=== PATIENT | male | born 1940 | race Two or more races ===

== ENCOUNTER 2025-01-03 02:33 | Inpatient (IN) | payer OTHER, MEDICAID ==
[~2025-01-03] VITALS: Ht 152.4 cm; Wt 59.0 kg
--- NOTE | 2025-01-03 03:20 | ED.PDOC ---
History of Present Illness HPI Comments 84-year-old male who came to ER via EMS due to generalized weakness. Patient is bed-bound and has history of hypertension and diabetes, was noted by family members earlier today that patient appears to be more weak and fatigued than usual. Unable to move around even at bed. 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 Allergies: Coded Allergies: NO KNOWN ALLERGIES (Unverified , 01/03/25) Information Source: Patient, Emergency Med Personnel Mode of Arrival: Ambulatory Severity: Moderate Timing: Hours Duration: Since onset Prehospital treatment: Accucheck Past Medical History PAST MEDICAL HISTORY: DM, HTN Surgical History: BKA (Right) Family History Family History: Reviewed,noncontributory to illness Social History Smoker: Non-Smoker Alcohol: Denies ETOH Use Drugs: Denies Drug Use Lives In: Home Constitutional: reports: fatigue, weakness; denies: chills, diaphoresis, fever, malaise, sweats, others EENTM: denies: blurred vision, double vision, ear bleeding, ear discharge, ear drainage, ear pain, ear ringing, eye pain, eye redness, hearing loss, mouth pain, mouth swelling, nasal discharge, nose bleeding, nose congestion, nose pain, photophobia, tearing, throat pain, throat swelling, voice changes, others Respiratory: denies: cough, hemoptysis, orthopnea, SOB at rest, shortness of breath, SOB with excertion, stridor, wheezing, others Cardiovascular: denies: chest pain, dizzy spells, diaphoresis, Dyspnea on e xertion, edema, irregular heart beat, left arm pain, lightheadedness, palpitations, PND, syncope, others Gastrointestinal: denies: abdomen distended, abdominal pain, blood streaked bowels, constipated, diarrhea, dysphagia, difficulty swallowing, hematemesis, melena, nausea, poor appetite, poor fluid intake, rectal bleeding, rectal pain, vomiting, others Genitourinary: denies: burning, dysuria, flank pain, frequency, hematuria, incontinence, penile discharge, penile sore, pain, testicle pain, testicle swelling, urgency, others Neurological: denies: dizziness, fainting, headache, left sided numbness, left sided weakness, numbness, paresthesia, pre-existing deficit, right sided numbness, right sided weakness, seizure, speech problems, tingling, tremors, weakness, others Musculoskeletal: denies: back pain, gout, joint pain, joint swelling, muscle pain, muscle stiffness, neck pain, others Integumetry: denies: bruises, change in color, change in hair/nails, dryness, laceration, lesions, lumps, rash, wounds, others Allergic/Immunocompromised: denies: Difficulty Healing, Frequent Infections, Hives, Itching, others Hematologic/Lymphatic: denies: anemia, blood clots, easy bleeding, easy bruising, swollen glands, others Endocrine: denies: excessive hunger, excessive sweating, excessive thirst, excessive urination, flushing, intolerance to cold, intolerance to heat, unexplained weight gain, unexplained weight loss, others Psychiatric: denies: anxiety, bipolar disorder, depression, hopeless, panic disorder, schizophrenia, sleepless, suicidal, others Physical Exam General Appearance: No Apparent Distress, Normal HEENT: Normal ENT Inspection, Pharynx Normal, TMs Normal Neck: Full Range of Motion, Non-Tender, Normal, Normal Inspection Respiratory: Chest Non-Tender, Lungs Clear, No Accessory Muscle Use, No Respiratory Distress, Normal Breath Sounds Cardiovascular: No Edema, No JVD, No Murmur, No Gallop, Normal Peripheral Pulses, Regular Rate/Rhythm Breast Exam: Deferred Gastrointestinal: No Organomegaly, Non Tender, No Pulsatile Mass, Normal Bowel Sounds, Soft Genitalia: Deferred Pelvic: Deferred Rectal: Deferred Extremities: No calf tenderness, Normal capillary refill, Normal inspection, Normal range of motion, Non-tender, No pedal edema Musculoskeletal : Apperance: Normal Neurologic: Alert, parole board 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 Was a procedure done?: No EKG EKG : Pulse Rate (adult): 84 Cardiac Rhythm: NSR Comments Multiple ventricular premature complex, left anterior fascicular block Differential Dx Considerations may include: Anemia, electrolyte imbalance, weakness, dehydration X-Ray, Labs, Meds, VS Vital Signs Date Time Temp Pulse Resp B/P (MAP) Pulse Ox O2 Delivery O2 Flow Rate FiO2 5/4/25 03:21 79 15 99 Room Air* 0 21 01/03/25 03:21 97.7 79 15 127/60 (82) 99 97.7 01/03/25 03:19 84 01/03/25 02:42 84 01/03/25 02:33 97.6 82 16 130/57 (81) 96 97.6 Lab Test 01/03/25 04:01 01/03/25 03:43 01/03/25 03:10 Range/Units Troponin I High Sensitivity 5 5 </=54 ng/L Urine Color Light-yellow Yellow Urine Clarity Clear Clear Urine pH 6.0 5.0-9.0 Urine Specific [place] 1.012 1.001-1.035 Urine Protein 2+ H Negative Urine Ketones Negative Negative Urine Blood 1+ H Negative /uL Urine Nitrite Negative Negative Urine Bilirubin Negative Negative Urine Urobilinogen Normal Negative mg/dL Urine Leukocyte Esterase Negative Negative /uL Urine RBC 1 0 - 3 /hpf Urine Microscopic WBC 1 0-3 /HPF Urine Squamous Epithelial Cells Few <5 /hpf Urine Bacteria Few H None Seen /hpf Urine Glucose Trace Normal mg/dL White Blood Count 7.2 4.4-10.8 10^3/uL Red Blood Count 3.30 L 4.5-5.90 10^6/uL Hemoglobin 9.5 L 13.5-17.5 g/dL Hematocrit 29.3 L 41.0-53.0 % Mean Corpuscular Volume 88.6 80.0-100.0 fL Mean Corpuscular Hemoglobin 28.7 28.0-32.0 pg Mean Corpuscular Hemoglobin Concent 32.4 32.0-36.0 g/dL Red Cell Distribution Width 16.6 H 11.8-14.3 % Platelet Count 182 140-450 10^3/uL Mean Platelet Volume 10.5 6.9-10.8 fL Neutrophils (%) (Auto) 52.4 37.0-80.0 % Lymphocytes (%) (Auto) 30.0 10.0-50.0 % Monocytes (%) (Auto) 11.3 0.0-12.0 % Eosinophils (%) (Auto) 5.3 0.0-7.0 % Basophils (%) (Auto) 1.0 0.0-2.0 % Neutrophils # (Auto) 3.8 1.6-8.6 10 ^3/uL Lymphocytes # (Auto) 2.2 0.4-5.4 10 ^3/uL Monocytes # (Auto) 0.8 0-1.3 10 ^3/uL Eosinophils # (Auto) 0.4 0-0.8 10 ^3/uL Basophils # (Auto) 0.1 0-0.2 10 ^3/uL Nucleated Red Blood Cells 0.0 % Sodium Level 142 136-145 mmol/L Potassium Level 4.1 3.5-5.1 mmol/L Chloride Level 114 H 98-107 mmol/L Carbon Dioxide Level 16 L 20-31 mmol/L Anion Gap 12 5-15 Blood Urea Nitrogen 48 H 9-23 mg/dL Creatinine 3.38 H 0.700-1.30 mg/dL Glomerular Filtration Rate Calc 17 >90 mL/min BUN/Creatinine Ratio 14.2 10.0-20.0 Serum Glucose 158 H 74-106 mg/dL Lactic Acid Level 0.8 0.4-2.0 mmol/L Calcium Level 9.7 8.7-10.4 mg/dL Total Bilirubin 0.3 0.2-1.0 mg/dL Aspartate Amino Transferase (AST) 37 13-40 U/L Alanine Aminotransferase (ALT) 46 H 7-40 U/L Alkaline Phosphatase 264 H 46-116 U/L B-Type Natriuretic Peptide 61.59 0-100 pg/mL Total Protein 7.6 5.7-8.2 g/dL Albumin 4.4 3.2-4.8 g/dL Current Medications Medications (Trade) Dose Ordered Sig/Valeriy Route Start Time Stop Time Status Last Admin Sodium Chloride 1,000 ml @ 1,000 mls/hr Q1H ONCE IV 01/03/25 04:00 01/03/25 04:59 DC 01/03/25 04:30 Time of 1ST Reevaluation: 03:15 Reevaluation 1ST: Unchanged Patient Education/Counseling: Diagnosis, Treatment Family Education/Counseling: No Family Present Departure 1 Departure Time of Disposition: 05:33 (Patient with generalized weakness and worsening mental status. We will admit patient for further and expert consultation) Impression: Primary Impression: Metabolic encephalopathy Additional Impression: Generalized weakness Disposition: 09 ADMITTED INPATIENT Admit to: Tele Condition: Serious Critical Care Note Critical Care Time?: Yes Critical care comment: Altered mental status Authorized and Performed by: Xenia Lux MD Total critical care time: Approximately 38 minutes Due to a high probability of clinically significant, life threatening deteri oration, the patient required my highest level of preparedness to intervene emergently and I personally spent this critical care time directly and personally managing the patient. This critical care time included obtaining a history; examining the patient; pulse oximetry; ordering and review of studies; arranging urgent treatment with development of a management plan; evaluation of patient's response to treatment; frequent reassessment; and, discussions with other providers. This critical care time was performed to assess and manage the high probability of imminent, life-threatening deterioration that could result in multi-organ ashley lure. It was exclusive of separately billable procedures and treating other patients and teaching time. Please see my other sections and the rest of the note for further information on patient assessment and treatment. Stability Stability form required: No Heart Score Heart Score: Heart Score Response (Comments) Value History Slightly Suspicious 0 EKG Repolarization Disturb 1 Age >65 2 Risk Factors >3 or Hx ASHD 2 Troponin Normal limit 0 Total 5 I personally scribed for XENIA LUX MD ([email or web address]) on 01/03/25 at 03:19. Electro nically submitted by Juan Trujillo ([facility]). XENIA LUX MD January 03, 2025 03:19
[2025-01-03 03:21] VITALS: PULSE 79; RESP 15; O2SAT 99
[2025-01-03 03:44] LABS: Basophils # (auto) 0.1 10 ^3/uL (0-0.2); Eosinophils # (auto) 0.4 10 ^3/uL (0-0.8); Eosinophils % (auto) 5.3 % (0.0-7.0); Hematocrit 29.3 % (41.0-53.0); Hemoglobin 9.5 g/dL (13.5-17.5); Lymphocytes # (auto) 2.2 10 ^3/uL (0.4-5.4); Mean Corpuscular Hemoglobin 28.7 pg (28.0-32.0); Mean Corpuscular Hgb Conc. 32.4 g/dL (32.0-36.0); Mean Corpuscular Volume 88.6 fL (80.0-100.0); Monocytes # (auto) 0.8 10 ^3/uL (0-1.3); Monocytes % (auto) 11.3 % (0.0-12.0); Neutrophils # (auto) 3.8 10 ^3/uL (1.6-8.6); Neutrophils % (auto) 52.4 % (37.0-80.0); Platelet Count (auto) 182 10^3/uL (140-450); Red Cell Distribution Width 16.6 % (11.8-14.3); White Blood Cell 7.2 10^3/uL (4.4-10.8)
[2025-01-03 03:49] LABS: Anion Gap 12 (5-15); Aspartate Aminotransferase 37 U/L (13-40); BUN/Creatinine Ratio 14.2 (10.0-20.0); Calcium 9.7 mg/dL (8.7-10.4); Potassium 4.1 mmol/L (3.5-5.1); Sodium 142 mmol/L (136-145); Total Protein 7.6 g/dL (5.7-8.2)
[2025-01-03 03:50] LABS: Albumin 4.4 g/dL (3.2-4.8)
[2025-01-03 03:51] LABS: Alanine Aminotransferase 46 U/L (7-40); Alkaline Phosphatase 264 U/L (46-116); Bilirubin, Total 0.3 mg/dL (0.2-1.0); Blood Urea Nitrogen 48 mg/dL (9-23); Carbon Dioxide 16 mmol/L (20-31); Chloride 114 mmol/L (98-107); Glucose 158 mg/dL (74-106)
[2025-01-03 03:53] LABS: Urine Bacteria FEW /hpf (None Seen); Urine Blood 1+ /uL (Negative); Urine Clarity Clear (Clear); Urine Color Light-Yellow (Yellow); Urine Protein, UAD 2+ (Negative); Urine Specific Gravity 1.012 (1.001-1.035); Urine Squamous Epithelial Cell FEW /hpf (<5); Urine Urobilinogen Normal (Negative); Urine WBC 1 /HPF (0-3)
--- NOTE | 2025-01-03 04:18 | DVH ---
CHEST RADIOGRAPH Indication: ams Technique: Single frontal view of the chest was obtained COMPARISON: None FINDINGS: Lines and Tubes: Right peripherally inserted central catheter terminates at the expected location of the cavoatrial junction. Lungs: Clear Pleura: No effusion. No pneumothorax. Cardiomediastinal contours: Unremarkable. Atherosclerotic vascular calcifications. Bones: Unremarkable IMPRESSION: 1. No acute disease. Right PICC noted.
--- NOTE | 2025-01-03 04:25 | DVH ---
EXAM: CT HEAD WITHOUT CONTRAST INDICATION: ams TECHNIQUE: CT of the head without intravenous contrast. Radiation Dose : 1. Head: CT Dose: CTDI volume is 58.57 mGy. Dose-length product is 1035.78 mGy*cm The dose indicators for CT are the volume Computed Tomography (CT) Dose Index (CTDIvol) and the Dose Length Product (DLP), and are measured in units of mGy and mGy-cm, respectively. These indicators are not patient dose, but values generated from the CT scanner acquisition factors. The report includes radiation exposure data for exposures received during this examination. COMPARISON: None FINDINGS: There is no evidence of acute intracranial hemorrhage, extra-axial collection, mass effect, midline s hift, herniation or hydrocephalus. Increased prominence of the ventricles, sulci and cisterns is consistent with the sequelae of atrophi c cortical volume loss. The quiles-white differentiation is intact. Moderate diffuse confluent periventricular and subcortical white matter hypoattenuation is nonspecifi c but may be related to small vessel ischemic disease. Chronic appearing bilateral basal ganglia and thalamic lacunar infarcts. The visualized paranasal sinuses and mastoid air cells are clear. The surrounding soft tissues and osseous structures are unremarkable. IMPRESSION: 1. No acute intracranial abnormality. 2. 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 3. Chronic appearing bilateral basal ganglia and thalamic lacunar infarcts. Radiation optimization: All CT scans at this facility use at least one of these dose optimization james hniques: automated exposure control mA and/or kV adjustment per patient size (includes targeted exam s where dose is matched to clinical indication) or iterative reconstruction.
[2025-01-03] MEDS: SODIUM CHLORIDE 0.9% 1,000 ML IV ONE (04:30)
[2025-01-03] MEDS: ONDANSETRON HCL 4 MG/2 ML VIAL IV ONE (04:35)
[2025-01-03] MEDS ORDERED: DOCUSATE SOD 100 MG CAP PO PRN (08:15)
[2025-01-03] MEDS ORDERED: HYDROcodone-ACET 5/325MG TAB PO PRN (08:15)
[2025-01-03] MEDS ORDERED: ACETAMINOPHEN 325 MG TAB PO PRN (08:15)
[2025-01-03] MEDS ORDERED: ONDANSETRON HCL 4 MG/2 ML VIAL IV PRN (08:15)
--- NOTE | 2025-01-03 08:23 | DVHHP2 ---
History of Present Illness History of Present Illness 84-year-old male past medical history of right AKA, left 2nd toe amputation October 2024 on IV antibiotics, diabetes, hypertension, dementia likely, CKD? who came to ER via EMS due to generalized weakness. Patient is bed-bound and has history of hypertension and diabetes, was noted by family members earlier today that patient appears to be more weak and fatigued than usual. Unable to move around even at bed. Blood sugar on scene was 145, blood pressure of 130/57 mm Hg. Difficult to interview, patient dementia, bedside family unaware of history, history with sister on phone [place] speaking only, for availability of home meds. Patient denies any symptoms or any concerns, unreliable historian. Permanently brought in by family concern that patient was more weak in bed. Review of Systems Review of Systems As HPI Allergies: Coded Allergies: NO KNOWN ALLERGIES (Unverified , 01/03/25) Exam Vital Signs Vital Signs Date Time Temp Pulse Resp B/P (MAP) Pulse Ox O2 Delivery O2 Flow Rate FiO2 01/03/25 07:00 78 14 134/62 (86) 99 01/03/25 03:21 Room Air* 0 21 01/03/25 03:21 97.7 97.7 Exam GEN: Healthy appearing, well-developed, NAD. HEENT: NC/AT; MMM. CV: RRR, no m/r/g. LUNGS: CTAB, no w/r/c. ABD: Soft, NT/ND, NBS, no masses or organomegaly. EXT: Right AKA, left with 2nd toe amputation with a wound VAC on, CDI. NEURO: Ambulating with no limitations. No focal deficits. Labs/Xrays Labs Test 01/03/25 06:15 01/03/25 03:43 01/03/25 03:10 Range/Units Troponin I High Sensitivity 4 </=54 ng/L Urine Color Light-yellow Yellow Urine Clarity Clear Clear Urine pH 6.0 5.0-9.0 Urine Specific [place] 1.012 1.001-1.035 Urine Protein 2+ H Negative Urine Ketones Negative Negative Urine Blood 1+ H Negative /uL Urine Nitrite Negative Negative Urine Bilirubin Negative Negative Urine Urobilinogen Normal Negative mg/dL Urine Leukocyte Esterase Negative Negative /uL Urine RBC 1 0 - 3 /hpf Urine Microscopic WBC 1 0-3 /HPF Urine Squamous Epithelial Cells Few <5 /hpf Urine Bacteria Few H None Seen /hpf Urine Glucose Trace Normal mg/dL White Blood Count 7.2 4.4-10.8 10^3/uL Red Blood Count 3.30 L 4.5-5.90 10^6/uL Hemoglobin 9.5 L 13.5-17.5 g/dL Hematocrit 29.3 L 41.0-53.0 % Mean Corpuscular Volume 88.6 80.0-100.0 fL Mean Corpuscular Hemoglobin 28.7 28.0-32.0 pg Mean Corpuscular Hemoglobin Concent 32.4 32.0-36.0 g/dL Red Cell Distribution Width 16.6 H 11.8-14.3 % Platelet Count 182 140-450 10^3/uL Mean Platelet Volume 10.5 6.9-10.8 fL Neutrophils (%) (Auto) 52.4 37.0-80.0 % Lymphocytes (%) (Auto) 30.0 10.0-50.0 % Monocytes (%) (Auto) 11.3 0.0-12.0 % Eosinophils (%) (Auto) 5.3 0.0-7.0 % Basophils (%) (Auto) 1.0 0.0-2.0 % Neutrophils # (Auto) 3.8 1.6-8.6 10 ^3/uL Lymphocytes # (Auto) 2.2 0.4-5.4 10 ^3/uL Monocytes # (Auto) 0.8 0-1.3 10 ^3/uL Eosinophils # (Auto) 0.4 0-0.8 10 ^3/uL Basophils # (Auto) 0.1 0-0.2 10 ^3/uL Nucleated Red Blood Cells 0.0 % Sodium Level 142 136-145 mmol/L Potassium Level 4.1 3.5-5.1 mmol/L Chloride Level 114 H 98-107 mmol/L Carbon Dioxide Level 16 L 20-31 mmol/L Anion Gap 12 5-15 Blood Urea Nitrogen 48 H 9-23 mg/dL Creatinine 3.38 H 0.700-1.30 mg/dL Glomerular Filtration Rate Calc 17 >90 mL/min BUN/Creatinine Ratio 14.2 10.0-20.0 Serum Glucose 158 H 74-106 mg/dL Lactic Acid Level 0.8 0.4-2.0 mmol/L Calcium Level 9.7 8.7-10.4 mg/dL Total Bilirubin 0.3 0.2-1.0 mg/dL Aspartate Amino Transferase (AST) 37 13-40 U/L Alanine Aminotransferase (ALT) 46 H 7-40 U/L Alkaline Phosphatase 264 H 46-116 U/L B-Type Natriuretic Peptide 61.59 0-100 pg/mL Total Protein 7.6 5.7-8.2 g/dL Albumin 4.4 3.2-4.8 g/dL Assessment/Plan Assessment/Plan ALOC Weakness , likely renal failure related Right AKA history Recent left foot amputation to, on the leg, on IV antibiotics PICC line LORI, likely VMn, possibly on CKD Unknown antibiotic PICC line, possible vancomycin related renal failure, we will rule out On insulin, monitor hyperglycemia Constipation, possible Statin myopathy, rule out Dementia, 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 Difficult to interview, patient dementia, bedside family unaware of history, history with sister on phone [place] speaking only, for availability of home meds Need records from [place], unknown PICC line antibiotic Continue home meds Constipation possible, hold iron Continue antidepressant dose of home Basaglar 12 units hence we will use 8 units likely We will use sliding scale for meals, at home uses 4 units with meals Continue home nifedipine Hold home statin ruled out statin myopathy Continue ticagrelor equivalent Bedside swallow test by nursing Left foot CT Ceftriaxone, doxycycline, IV Flagyl p.o. Blood cultures, ammonia, TSH, CK, Check FENA labs Diet puree after swallow bedside test DVT prophylaxis-Lovenox GI prophylaxis Protonix IV daily Med tele Full code Plan discussed with: Patient Date of Service: January 03, 2025 Billing Provider: ESTHELA JAMES MD Common Visit Codes: 38532-EJLODCF INP/OBS CARE (HIGH) Secondary Visit Codes: 43572-[id number] CARE PLAN 30 MINUTES ESTHELA JAMES MD January 03, 2025 08:23
[2025-01-03] MEDS: cefTRIAXone 1GM/50ML D5W 50 ML IV ONE (08:46)
[2025-01-03] MEDS: DOXYCYCLINE 100MG/100ML 100 ML IV ONE (09:29)
--- NOTE | 2025-01-03 09:35 | DVH ---
CLINICAL INFORMATION: Status post surgery. eval for infection signs. TECHNIQUE: Axial CT images of the left foot were obtained without IV contrast. Coronal and sagittal r eformatted images were obtained, reviewed, and stored. All CT scans at this medical facility are per formed using dose modulation techniques as appropriate to a performed exam including the following: A utomated exposure control was utilized; adjustment of the MA and/or KV according to patient size; and use of iterative reconstruction technique. CTDIvol = 13.85 mGy DLP = 347.32 mGy-cm COMPARISON: None provided at the time of dictation. FINDINGS: Postsurgical changes from amputation of the distal aspects of the 2nd and 3rd metatarsals. There is adjacent tissue swelling, which may residual sequela of postsurgical changes. Superimposed infection not excluded in the appropriate clinical setting. Wound VAC overlying the amputation site. No definite erosive changes are seen in the 2nd and 3rd metatarsal amputation stumps. There is cortic al deformity of the 3rd metatarsal head adjacent portions of the of the proximal phalanx of the 4th d igit, of uncertain chronicity, may be sequela prior trauma or infection/ osteomyelitis. Moderate join t space narrowing of the 5th MTP joint no evidence of acute osseous abnormality. Moderate joint space narrowing of the 1st MTP joint with associated subchondral sclerosis moderate arthritic changes at t he interphalangeal joint of the 1st digit. Arterial calcification. Moderate subcutaneous edema throug hout the foot. IMPRESSION: 1. Postsurgical changes of amputation of the 2nd and 3rd metatarsals. 2. Soft tissue swelling adjacent to the amputation site, likely due to recent postsurgical changes. S uperimposed infection not excluded in the appropriate clinical setting. 3. Cortical deformity of the 3rd metatarsal head and adjacent portions of the base of the proximal ph alanx of uncertain chronicity. Infection/ osteomyelitis not excluded. Correlate with the findings. If clinically indicated, MRI could be obtained to further evaluate. 4. Additional findings as detailed above.
[2025-01-03 10:04] LABS: Creatinine, Urine 47.17 mg/dL (30.0-125.0)
[2025-01-03] MEDS: ENOXAPARIN SOD 30 MG/0.3 ML SYRINGE SC SCH (10:13)
[2025-01-03] MEDS: metroNIDAZOLE 500 MG TAB PO SCH (14:12)
--- NOTE | 2025-01-03 15:30 | DVH ---
RENAL ULTRASOUND CLINICAL HISTORY: mei TECHNIQUE: Multiple grayscale ultrasound images were obtained through the kidneys and urinary bladder . COMPARISON: None FINDINGS: Right kidney: Measures 10.7 cm. No hydronephrosis. Left kidney: Measures 10.6 cm. No hydronephrosis. Urinary bladder: Unremarkable. Prevoid volume 594 mL IMPRESSION: Normal size kidneys without evidence of hydronephrosis.
[2025-01-03 15:35] VITALS: PULSE 79; RESP 14; O2SAT 99
--- NOTE | 2025-01-03 15:38 | DVHINCON2 ---
Date of service: January 03, 2025 Reason for Consultation mei History of Present Illness 84 years old [place]i-speaking male with past medical history of right AKA, left amputation, diabetes, hypertension, dementia, Chronic kidney disease, presented with chief complaints of generalized weakness worsening patient's family is bedside, no baseline renal function available Patient is bed-bound Past Medical History As per HPI Allergies: Coded Allergies: NO KNOWN ALLERGIES (Unverified , 01/03/25) Current Medications Current Medications Medications (Trade) Dose Ordered Sig/Valeriy Route PRN Reason Start Time Stop Time Status Last Admin Metronidazole (Flagyl Tablet) 250 mg Q8HR PO 01/03/25 14:00 01/03/25 14:12 Acetaminophen/ Hydrocodone Bitart ([place] 5/325MG Tab) 1 tab Q4HP PRN PO MODERATE PAIN (4-6 PAIN SCALE) 01/03/25 08:15 Ondansetron HCl (Zofran) 4 mg Q4HP PRN IV NAUSEA / VOMITING 01/03/25 08:15 Docusate Sodium (Colace Capsule) 100 mg BIDPRN PRN PO FOR CONSTIPATION 01/03/25 08:15 Enoxaparin Sodium (Lovenox) 30 mg DAILY SC 01/03/25 10:00 01/03/25 10:13 Acetaminophen (Tylenol Tablet) 650 mg Q6HP PRN PO PAIN SCALE 1-3 OR TEMP>100.4 01/03/25 08:15 Morphine Sulfate 2 mg Q4HPRN PRN IV SEVERE PAIN (7-10 PAIN SCALE) 01/03/25 08:15 Review of Systems Unknown exactly patient poor historian H&P Exam Vital Signs/I&O Vital Sign Date Time Temp Pulse Resp B/P (MAP) Pulse Ox O2 Delivery O2 Flow Rate FiO2 01/03/25 15:28 79 14 148/46 (80) 99 01/03/25 03:21 Room Air* 0 21 01/03/25 03:21 97.7 97.7 Physical Exam Elderly male Fair bilateral entry Amputation Labs/Diagnostic Data Labs/Diagnostic Data Laboratory Tests Test 01/03/25 08:50 01/03/25 06:15 01/03/25 04:01 01/03/25 03:43 Range/Units Ammonia 30 11-32 umol/L Creatine Kinase 28 L 46-171 U/L Troponin I High Sensitivity 4 5 </=54 ng/L Thyroid Stimulating Hormone (TSH) 6.07 H 0.55-4.78 uIU/mL Urine Color Light-yellow Yellow Urine Clarity Clear Clear Urine pH 6.0 5.0-9.0 Urine Specific [place] 1.012 1.001-1.035 Urine Protein 2+ H Negative Urine Ketones Negative Negative Urine Blood 1+ H Negative /uL Urine Nitrite Negative Negative Urine Bilirubin Negative Negative Urine Urobilinogen Normal Negative mg/dL Urine Leukocyte Esterase Negative Negative /uL Urine RBC 1 0 - 3 /hpf Urine Microscopic WBC 1 0-3 /HPF Urine Squamous Epithelial Cells Few <5 /hpf Urine Bacteria Few H None Seen /hpf Urine Creatinine 47.17 30.0-125.0 mg/dL Urine Sodium 71 40-220 mmol/L Urine Glucose Trace Normal mg/dL Test 01/03/25 03:10 Range/Units White Blood Count 7.2 4.4-10.8 10^3/uL Red Blood Count 3.30 L 4.5-5.90 10^6/uL Hemoglobin 9.5 L 13.5-17.5 g/dL Hematocrit 29.3 L 41.0-53.0 % Mean Corpuscular Volume 88.6 80.0-100.0 fL Mean Corpuscular Hemoglobin 28.7 28.0-32.0 pg Mean Corpuscular Hemoglobin Concent 32.4 32.0-36.0 g/dL Red Cell Distribution Width 16.6 H 11.8-14.3 % Platelet Count 182 140-450 10^3/uL Mean Platelet Volume 10.5 6.9-10.8 fL Neutrophils (%) (Auto) 52.4 37.0-80.0 % Lymphocytes (%) (Auto) 30.0 10.0-50.0 % Monocytes (%) (Auto) 11.3 0.0-12.0 % Eosinophils (%) (Auto) 5.3 0.0-7.0 % Basophils (%) (Auto) 1.0 0.0-2.0 % Neutrophils # (Auto) 3.8 1.6-8.6 10 ^3/uL Lymphocytes # (Auto) 2.2 0.4-5.4 10 ^3/uL Monocytes # (Auto) 0.8 0-1.3 10 ^3/uL Eosinophils # (Auto) 0.4 0-0.8 10 ^3/uL Basophils # (Auto) 0.1 0-0.2 10 ^3/uL Nucleated Red Blood Cells 0.0 % Sodium Level 142 136-145 mmol/L Potassium Level 4.1 3.5-5.1 mmol/L Chloride Level 114 H 98-107 mmol/L Carbon Dioxide Level 16 L 20-31 mmol/L Anion Gap 12 5-15 Blood Urea Nitrogen 48 H 9-23 mg/dL Creatinine 3.38 H 0.700-1.30 mg/dL Glomerular Filtration Rate Calc 17 >90 mL/min BUN/Creatinine Ratio 14.2 10.0-20.0 Serum Glucose 158 H 74-106 mg/dL Lactic Acid Level 0.8 0.4-2.0 mmol/L Calcium Level 9.7 8.7-10.4 mg/dL Total Bilirubin 0.3 0.2-1.0 mg/dL Aspartate Amino Transferase (AST) 37 13-40 U/L Alanine Aminotransferase (ALT) 46 H 7-40 U/L Alkaline Phosphatase 264 H 46-116 U/L Troponin I High Sensitivity 5 </=54 ng/L B-Type Natriuretic Peptide 61.59 0-100 pg/mL Total Protein 7.6 5.7-8.2 g/dL Albumin 4.4 3.2-4.8 g/dL Assessment Acute kidney injury rule out obstruction Unknown baseline renal function Diabetes Hypertension Recommendations Check bladder scan if residual greater than 300 insert Demarco catheter Gentle IV fluids Urine workup as ordered Strict Is&Os We will follow closely Patient is mostly bed-bound status Plan discussed with: Patient, Other GABRIELLA LARA MD January 03, 2025 15:38
[2025-01-03 17:07] VITALS: RESP 18
[2025-01-03 20:00] VITALS: PULSE 89; PULSE 90; RESP 16; O2SAT 99
[2025-01-03 21:00] VITALS: BP 150/74; PULSE 90; RESP 16; TEMP 98.2; O2SAT 99
[2025-01-03] MEDS ORDERED: TICA90TA PO (23:34)
[2025-01-03] MEDS ORDERED: NIFE90TA75 PO (23:34)
[2025-01-03] MEDS ORDERED: GLIP10TA9 PO (23:34)
[2025-01-03] MEDS ORDERED: CHOL20007 OR (23:34)
[2025-01-03] MEDS ORDERED: ASPI-543 PO (23:34)
[2025-01-03] MEDS ORDERED: FERR325T24 PO (23:46)
[2025-01-03] MEDS ORDERED: INSU1INJ19 SC (23:46)
[2025-01-03] MEDS ORDERED: ATOR40TA52 PO (23:46)
[2025-01-03] MEDS ORDERED: [UNRECOGNIZED DRUG - CODE] IV (23:46)
[2025-01-03] MEDS ORDERED: CEFE2INJ2 IJ (23:46)
[2025-01-03] MEDS ORDERED: GABA-1308 PO (23:46)
[2025-01-03] MEDS ORDERED: ALEN70TA74 PO (23:46)
[2025-01-03] MEDS ORDERED: INSU100I54 SC (23:46)
[2025-01-04 01:00] VITALS: BP 147/70; PULSE 82; RESP 16; TEMP 98; O2SAT 96
[2025-01-04 05:00] VITALS: BP 144/70; PULSE 86; RESP 17; TEMP 99.1; O2SAT 95
[2025-01-04 07:02] LABS: Basophils # (auto) 0.1 10 ^3/uL (0-0.2); Basophils % (auto) 0.9 % (0.0-2.0); Eosinophils # (auto) 0.3 10 ^3/uL (0-0.8); Eosinophils % (auto) 4.5 % (0.0-7.0); Hemoglobin 9.1 g/dL (13.5-17.5); Lymphocytes # (auto) 1.3 10 ^3/uL (0.4-5.4); Lymphocytes % (auto) 20.9 % (10.0-50.0); Mean Corpuscular Hemoglobin 29.2 pg (28.0-32.0); Mean Corpuscular Hgb Conc. 32.5 g/dL (32.0-36.0); Mean Corpuscular Volume 89.8 fL (80.0-100.0); Monocytes # (auto) 0.6 10 ^3/uL (0-1.3); Neutrophils % (auto) 63.7 % (37.0-80.0); Nucleated Red Blood Cells % 0.1 %; Platelet Count (auto) 163 10^3/uL (140-450); Red Blood Cells 3.12 10^6/uL (4.5-5.90); Red Cell Distribution Width 16.5 % (11.8-14.3); White Blood Cell 6.2 10^3/uL (4.4-10.8)
[2025-01-04 07:16] LABS: Anion Gap 13 (5-15); BUN/Creatinine Ratio 14.1 (10.0-20.0); Calcium 9.7 mg/dL (8.7-10.4); Potassium 3.9 mmol/L (3.5-5.1); Sodium 144 mmol/L (136-145); Total Protein 7.4 g/dL (5.7-8.2)
[2025-01-04 07:18] LABS: Albumin 4.3 g/dL (3.2-4.8)
[2025-01-04 07:26] LABS: Alanine Aminotransferase 48 U/L (7-40); Alkaline Phosphatase 275 U/L (46-116); Aspartate Aminotransferase 42 U/L (13-40); Bilirubin, Total 0.3 mg/dL (0.2-1.0); Blood Urea Nitrogen 48 mg/dL (9-23); Carbon Dioxide 15 mmol/L (20-31); Chloride 116 mmol/L (98-107); Glucose 128 mg/dL (74-106)
[2025-01-04 08:00] VITALS: PULSE 79; RESP 16
[2025-01-04 09:30] VITALS: BP 148/73; PULSE 86; RESP 16; TEMP 98.2; O2SAT 98
[2025-01-04] MEDS: cefTRIAXone 1GM/50ML D5W 50 ML IV SCH (10:49)
[2025-01-04] MEDS: MORPHINE SULFATE INJ 2 MG/ml SYRG IV PRN (11:46)
--- NOTE | 2025-01-04 12:50 | ECG ---
[facility] Test Date: 2025-01-03 Test Time: 02:42:49 Pat Name: NATALIO MKCEON Department: ED Room: 0250 Gender: M Housing Management Representative: JULIA : 1940 Requested By: XENIA LEMUS Order Number: [id number] Reading MD: Thad Perez Measurements Intervals [place] Rate: 84 P: 31 [place]: 160 QRS: -58 QRSD: 93 T: 47 QT: 398 QTc: 471 Interpretive Statements Sinus rhythm Multiple ventricular premature complexes Left anterior fascicular block Anterior infarct, age indeterminate Electronically Signed On 01-07-2025 20:33:10 PDT by Thad Perez Please click the below link to view image of tracing.
[2025-01-04] MEDS ORDERED: TICAGRELOR 60 MG TAB PO ONE (13:15)
[2025-01-04] MEDS ORDERED: DEXTROSE (50%) 50ML SYRG IV PRN (13:15)
[2025-01-04] MEDS: SODIUM CHLORIDE 0.9% 1,000 ML IV SCH (13:30)
[2025-01-04] MEDS: TAMSULOSIN HYDROCHLORIDE 0.4 MG CAP PO ONE (14:30)
[2025-01-04] MEDS: FINASTERIDE 5 MG TAB PO ONE (14:30)
[2025-01-04] MEDS: TICAGRELOR 90 MG TAB PO ONE (14:31)
--- NOTE | 2025-01-04 15:52 | DVHPN2 ---
Progress Note Date Seen: January 04, 2025 Resident Creating Document: KEITH MEHTA RESIDENT Has the PT tested + for MRSA If YES, has PT been informed?: No Medical Necessity Reason Pt with a Central, PICC or Fol: No Subjective Review of Systems Patient seen and examined at bedside. Patient is alert but disoriented and slightly aggressive. Patient seemed to be having slightly episode of delirium according to the family, he was aggressive with medical staff. Upon my examination, there was no peripheral edema at this point, bilateral lung sounds grossly clear. We will start fluids NS 0.9% at 70 cc/hour. Creatinine was 3.45 and BUN 48, we will monitor kidney function closely and continue IV antibiotics per hospitalist team. ROS unable to obtain since patient is non cooperative and slightly aggressive with medical staff. Objective vital signs Vital Sign Date Time Temp Pulse Resp B/P (MAP) Pulse Ox O2 Delivery O2 Flow Rate FiO2 01/04/25 09:30 98.2 86 16 148/73 (98) 98 98.2 01/04/25 08:00 Room Air* 0 21 Total Intake and Output 01/03/25 01/03/25 01/04/25 15:00 23:00 07:00 Intake Total 200 ml 120 ml 150 ml Output Total 900 ml 1250 ml Balance 200 ml -780 ml -1100 ml medications Current Medications Medications Dose Ordered Sig/Valeriy Route Start Time Stop Time Status Last Admin Dose Admin Metronidazole 250 mg Q8HR PO 01/03/25 14:00 01/04/25 14:30 250 MG Acetaminophen/ Hydrocodone Bitart 1 tab Q4HP PRN PO 01/03/25 08:15 Ondansetron HCl 4 mg Q4HP PRN IV 01/03/25 08:15 Docusate Sodium 100 mg BIDPRN PRN PO 01/03/25 08:15 Enoxaparin Sodium 30 mg DAILY SC 01/03/25 10:00 01/04/25 08:47 30 MG Acetaminophen 650 mg Q6HP PRN PO 01/03/25 08:15 Morphine Sulfate 2 mg Q4HPRN PRN IV 01/03/25 08:15 Ceftriaxone Sodium 50 ml @ 100 mls/hr DAILY@09 IV 01/04/25 11:00 01/04/25 10:49 100 MLS/HR Sodium Chloride 1,000 ml @ 75 mls/hr [id number] IV 01/04/25 13:30 01/04/25 13:30 75 MLS/HR Tamsulosin HCl 0.4 mg QPM PO 01/04/25 18:00 Finasteride 5 mg DAILY PO 01/05/25 10:00 Ticagrelor 60 mg BID PO 01/04/25 22:00 UNV Ticagrelor 90 mg BID PO 01/04/25 22:00 Diagnostic Test (Pha) 1 strip ACHS 01/04/25 17:00 Insulin Human Regular ACHS SC 01/04/25 17:00 Dextrose 50 ml UD PRN IV 01/04/25 13:15 Examination Physical Examination General: Patient alert but slightly confuse and aggresive with medical staff. might be coursing with episode of delirium. HEENT: Normocephalic, atraumatic, moist mucous membranes Respiratory/pulmonary: Clear lungs bilaterally, no associated crackles or wheezes. Cardiovascular: Normal heart sounds S1 and S2 with no associated murmurs Abdomen: Abdomen nondistended, there is no pain to palpation in any of the abdominal quadrants, no palpable masses. Extremities: There is no peripheral edema present at the lower extremities. Peripheral Pulses: 3+ Radial (R). 3+ Radial (L). 3+ Dorsalis pedis (R). 3+ Dorsalis pedis(L) Skin: No rashes or pruritus, there is no sacral edema present at this time. Neurological: patient alert but confused and aggresive unable to eval cranial nerves. laboratory and microbiology Laboratory Tests 01/04/25 06:23 Test 01/04/25 06:23 Range/Units Serum Glucose 128 H 74-106 mg/dL Microbiology Date/Time Source Procedure Growth Status 01/03/25 03:10 Blood Blood Culture - Preliminary NO GROWTH AFTER 24 HOURS OF INCUBATION. 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 -strict in's and out -Demarco catheter in place -continue IV antibiotics per hospitalist team -continue mild sliding scale insulin -we will monitor creatinine and BUN, today 3.45 and 48 respectively. -Avoid nephrotoxic drugs -Monitor kidney function daily Goals of care discussed with the daughters at bedside for >20min, FULL CODE Plan discussed with Dr. Adkins Addendum Patient seen and examined, plan discussed with resident. Agree with above, we will follow closely Plan discussed with: Daughter My Orders My Orders Orders - KEITH MEHTA Procedure Category Date Status Time Ceftriaxone 1gm/50ml PHA 01/04/25 In Process D5w (Rocephin) 11:00 Sodium Chloride 0.9% PHA 01/04/25 In Process 13:30 KEITH MEHTA January 04, 2025 15:52 GABRIELLA ADKINS MD January 04, 2025 18:24
--- NOTE | 2025-01-04 16:20 | DVHINCON2 ---
Date of service: January 04, 2025 Referring Physician Hospitalist Reason for Consultation Urinary retention History of Present Illness 84-year-old male who came to ER via EMS due to generalized weakness. Patient is bed-bound and has history of hypertension and diabetes, was noted by family members earlier today that patient appears to be more weak and fatigued than usual. Unable to move around even at bed. Blood sugar on scene was 145, blood pressure of 130/57 mm Hg Chief Complaint: General Weakness Reviewed Notes: Kiln Pusher Notes Allergies: Coded Allergies: NO KNOWN ALLERGIES (Unverified , 01/03/25) Information Source: Patient, Emergency Med Personnel Mode of Arrival: Ambulatory Severity: Moderate Timing: Hours Duration: Since onset Prehospital treatment: Accucheck Past Medical History DM, HTN Past Surgical History BKA (Right) Toe amputation Family History: Patient reports no known family medical history. Allergies: Coded Allergies: NO KNOWN ALLERGIES (Unverified , 01/03/25) Home Meds Reported Medications Cefepime Hydrochloride (Cefepime) 2 Gm Inj, 2 GM IJ, INJ 01/03/25 Insulin Glargine (Basaglar Kwikpen) 100 Unit/Ml Inj, 100 UNIT SC, INJ 01/03/25 Insulin Lispro (Insulin Lispro Kwikpen) 100 Unit/Ml Inj, 100 UNIT SC, INJ 01/03/25 Heparin Sodium (Porcine) (Heparin Sodium Lock Flush) 10 Unt/Ml Ij, 10 UNT IV, INJ 01/03/25 Alendronate Sodium (Alendronate Sodium) 70 Mg Tab, 1 TAB PO QWEEKLY, #4 TAB 3 Refills 01/03/25 Ferrous Sulfate (Ferrous Sulfate) 325 Mg Tab, 325 MG PO DAILY for 30 Days, MG 01/03/25 Atorvastatin Calcium (ATORVASTATIN CALCIUM) 40 Mg Tab, 1 TAB PO DAILY, #30 TAB 5 Refills 01/03/25 Gabapentin (Gabapentin) 100 Mg Cap, 100 MG PO TID 01/03/25 Aspirin (Aspir-Low) 81 Mg Tab, 81 MG PO DAILY for 30 Days, MG 01/03/25 Cholecalciferol (VITAMIN D3) 2,000 Unit Tab, 2000 UNIT OR DAILY, TAB 01/03/25 Nifedipine (Nifedipine Er) 90 Mg Tab, 1 TAB PO DAILY, #30 TAB 5 Refills 01/03/25 Glipizide (Glipizide) 10 Mg Tab, 10 MG PO BID for 30 Days, MG 01/03/25 Ticagrelor Base (BRILINTA) 90 Mg Tab, 90 MG PO BID, TAB 01/03/25 Current Medications Current Medications Medications (Trade) Dose Ordered Sig/Valeriy Route PRN Reason Start Time Stop Time Status Last Admin Ceftriaxone Sodium 50 ml @ 100 mls/hr DAILY@09 IV 01/04/25 11:00 01/04/25 10:49 Sodium Chloride 1,000 ml @ 75 mls/hr [id number] IV 01/04/25 13:30 01/04/25 13:30 Tamsulosin HCl (Flomax) 0.4 mg QPM PO 01/04/25 18:00 Finasteride (Proscar Tablet) 5 mg DAILY PO 01/05/25 10:00 Ticagrelor (Brilinta) 60 mg BID PO 01/04/25 22:00 UNV Ticagrelor (Brilinta) 90 mg BID PO 01/04/25 22:00 Diagnostic Test (Pha) (Accu-Chek Comfort Curve T) 1 strip ACHS 01/04/25 17:00 Insulin Human Regular (InsuLIN R) ACHS SC 01/04/25 17:00 Dextrose 50 ml UD PRN IV Blood Sugar LESS THAN 60 01/04/25 13:15 Review of Systems Constitutional: reports: fatigue, weakness; denies: chills, diaphoresis, fever, malaise, sweats, others EENTM: denies: blurred vision, double vision, ear bleeding, ear discharge, ear drainage, ear pain, ear ringing, eye pain, eye redness, hearing loss, mouth pain, mouth swelling, nasal discharge, nose bleeding, nose congestion, nose pain, photophobia, tearing, throat pain, throat swelling, voice changes, others Respiratory: denies: cough, hemoptysis, orthopnea, SOB at rest, shortness of breath, SOB with excertion, stridor, wheezing, others Cardiovascular: denies: chest pain, dizzy spells, diaphoresis, Dyspnea on exertion, edema, irregular heart beat, left arm pain, lightheadedness, palpitations, PND, syncope, others Gastrointestinal: denies: abdomen distended, abdominal pain, blood streaked bowels, constipated, diarrhea, dysphagia, difficulty swallowing, hematemesis, melena, nausea, poor appetite, poor fluid intake, rectal bleeding, rectal pain, vomiting, others Genitourinary: denies: burning, dysuria, flank pain, frequency, hematuria, incontinence, penile discharge, penile sore, pain, testicle pain, testicle swelling, urgency, others Neurological: denies: dizziness, fainting, headache, left sided numbness, left sided weakness, numbness, paresthesia, pre-existing deficit, right sided numbness, right sided weakness, seizure, speech problems, tingling, tremors, w eakness, others Musculoskeletal: denies: back pain, gout, joint pain, joint swelling, muscle pain, muscle stiffness, neck pain, others Integumetry: denies: bruises, change in color, change in hair/nails, dryness, laceration, lesions, lumps, rash, wounds, others Allergic/Immunocompromised: denies: Difficulty Healing, Frequent Infections, Hives, Itching, others Hematologic/Lymphatic: denies: anemia, blood clots, easy bleeding, easy bruising, swollen glands, others Endocrine: denies: excessive hunger, excessive sweating, excessive thirst, excessive urination, flushing, intolerance to cold, intolerance to heat, unexplained weight gain, unexplained weight loss, others Psychiatric: denies: anxiety, bipolar disorder, depression, hopeless, panic disorder, schizophrenia, sleepless, suicidal, others Vital Signs Vital Signs Date Time Temp Pulse Resp B/P (MAP) Pulse Ox O2 Delivery O2 Flow Rate FiO2 01/04/25 09:30 98.2 86 16 148/73 (98) 98 98.2 01/04/25 08:00 Room Air* 0 21 Physical Exam General Appearance: No Apparent Distress, Normal HEENT: Normal ENT Inspection, Pharynx Normal, TMs Normal Neck: Full Range of Motion, Non-Tender, Normal, Normal Inspection Respiratory: Chest Non-Tender, Lungs Clear, No Accessory Muscle Use, No Respiratory Distress, Normal Breath Sounds Cardiovascular: No Edema, No JVD, No Murmur, No Gallop, Normal Peripheral Pulses, Regular Rate/Rhythm Breast Exam: Deferred Gastrointestinal: No Organomegaly, Non Tender, No Pulsatile Mass, Normal Bowel Sounds, Soft Genitalia: Demarco catheter in place Extremities: No calf tenderness, Normal capillary refill, Normal inspection, Normal range of motion, Non-tender, No pedal edema Musculoskeletal : Apperance: Normal Neurologic: Alert, digital asset specialist II-XII nml as Tested, No Motor Deficits, Normal Affect, Normal Mood, No Sensory Deficits Cerebellar Function: Normal Reflexes: Normal Skin: Dry, Normal Color, Warm Lymphatic: No Adenopathy Labs/Diagnostic Data Labs Test 01/04/25 06:23 01/03/25 08:50 01/03/25 06:15 01/03/25 03:43 Range/Units White Blood Count 6.2 4.4-10.8 10^3/uL Red Blood Count 3.12 L 4.5-5.90 10^6/uL Hemoglobin 9.1 L 13.5-17.5 g/dL Hematocrit 28.0 L 41.0-53.0 % Mean Corpuscular Volume 89.8 80.0-100.0 fL Mean Corpuscular Hemoglobin 29.2 28.0-32.0 pg Mean Corpuscular Hemoglobin Concent 32.5 32.0-36.0 g/dL Red Cell Distribution Width 16.5 H 11.8-14.3 % Platelet Count 163 140-450 10^3/uL Mean Platelet Volume 10.2 6.9-10.8 fL Neutrophils (%) (Auto) 63.7 37.0-80.0 % Lymphocytes (%) (Auto) 20.9 10.0-50.0 % Monocytes (%) (Auto) 10.0 0.0-12.0 % Eosinophils (%) (Auto) 4.5 0.0-7.0 % Basophils (%) (Auto) 0.9 0.0-2.0 % Neutrophils # (Auto) 4.0 1.6-8.6 10 ^3/uL Lymphocytes # (Auto) 1.3 0.4-5.4 10 ^3/uL Monocytes # (Auto) 0.6 0-1.3 10 ^3/uL Eosinophils # (Auto) 0.3 0-0.8 10 ^3/uL Basophils # (Auto) 0.1 0-0.2 10 ^3/uL Nucleated Red Blood Cells 0.1 % Sodium Level 144 136-145 mmol/L Potassium Level 3.9 3.5-5.1 mmol/L Chloride Level 116 H 98-107 mmol/L Carbon Dioxide Level 15 L 20-31 mmol/L Anion Gap 13 5-15 Blood Urea Nitrogen 48 H 9-23 mg/dL Creatinine 3.41 H 0.700-1.30 mg/dL Glomerular Filtration Rate Calc 17 >90 mL/min BUN/Creatinine Ratio 14.1 10.0-20.0 Serum Glucose 128 H 74-106 mg/dL Calcium Level 9.7 8.7-10.4 mg/dL Total Bilirubin 0.3 0.2-1.0 mg/dL Aspartate Amino Transferase (AST) 42 H 13-40 U/L Alanine Aminotransferase (ALT) 48 H 7-40 U/L Alkaline Phosphatase 275 H 46-116 U/L Total Protein 7.4 5.7-8.2 g/dL Albumin 4.3 3.2-4.8 g/dL Free Thyroxine (T4) Calculated 0.93 0.89-1.76 ng/dL Ammonia 30 11-32 umol/L Creatine Kinase 28 L 46-171 U/L Troponin I High Sensitivity 4 </=54 ng/L Thyroid Stimulating Hormone (TSH) 6.07 H 0.55-4.78 uIU/mL Urine Color Light-yellow Yellow Urine Clarity Clear Clear Urine pH 6.0 5.0-9.0 Urine Specific [place] 1.012 1.001-1.035 Urine Protein 2+ H Negative Urine Ketones Negative Negative Urine Blood 1+ H Negative /uL Urine Nitrite Negative Negative Urine Bilirubin Negative Negative Urine Urobilinogen Normal Negative mg/dL Urine Leukocyte Esterase Negative Negative /uL Urine RBC 1 0 - 3 /hpf Urine Microscopic WBC 1 0-3 /HPF Urine Squamous Epithelial Cells Few <5 /hpf Urine Bacteria Few H None Seen /hpf Urine Creatinine 47.17 30.0-125.0 mg/dL Urine Sodium 71 40-220 mmol/L Urine Glucose Trace Normal mg/dL Urine Total Protein 169.6 H 1-14 mg/dL Test 01/03/25 03:10 Range/Units Lactic Acid Level 0.8 0.4-2.0 mmol/L B-Type Natriuretic Peptide 61.59 0-100 pg/mL Microbiology Date/Time Source Procedure Growth Status 01/03/25 03:10 Blood Blood Culture - Preliminary NO GROWTH AFTER 24 HOURS OF INCUBATION. Resulted Assessment Urinary retention BPH Generalizad weakness Plan/Recommendation Demarco to gravity until patient recovers from current ailment. PSA Plan discussed with: EVELYNE Porter MD January 04, 2025 16:20
[2025-01-04] MEDS: InsuLIN REG 1unit/0.01ml Soln (100units/ml) SC SCH (17:00)
[2025-01-04] MEDS: TAMSULOSIN HYDROCHLORIDE 0.4 MG CAP PO SCH (17:23)
[2025-01-04] MEDS: SODIUM BICARBONATE 650 MG TAB PO ONE (17:23)
[2025-01-04] MEDS: ACCU-CHEK COMFORT CURVE STRIP VI SCH (17:23)
--- NOTE | 2025-01-04 17:44 | DVHPN2 ---
Subjective Update 01/04 today there is 2 daughters at bedside and the? . None of whom speaks Vietnamese. There particular concern is of why the patient was more confused and unstable walking.. Differential for this condition and the encephalopathy is possible uremic encephalopathy versus acute urinary retention versus hospital delirium. Apparently per family the patient is able to transfer himself and have attached his own prosthetic leg and is usually A&O times 3-4. CT left foot has postsurgical changes NV still do not know which IV antibiotic is going through PICC line. PICC line is not functioning and we will need change. We will continue IV antibiotics, Demarco, urology consult, Flomax finasteride, nephrology following appreciate recs. Reviewed: H&P Changes from previous H/P or p: No Changes General: Per HPI Objective Vitals Vital Signs Date Time Temp Pulse Resp B/P (MAP) Pulse Ox O2 Delivery O2 Flow Rate FiO2 01/04/25 09:30 98.2 86 16 148/73 (98) 98 98.2 01/04/25 08:00 Room Air* 0 21 Intake/Output Intake and Output 01/04/25 07:00 Intake Total 470 ml Output Total 2150 ml Balance -1680 ml Intake Oral 270 ml IV Total 200 ml Output Urine Total 2150 ml Exam GEN: Healthy appearing, well-developed, NAD. HEENT: NC/AT; MMM. CV: RRR, no m/r/g. LUNGS: CTAB, no w/r/c. ABD: Soft, NT/ND, NBS, no masses or organomegaly. EXT: Right AKA, left with 2nd toe amputation with a wound VAC on, CDI. NEURO: Ambulating with no limitations. No focal deficits. Medications Current Medications Medications Dose Ordered Sig/Valeriy Route Start Time Stop Time Status Last Admin Dose Admin Metronidazole 250 mg Q8HR PO 01/03/25 14:00 01/04/25 14:30 250 MG Acetaminophen/ Hydrocodone Bitart 1 tab Q4HP PRN PO 01/03/25 08:15 Ondansetron HCl 4 mg Q4HP PRN IV 01/03/25 08:15 Docusate Sodium 100 mg BIDPRN PRN PO 01/03/25 08:15 Enoxaparin Sodium 30 mg DAILY SC 01/03/25 10:00 01/04/25 08:47 30 MG Acetaminophen 650 mg Q6HP PRN PO 01/03/25 08:15 Morphine Sulfate 2 mg Q4HPRN PRN IV 01/03/25 08:15 Ceftriaxone Sodium 50 ml @ 100 mls/hr DAILY@09 IV 01/04/25 11:00 01/04/25 10:49 100 MLS/HR Sodium Chloride 1,000 ml @ 75 mls/hr [id number] IV 01/04/25 13:30 01/04/25 13:30 75 MLS/HR Tamsulosin HCl 0.4 mg QPM PO 01/04/25 18:00 01/04/25 17:23 0.4 MG Finasteride 5 mg DAILY PO 01/05/25 10:00 Ticagrelor 60 mg BID PO 01/04/25 22:00 UNV Ticagrelor 90 mg BID PO 01/04/25 22:00 Diagnostic Test (Pha) 1 strip ACHS 01/04/25 17:00 01/04/25 17:23 1 STRIP Insulin Human Regular ACHS SC 01/04/25 17:00 Dextrose 50 ml UD PRN IV 01/04/25 13:15 Laboratory Results Laboratory Tests 01/04/25 06:23 Chemistry Test 01/04/25 06:23 Albumin 4.3 g/dL (3.2-4.8) Calcium Level 9.7 mg/dL (8.7-10.4) Total Protein 7.4 g/dL (5.7-8.2) LFT Test 01/04/25 06:23 Alanine Aminotransferase (ALT) 48 U/L (7-40) H Alkaline Phosphatase 275 U/L (46-116) H Aspartate Amino Transferase (AST) 42 U/L (13-40) H Total Bilirubin 0.3 mg/dL (0.2-1.0) Urinalysis Test 01/03/25 03:43 Urine Color Light-yellow (Yellow) Urine Clarity Clear (Clear) Urine pH 6.0 (5.0-9.0) Urine Specific [place] 1.012 (1.001-1.035) Urine Protein 2+ (Negative) H Urine Ketones Negative (Negative) Urine Blood 1+ /uL (Negative) H Urine Nitrite Negative (Negative) Urine Bilirubin Negative (Negative) Urine Urobilinogen Normal mg/dL (Negative) Urine Leukocyte Esterase Negative /uL (Negative) Urine RBC 1 /hpf (0 - 3) Urine Microscopic WBC 1 /HPF (0-3) Urine Squamous Epithelial Cells Few /hpf (<5) Urine Bacteria Few /hpf (None Seen) H Urine Creatinine 47.17 mg/dL (30.0-125.0) Urine Sodium 71 mmol/L (40-220) Urine Glucose Trace mg/dL (Normal) Urine Total Protein 169.6 mg/dL (1-14) H Microbiology Microbiology Date/Time Source Procedure Growth Status 01/03/25 03:10 Blood Blood Culture - Preliminary NO GROWTH AFTER 24 HOURS OF INCUBATION. Resulted Labs and/or images reviewed: Labs reviewed by me, Image(s) reviewed by me Assessment/Plan Assessment/Plan Update 01/04 today there is 2 daughters at bedside and the? . None of whom speaks Vietnamese. There particular concern is of why the patient was more confused and unstable walking.. Differential for this condition and the encephalopathy is possible uremic encephalopathy versus acute urinary retention versus hospital delirium. Apparently per family the patient is able to transfer himself and have attached his own prosthetic leg and is usually A&O times 3-4. CT left foot has postsurgical changes NV still do not know which IV antibiotic is going through PICC line. PICC line is not functioning and we will need change. We will continue IV antibiotics, Demarco, urology consult, Flomax finasteride, nephrology following appreciate recs. ALOC Weakness , likely renal failure related Right AKA history Recent left foot amputation to, on the leg, on IV antibiotics PICC line LORI, likely VMn, possibly on CKD Unknown antibiotic PICC line, possible vancomycin related renal failure, we will rule out On insulin, monitor hyperglycemia Constipation, possible Statin myopathy, rule out Dementia, 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 Difficult to interview, patient dementia, bedside family unaware of history, history with sister on phone Citizen Of [place] speaking only, for availability of home meds Need records from [place], unknown PICC line antibiotic Continue home meds Constipation possible, hold iron Continue antidepressant dose of home Basaglar 12 units hence we will use 8 units likely We will use sliding scale for meals, at home uses 4 units with meals Continue home nifedipine Hold home statin ruled out statin myopathy Continue ticagrelor equivalent Bedside swallow test by nursing Left foot CT Ceftriaxone, doxycycline, IV Flagyl p.o. Blood cultures, ammonia, TSH, CK, VDRL Check FENA labs Diet puree DVT prophylaxis-Lovenox GI prophylaxis Protonix IV daily Med tele Full code Plan discussed with: Daughter My Orders Orders - ESTHELA JAMES MD Procedure Category Date Status Time * Wound Consult CONS 01/03/25 Transmitted * Etiquette Coach CONS 01/03/25 Transmitted Consult * Dietary Consult CONS 01/04/25 Transmitted 02:45 Full Liq Diet DIET 01/04/25 Transmitted Lunch Tamsulosin PHA 01/04/25 In Process Hydrochloride (Flomax) 18:00 Finasteride Tablet PHA 01/05/25 In Process (Proscar Tablet) 10:00 * Urology Consult CONS 01/04/25 Transmitted 12:53 Ticagrelor (Brilinta) PHA 01/04/25 In Process 22:00 Glucose Blood PHA 01/04/25 In Process (Accu-Chek Comfort 17:00 Insulin R (Human) PHA 01/04/25 In Process (Insulin R) 17:00 Dextrose 50% Syringe PHA 01/04/25 In Process 13:15 Cleanse Wound With ALEXI 01/04/25 In Process Wound Clean 10:58 Date of Service: January 04, 2025 Billing Provider: ESTHELA JAMES MD Common Visit Codes: [id number] INP/OBS CARE(HIGH) ESTHELA JAMES MD January 04, 2025 17:44
[2025-01-04 20:00] VITALS: PULSE 85; PULSE 87; RESP 17; O2SAT 97
[2025-01-04 21:00] VITALS: BP 149/83; PULSE 87; RESP 17; TEMP 98.7; O2SAT 97
[2025-01-04] MEDS: TICAGRELOR 90 MG TAB PO SCH (21:14)
[2025-01-04] MEDS ORDERED: TICAGRELOR 60 MG TAB PO SCH (22:00)
[2025-01-05] VITALS (7 sets, daily range): BP systolic 151–172; BP diastolic 70–89; PULSE 77–95; RESP 16–18; TEMP 97.8–98.5; O2SAT 98–99
[2025-01-05 07:05] LABS: Basophils # (auto) 0.1 10 ^3/uL (0-0.2); Eosinophils # (auto) 0.1 10 ^3/uL (0-0.8); Eosinophils % (auto) 1.5 % (0.0-7.0); Hematocrit 28.9 % (41.0-53.0); Hemoglobin 9.6 g/dL (13.5-17.5); Lymphocytes # (auto) 1.3 10 ^3/uL (0.4-5.4); Lymphocytes % (auto) 21.1 % (10.0-50.0); Mean Corpuscular Hemoglobin 28.8 pg (28.0-32.0); Mean Corpuscular Hgb Conc. 33.1 g/dL (32.0-36.0); Monocytes # (auto) 0.7 10 ^3/uL (0-1.3); Monocytes % (auto) 10.9 % (0.0-12.0); Neutrophils % (auto) 65.5 % (37.0-80.0); Platelet Count (auto) 161 10^3/uL (140-450); Red Blood Cells 3.32 10^6/uL (4.5-5.90); Red Cell Distribution Width 16.1 % (11.8-14.3); White Blood Cell 6.2 10^3/uL (4.4-10.8)
[2025-01-05 07:07] LABS: PSA Free 1.61 ng/mL; Prostate Specific Antigen 3.8 ng/mL (0.0-4.0)
[2025-01-05 07:08] LABS: Albumin 4.3 g/dL (3.2-4.8); Anion Gap 15 (5-15); Aspartate Aminotransferase 34 U/L (13-40); BUN/Creatinine Ratio 14.2 (10.0-20.0); Calcium 9.6 mg/dL (8.7-10.4); Potassium 3.6 mmol/L (3.5-5.1); Total Protein 7.6 g/dL (5.7-8.2)
[2025-01-05 07:09] LABS: Alanine Aminotransferase 44 U/L (7-40); Alkaline Phosphatase 286 U/L (46-116); Bilirubin, Total 0.3 mg/dL (0.2-1.0); Blood Urea Nitrogen 48 mg/dL (9-23); Carbon Dioxide 16 mmol/L (20-31); Chloride 115 mmol/L (98-107); Glucose 122 mg/dL (74-106); Sodium 146 mmol/L (136-145)
[2025-01-05] MEDS: LACTATED RINGER'S 1,000 ML IV SCH (09:00)
[2025-01-05] MEDS: FINASTERIDE 5 MG TAB PO SCH (09:45)
--- NOTE | 2025-01-05 10:12 | DVHPN2 ---
Progress Note Date Seen: January 05, 2025 Resident Creating Document: KEITH MEHTA RESIDENT Has the PT tested + for MRSA If YES, has PT been informed?: No Medical Necessity Reason Pt with a Central, PICC or Fol: No Subjective Review of Systems Patient seen and examined at bedside. Patient is non cooperative, having odd thinking, per family, the patient is not like that at home but every time she comes to the hospital have these episodes of delirium. On my examination, bilateral lung sounds grossly clear, there is no peripheral edema and patient denies any abdominal tenderness, chest pain, shortness of breath, fever/chills or any other symptoms. Patient needs to continue physical therapy and try to walk as tolerated despite his amputations. We will switch NS fluids to lactated ringer at 75 cc/hour as maintenance dose. Creatinine is slightly improving compared to previous day, today is 3.38 and BUN 48. We will continue monitoring closely. Urology is on board and also thinks that urinary retention may be due to BPH, recommended to keep Demarco on position. ROS unable to obtain due to patient's current status of delirium. Objective vital signs Vital Sign Date Time Temp Pulse Resp B/P (MAP) Pulse Ox O2 Delivery O2 Flow Rate FiO2 01/05/25 07:54 16 Room Air* 0 21 01/05/25 05:00 98.5 84 172/89 (116) 98 98.5 Total Intake and Output 01/04/25 01/04/25 01/05/25 15:00 23:00 07:00 Intake Total 50 ml 100 ml 650 ml Output Total 850 ml 1000 ml Balance 50 ml -750 ml -350 ml medications Current Medications Medications Dose Ordered Sig/Valeriy Route Start Time Stop Time Status Last Admin Dose Admin Metronidazole 250 mg Q8HR PO 01/03/25 14:00 01/05/25 05:58 250 MG Acetaminophen/ Hydrocodone Bitart 1 tab Q4HP PRN PO 01/03/25 08:15 Ondansetron HCl 4 mg Q4HP PRN IV 01/03/25 08:15 Docusate Sodium 100 mg BIDPRN PRN PO 01/03/25 08:15 Enoxaparin Sodium 30 mg DAILY SC 01/03/25 10:00 01/05/25 09:45 30 MG Acetaminophen 650 mg Q6HP PRN PO 01/03/25 08:15 Morphine Sulfate 2 mg Q4HPRN PRN IV 01/03/25 08:15 Ceftriaxone Sodium 50 ml @ 100 mls/hr DAILY@09 IV 01/04/25 11:00 01/05/25 08:03 100 MLS/HR Tamsulosin HCl 0.4 mg QPM PO 01/04/25 18:00 01/04/25 17:23 0.4 MG Finasteride 5 mg DAILY PO 01/05/25 10:00 01/05/25 09:45 5 MG Ticagrelor 60 mg BID PO 01/04/25 22:00 UNV Ticagrelor 90 mg BID PO 01/04/25 22:00 01/05/25 09:45 90 MG Diagnostic Test (Pha) 1 strip ACHS 01/04/25 17:00 01/05/25 06:59 1 STRIP Insulin Human Regular ACHS SC 01/04/25 17:00 01/04/25 21:32 3 UNITS Dextrose 50 ml UD PRN IV 01/04/25 13:15 Lactated Ringer's 1,000 ml @ 75 mls/hr [id number] IV 01/05/25 09:00 Examination Physical Examination General: Patient alert but slightly confuse and aggresive with medical staff. might be coursing with episode of delirium. HEENT: Normocephalic, atraumatic, moist mucous membranes Respiratory/pulmonary: Clear lungs bilaterally, no associated crackles or wheezes. Cardiovascular: Normal heart sounds S1 and S2 with no associated murmurs Abdomen: Abdomen nondistended, there is no pain to palpation in any of the abdominal quadrants, no palpable masses. Extremities: There is no peripheral edema present at the lower extremities. b/l bka laboratory and microbiology Laboratory Tests 01/05/25 06:18 Test 01/05/25 06:18 Range/Units Serum Glucose 122 H 74-106 mg/dL Microbiology Date/Time Source Procedure Growth Status 01/03/25 03:10 Blood Blood Culture - Preliminary NO GROWTH AFTER 48 HOURS OF INCUBATION. 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 -strict in's and out -Demarco catheter in place -continue IV antibiotics per hospitalist team -continue mild sliding scale insulin -creatinine is slightly improving came down to 3.38 and BUN is 48. -Avoid nephrotoxic drugs -Monitor kidney function daily Goals of care discussed with the daughters at bedside for >20min, FULL CODE Plan discussed with Dr. Adkins Addendum Patient seen and examined, plan discussed with resident. Agree with above, we will follow closely pt altered,poor historian Plan discussed with: Patient, Daughter My Orders My Orders Orders - KEITH MEHTA Procedure Category Date Status Time Ceftriaxone 1gm/50ml PHA 01/04/25 In Process D5w (Rocephin) 11:00 Lactated Ringer's PHA 01/05/25 In Process 09:00 KEITH MEHTA January 05, 2025 10:12 GABRIELLA ADKINS MD January 05, 2025 17:06
[2025-01-05] MEDS ORDERED: HALOPERIDOL LACTATE 5 MG/ML INJ VIAL IV PRN (10:45)
[2025-01-05] MEDS: SODIUM BICARBONATE 650 MG TAB PO ONE (12:13)
[2025-01-05] MEDS ORDERED: ACYCLOVIR 5MG/KG Q8HR PER RX 0 ML IV SCH (13:15)
[2025-01-05] MEDS: OLANZapine 5 MG TAB PO ONE (14:30)
[2025-01-05] MEDS: SODIUM BICARB 50mEq/50ml SYR 75 ML in SOD CHL 0.45% 1,000 ML IV SCH (16:00)
--- NOTE | 2025-01-05 17:05 | DVHPN2 ---
Subjective Update 01/05 01/04 today there is 2 daughters at bedside and the? . None of whom speaks Italian. There particular concern is of why the patient was more confused and unstable walking.. Differential for this condition and the encephalopathy is possible uremic encephalopathy versus acute urinary retention versus hospital delirium. Apparently per family the patient is able to transfer himself and have attached his own prosthetic leg and is usually A&O times 3-4. CT left foot has postsurgical changes NV still do not know which IV antibiotic is going through PICC line. PICC line is not functioning and we will need change. We will continue IV antibiotics, Demarco, urology consult, Flomax finasteride, nephrology following appreciate recs. 01/05 - continues to be delirious and/or confused. Altered mental status. Patient is able to calm down with family members. This morning he is not taking a.m. meds but with family he is able to. We will start antipsychotic and get telepsych eval. There is a question and concern of possible meningitis encephalitis and we will start ceftriaxone and acyclovir with Neurology eval as well. Continue antipsychotics, IV antibiotics, nephrology following with no worsening of BUN. Reviewed: H&P Changes from previous H/P or p: No Changes General: Per HPI Objective Vitals Vital Signs Date Time Temp Pulse Resp B/P (MAP) Pulse Ox O2 Delivery O2 Flow Rate FiO2 01/05/25 08:00 77 01/05/25 07:54 16 Room Air* 0 21 01/05/25 05:00 98.5 172/89 (116) 98 98.5 Intake/Output Intake and Output 01/05/25 07:00 Intake Total 800 ml Output Total 1850 ml Balance -1050 ml Intake Oral 150 ml IV Total 650 ml Output Urine Total 1850 ml Exam GEN: Healthy appearing, well-developed, NAD. AOx1 HEENT: NC/AT; MMM. CV: RRR, no m/r/g. LUNGS: CTAB, no w/r/c. ABD: Soft, NT/ND, NBS, no masses or organomegaly. EXT: Right AKA, left with 2nd toe amputation with a wound VAC on, CDI. NEURO: Ambulating with no limitations. No focal deficits. Medications Current Medications Medications Dose Ordered Sig/Valeriy Route Start Time Stop Time Status Last Admin Dose Admin Metronidazole 250 mg Q8HR PO 01/03/25 14:00 01/05/25 12:24 250 MG Acetaminophen/ Hydrocodone Bitart 1 tab Q4HP PRN PO 01/03/25 08:15 Ondansetron HCl 4 mg Q4HP PRN IV 01/03/25 08:15 Docusate Sodium 100 mg BIDPRN PRN PO 01/03/25 08:15 Enoxaparin Sodium 30 mg DAILY SC 01/03/25 10:00 01/05/25 09:45 30 MG Acetaminophen 650 mg Q6HP PRN PO 01/03/25 08:15 Morphine Sulfate 2 mg Q4HPRN PRN IV 01/03/25 08:15 Tamsulosin HCl 0.4 mg QPM PO 01/04/25 18:00 01/04/25 17:23 0.4 MG Finasteride 5 mg DAILY PO 01/05/25 10:00 01/05/25 09:45 5 MG Ticagrelor 60 mg BID PO 01/04/25 22:00 UNV Ticagrelor 90 mg BID PO 01/04/25 22:00 01/05/25 09:45 90 MG Diagnostic Test (Pha) 1 strip ACHS 01/04/25 17:00 01/05/25 11:30 1 STRIP Insulin Human Regular ACHS SC 01/04/25 17:00 01/05/25 12:25 2 UNITS Dextrose 50 ml UD PRN IV 01/04/25 13:15 Haloperidol Lactate 2.5 mg Q8HP PRN IV 01/05/25 10:45 Ceftriaxone Sodium/Dextrose 50 ml @ 50 mls/hr Q12HR@0921 IV 01/05/25 21:00 Acyclovir Sodium 0 ml @ 0 mls/hr PER PHARMACY IV 01/05/25 13:15 Sodium Bicarbonate 75 ml/ Sodium Chloride 1,075 ml @ 75 mls/hr [id number] IV 01/05/25 13:30 01/05/25 16:00 75 MLS/HR Acyclovir Sodium 300 mg/Dextrose 256 ml @ 128 mls/hr DAILY@1800 IV 01/05/25 18:00 Olanzapine 10 mg DAILY PO 01/06/25 10:00 Laboratory Results Laboratory Tests 01/05/25 06:18 Chemistry Test 01/05/25 06:18 Albumin 4.3 g/dL (3.2-4.8) Calcium Level 9.6 mg/dL (8.7-10.4) Total Protein 7.6 g/dL (5.7-8.2) LFT Test 01/05/25 06:18 Alanine Aminotransferase (ALT) 44 U/L (7-40) H Alkaline Phosphatase 286 U/L (46-116) H Aspartate Amino Transferase (AST) 34 U/L (13-40) Total Bilirubin 0.3 mg/dL (0.2-1.0) Urinalysis Test 01/03/25 03:43 Urine Color Light-yellow (Yellow) Urine Clarity Clear (Clear) Urine pH 6.0 (5.0-9.0) Urine Specific [place] 1.012 (1.001-1.035) Urine Protein 2+ (Negative) H Urine Ketones Negative (Negative) Urine Blood 1+ /uL (Negative) H Urine Nitrite Negative (Negative) Urine Bilirubin Negative (Negative) Urine Urobilinogen Normal mg/dL (Negative) Urine Leukocyte Esterase Negative /uL (Negative) Urine RBC 1 /hpf (0 - 3) Urine Microscopic WBC 1 /HPF (0-3) Urine Squamous Epithelial Cells Few /hpf (<5) Urine Bacteria Few /hpf (None Seen) H Urine Creatinine 47.17 mg/dL (30.0-125.0) Urine Sodium 71 mmol/L (40-220) Urine Glucose Trace mg/dL (Normal) Urine Total Protein 169.6 mg/dL (1-14) H Microbiology Microbiology Date/Time Source Procedure Growth Status 01/03/25 03:10 Blood Blood Culture - Preliminary NO GROWTH AFTER 48 HOURS OF INCUBATION. Resulted Labs and/or images reviewed: Labs reviewed by me, Image(s) reviewed by me Assessment/Plan Assessment/Plan 01/05 - continues to be delirious and/or confused. Altered mental status. Patient is able to calm down with family members. This morning he is not taking a.m. meds but with family he is able to. We will start antipsychotic and get telepsych eval. There is a question and concern of possible meningitis encephalitis and we will start ceftriaxone and acyclovir with Neurology eval as well. Continue antipsychotics, IV antibiotics, nephrology following with no worsening of BUN. ALOC Weakness , likely renal failure related Right AKA history Recent left foot amputation to, on the leg, on IV antibiotics PICC line ? 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 Difficult to interview, patient dementia, bedside family unaware of history, history with sister on phone Uzbek speaking only, for availability of home meds Need records from [facility], unknown PICC line antibiotic Continue home meds Constipation possible, hold iron Continue antidepressant dose of home Basaglar 12 units hence we will use 8 units likely We will use sliding scale for meals, at home uses 4 units with meals Continue home nifedipine Hold home statin ruled out statin myopathy Continue ticagrelor equivalent Bedside swallow test by nursing Left foot CT - with old changes of surgical intervention Ceftriaxone/acyclovir, ( prior Ceftriaxone, doxycycline, IV ) Flagyl p.o. Blood cultures, ammonia, TSH, CK, VDRL Check FENA labs Reorder VD RLS RPR treponemal antibody test. Ammonia normal Psych eval Neuro eval Diet puree DVT prophylaxis-Lovenox GI prophylaxis Protonix IV daily Med tele Full code Plan discussed with: Daughter My Orders Orders - ESTHELA JAMES MD Procedure Category Date Status Time Cleanse Wound With ALEXI 01/04/25 In Process Wound Clean 10:58 Soc Telemed Psych CONS 01/05/25 Transmitted Consult 10:32 Haloperidol Lactate PHA 01/05/25 In Process Injection (Haldol) 10:45 Ceftriaxone 2gm/50ml PHA 01/05/25 In Process D5w (Rocephin 2gm/5 21:00 Acyclovir 5mg/Kg Q8hr PHA 01/05/25 In Process Per Rx (Zovirax) 13:15 * Neurology Consult CONS 01/05/25 Transmitted 13:14 Acyclovir Sod 50mg/Ml PHA 01/05/25 In Process (Zovirax) 18:00 Olanzapine Tablet PHA 01/06/25 In Process (Zyprexa Tablet) 10:00 * Picc Line Consult CONS 01/05/25 Transmitted 14:30 Date of Service: January 05, 2025 Billing Provider: ESTHELA JAMES MD Common Visit Codes: [id number] INP/OBS CARE(HIGH) ESTHELA JAMES MD January 05, 2025 17:05
[2025-01-05] MEDS: ACYCLOVIR SOD IV SCH (17:45)
[2025-01-05] MEDS: D5W 5% IV SCH (17:45)
[2025-01-05] MEDS: CATHFLO ACTIVASE (ALTEPLASE) 2 MG VIAL IV ONE (19:13)
--- NOTE | 2025-01-05 20:21 | DVHINCON2 ---
Date of service: January 05, [address] Kristie Mckeon Reason for Consultation Altered mental status, likely demand did. Evaluate for rule out questionable herpes simplex virus meningitis History of Present Illness Mr. Vasquez in the 84 years old right-handed gentleman with a history of hypertension, diabetes, peripheral arterial disease, chronic kidney failure, osteomyelitis, he came to the [facility] on 01[facility]03[facility]25 with a chief complaint of general weakness. At that time, he is alert, oriented to person, place, he was socially appropriate, he was able to maintain good conversation. The history is obtained from his nurse, chart review. The patient is able to provide some information He came to the hospital for general weakness, and his nurse who had him the 1st day noticed the patient was very confused, and he did not know where he was. Early on 01/05/2025, the patient was mildly agitated. In the hospital, the patient does not have headache except for last night He reports before he came to the hospital, he was remembers having jerking in the arms as if he was were scared, there was no associated altered mental status/confusion He denies chills, fever, contact acutely sick person. He denies chills, fever, skin rashes, but he did have itch in the nose and bilateral face He is status post left toe amputation in 10/2024, and he was on IV antibiotics at home, but the nurse noticed malfunction of his PICC line after he arrived to the hospital Urinalysis, 01/03/2025: WBC: 1, urine leukocyte esterase: Negative WBC/HB/PLT/MCV, 01/05/2025: 6.1/9.6/161/87 BUN/CR, 01/05/2025: 48/3.38 GFR, 01/04/2025: 17 Sodium, 01/03/2025: 142, 01/04/2025: 144, 01/05/2025: 146 HCO3, 01/03/2025: 16, 01/04/2025: 15, 01/05/2025: 16 Lactic acid, 01/03/2025: 0 108 TBI/AST/ALT/AP, 01/05/2025: 0.3/34/44/286 TSH, :6.07 FT for, 01/04/2025: 0.93 Chest x-ray, 01/03/2025: No acute disease. Right PICC noted CT head, 01/03/2025: 1. No acute intracranial abnormality. 2. 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 3. Chronic appearing bilateral basal ganglia and thalamic lacunar infarcts CT, left foot, 01/03/2025: 1. Postsurgical changes of amputation of the 2nd and 3rd metatarsals. 2. Soft tissue swelling adjacent to the amputation site, likely due to recent postsurgical changes. Superimposed infection not excluded in the appropriate clinical setting. 3. Cortical deformity of the 3rd metatarsal head and adjacent portions of the base of the proximal phalanx of uncertain chronicity. Infection/ osteomyelitis not excluded. Correlate with the findings. If clinically indicated, MRI could be obtained to further evaluate. 4. Additional findings as detailed above. Past Medical History Hypertension, diabetes, Past Surgical History Right BKA, left toe amputation Family History: Patient reports no known family medical history. Family History Reviewed,noncontributory to illness Social History He smokes tobacco, he was a heavy alcohol drinker, he was no history of drug abuse Allergies: Coded Allergies: NO KNOWN ALLERGIES (Unverified , 01/03/25) Home Meds Reported Medications Cefepime Hydrochloride (Cefepime) 2 Gm Inj, 2 GM IJ, INJ 01/03/25 Insulin Glargine (Basaglar Kwikpen) 100 Unit/Ml Inj, 100 UNIT SC, INJ 01/03/25 Insulin Lispro (Insulin Lispro Kwikpen) 100 Unit/Ml Inj, 100 UNIT SC, INJ 01/03/25 Heparin Sodium (Porcine) (Heparin Sodium Lock Flush) 10 Unt/Ml Ij, 10 UNT IV, INJ 01/03/25 Alendronate Sodium (Alendronate Sodium) 70 Mg Tab, 1 TAB PO QWEEKLY, #4 TAB 3 Refills 01/03/25 Ferrous Sulfate (Ferrous Sulfate) 325 Mg Tab, 325 MG PO DAILY for 30 Days, MG 01/03/25 Atorvastatin Calcium (ATORVASTATIN CALCIUM) 40 Mg Tab, 1 TAB PO DAILY, #30 TAB 5 Refills 01/03/25 Gabapentin (Gabapentin) 100 Mg Cap, 100 MG PO TID 01/03/25 Aspirin (Aspir-Low) 81 Mg Tab, 81 MG PO DAILY for 30 Days, MG 01/03/25 Cholecalciferol (VITAMIN D3) 2,000 Unit Tab, 2000 UNIT OR DAILY, TAB 01/03/25 Nifedipine (Nifedipine Er) 90 Mg Tab, 1 TAB PO DAILY, #30 TAB 5 Refills 01/03/25 Glipizide (Glipizide) 10 Mg Tab, 10 MG PO BID for 30 Days, MG 01/03/25 Ticagrelor Base (BRILINTA) 90 Mg Tab, 90 MG PO BID, TAB 01/03/25 Current Medications Current Medications Medications (Trade) Dose Ordered Sig/Valeriy Route PRN Reason Start Time Stop Time Status Last Admin Finasteride (Proscar Tablet) 5 mg DAILY PO 01/05/25 10:00 01/05/25 09:45 Ticagrelor (Brilinta) 60 mg BID PO 01/04/25 22:00 UNV Ticagrelor (Brilinta) 90 mg BID PO 01/04/25 22:00 01/05/25 09:45 Lactated Ringer's 1,000 ml @ 75 mls/hr [id number] IV 01/05/25 09:00 01/05/25 13:25 DC Haloperidol Lactate (Haldol) 2.5 mg Q8HP PRN IV AGITATION 01/05/25 10:45 Ceftriaxone Sodium/Dextrose 50 ml @ 50 mls/hr Q12HR@09,21 IV 01/05/25 21:00 Acyclovir Sodium 0 ml @ 0 mls/hr PER PHARMACY IV 01/05/25 13:15 Sodium Bicarbonate 75 ml/ Sodium Chloride 1,075 ml @ 75 mls/hr [id number] IV 01/05/25 13:30 01/05/25 16:00 Acyclovir Sodium 300 mg/Dextrose 256 ml @ 128 mls/hr DAILY@1800 IV 01/05/25 18:00 01/05/25 17:45 Olanzapine (ZyPREXA Tablet) 10 mg DAILY PO 01/06/25 10:00 Review of Systems As above, the other systems are negative Vital Signs Vital Signs Date Time Temp Pulse Resp B/P (MAP) Pulse Ox O2 Delivery O2 Flow Rate FiO2 01/05/25 17:00 97.9 88 18 168/88 (114) 97.9 01/05/25 07:54 Room Air* 0 21 01/05/25 05:00 98 Physical Exam GENERAL EXAM: General: the patient is well developed and nourished. No acute distress. HEENT: Normocephalic, neck is supple, no carotid bruits. No mass. RESPIRATORY: Normal respiratory effort with symmetrical lung expansion. Lungs clear to auscultation. CARDIOVASCULAR: Regular rate and rhythm with no murmurs. S1, S2. ABDOMEN: Soft, nontender, normal bowel sound MUSCULOSKELETAL EXAM: Status post right BKA, status post left toe amputation The left foot is warm, but without tenderness to palpation NEUROLOGICAL: MENTAL STATUS: Awake and alert. Oriented to person, place, he can maintain good conversation, and he is conversation is appropriate to my questions. He was reports he can not read and right, he does not know the year and the month SPEECH, LANGUAGE, HIGHER CORTICAL FUNCTION: no aphasia or dysathria. CRANIAL NERVES: #2: Intact visual perez to confrontation. The optic discs were sharp. #3,4,6: Pupils are equal, round and reactive. EOMs full and conjugate. No nystagmus. #5: Facial sensation intact in all three divisions bilaterally. Mandibular strength intact. #7: Facial muscles symmetrical and strength intact. #8: Hearing grossly normal to voice. #9,10: Uvula and soft palate rise in the midline. Swallow and voice are normal. #11: Trapezius and sternomastoid strength intact bilaterally. #12: Tongue midline. No fasciculations or atrophy. SENSATION: Sensation to touch and pinprick is diminished distally in the left lower extremity MOTOR: Normal tone in the upper and lower extremity. Normal muscle bulk. No fasciculations. This is a bilateral asterixis. Muscle strength of the major groups in the upper extremities is 5/5. Muscle strength of the major groups in the lower extremities is 5/5. REFLEXES: Deep tendon reflexes are symmetrical. No pathological reflexes. CEREBELLAR/COORDINATION: Finger to nose is normal bilaterally. GAIT/STATION: deferred. Labs/Diagnostic Data Labs Test 01/05/25 12:05 01/05/25 06:18 01/04/25 16:30 01/04/25 06:23 Range/Units POC Glucose 153 H 70-106 mg/dl White Blood Count 6.2 4.4-10.8 10^3/uL Red Blood Count 3.32 L 4.5-5.90 10^6/uL Hemoglobin 9.6 L 13.5-17.5 g/dL Hematocrit 28.9 L 41.0-53.0 % Mean Corpuscular Volume 87.0 80.0-100.0 fL Mean Corpuscular Hemoglobin 28.8 28.0-32.0 pg Mean Corpuscular Hemoglobin Concent 33.1 32.0-36.0 g/dL Red Cell Distribution Width 16.1 H 11.8-14.3 % Platelet Count 161 140-450 10^3/uL Mean Platelet Volume 10.4 6.9-10.8 fL Neutrophils (%) (Auto) 65.5 37.0-80.0 % Lymphocytes (%) (Auto) 21.1 10.0-50.0 % Monocytes (%) (Auto) 10.9 0.0-12.0 % Eosinophils (%) (Auto) 1.5 0.0-7.0 % Basophils (%) (Auto) 1.0 0.0-2.0 % Neutrophils # (Auto) 4.0 1.6-8.6 10 ^3/uL Lymphocytes # (Auto) 1.3 0.4-5.4 10 ^3/uL Monocytes # (Auto) 0.7 0-1.3 10 ^3/uL Eosinophils # (Auto) 0.1 0-0.8 10 ^3/uL Basophils # (Auto) 0.1 0-0.2 10 ^3/uL Nucleated Red Blood Cells 0.0 % Sodium Level 146 H 136-145 mmol/L Potassium Level 3.6 3.5-5.1 mmol/L Chloride Level 115 H 98-107 mmol/L Carbon Dioxide Level 16 L 20-31 mmol/L Anion Gap 15 5-15 Blood Urea Nitrogen 48 H 9-23 mg/dL Creatinine 3.38 H 0.700-1.30 mg/dL Glomerular Filtration Rate Calc 17 >90 mL/min BUN/Creatinine Ratio 14.2 10.0-20.0 Serum Glucose 122 H 74-106 mg/dL Calcium Level 9.6 8.7-10.4 mg/dL Total Bilirubin 0.3 0.2-1.0 mg/dL Aspartate Amino Transferase (AST) 34 13-40 U/L Alanine Aminotransferase (ALT) 44 H 7-40 U/L Alkaline Phosphatase 286 H 46-116 U/L Total Protein 7.6 5.7-8.2 g/dL Albumin 4.3 3.2-4.8 g/dL Treponema pallidum Antibody Non-reactive Negative Free Prostate Specific Antigen 1.61 N/A ng/mL Percent Free Prostate Specific Ag 42.4 . % Prostate Specific Antigen Total 3.8 0.0-4.0 ng/mL Free Thyroxine (T4) Calculated 0.93 0.89-1.76 ng/dL Test 01/03/25 08:50 01/03/25 06:15 01/03/25 03:43 01/03/25 03:10 Range/Units Ammonia 30 11-32 umol/L Creatine Kinase 28 L 46-171 U/L Troponin I High Sensitivity 4 </=54 ng/L Thyroid Stimulating Hormone (TSH) 6.07 H 0.55-4.78 uIU/mL Urine Color Light-yellow Yellow Urine Clarity Clear Clear Urine pH 6.0 5.0-9.0 Urine Specific [place] 1.012 1.001-1.035 Urine Protein 2+ H Negative Urine Ketones Negative Negative Urine Blood 1+ H Negative /uL Urine Nitrite Negative Negative Urine Bilirubin Negative Negative Urine Urobilinogen Normal Negative mg/dL Urine Leukocyte Esterase Negative Negative /uL Urine RBC 1 0 - 3 /hpf Urine Microscopic WBC 1 0-3 /HPF Urine Squamous Epithelial Cells Few <5 /hpf Urine Bacteria Few H None Seen /hpf Urine Creatinine 47.17 30.0-125.0 mg/dL Urine Sodium 71 40-220 mmol/L Urine Glucose Trace Normal mg/dL Urine Total Protein 169.6 H 1-14 mg/dL Lactic Acid Level 0.8 0.4-2.0 mmol/L B-Type Natriuretic Peptide 61.59 0-100 pg/mL Microbiology Date/Time Source Procedure Growth Status 01/03/25 03:10 Blood Blood Culture - Preliminary NO GROWTH AFTER 48 HOURS OF INCUBATION. Resulted Assessment Altered status in the hospital Likely metabolic encephalopathy secondary to osteomyelitis in the left foot Intracranial infection, less likely Partial complex seizure, less likely Rule out acute intracranial pathology Diabetic polyneuropathy Rule out intracranial infection, less likely Diabetic polyneuropathy Plan/Recommendation Monitoring Supportive treatment Telemetry Vitamin B12, folic acid, TSH Haldol 2.5 mg intramuscular Q 8 hours p.r.n. for agitation EEG IV antibiotics Address his polyneuropathy as outpatient More recommendation per clinical course Prognosis poor This medical document was created using an electronic medical record system with Dragon computerized dictation system. Although this document has been carefully reviewed, there may still be some phonetic and typographical errors. These areas are purely typographical due to imperfections of the software programs, and do not reflect any compromise in the patient's medical care. Plan discussed with: CONI Domingo MD January 05, 2025 20:21
[2025-01-05] MEDS ORDERED: LORazepam 2MG/ML-1ML VIAL IV PRN (21:00)
[2025-01-05 21:46] LABS: Folate (Folic Acid) 5.25 ng/mL (>5.38); Free T4 (Free Thyroxine) 0.99 ng/dL (0.89-1.76)
[2025-01-05] MEDS: hydrALAZINE HCL 20 MG/ML VL IV ONE (22:41)
[2025-01-05] MEDS: cefTRIAXone 2GM/50ML D5W 50 ML IV SCH (22:44)
[2025-01-06 05:00] VITALS: BP 154/73; PULSE 88; RESP 16; TEMP 98.2; O2SAT 98
[2025-01-06 06:17] LABS: Basophils # (auto) 0.1 10 ^3/uL (0-0.2); Basophils % (auto) 1.1 % (0.0-2.0); Eosinophils # (auto) 0.2 10 ^3/uL (0-0.8); Hematocrit 29.7 % (41.0-53.0); Hemoglobin 9.9 g/dL (13.5-17.5); Lymphocytes # (auto) 1.4 10 ^3/uL (0.4-5.4); Lymphocytes % (auto) 19.4 % (10.0-50.0); Mean Corpuscular Hemoglobin 28.9 pg (28.0-32.0); Mean Corpuscular Hgb Conc. 33.3 g/dL (32.0-36.0); Mean Corpuscular Volume 86.7 fL (80.0-100.0); Monocytes # (auto) 0.9 10 ^3/uL (0-1.3); Monocytes % (auto) 11.6 % (0.0-12.0); Neutrophils # (auto) 4.8 10 ^3/uL (1.6-8.6); Neutrophils % (auto) 64.9 % (37.0-80.0); Platelet Count (auto) 200 10^3/uL (140-450); Red Blood Cells 3.42 10^6/uL (4.5-5.90); White Blood Cell 7.4 10^3/uL (4.4-10.8)
[2025-01-06 06:26] LABS: Alanine Aminotransferase 38 U/L (7-40); Anion Gap 12 (5-15); BUN/Creatinine Ratio 14.1 (10.0-20.0); Calcium 9.3 mg/dL (8.7-10.4); Potassium 3.7 mmol/L (3.5-5.1); Sodium 145 mmol/L (136-145); Total Protein 7.7 g/dL (5.7-8.2)
[2025-01-06 06:27] LABS: Albumin 4.5 g/dL (3.2-4.8); Aspartate Aminotransferase 30 U/L (13-40)
[2025-01-06 06:28] LABS: Alkaline Phosphatase 277 U/L (46-116); Bilirubin, Total 0.2 mg/dL (0.2-1.0); Blood Urea Nitrogen 48 mg/dL (9-23); Carbon Dioxide 18 mmol/L (20-31); Chloride 115 mmol/L (98-107); Glucose 122 mg/dL (74-106)
[2025-01-06 08:05] VITALS: PULSE 86
[2025-01-06 08:50] VITALS: BP 146/72; PULSE 92; RESP 16; TEMP 97.4; O2SAT 98
[2025-01-06] MEDS: LACTATED RINGER'S 500 ML IV SCH (10:58)
[2025-01-06] MEDS: OLANZapine 5 MG TAB PO SCH (11:00)
[2025-01-06 13:00] VITALS: BP 158/81; PULSE 101; RESP 16; TEMP 97.8; O2SAT 98
--- NOTE | 2025-01-06 16:40 | DVHPN2 ---
Progress Note Date Seen: January 06, 2025 Resident Creating Document: KEITH MEHTA RESIDENT Has the PT tested + for MRSA If YES, has PT been informed?: No Medical Necessity Reason Pt with a Central, PICC or Fol: No Subjective Review of Systems Patient seen and examined at bedside. Today, the patient is more alert and oriented, following commands much more coherent compared to previous days. In the last 24 hours in's were 1150 and out's 1445 with a negative balance of 305. We will discontinue lactated ringer and we will continue sodium bicarbonate with 0.45% at 75cc/hr. Today, creatinine is 3.41 and BUN 48. Patient seems to be responding to olanzapine 10 mg daily. ROS Constitutional: Denies weight loss, fever and chills. HEENT: Denies changes in vision and hearing. Respiratory: Denies shortness of breath and cough Cardiovascular: Denies chest discomfort or palpitations GI: Denies abdominal pain, nausea, vomiting and diarrhea. : Denies dysuria and urinary frequency. Musculoskeletal: Denies myalgias and joint pain Skin: Denies rash and pruritus. Neurological: Denies dizziness, headache, vision or hearing problems Objective vital signs Vital Sign Date Time Temp Pulse Resp B/P (MAP) Pulse Ox O2 Delivery O2 Flow Rate FiO2 01/06/25 13:00 97.8 101 16 158/81 (106) 98 97.8 01/06/25 08:15 Room Air* 0 21 Total Intake and Output 01/05/25 01/05/25 01/06/25 15:00 23:00 07:00 Intake Total 50 ml 250 ml 850 ml Output Total 700 ml 755 ml Balance 50 ml -450 ml 95 ml medications Current Medications Medications Dose Ordered Sig/Valeriy Route Start Time Stop Time Status Last Admin Dose Admin Metronidazole 250 mg Q8HR PO 01/03/25 14:00 01/06/25 06:42 250 MG Acetaminophen/ Hydrocodone Bitart 1 tab Q4HP PRN PO 01/03/25 08:15 Ondansetron HCl 4 mg Q4HP PRN IV 01/03/25 08:15 Docusate Sodium 100 mg BIDPRN PRN PO 01/03/25 08:15 Enoxaparin Sodium 30 mg DAILY SC 01/03/25 10:00 01/05/25 09:45 30 MG Acetaminophen 650 mg Q6HP PRN PO 01/03/25 08:15 Morphine Sulfate 2 mg Q4HPRN PRN IV 01/03/25 08:15 Tamsulosin HCl 0.4 mg QPM PO 01/04/25 18:00 01/05/25 17:45 0.4 MG Finasteride 5 mg DAILY PO 01/05/25 10:00 01/06/25 11:01 5 MG Ticagrelor 60 mg BID PO 01/04/25 22:00 UNV Ticagrelor 90 mg BID PO 01/04/25 22:00 01/06/25 11:01 90 MG Diagnostic Test (Pha) 1 strip ACHS 01/04/25 17:00 01/06/25 06:45 1 STRIP Insulin Human Regular ACHS SC 01/04/25 17:00 01/05/25 23:02 3 UNITS Dextrose 50 ml UD PRN IV 01/04/25 13:15 Haloperidol Lactate 2.5 mg Q8HP PRN IV 01/05/25 10:45 Ceftriaxone Sodium/Dextrose 50 ml @ 50 mls/hr Q12HR@09,21 IV 01/05/25 21:00 01/06/25 08:21 50 MLS/HR Acyclovir Sodium 0 ml @ 0 mls/hr PER PHARMACY IV 01/05/25 13:15 Sodium Bicarbonate 75 ml/ Sodium Chloride 1,075 ml @ 75 mls/hr [id number] IV 01/05/25 13:30 01/05/25 16:00 75 MLS/HR Acyclovir Sodium 300 mg/Dextrose 256 ml @ 128 mls/hr DAILY@1800 IV 01/05/25 18:00 01/05/25 17:45 128 MLS/HR Olanzapine 10 mg DAILY PO 01/06/25 10:00 01/06/25 11:00 10 MG Lorazepam 1 mg ONCE PRN IV 01/05/25 21:00 Haloperidol Lactate 2.5 mg Q8HP PRN IM 01/05/25 21:00 Examination Physical Examination General: Patient alert but slightly confuse and aggresive with medical staff. might be coursing with episode of delirium. HEENT: Normocephalic, atraumatic, moist mucous membranes Respiratory/pulmonary: Clear lungs bilaterally, no associated crackles or wheezes. Cardiovascular: Normal heart sounds S1 and S2 with no associated murmurs Abdomen: Abdomen nondistended, there is no pain to palpation in any of the abdominal quadrants, no palpable masses. Extremities: There is right above-knee amputation and left 2nd toe amputation in the left foot. Neurological: Patient is more alert and oriented at this point. laboratory and microbiology Laboratory Tests 01/06/25 05:47 Test 01/06/25 05:47 Range/Units Serum Glucose 122 H 74-106 mg/dL Microbiology Date/Time Source Procedure Growth Status 01/03/25 03:10 Blood Blood Culture - Preliminary NO GROWTH AFTER 72 HOURS OF INCUBATION. 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 -strict in's and out -Demarco catheter in place -continue IV antibiotics per hospitalist team -continue mild sliding scale insulin -creatinine is slightly improving came down to 3.38 and BUN is 48. -Avoid nephrotoxic drugs -Monitor kidney function daily Goals of care discussed with the daughters at bedside for >20min, FULL CODE Plan discussed with Dr. Adkins Addendum Patient seen and examined, plan discussed with resident. Agree with above, we will follow closely Plan discussed with: Patient, Other Dietary Evaluation Review Comments: 1. Currently on Full Liquid diet only; consider CELL ATTENDANT consult given texture modififed diet and prioritize further diet progression 2. Will add Ensure Enlive TID in the interim given negligible PO intakes (provides 350 kcal, 20 gm pro per carton) 3. Monitor wt trends closely, daily wt's to trend 4. Assist w/ tray set-up, 1:1 feeding as able pending pt mentation/behavior Expected Outcomes/Goals: Improved nutritional intake. KEITH MEHTA RESIDENT January 06, 2025 16:40 GABRIELLA ADKINS MD January 06, 2025 16:43
[2025-01-06 17:00] VITALS: BP 131/53; PULSE 93; RESP 18; TEMP 97.7; O2SAT 100
--- NOTE | 2025-01-06 18:35 | DVHINCON2 ---
Date of Service if different f: January 06, 2025 Consultation ([facility]) Consulting Physician: CONI REEDER MD Labs Laboratory Tests Test 01/03/25 03:10 01/03/25 03:43 01/03/25 06:15 01/03/25 08:50 Lactic Acid Level 0.8 mmol/L (0.4-2.0) B-Type Natriuretic Peptide 61.59 pg/mL (0-100) Urine Color Light-yellow (Yellow) Urine Clarity Clear (Clear) Urine pH 6.0 (5.0-9.0) Urine Specific [place] 1.012 (1.001-1.035) Urine Protein 2+ (Negative) Urine Ketones Negative (Negative) Urine Blood 1+ /uL (Negative) Urine Nitrite Negative (Negative) Urine Bilirubin Negative (Negative) Urine Urobilinogen Normal mg/dL (Negative) Urine Leukocyte Esterase Negative /uL (Negative) Urine RBC 1 /hpf (0 - 3) Urine Microscopic WBC 1 /HPF (0-3) Urine Squamous Epithelial Cells Few /hpf (<5) Urine Bacteria Few /hpf (None Seen) Urine Creatinine 47.17 mg/dL (30.0-125.0) Urine Sodium 71 mmol/L (40-220) Urine Glucose Trace mg/dL (Normal) Urine Total Protein 169.6 mg/dL (1-14) Creatine Kinase 28 U/L (46-171) Troponin I High Sensitivity 4 ng/L (</=54) Ammonia 30 umol/L (11-32) Test 01/04/25 16:30 01/05/25 06:18 01/06/25 05:47 01/06/25 05:49 Free Prostate Specific Antigen 1.61 ng/mL (N/A) Percent Free Prostate Specific Ag 42.4 % (.) Prostate Specific Antigen Total 3.8 ng/mL (0.0-4.0) Vitamin B12 Level 2174 pg/mL (211-911) Folic Acid (LAB) 5.25 ng/mL (>5.38) Thyroid Stimulating Hormone (TSH) 3.74 uIU/mL (0.55-4.78) Free Thyroxine (T4) Calculated 0.99 ng/dL (0.89-1.76) Treponema pallidum Antibody Non-reactive (Negative) White Blood Count 7.4 10^3/uL (4.4-10.8) Red Blood Count 3.42 10^6/uL (4.5-5.90) Hemoglobin 9.9 g/dL (13.5-17.5) Hematocrit 29.7 % (41.0-53.0) Mean Corpuscular Volume 86.7 fL (80.0-100.0) Mean Corpuscular Hemoglobin 28.9 pg (28.0-32.0) Mean Corpuscular Hemoglobin Concent 33.3 g/dL (32.0-36.0) Red Cell Distribution Width 16.0 % (11.8-14.3) Platelet Count 200 10^3/uL (140-450) Mean Platelet Volume 10.3 fL (6.9-10.8) Neutrophils (%) (Auto) 64.9 % (37.0-80.0) Lymphocytes (%) (Auto) 19.4 % (10.0-50.0) Monocytes (%) (Auto) 11.6 % (0.0-12.0) Eosinophils (%) (Auto) 3.0 % (0.0-7.0) Basophils (%) (Auto) 1.1 % (0.0-2.0) Neutrophils # (Auto) 4.8 10 ^3/uL (1.6-8.6) Lymphocytes # (Auto) 1.4 10 ^3/uL (0.4-5.4) Monocytes # (Auto) 0.9 10 ^3/uL (0-1.3) Eosinophils # (Auto) 0.2 10 ^3/uL (0-0.8) Basophils # (Auto) 0.1 10 ^3/uL (0-0.2) Nucleated Red Blood Cells 0.0 % Sodium Level 145 mmol/L (136-145) Potassium Level 3.7 mmol/L (3.5-5.1) Chloride Level 115 mmol/L (98-107) Carbon Dioxide Level 18 mmol/L (20-31) Anion Gap 12 (5-15) Blood Urea Nitrogen 48 mg/dL (9-23) Creatinine 3.41 mg/dL (0.700-1.30) Glomerular Filtration Rate Calc 17 mL/min (>90) BUN/Creatinine Ratio 14.1 (10.0-20.0) Serum Glucose 122 mg/dL (74-106) Calcium Level 9.3 mg/dL (8.7-10.4) Total Bilirubin 0.2 mg/dL (0.2-1.0) Aspartate Amino Transf (AST/SGOT) 30 U/L (13-40) Alanine Aminotransferase (ALT/SGPT) 38 U/L (7-40) Alkaline Phosphatase 277 U/L (46-116) Total Protein 7.7 g/dL (5.7-8.2) Albumin 4.5 g/dL (3.2-4.8) Bedside Glucose 125 mg/dl (70-106) Microbiology Date/Time Source Procedure Growth Status 01/03/25 03:10 Blood Blood Culture - Preliminary NO GROWTH AFTER 72 HOURS OF INCUBATION. Resulted Appetite: Limited Appearance: Disheveled Psychomotor activity: Lethargic Behavioral: Withdrawn Eye contact: Avoids Speech: Soft, Confused, Mumbled Affect: Blunted Thought processes: [place], Disorganized Thought content: Paucity of thoughts Suicidal ideations: Absent Homicidal ideations: Absent Orientation: Person, Confused Memory intact: Poor Intellect: Average Abstractability: Marginal Concentration: Limited Attention: Limited Judgement: Poor Vitals Vital Signs Date Time Temp Pulse Resp B/P (MAP) Pulse Ox O2 Delivery O2 Flow Rate FiO2 01/06/25 17:00 97.7 93 18 131/53 (79) 100 97.7 01/06/25 08:15 Room Air* 0 21 Current medications Current Medications Medications Dose Ordered Sig/Valeriy Route Start Time Stop Time Status Last Admin Dose Admin Metronidazole 250 mg Q8HR PO 01/03/25 14:00 01/06/25 06:42 250 MG Acetaminophen/ Hydrocodone Bitart 1 tab Q4HP PRN PO 01/03/25 08:15 Ondansetron HCl 4 mg Q4HP PRN IV 01/03/25 08:15 Docusate Sodium 100 mg BIDPRN PRN PO 01/03/25 08:15 Enoxaparin Sodium 30 mg DAILY SC 01/03/25 10:00 01/05/25 09:45 30 MG Acetaminophen 650 mg Q6HP PRN PO 01/03/25 08:15 Morphine Sulfate 2 mg Q4HPRN PRN IV 01/03/25 08:15 Tamsulosin HCl 0.4 mg QPM PO 01/04/25 18:00 01/05/25 17:45 0.4 MG Finasteride 5 mg DAILY PO 01/05/25 10:00 01/06/25 11:01 5 MG Ticagrelor 60 mg BID PO 01/04/25 22:00 UNV Ticagrelor 90 mg BID PO 01/04/25 22:00 01/06/25 11:01 90 MG Diagnostic Test (Pha) 1 strip ACHS 01/04/25 17:00 01/06/25 06:45 1 STRIP Insulin Human Regular ACHS SC 01/04/25 17:00 01/05/25 23:02 3 UNITS Dextrose 50 ml UD PRN IV 01/04/25 13:15 Haloperidol Lactate 2.5 mg Q8HP PRN IV 01/05/25 10:45 Ceftriaxone Sodium/Dextrose 50 ml @ 50 mls/hr Q12HR@09,21 IV 01/05/25 21:00 01/06/25 08:21 50 MLS/HR Acyclovir Sodium 0 ml @ 0 mls/hr PER PHARMACY IV 01/05/25 13:15 Sodium Bicarbonate 75 ml/ Sodium Chloride 1,075 ml @ 75 mls/hr [id number] IV 01/05/25 13:30 01/05/25 16:00 75 MLS/HR Acyclovir Sodium 300 mg/Dextrose 256 ml @ 128 mls/hr DAILY@1800 IV 01/05/25 18:00 01/05/25 17:45 128 MLS/HR Olanzapine 10 mg DAILY PO 01/06/25 10:00 01/06/25 11:00 10 MG Lorazepam 1 mg ONCE PRN IV 01/05/25 21:00 Haloperidol Lactate 2.5 mg Q8HP PRN IM 01/05/25 21:00 Treatment plan discussed: With staff Medication adjusted: No Diagnosis: delirium , unspecified psychosis Plan : This is a 84-year-old male with no known prior psychiatric history, noticeably more altered here. Patient remains a poor historian. 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 Patient is evaluated via telepsychiatry with at bedside. Patient is a poor historian. He does report being here because he is sick but unable to say what is wrong. He later reports because he is going to eat breakfast now. He talks about "they are going to take me" "they are praying for me" and unable to elaborate. When asked if he has auditory hallucinations, replies, yes, "feels dizzy" He does not respond if having visual hallucinations. He does deny suicidal/homicidal ideation. is a bedside, she denies dementia diagnosis. She reports he was a baseline and became weak on Saturday. She reports changes in behavior occurred after admission here. Per chart review, pt was receiving antibiotic at home, and on admission here, Picc line was noted to be malfunctioned. 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 Here, pt is receiving Olanzapine 10mg daily. haldol 2.5mg prn agitation Past Medical History : Hx of diabetes and hypertension Social History : He lives with at home, bed-bound. denies any known family mental health history. No known history of substance use. BERNARDA LOO DNP January 06, 2025 18:35
--- NOTE | 2025-01-06 18:40 | DVHPN2 ---
Subjective Update 01/06 01/04 today there is 2 daughters at bedside and the? . None of whom speaks Chinese. There particular concern is of why the patient was more confused and unstable walking.. Differential for this condition and the encephalopathy is possible uremic encephalopathy versus acute urinary retention versus hospital delirium. Apparently per family the patient is able to transfer himself and have attached his own prosthetic leg and is usually A&O times 3-4. CT left foot has postsurgical changes NV still do not know which IV antibiotic is going through PICC line. PICC line is not functioning and we will need change. We will continue IV antibiotics, Demarco, urology consult, Flomax finasteride, nephrology following appreciate recs. 01/05 - continues to be delirious and/or confused. Altered mental status. Patient is able to calm down with family members. This morning he is not taking a.m. meds but with family he is able to. We will start antipsychotic and get telepsych eval. There is a question and concern of possible meningitis encephalitis and we will start ceftriaxone and acyclovir with Neurology eval as well. Continue antipsychotics, IV antibiotics, nephrology following with no worsening of BUN. 01/06-patient appearing to be improving today. Today we find patient was getting cefepime at home for his left foot osteomyelitis which can easily cause altered mentation, especially in elderly. Unclear what speciation and sensitivities are from prior hospitalization, we will try to get records.. For now we will continue broad-spectrum that does not cause worsening of mentation. Telepsych eval today. Olanzapine now appears to be helping with hospital delirium. Neurology is not concern of this being a meningeal encephalitis condition. Although LORI as possible, CKD is also very likely. There was no nephrotoxic antibiotic which makes acute renal failure for less likely, but dehydration causing LORI due to VMN still possible. PICC line nurse appears to have fixed PICC line which is now functioning. We will get PT today and telepsych and plan for possible DC tomorrow Reviewed: H&P Changes from previous H/P or p: No Changes General: Per HPI Objective Vitals Vital Signs Date Time Temp Pulse Resp B/P (MAP) Pulse Ox O2 Delivery O2 Flow Rate FiO2 01/06/25 17:00 97.7 93 18 131/53 (79) 100 97.7 01/06/25 08:15 Room Air* 0 21 Intake/Output Intake and Output 01/06/25 07:00 Intake Total 1150 ml Output Total 1455 ml Balance -305 ml Intake Oral 1100 ml IV Total 50 ml Output Urine Total 1455 ml # Bowel Movements 6 Exam GEN: Healthy appearing, well-developed, NAD. AOx1 HEENT: NC/AT; MMM. CV: RRR, no m/r/g. LUNGS: CTAB, no w/r/c. ABD: Soft, NT/ND, NBS, no masses or organomegaly. EXT: Right AKA, left with 2nd toe amputation with a wound VAC on, CDI. NEURO: Ambulating with no limitations. No focal deficits. Medications Current Medications Medications Dose Ordered Sig/Valeriy Route Start Time Stop Time Status Last Admin Dose Admin Metronidazole 250 mg Q8HR PO 01/03/25 14:00 01/06/25 06:42 250 MG Acetaminophen/ Hydrocodone Bitart 1 tab Q4HP PRN PO 01/03/25 08:15 Ondansetron HCl 4 mg Q4HP PRN IV 01/03/25 08:15 Docusate Sodium 100 mg BIDPRN PRN PO 01/03/25 08:15 Enoxaparin Sodium 30 mg DAILY SC 01/03/25 10:00 01/05/25 09:45 30 MG Acetaminophen 650 mg Q6HP PRN PO 01/03/25 08:15 Morphine Sulfate 2 mg Q4HPRN PRN IV 01/03/25 08:15 Tamsulosin HCl 0.4 mg QPM PO 01/04/25 18:00 01/06/25 17:49 0.4 MG Finasteride 5 mg DAILY PO 01/05/25 10:00 01/06/25 11:01 5 MG Ticagrelor 60 mg BID PO 01/04/25 22:00 UNV Ticagrelor 90 mg BID PO 01/04/25 22:00 01/06/25 11:01 90 MG Diagnostic Test (Pha) 1 strip ACHS 01/04/25 17:00 01/06/25 06:45 1 STRIP Insulin Human Regular ACHS SC 01/04/25 17:00 01/05/25 23:02 3 UNITS Dextrose 50 ml UD PRN IV 01/04/25 13:15 Haloperidol Lactate 2.5 mg Q8HP PRN IV 01/05/25 10:45 Ceftriaxone Sodium/Dextrose 50 ml @ 50 mls/hr Q12HR@09,21 IV 01/05/25 21:00 01/06/25 08:21 50 MLS/HR Acyclovir Sodium 0 ml @ 0 mls/hr PER PHARMACY IV 01/05/25 13:15 Sodium Bicarbonate 75 ml/ Sodium Chloride 1,075 ml @ 75 mls/hr [id number] IV 01/05/25 13:30 01/05/25 16:00 75 MLS/HR Acyclovir Sodium 300 mg/Dextrose 256 ml @ 128 mls/hr DAILY@1800 IV 01/05/25 18:00 01/06/25 17:49 128 MLS/HR Olanzapine 10 mg DAILY PO 01/06/25 10:00 01/06/25 11:00 10 MG Lorazepam 1 mg ONCE PRN IV 01/05/25 21:00 Haloperidol Lactate 2.5 mg Q8HP PRN IM 01/05/25 21:00 Laboratory Results Laboratory Tests 01/06/25 05:47 Chemistry Test 01/06/25 05:47 Albumin 4.5 g/dL (3.2-4.8) Calcium Level 9.3 mg/dL (8.7-10.4) Total Protein 7.7 g/dL (5.7-8.2) LFT Test 01/06/25 05:47 Alanine Aminotransferase (ALT) 38 U/L (7-40) Alkaline Phosphatase 277 U/L (46-116) H Aspartate Amino Transferase (AST) 30 U/L (13-40) Total Bilirubin 0.2 mg/dL (0.2-1.0) Urinalysis Test 01/03/25 03:43 Urine Color Light-yellow (Yellow) Urine Clarity Clear (Clear) Urine pH 6.0 (5.0-9.0) Urine Specific [place] 1.012 (1.001-1.035) Urine Protein 2+ (Negative) H Urine Ketones Negative (Negative) Urine Blood 1+ /uL (Negative) H Urine Nitrite Negative (Negative) Urine Bilirubin Negative (Negative) Urine Urobilinogen Normal mg/dL (Negative) Urine Leukocyte Esterase Negative /uL (Negative) Urine RBC 1 /hpf (0 - 3) Urine Microscopic WBC 1 /HPF (0-3) Urine Squamous Epithelial Cells Few /hpf (<5) Urine Bacteria Few /hpf (None Seen) H Urine Creatinine 47.17 mg/dL (30.0-125.0) Urine Sodium 71 mmol/L (40-220) Urine Glucose Trace mg/dL (Normal) Urine Total Protein 169.6 mg/dL (1-14) H Microbiology Microbiology Date/Time Source Procedure Growth Status 01/03/25 03:10 Blood Blood Culture - Preliminary NO GROWTH AFTER 72 HOURS OF INCUBATION. Resulted Labs and/or images reviewed: Labs reviewed by me, Image(s) reviewed by me Assessment/Plan Assessment/Plan 01/06-patient appearing to be improving today. Today we find patient was getting cefepime at home for his left foot osteomyelitis which can easily cause altered mentation, especially in elderly. Unclear what speciation and sensitivities are from prior hospitalization, we will try to get records.. For now we will continue broad-spectrum that does not cause worsening of mentation. Telepsych eval today. Olanzapine now appears to be helping with hospital delirium. Neurology is not concern of this being a meningeal encephalitis condition. Although LORI as possible, CKD is also very likely. There was no nephrotoxic antibiotic which makes acute renal failure for less likely, but dehydration causing LORI due to VMN still possible. PICC line nurse appears to have fixed PICC line which is now functioning. We will get PT today and telepsych and plan for possible DC tomorrow ALOC Weakness , likely renal failure related Right AKA history Recent left foot amputation to, on the leg, on IV antibiotics PICC line ? 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 Difficult to interview, patient dementia, bedside family unaware of history, history with sister on phone Latvian speaking only, for availability of home meds Need records from [facility], unknown PICC line antibiotic Continue home meds Constipation possible, hold iron Continue antidepressant dose of home Basaglar 12 units hence we will use 8 units likely We will use sliding scale for meals, at home uses 4 units with meals Continue home nifedipine Hold home statin ruled out statin myopathy Continue ticagrelor equivalent Bedside swallow test by nursing Left foot CT - with old changes of surgical intervention Ceftriaxone/acyclovir, ( prior Ceftriaxone, doxycycline, IV ) Flagyl p.o. Blood cultures, ammonia, TSH, CK, VDRL Check FENA labs Reorder VD RLS RPR treponemal antibody test. Ammonia normal Psych eval Neuro eval Diet puree DVT prophylaxis-Lovenox GI prophylaxis Protonix IV daily Med tele Full code Plan discussed with: Patient My Orders Orders - ESTHELA JAMES MD Procedure Category Date Status Time Discontinue Tele ALEXI 01/06/25 In Process 11:59 Transfer Orders XFER 01/06/25 Transmitted 11:59 Date of Service: January 06, 2025 Billing Provider: ESTHELA JAMES MD Common Visit Codes: [id number] INP/OBS CARE(HIGH) ESTHELA JAMES MD January 06, 2025 18:39
[2025-01-06 20:00] VITALS: PULSE 62; PULSE 95; RESP 17; O2SAT 99
--- NOTE | 2025-01-06 21:32 | DVHPN2 ---
Progress Note - Dictate Date Seen: January 06, 2025 Has the PT tested + for MRSA If YES, has PT been informed?: No Medical Necessity Reason Pt with a Central, PICC or Fol: No Subjective Mr. Vasquez in the 84 years old right-handed gentleman with a history of hypertension, diabetes, peripheral arterial disease, chronic kidney failure, osteomyelitis, he came to the [facility] on 01/03/2025 with a chief complaint of general weakness. I have seen and examined the patient, I have discussed with his nurse and the medical staff, he is awake, oriented to person, place, but he was tired, and confused, he was trying to get off the bed I have I have suggested Dr. Kristie Mckeon's input Urinalysis, 01/03/2025: WBC: 1, urine leukocyte esterase: Negative WBC/HB/PLT/MCV, 01/05/2025: 6.1/9.6/161/87 BUN/CR, 01/05/2025: 48/3.38 GFR, 01/04/2025: 17 Sodium, 01/03/2025: 142, 01/04/2025: 144, 01/05/2025: 146 HCO3, 01/03/2025: 16, 01/04/2025: 15, 01/05/2025: 16 Lactic acid, 01/03/2025: 0 108 TBI/AST/ALT/AP, 01/05/2025: 0.3/34/44/286 Vitamin B12, 01/05/2025: 2174 Folic acid, 01/05/2025: 5.25 TSH 01/03/2025: 6.07, 01/05/2025: 3.74 FT4, 01/04/2025: 0.93 Chest x-ray, 01/03/2025: No acute disease. Right PICC noted CT head, 01/03/2025: 1. No acute intracranial abnormality. 2. 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 3. Chronic appearing bilateral basal ganglia and thalamic lacunar infarcts CT, left foot, 01/03/2025: 1. Postsurgical changes of amputation of the 2nd and 3rd metatarsals. 2. Soft tissue swelling adjacent to the amputation site, likely due to recent postsurgical changes. Superimposed infection not excluded in the appropriate clinical setting. 3. Cortical deformity of the 3rd metatarsal head and adjacent portions of the base of the proximal phalanx of uncertain chronicity. Infection/ osteomyelitis not excluded. Correlate with the findings. If clinically indicated, MRI could be obtained to further evaluate. 4. Additional findings as detailed above vital signs Vital Sign Date Time Temp Pulse Resp B/P (MAP) Pulse Ox O2 Delivery O2 Flow Rate FiO2 01/06/25 17:00 97.7 93 18 131/53 (79) 100 97.7 01/06/25 08:15 Room Air* 0 21 Total Intake and Output 01/05/25 01/05/25 01/06/25 15:00 23:00 07:00 Intake Total 50 ml 250 ml 850 ml Output Total 700 ml 755 ml Balance 50 ml -450 ml 95 ml medications Current Medications Medications Dose Ordered Sig/Valeriy Route Start Time Stop Time Status Last Admin Dose Admin Metronidazole 250 mg Q8HR PO 01/03/25 14:00 01/06/25 06:42 250 MG Acetaminophen/ Hydrocodone Bitart 1 tab Q4HP PRN PO 01/03/25 08:15 Ondansetron HCl 4 mg Q4HP PRN IV 01/03/25 08:15 Docusate Sodium 100 mg BIDPRN PRN PO 01/03/25 08:15 Enoxaparin Sodium 30 mg DAILY SC 01/03/25 10:00 01/05/25 09:45 30 MG Acetaminophen 650 mg Q6HP PRN PO 01/03/25 08:15 Morphine Sulfate 2 mg Q4HPRN PRN IV 01/03/25 08:15 Tamsulosin HCl 0.4 mg QPM PO 01/04/25 18:00 01/06/25 17:49 0.4 MG Finasteride 5 mg DAILY PO 01/05/25 10:00 01/06/25 11:01 5 MG Ticagrelor 60 mg BID PO 01/04/25 22:00 UNV Ticagrelor 90 mg BID PO 01/04/25 22:00 01/06/25 11:01 90 MG Diagnostic Test (Pha) 1 strip ACHS 01/04/25 17:00 01/06/25 06:45 1 STRIP Insulin Human Regular ACHS SC 01/04/25 17:00 01/05/25 23:02 3 UNITS Dextrose 50 ml UD PRN IV 01/04/25 13:15 Haloperidol Lactate 2.5 mg Q8HP PRN IV 01/05/25 10:45 Ceftriaxone Sodium/Dextrose 50 ml @ 50 mls/hr Q12HR@09,21 IV 01/05/25 21:00 01/06/25 08:21 50 MLS/HR Acyclovir Sodium 0 ml @ 0 mls/hr PER PHARMACY IV 01/05/25 13:15 Sodium Bicarbonate 75 ml/ Sodium Chloride 1,075 ml @ 75 mls/hr [id number] IV 01/05/25 13:30 01/05/25 16:00 75 MLS/HR Acyclovir Sodium 300 mg/Dextrose 256 ml @ 128 mls/hr DAILY@1800 IV 01/05/25 18:00 01/06/25 17:49 128 MLS/HR Olanzapine 10 mg DAILY PO 01/06/25 10:00 01/06/25 11:00 10 MG Lorazepam 1 mg ONCE PRN IV 01/05/25 21:00 Haloperidol Lactate 2.5 mg Q8HP PRN IM 01/05/25 21:00 objective General: the patient is well developed and nourished. No acute distress. MUSCULOSKELETAL EXAM: Status post right BKA, status post left toe amputation The left foot is warm, but without tenderness to palpation MENTAL STATUS: Subjective SPEECH, LANGUAGE, HIGHER CORTICAL FUNCTION: no aphasia or dysathria. CRANIAL NERVES: Pupils are equal, round and reactive. EOMs full and conjugate. No nystagmus. Facial sensation intact in all three divisions bilaterally. Mandibular strength intact. Facial muscles symmetrical and strength intact. SENSATION: Sensation to touch and pinprick is diminished distally in the left lower extremity MOTOR: Normal tone in the upper and lower extremity. Normal muscle bulk. No fasciculations. This is a bilateral asterixis. Muscle strength of the major groups in the extremities is 5/5. REFLEXES: Deep tendon reflexes are symmetrical. No pathological reflexes. CEREBELLAR/COORDINATION: Finger to nose is normal bilaterally laboratory and microbiology Laboratory Tests 01/06/25 05:47 Test 01/06/25 05:47 Range/Units Serum Glucose 122 H 74-106 mg/dL Problem List Altered status in the hospital Likely metabolic encephalopathy secondary to osteomyelitis in the left foot Intracranial infection, less likely Partial complex seizure, less likely Rule out acute intracranial structural pathology, less likely Diabetic polyneuropathy Rule out intracranial infection, less likely Diabetic polyneuropathy Assessment/Plan Monitoring Supportive treatment Telemetry Haldol 2.5 mg intramuscular Q 8 hours p.r.n. for agitation EEG IV antibiotics Address his polyneuropathy as outpatient More recommendation per clinical course This medical document was created using an electronic medical record system with [employer] dictation system. Although this document has been carefully reviewed, there may still be some phonetic and typographical errors. These areas are purely typographical due to imperfections of the software programs, and do not reflect any compromise in the patient's medical care Prognosis poor Dietary Evaluation Review Comments: 1. Currently on Full Liquid diet only; consider INSURANCE CLAIMS SUPERVISOR consult given texture modififed diet and prioritize further diet progression 2. Will add Ensure Enlive TID in the interim given negligible PO intakes (provides 350 kcal, 20 gm pro per carton) 3. Monitor wt trends closely, daily wt's to trend 4. Assist w/ tray set-up, 1:1 feeding as able pending pt mentation/behavior Expected Outcomes/Goals: Improved nutritional intake. Plan discussed with: Other Total Time (mins): 35 CONI REEDER MD January 06, 2025 21:32
[2025-01-07] MEDS: HALOPERIDOL LACTATE 5 MG/ML INJ VIAL IM PRN (04:10)
[2025-01-07 05:00] VITALS: BP 154/75; PULSE 64; RESP 18; TEMP 98; O2SAT 100
[2025-01-07 06:36] LABS: Alanine Aminotransferase 34 U/L (7-40); Albumin 4.3 g/dL (3.2-4.8); Anion Gap 14 (5-15); Aspartate Aminotransferase 28 U/L (13-40); BUN/Creatinine Ratio 14.4 (10.0-20.0); Calcium 9.9 mg/dL (8.7-10.4); Total Protein 7.5 g/dL (5.7-8.2)
[2025-01-07 06:39] LABS: Alkaline Phosphatase 277 U/L (46-116); Bilirubin, Total 0.2 mg/dL (0.2-1.0); Blood Urea Nitrogen 45 mg/dL (9-23); Carbon Dioxide 19 mmol/L (20-31); Chloride 113 mmol/L (98-107); Glucose 120 mg/dL (74-106); Potassium 3.4 mmol/L (3.5-5.1); Sodium 146 mmol/L (136-145)
[2025-01-07 09:00] VITALS: BP 146/60; PULSE 76; RESP 18; TEMP 98.4; O2SAT 97
[2025-01-07] MEDS: POTASSIUM EFFERVESENT TAB 25 MEQ PO ONE (11:37)
[2025-01-07] MEDS: D5W 5% 1,000 ML IV SCH (12:06)
[2025-01-07 13:00] VITALS: BP 152/70; PULSE 74; RESP 18; TEMP 98.1; O2SAT 98
[2025-01-07 13:46] LABS: Base Excess -2.9 mmol/L (-2.0-3.0)
--- NOTE | 2025-01-07 13:57 | DVHPN2 ---
Progress Note Date Seen: January 07, 2025 Resident Creating Document: KEITH MEHTA RESIDENT Has the PT tested + for MRSA If YES, has PT been informed?: No Medical Necessity Reason Pt with a Central, PICC or Fol: No Subjective Review of Systems Patient seen and examined at bedside. Today, patient was sleepy in the morning and was not cooperating at all, per nurse patient did not sleep in the night. Patient seems to be near his baseline, creatinine improved from 3.41-3.13 and BUN is 45. Potassium was slightly low this morning at 3.4 which was replaced with 20 mEq of IV potassium. We switched the fluids of the patient, we stopped sodium bicarbonate and started the patient on D5W at 75 cc/hour. We will continue monitoring kidney function while patient is in the hospital. Upon questioning to the patient, patient was not having any complaints at this time. ROS Constitutional: Denies weight loss, fever and chills. HEENT: Denies changes in vision and hearing. Respiratory: Denies shortness of breath and cough Cardiovascular: Denies chest discomfort or palpitations GI: Denies abdominal pain, nausea, vomiting and diarrhea. : Denies dysuria and urinary frequency. Musculoskeletal: Denies myalgias and joint pain Skin: Denies rash and pruritus. Neurological: Denies dizziness, headache, vision or hearing problems Objective vital signs Vital Sign Date Time Temp Pulse Resp B/P (MAP) Pulse Ox O2 Delivery O2 Flow Rate FiO2 01/07/25 13:00 98.1 74 18 152/70 (97) 98 98.1 01/07/25 08:05 Room Air* 0 21 Total Intake and Output 01/06/25 01/06/25 01/07/25 15:00 23:00 07:00 Intake Total 250 ml 928 ml 0 ml Output Total 650 ml 700 ml Balance 250 ml 278 ml -700 ml medications Current Medications Medications Dose Ordered Sig/Valeriy Route Start Time Stop Time Status Last Admin Dose Admin Metronidazole 250 mg Q8HR PO 01/03/25 14:00 01/07/25 05:15 250 MG Acetaminophen/ Hydrocodone Bitart 1 tab Q4HP PRN PO 01/03/25 08:15 Ondansetron HCl 4 mg Q4HP PRN IV 01/03/25 08:15 Docusate Sodium 100 mg BIDPRN PRN PO 01/03/25 08:15 Enoxaparin Sodium 30 mg DAILY SC 01/03/25 10:00 01/05/25 09:45 30 MG Acetaminophen 650 mg Q6HP PRN PO 01/03/25 08:15 Morphine Sulfate 2 mg Q4HPRN PRN IV 01/03/25 08:15 Tamsulosin HCl 0.4 mg QPM PO 01/04/25 18:00 01/06/25 17:49 0.4 MG Finasteride 5 mg DAILY PO 01/05/25 10:00 01/06/25 11:01 5 MG Ticagrelor 60 mg BID PO 01/04/25 22:00 UNV Ticagrelor 90 mg BID PO 01/04/25 22:00 01/06/25 21:53 90 MG Diagnostic Test (Pha) 1 strip ACHS 01/04/25 17:00 01/07/25 11:45 1 STRIP Insulin Human Regular ACHS SC 01/04/25 17:00 01/07/25 12:05 4 UNITS Dextrose 50 ml UD PRN IV 01/04/25 13:15 Ceftriaxone Sodium/Dextrose 50 ml @ 50 mls/hr Q12HR@09,21 IV 01/05/25 21:00 01/07/25 08:05 50 MLS/HR Olanzapine 10 mg DAILY PO 01/06/25 10:00 01/06/25 11:00 10 MG Lorazepam 1 mg ONCE PRN IV 01/05/25 21:00 Haloperidol Lactate 2.5 mg Q8HP PRN IM 01/05/25 21:00 01/07/25 04:10 2.5 MG Dextrose 1,000 ml @ 75 mls/hr [id number] IV 01/07/25 11:15 01/07/25 12:06 75 MLS/HR Examination Physical Examination General: Patient more alert and oriented compared to previous days. Patient was sleepy this morning HEENT: Normocephalic, atraumatic, moist mucous membranes Respiratory/pulmonary: Clear lungs bilaterally, no associated crackles or wheezes. Cardiovascular: Normal heart sounds S1 and S2 with no associated murmurs Abdomen: Abdomen nondistended, there is no pain to palpation in any of the abdominal quadrants, no palpable masses. Extremities: There is right above-knee amputation and left 2nd toe amputation in the left foot. Neurological: Patient is more alert and oriented at this point. laboratory and microbiology Laboratory Tests 01/07/25 05:47 01/06/25 05:47 Test 01/07/25 05:47 Range/Units Serum Glucose 120 H 74-106 mg/dL Microbiology Date/Time Source Procedure Growth Status 01/03/25 03:10 Blood Blood Culture - Preliminary NO GROWTH AFTER 72 HOURS OF INCUBATION. 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 -Start D5w at 75cc/hr -strict in's and out -Demarco catheter in place -continue IV antibiotics per hospitalist team -continue mild sliding scale insulin -creatinine is slightly improving came down to 3.13 and BUN is 45. -Avoid nephrotoxic drugs -Monitor kidney function daily Goals of care discussed with the daughters at bedside for >20min, FULL CODE Plan discussed with Dr. Adkins Addendum Patient seen and examined, plan discussed with resident. Agree with above, we will follow closely Plan discussed with: Patient, Daughter Dietary Evaluation Review Comments: 1. Currently on Full Liquid diet only; consider TOLL TICKET CLERK consult given texture modififed diet and prioritize further diet progression 2. Will add Ensure Enlive TID in the interim given negligible PO intakes (provides 350 kcal, 20 gm pro per carton) 3. Monitor wt trends closely, daily wt's to trend 4. Assist w/ tray set-up, 1:1 feeding as able pending pt mentation/behavior Expected Outcomes/Goals: Improved nutritional intake. KEITH MEHTA RESIDENT January 07, 2025 13:57 GABRIELLA ADKINS MD January 07, 2025 19:51
[2025-01-07 16:46] VITALS: BP 148/77; PULSE 79; RESP 18; TEMP 98.6; O2SAT 98
--- NOTE | 2025-01-07 16:53 | DVHPN2 ---
Subjective Update 01/07 01/04 today there is 2 daughters at bedside and the? . None of whom speaks [place]. There particular concern is of why the patient was more confused and unstable walking.. Differential for this condition and the encephalopathy is possible uremic encephalopathy versus acute urinary retention versus hospital delirium. Apparently per family the patient is able to transfer himself and have attached his own prosthetic leg and is usually A&O times 3-4. CT left foot has postsurgical changes NV still do not know which IV antibiotic is going through PICC line. PICC line is not functioning and we will need change. We will continue IV antibiotics, Demarco, urology consult, Flomax finasteride, nephrology following appreciate recs. 01/05 - continues to be delirious and/or confused. Altered mental status. Patient is able to calm down with family members. This morning he is not taking a.m. meds but with family he is able to. We will start antipsychotic and get telepsych eval. There is a question and concern of possible meningitis encephalitis and we will start ceftriaxone and acyclovir with Neurology eval as well. Continue antipsychotics, IV antibiotics, nephrology following with no worsening of BUN. 01/06-patient appearing to be improving today. Today we find patient was getting cefepime at home for his left foot osteomyelitis which can easily cause altered mentation, especially in elderly. Unclear what speciation and sensitivities are from prior hospitalization, we will try to get records.. For now we will continue broad-spectrum that does not cause worsening of mentation. Telepsych eval today. Olanzapine now appears to be helping with hospital delirium. Neurology is not concern of this being a meningeal encephalitis condition. Although LORI as possible, CKD is also very likely. There was no nephrotoxic antibiotic which makes acute renal failure for less likely, but dehydration causing LORI due to VMN still possible. PICC line nurse appears to have fixed PICC line which is now functioning. We will get PT today and telepsych and plan for possible DC tomorrow 01/07 worsen today. PT try working with him, requiring full assist. high risk patient. neuro not concern for infection, stopped acyclovir to conserve continue prevent any further damage. Kidney mild improvement with numbers. Patient excessive somnolence and altered mental status, check ABG, no CO2 narcosis. Trep antibody negative. Patient remains confused agitated we will not be good candidate for PT acute rehab SNF. antibiotic from [facility], patient was on cefepime which can cause confusion we will be stopped. . Telepsych does not want to increase any further antipsychotics given age and size. We will try giving thiamine and multivitamins and continue antipsychotics in hope for improvement. Patient will likely need home environment to improve back to baseline and home PT. Likely DC tomorrow Reviewed: H&P Changes from previous H/P or p: No Changes General: Per HPI Objective Vitals Vital Signs Date Time Temp Pulse Resp B/P (MAP) Pulse Ox O2 Delivery O2 Flow Rate FiO2 01/07/25 16:46 98.6 79 18 148/77 (100) 98 98.6 01/07/25 08:05 Room Air* 0 21 Intake/Output Intake and Output 01/07/25 07:00 Intake Total 1178 ml Output Total 1350 ml Balance -172 ml Intake Oral 800 ml IV Total 378 ml Output Urine Total 1350 ml # Bowel Movements 3 Exam GEN: Healthy appearing, well-developed, NAD. AOx1 HEENT: NC/AT; MMM. CV: RRR, no m/r/g. LUNGS: CTAB, no w/r/c. ABD: Soft, NT/ND, NBS, no masses or organomegaly. EXT: Right AKA, left with 2nd toe amputation with a wound VAC on, CDI. NEURO: Ambulating with no limitations. No focal deficits. Medications Current Medications Medications Dose Ordered Sig/Valeriy Route Start Time Stop Time Status Last Admin Dose Admin Metronidazole 250 mg Q8HR PO 01/03/25 14:00 01/07/25 14:02 250 MG Acetaminophen/ Hydrocodone Bitart 1 tab Q4HP PRN PO 01/03/25 08:15 Ondansetron HCl 4 mg Q4HP PRN IV 01/03/25 08:15 Docusate Sodium 100 mg BIDPRN PRN PO 01/03/25 08:15 Enoxaparin Sodium 30 mg DAILY SC 01/03/25 10:00 01/05/25 09:45 30 MG Acetaminophen 650 mg Q6HP PRN PO 01/03/25 08:15 Morphine Sulfate 2 mg Q4HPRN PRN IV 01/03/25 08:15 Tamsulosin HCl 0.4 mg QPM PO 01/04/25 18:00 01/06/25 17:49 0.4 MG Finasteride 5 mg DAILY PO 01/05/25 10:00 01/06/25 11:01 5 MG Ticagrelor 60 mg BID PO 01/04/25 22:00 UNV Ticagrelor 90 mg BID PO 01/04/25 22:00 01/06/25 21:53 90 MG Diagnostic Test (Pha) 1 strip ACHS 01/04/25 17:00 01/07/25 16:05 1 STRIP Insulin Human Regular ACHS SC 01/04/25 17:00 01/07/25 16:15 3 UNITS Dextrose 50 ml UD PRN IV 01/04/25 13:15 Ceftriaxone Sodium/Dextrose 50 ml @ 50 mls/hr Q12HR@,21 IV 01/05/25 21:00 01/07/25 08:05 50 MLS/HR Olanzapine 10 mg DAILY PO 01/06/25 10:00 01/06/25 11:00 10 MG Lorazepam 1 mg ONCE PRN IV 01/05/25 21:00 Haloperidol Lactate 2.5 mg Q8HP PRN IM 01/05/25 21:00 01/07/25 04:10 2.5 MG Dextrose 1,000 ml @ 75 mls/hr [id number] IV 01/07/25 11:15 01/07/25 12:06 75 MLS/HR Thiamine HCl 100 mg DAILY PO 01/08/25 10:00 Multivitamins 1 tab DAILY PO 01/08/25 10:00 Laboratory Results Laboratory Tests 01/06/25 05:47 01/07/25 05:47 Chemistry Test 01/07/25 05:47 Albumin 4.3 g/dL (3.2-4.8) Calcium Level 9.9 mg/dL (8.7-10.4) Magnesium Level 2.0 mg/dL (1.6-2.6) Total Protein 7.5 g/dL (5.7-8.2) LFT Test 01/07/25 05:47 Alanine Aminotransferase (ALT) 34 U/L (7-40) Alkaline Phosphatase 277 U/L (46-116) H Aspartate Amino Transferase (AST) 28 U/L (13-40) Total Bilirubin 0.2 mg/dL (0.2-1.0) Urinalysis Test 01/03/25 03:43 Urine Color Light-yellow (Yellow) Urine Clarity Clear (Clear) Urine pH 6.0 (5.0-9.0) Urine Specific [place] 1.012 (1.001-1.035) Urine Protein 2+ (Negative) H Urine Ketones Negative (Negative) Urine Blood 1+ /uL (Negative) H Urine Nitrite Negative (Negative) Urine Bilirubin Negative (Negative) Urine Urobilinogen Normal mg/dL (Negative) Urine Leukocyte Esterase Negative /uL (Negative) Urine RBC 1 /hpf (0 - 3) Urine Microscopic WBC 1 /HPF (0-3) Urine Squamous Epithelial Cells Few /hpf (<5) Urine Bacteria Few /hpf (None Seen) H Urine Creatinine 47.17 mg/dL (30.0-125.0) Urine Sodium 71 mmol/L (40-220) Urine Glucose Trace mg/dL (Normal) Urine Total Protein 169.6 mg/dL (1-14) H Blood Gas Results Test 01/07/25 13:41 Arterial Blood pH 7.422 (7.350-7.450) FiO2 % 21.0 Microbiology Microbiology Date/Time Source Procedure Growth Status 01/03/25 03:10 Blood Blood Culture - Preliminary NO GROWTH AFTER 72 HOURS OF INCUBATION. Resulted Labs and/or images reviewed: Labs reviewed by me, Image(s) reviewed by me Assessment/Plan Assessment/Plan 01/07 worsen today. PT try working with him, requiring full assist. high risk patient. neuro not concern for infection, stopped acyclovir to conserve continue prevent any further damage. Kidney mild improvement with numbers. Patient excessive somnolence and altered mental status, check ABG, no CO2 narcosis. Trep antibody negative. Patient remains confused agitated we will not be good candidate for PT acute rehab SNF. antibiotic from [facility], patient was on cefepime which can cause confusion we will be stopped. . Telepsych does not want to increase any further antipsychotics given age and size. We will try giving thiamine and multivitamins and continue antipsychotics in hope for improvement. Patient will likely need home environment to improve back to baseline and home PT. Likely DC tomorrow ALOC Weakness , likely renal failure related Right AKA history Recent left foot amputation to, on the leg, on IV antibiotics PICC line ? 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 -Difficult to interview, patient dementia, bedside family unaware of history, history with sister on phone [place] speaking only, for availability of home meds -Need records from [place], unknown PICC line antibiotic- antibiotic from [facility], patient was on cefepime which can cause confusion we will be stopped. -Continue home meds -Constipation possible, hold iron -Continue antidepressant dose of home Basaglar 12 units hence we will use 8 units likely -We will use sliding scale for meals, at home uses 4 units with meals -Continue home nifedipine -Hold home statin ruled out statin myopathy -Continue ticagrelor equivalent -Bedside swallow test by nursing -Left foot CT - with old changes of surgical intervention -Ceftriaxone/acyclovir, ( prior Ceftriaxone, doxycycline, IV ) -Flagyl p.o. -Blood cultures, ammonia, TSH, CK, VDRL -Check FENA labs -Reorder VD RLS RPR treponemal antibody test. -Ammonia normal - pCO2 normal -Trip antibody negative -Psych eval --do not want to increase further D psychotic or any further recommendation -Neuro eval - infection concern low Diet puree DVT prophylaxis-Lovenox GI prophylaxis Protonix IV daily Med tele Full code Plan discussed with: Patient My Orders Orders - ESTHELA JAMES MD Procedure Category Date Status Time Abg W/ Co-Ox RT 01/07/25 Logged 13:26 Thiamine Tab PHA 01/08/25 In Process 10:00 Vitamin B12 LAB 01/08/25 Verified 04:00 Multiple Vitamin PHA 01/08/25 In Process Tablet (Mvi Tab) 10:00 Date of Service: January 07, 2025 Billing Provider: ESTHELA JAMES MD Common Visit Codes: [id number] INP/OBS CARE(HIGH) ESTHELA JAMES MD January 07, 2025 16:53
[2025-01-07] MEDS: THIAMINE 100mg/ml INJ (200mg/2ml VIAL) IV ONE (17:32)
[2025-01-07] MEDS: MULTIPLE VITAMIN TAB PO ONE (17:34)
--- NOTE | 2025-01-07 18:10 | DVH ---
PROCEDURE: MRI BRAIN HEAD WO CONTRAST Indication: ALOC, CVA COMPARISON: CT head from 01/03/2025 TECHNIQUE: Multiplanar multisequence images of the brain are obtained. FINDINGS: There is no abnormal diffusion restriction. Moderate periventricular and subcortical white matter T2 and FLAIR hyperintense changes. Right occipital encephalomalacia. Mild global cerebral volume loss. T here is no intracranial hemorrhage. No extra-axial fluid collection, mass effect or midline shift. Th e ventricles are midline and normal in size. The cisterns are patent. Normal intracranial flow voids are preserved. No abnormal susceptibility signal. Right mastoid effusion. Mucosal thickening of the ethmoids. The visualized orbits are unremarkable. IMPRESSION: 1. No acute cerebrovascular ischemia. 2. Moderate chronic microvascular ischemic changes. Right occipital encephalomalacia. 3. Mild global cerebral volume loss.
[2025-01-07 21:00] VITALS: BP 146/76; PULSE 86; RESP 17; TEMP 97.8; O2SAT 96
[2025-01-07] MEDS: MEROPENEM 500MG IVPB 50 ML IV SCH (21:36)
--- NOTE | 2025-01-07 23:38 | DVHPN2 ---
Progress Note - Dictate Date Seen: January 07, 2025 Has the PT tested + for MRSA If YES, has PT been informed?: No Medical Necessity Reason Pt with a Central, PICC or Fol: No Subjective Mr. Vasquez in the 84 years old right-handed gentleman with a history of hypertension, diabetes, peripheral arterial disease, chronic kidney failure, osteomyelitis, he came to the [facility] on 01/03/2025 with a chief complaint of general weakness. I have seen and examined the patient, I have discussed with his nurse and sitter, overall he is doing better today, more cooperative, oriented to person, place He enjoys and spent time with his family in the hospital Urinalysis, 01/03/2025: WBC: 1, urine leukocyte esterase: Negative WBC/HB/PLT/MCV, 01/05/2025: 6.1/9.6/161/87 BUN/CR, 01/05/2025: 48/3.38 GFR, 01/04/2025: 17 Sodium, 01/03/2025: 142, 01/04/2025: 144, 01/05/2025: 146 HCO3, 01/03/2025: 16, 01/04/2025: 15, 01/05/2025: 16 Lactic acid, 01/03/2025: 0 108 TBI/AST/ALT/AP, 01/05/2025: 0.3/34/44/286 Vitamin B12, 01/05/2025: 2174 Folic acid, 01/05/2025: 5.25 TSH 01/03/2025: 6.07, 01/05/2025: 3.74 FT4, 01/04/2025: 0.93 Chest x-ray, 01/03/2025: No acute disease. Right PICC noted CT head, 01/03/2025: 1. No acute intracranial abnormality. 2. 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 3. Chronic appearing bilateral basal ganglia and thalamic lacunar infarcts CT, left foot, 01/03/2025: 1. Postsurgical changes of amputation of the 2nd and 3rd metatarsals. 2. Soft tissue swelling adjacent to the amputation site, likely due to recent postsurgical changes. Superimposed infection not excluded in the appropriate clinical setting. 3. Cortical deformity of the 3rd metatarsal head and adjacent portions of the base of the proximal phalanx of uncertain chronicity. Infection/ osteomyelitis not excluded. Correlate with the findings. If clinically indicated, MRI could be obtained to further evaluate. 4. Additional findings as detailed above MRI head, 01/07/2025: 1. No acute cerebrovascular ischemia. 2. Moderate chronic microvascular ischemic changes. Right occipital encephalomalacia. 3. Mild global cerebral volume loss. vital signs Vital Sign Date Time Temp Pulse Resp B/P (MAP) Pulse Ox O2 Delivery O2 Flow Rate FiO2 01/07/25 21:00 97.8 86 17 146/76 (99) 96 97.8 01/07/25 20:00 Room Air* 0 21 Total Intake and Output 01/06/25 01/06/25 01/07/25 15:00 23:00 07:00 Intake Total 250 ml 928 ml 0 ml Output Total 650 ml 700 ml Balance 250 ml 278 ml -700 ml medications Current Medications Medications Dose Ordered Sig/Valeriy Route Start Time Stop Time Status Last Admin Dose Admin Acetaminophen/ Hydrocodone Bitart 1 tab Q4HP PRN PO 01/03/25 08:15 Ondansetron HCl 4 mg Q4HP PRN IV 01/03/25 08:15 Docusate Sodium 100 mg BIDPRN PRN PO 01/03/25 08:15 Enoxaparin Sodium 30 mg DAILY SC 01/03/25 10:00 01/05/25 09:45 30 MG Acetaminophen 650 mg Q6HP PRN PO 01/03/25 08:15 Morphine Sulfate 2 mg Q4HPRN PRN IV 01/03/25 08:15 Tamsulosin HCl 0.4 mg QPM PO 01/04/25 18:00 01/07/25 17:34 0.4 MG Finasteride 5 mg DAILY PO 01/05/25 10:00 01/06/25 11:01 5 MG Ticagrelor 60 mg BID PO 01/04/25 22:00 UNV Ticagrelor 90 mg BID PO 01/04/25 22:00 01/07/25 21:34 90 MG Diagnostic Test (Pha) 1 strip ACHS 01/04/25 17:00 01/07/25 21:36 1 STRIP Insulin Human Regular ACHS SC 01/04/25 17:00 01/07/25 22:00 2 UNITS Dextrose 50 ml UD PRN IV 01/04/25 13:15 Olanzapine 10 mg DAILY PO 01/06/25 10:00 01/06/25 11:00 10 MG Lorazepam 1 mg ONCE PRN IV 01/05/25 21:00 Haloperidol Lactate 2.5 mg Q8HP PRN IM 01/05/25 21:00 01/07/25 04:10 2.5 MG Dextrose 1,000 ml @ 75 mls/hr [id number] IV 01/07/25 11:15 01/07/25 12:06 75 MLS/HR Thiamine HCl 100 mg DAILY PO 01/08/25 10:00 Multivitamins 1 tab DAILY PO 01/08/25 10:00 Meropenem 50 ml @ 17 mls/hr Q12HR IV 01/07/25 22:00 01/07/25 21:36 17 MLS/HR objective General: the patient is well developed and nourished. No acute distress. MUSCULOSKELETAL EXAM: Status post right BKA, status post left toe amputation The left foot is warm, but without tenderness to palpation MENTAL STATUS: Subjective SPEECH, LANGUAGE, HIGHER CORTICAL FUNCTION: no aphasia or dysathria. CRANIAL NERVES: Pupils are equal, round and reactive. EOMs full and conjugate. No nystagmus. Facial sensation intact in all three divisions bilaterally. Mandibular strength intact. Facial muscles symmetrical and strength intact. SENSATION: Sensation to touch and pinprick is diminished distally in the left lower extremity MOTOR: Normal tone in the upper and lower extremity. Normal muscle bulk. No fasciculations. This is a bilateral asterixis. Muscle strength of the major groups in the extremities is 5/5. REFLEXES: Deep tendon reflexes are symmetrical. No pathological reflexes. CEREBELLAR/COORDINATION: Finger to nose is normal bilaterally laboratory and microbiology Laboratory Tests 01/07/25 05:47 01/06/25 05:47 Test 01/07/25 05:47 Range/Units Serum Glucose 120 H 74-106 mg/dL Problem List Altered status in the hospital Likely metabolic encephalopathy secondary to osteomyelitis in the left foot Intracranial infection, less likely Partial complex seizure, less likely Rule out acute intracranial structural pathology, less likely Diabetic polyneuropathy Rule out intracranial infection, less likely Diabetic polyneuropathy Assessment/Plan Monitoring Supportive treatment Telemetry Haldol 2.5 mg intramuscular Q 8 hours p.r.n. for agitation EEG IV antibiotics Address his polyneuropathy as outpatient More recommendation per clinical course This medical document was created using an electronic medical record system with [employer] dictation system. Although this document has been carefully reviewed, there may still be some phonetic and typographical errors. These areas are purely typographical due to imperfections of the software programs, and do not reflect any compromise in the patient's medical care Prognosis poor Dietary Evaluation Review Comments: 1. Currently on Full Liquid diet only; consider [employer] consult given texture modififed diet and prioritize further diet progression 2. Will add Ensure Enlive TID in the interim given negligible PO intakes (provides 350 kcal, 20 gm pro per carton) 3. Monitor wt trends closely, daily wt's to trend 4. Assist w/ tray set-up, 1:1 feeding as able pending pt mentation/behavior Expected Outcomes/Goals: Improved nutritional intake. Plan discussed with: Other CONI REEDER MD January 07, 2025 23:38
--- NOTE | 2025-01-08 00:35 | DVHEEG2 ---
Neurology EEG Procedural Note Procedural Note EXAM DATE: 01/06/2025 REFERRING DOCTOR: Dr. Reeder TECHNIQUE: Eighteen channels of EEG, 2 channels of EOG, and 1 channel of EKG were recorded using the International 10/20 system. CLINICAL DATA: The patient was referred for an EEG evaluation for the evidence of seizure disorder. MEDICATIONS: See the chart BACKGROUND ACTIVITY: The background activity appeared to be fairly regulated 6- 7 hertz waveform over both posterior quadrants and was reactive to external stimuli, intermixed with this was diffuse low amplitude theta activity over both hemispheres. ACTIVATION: Hyperventilation: Not done Photic Stimulation: Not done Sleep: Not seen IMPRESSION: This is mildly abnormal EEG, this EEG is seen in mild cerebral dysfunction due to metabolic/hypoxic encephalopathy or medication effects, please correlate clinically The EKG channel showed a regular heart rate of 90/min. [place] [address] CONI REEDER MD January 08, 2025 00:35
[2025-01-08] MEDS ORDERED: D5W/SOD CHL 0.45% 1,000 ML IV ONE (02:45)
[2025-01-08 05:00] VITALS: BP 156/68; PULSE 84; RESP 18; TEMP 98.1; O2SAT 96
[2025-01-08 06:13] LABS: Basophils # (auto) 0.1 10 ^3/uL (0-0.2); Basophils % (auto) 0.8 % (0.0-2.0); Eosinophils # (auto) 0.4 10 ^3/uL (0-0.8); Eosinophils % (auto) 5.4 % (0.0-7.0); Hematocrit 28.4 % (41.0-53.0); Hemoglobin 9.4 g/dL (13.5-17.5); Lymphocytes # (auto) 1.5 10 ^3/uL (0.4-5.4); Lymphocytes % (auto) 21.6 % (10.0-50.0); Mean Corpuscular Hemoglobin 28.7 pg (28.0-32.0); Mean Corpuscular Hgb Conc. 32.9 g/dL (32.0-36.0); Mean Corpuscular Volume 87.2 fL (80.0-100.0); Monocytes # (auto) 0.8 10 ^3/uL (0-1.3); Monocytes % (auto) 11.9 % (0.0-12.0); Neutrophils # (auto) 4.3 10 ^3/uL (1.6-8.6); Neutrophils % (auto) 60.3 % (37.0-80.0); Nucleated Red Blood Cells % 0.1 %; Platelet Count (auto) 179 10^3/uL (140-450); Red Blood Cells 3.26 10^6/uL (4.5-5.90); Red Cell Distribution Width 16.2 % (11.8-14.3); White Blood Cell 7.1 10^3/uL (4.4-10.8)
[2025-01-08 06:19] LABS: Alanine Aminotransferase 30 U/L (7-40); Albumin 4.1 g/dL (3.2-4.8); Anion Gap 14 (5-15); Aspartate Aminotransferase 32 U/L (13-40); BUN/Creatinine Ratio 14.3 (10.0-20.0); Calcium 9.1 mg/dL (8.7-10.4); Carbon Dioxide 20 mmol/L (20-31); Potassium 3.7 mmol/L (3.5-5.1); Sodium 144 mmol/L (136-145); Total Protein 7.1 g/dL (5.7-8.2)
[2025-01-08 06:34] LABS: Alkaline Phosphatase 263 U/L (46-116); Bilirubin, Total 0.2 mg/dL (0.2-1.0); Blood Urea Nitrogen 43 mg/dL (9-23); Chloride 110 mmol/L (98-107); Glucose 136 mg/dL (74-106)
[2025-01-08 08:00] VITALS: PULSE 85; RESP 18; O2SAT 95
[2025-01-08 09:00] VITALS: BP 150/70; PULSE 85; RESP 18; TEMP 98.2; O2SAT 95
[2025-01-08] MEDS: THIAMINE HCL 100 MG TAB PO SCH (11:44)
[2025-01-08] MEDS: MULTIPLE VITAMIN TAB PO SCH (11:47)
--- NOTE | 2025-01-08 12:47 | DVHPN2 ---
Progress Note Date Seen: January 08, 2025 Resident Creating Document: KEITH MEHTA RESIDENT Has the PT tested + for MRSA If YES, has PT been informed?: No Medical Necessity Reason Pt with a Central, PICC or Fol: No Subjective Review of Systems Patient seen and examined at bedside. Patient is alert and answering questions, per family patient is currently at his baseline. Patient denies fever/chills, chest pain, shortness of breath, abdominal pain or any symptoms at this time. Police in place, total in's were 1427 cc, out of 2375 cc for a total of negative balance of 948 cc in the last 24 hours. Patient is currently on dextrose 75 cc/hour. Creatinine keeps improving and BUN is 43. Patient might be very near his baseline. Continue antibiotic therapy and medical plan per primary team. ROS Constitutional: Denies weight loss, fever and chills. HEENT: Denies changes in vision and hearing. Respiratory: Denies shortness of breath and cough Cardiovascular: Denies chest discomfort or palpitations GI: Denies abdominal pain, nausea, vomiting and diarrhea. : Denies dysuria and urinary frequency. Musculoskeletal: Denies myalgias and joint pain Skin: Denies rash and pruritus. Neurological: Denies dizziness, headache, vision or hearing problems Objective vital signs Vital Sign Date Time Temp Pulse Resp B/P (MAP) Pulse Ox O2 Delivery O2 Flow Rate FiO2 01/08/25 09:00 98.2 85 18 150/70 (96) 95 98.2 01/07/25 20:00 Room Air* 0 21 Total Intake and Output 01/07/25 01/07/25 01/08/25 15:00 23:00 07:00 Intake Total 250 ml 927 ml 250 ml Output Total 1700 ml 675 ml Balance 250 ml -773 ml -425 ml medications Current Medications Medications Dose Ordered Sig/Valeriy Route Start Time Stop Time Status Last Admin Dose Admin Acetaminophen/ Hydrocodone Bitart 1 tab Q4HP PRN PO 01/03/25 08:15 Ondansetron HCl 4 mg Q4HP PRN IV 01/03/25 08:15 Docusate Sodium 100 mg BIDPRN PRN PO 01/03/25 08:15 Enoxaparin Sodium 30 mg DAILY SC 01/03/25 10:00 01/08/25 11:44 30 MG Acetaminophen 650 mg Q6HP PRN PO 01/03/25 08:15 Morphine Sulfate 2 mg Q4HPRN PRN IV 01/03/25 08:15 Tamsulosin HCl 0.4 mg QPM PO 01/04/25 18:00 01/07/25 17:34 0.4 MG Finasteride 5 mg DAILY PO 01/05/25 10:00 01/08/25 11:45 5 MG Ticagrelor 60 mg BID PO 01/04/25 22:00 UNV Ticagrelor 90 mg BID PO 01/04/25 22:00 01/08/25 11:45 90 MG Diagnostic Test (Pha) 1 strip ACHS 01/04/25 17:00 01/08/25 06:45 1 STRIP Insulin Human Regular ACHS SC 01/04/25 17:00 01/08/25 06:45 2 UNITS Dextrose 50 ml UD PRN IV 01/04/25 13:15 Olanzapine 10 mg DAILY PO 01/06/25 10:00 01/08/25 11:45 10 MG Lorazepam 1 mg ONCE PRN IV 01/05/25 21:00 Haloperidol Lactate 2.5 mg Q8HP PRN IM 01/05/25 21:00 01/07/25 04:10 2.5 MG Dextrose 1,000 ml @ 75 mls/hr [id number] IV 01/07/25 11:15 01/07/25 12:06 75 MLS/HR Thiamine HCl 100 mg DAILY PO 01/08/25 10:00 01/08/25 11:44 100 MG Multivitamins 1 tab DAILY PO 01/08/25 10:00 01/08/25 11:47 1 TAB Meropenem 50 ml @ 17 mls/hr Q12HR IV 01/07/25 22:00 01/08/25 11:43 17 MLS/HR Examination Physical Examination General: Patient more alert and oriented compared to previous days. Patient was sleepy this morning HEENT: Normocephalic, atraumatic, moist mucous membranes Respiratory/pulmonary: Clear lungs bilaterally, no associated crackles or wheezes. Cardiovascular: Normal heart sounds S1 and S2 with no associated murmurs Abdomen: Abdomen nondistended, there is no pain to palpation in any of the abdominal quadrants, no palpable masses. Extremities: There is right above-knee amputation and left 2nd toe amputation in the left foot. Neurological: Patient is more alert and oriented at this point. laboratory and microbiology Laboratory Tests 01/08/25 05:30 Test 01/08/25 05:30 Range/Units Serum Glucose 136 H 74-106 mg/dL Microbiology Date/Time Source Procedure Growth Status 01/03/25 03:10 Blood Blood Culture - Final NO GROWTH AFTER 5 DAYS OF INCUBATION. Complete Problem List/Assessment/Plan Problem List/Assessment/Plan Assessment/Plan Acute kidney injury, unknown baseline (rule out obstruction) LORI possible (intrinsic) FENa 3.6% Possible diabetic nephropathy Acute metabolic/toxic encephalopathy, possible episode of delirium History of right above-knee amputation Recent left 2nd toe and 5th metatarsal amputation due to osteomyelitis (on IV antibiotics through PICC line) Type 2 diabetes mellitus Primary hypertension Possible underlying dementia Plan -continue D5w at 75cc/hr -strict in's and out -Demarco catheter in place -continue IV antibiotics per hospitalist team -continue mild sliding scale insulin -creatinine today, keeps improving -Avoid nephrotoxic drugs -Monitor kidney function daily Patient might be discharged today Goals of care discussed with the daughters at bedside for >20min, FULL CODE Plan discussed with Dr. Ba Plan discussed with: Patient, Daughter Dietary Evaluation Review Comments: 1. Currently on Full Liquid diet only; consider [employer] consult given texture modififed diet and prioritize further diet progression 2. Will add Ensure Enlive TID in the interim given negligible PO intakes (provides 350 kcal, 20 gm pro per carton) 3. Monitor wt trends closely, daily wt's to trend 4. Assist w/ tray set-up, 1:1 feeding as able pending pt mentation/behavior Expected Outcomes/Goals: Improved nutritional intake. KEITH MEHTA RESIDENT January 08, 2025 12:47
[2025-01-08 13:00] VITALS: BP 145/72; PULSE 86; RESP 18; TEMP 98.2; O2SAT 94
[2025-01-08] MEDS ORDERED: FERR325T24 PO (16:12)
[2025-01-08] MEDS ORDERED: TAMS-35 PO (16:12)
[2025-01-08] MEDS ORDERED: FINA5TAB4 PO (16:12)
[2025-01-08] MEDS ORDERED: THIA100T10 PO (16:12)
[2025-01-08] MEDS ORDERED: OLAN1TAB19 PO (16:12)
--- NOTE | 2025-01-08 16:19 | DVHDS2 ---
Discharge Summary Date of Admission January 03, 2025 at 08:02 Date of Discharge: January 08, 2025 Labs/Diagnostic Data: Laboratory Results Test 01/08/25 05:30 01/07/25 21:43 01/07/25 13:41 01/07/25 05:47 White Blood Count 7.1 10^3/uL (4.4-10.8) Red Blood Count 3.26 10^6/uL (4.5-5.90) Hemoglobin 9.4 g/dL (13.5-17.5) Hematocrit 28.4 % (41.0-53.0) Mean Corpuscular Volume 87.2 fL (80.0-100.0) Mean Corpuscular Hemoglobin 28.7 pg (28.0-32.0) Mean Corpuscular Hemoglobin Concent 32.9 g/dL (32.0-36.0) Red Cell Distribution Width 16.2 % (11.8-14.3) Platelet Count 179 10^3/uL (140-450) Mean Platelet Volume 10.3 fL (6.9-10.8) Neutrophils (%) (Auto) 60.3 % (37.0-80.0) Lymphocytes (%) (Auto) 21.6 % (10.0-50.0) Monocytes (%) (Auto) 11.9 % (0.0-12.0) Eosinophils (%) (Auto) 5.4 % (0.0-7.0) Basophils (%) (Auto) 0.8 % (0.0-2.0) Neutrophils # (Auto) 4.3 10 ^3/uL (1.6-8.6) Lymphocytes # (Auto) 1.5 10 ^3/uL (0.4-5.4) Monocytes # (Auto) 0.8 10 ^3/uL (0-1.3) Eosinophils # (Auto) 0.4 10 ^3/uL (0-0.8) Basophils # (Auto) 0.1 10 ^3/uL (0-0.2) Nucleated Red Blood Cells 0.1 % Sodium Level 144 mmol/L (136-145) Potassium Level 3.7 mmol/L (3.5-5.1) Chloride Level 110 mmol/L (98-107) Carbon Dioxide Level 20 mmol/L (20-31) Anion Gap 14 (5-15) Blood Urea Nitrogen 43 mg/dL (9-23) Creatinine 3.01 mg/dL (0.700-1.30) Glomerular Filtration Rate Calc 20 mL/min (>90) BUN/Creatinine Ratio 14.3 (10.0-20.0) Serum Glucose 136 mg/dL (74-106) Calcium Level 9.1 mg/dL (8.7-10.4) Total Bilirubin 0.2 mg/dL (0.2-1.0) Aspartate Amino Transferase (AST) 32 U/L (13-40) Alanine Aminotransferase (ALT) 30 U/L (7-40) Alkaline Phosphatase 263 U/L (46-116) Total Protein 7.1 g/dL (5.7-8.2) Albumin 4.1 g/dL (3.2-4.8) Vitamin B12 Level 3351 pg/mL (211-911) POC Glucose 134 mg/dl (70-106) Blood Gas Specimen Type Arterial Blood Gas Sample Site Right radial Blood Gas Patient Temperature 37.0 Arterial Blood Date Drawn [id number] Arterial Blood pH 7.422 (7.350-7.450) Arterial Blood Partial Pressure CO2 32.9 mmHg (35.0-48.0) Arterial Blood Partial Pressure O2 70.2 mmHg (83.0-108.0) Arterial Blood HCO3 21.0 mmol/L (21.0-28.0) Arterial Blood Oxygen Saturation 93.7 % (94.0-98.0) Arterial Blood Base Excess -2.9 mmol/L (-2.0-3.0) Arterial Blood Oxyhemoglobin 92.9 % (94.0-98.0) Arterial Blood Carboxyhemoglobin 0.4 % (0.5-1.5) Arterial Blood Methemoglobin 0.5 % (0.0-1.5) Ward Test Yes Blood Gas Total Hemoglobin 9.70 g/dL (13.5-17.5) Blood Gas Modality Room air FiO2 % 21.0 Magnesium Level 2.0 mg/dL (1.6-2.6) Test 01/05/25 06:18 01/04/25 16:30 01/03/25 08:50 01/03/25 06:15 Folic Acid 5.25 ng/mL (>5.38) Thyroid Stimulating Hormone (TSH) 3.74 uIU/mL (0.55-4.78) Free Thyroxine (T4) Calculated 0.99 ng/dL (0.89-1.76) Treponema pallidum Antibody Non-reactive (Negative) Free Prostate Specific Antigen 1.61 ng/mL (N/A) Percent Free Prostate Specific Ag 42.4 % (.) Prostate Specific Antigen Total 3.8 ng/mL (0.0-4.0) Ammonia 30 umol/L (11-32) Creatine Kinase 28 U/L (46-171) Troponin I High Sensitivity 4 ng/L (</=54) Test 01/03/25 03:43 01/03/25 03:10 Urine Color Light-yellow (Yellow) Urine Clarity Clear (Clear) Urine pH 6.0 (5.0-9.0) Urine Specific [place] 1.012 (1.001-1.035) Urine Protein 2+ (Negative) Urine Ketones Negative (Negative) Urine Blood 1+ /uL (Negative) Urine Nitrite Negative (Negative) Urine Bilirubin Negative (Negative) Urine Urobilinogen Normal mg/dL (Negative) Urine Leukocyte Esterase Negative /uL (Negative) Urine RBC 1 /hpf (0 - 3) Urine Microscopic WBC 1 /HPF (0-3) Urine Squamous Epithelial Cells Few /hpf (<5) Urine Bacteria Few /hpf (None Seen) Urine Creatinine 47.17 mg/dL (30.0-125.0) Urine Sodium 71 mmol/L (40-220) Urine Glucose Trace mg/dL (Normal) Urine Total Protein 169.6 mg/dL (1-14) Lactic Acid Level 0.8 mmol/L (0.4-2.0) B-Type Natriuretic Peptide 61.59 pg/mL (0-100) Other Laboratory Tests 01/08/25 05:30 Brief Hx & Hospital Course: HPI:84-year-old male past medical history of right AKA, left 2nd toe amputation October 2024 on IV antibiotics, diabetes, hypertension, dementia likely, CKD? who came to ER via EMS due to generalized weakness. Patient is bed-bound and has history of hypertension and diabetes, was noted by family members earlier today that patient appears to be more weak and fatigued than usual. Unable to move around even at bed. Blood sugar on scene was 145, blood pressure of 130/57 mm Hg. Difficult to interview, patient dementia, bedside family unaware of history, history with sister on phone Japanese speaking only, for availability of home meds. Patient denies any symptoms or any concerns, unreliable historian. Permanently brought in by family concern that patient was more weak in bed. Summary: Patient presented with altered mental status encephalopathy in generalized weakness/more bed bound. On admit patient is alert but oriented only to person. He has recent left lower extremity amputation for osteomyelitis and is on wound VAC on home IV antibiotics via PICC line cefepime and Flagyl. CBC hemoglobin stable 9.5. CMP showing LORI with possible CKD creatinine 3.38 and BUN 48 unknown baseline. BNP WNL, troponin normal x2, CK mild elevated at 28, ammonia normal limits, PSA normal limits, bedside ultrasound with 600 cc, Demarco inserted causing release of 2 L. TSH mildly elevated 6.07, free T4 is normal limit. Patient was admitted for toxic encephalopathy, uremia, LORI, CKD, acute urinary retention, and other diagnosis as below. Cefepime is held as that can cause worsening encephalopathy, antibiotics upgraded to meropenem, Demarco inserted with good urinary output, olanzapine needed for agitation control, day night cycle enforced for delirium,. Nephrology and Neurology consulted to help with LORI and altered mental status respectively,. Urology consulted to set up close follow up outpatient for aUR. Psych consulted for Demarco delirium and they agree with olanzapine. Patient was starts to improve on 01/08. Patient appears to be bed-bound with no significant improvement with PT requiring max assist. Patient likely to improve at home environment especially with delirium plan made for discharge to home as he would not improvement acute PT rehab facility SNF. Patient vital signs stable, afebrile, improving mentation, great support at home. Stable to discharge home as per plan below. 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 Blood pressure controlled without nifedipine during hospital stay - maintain day and night schedule (as strictly as possible). Maintain stimulating environment during daytime and out of bed. When in bed tried turning to lateral positions every 4-6 hours to avoid bed sores. - high-protein supplement and drink twice daily with meals -Puree diet, diabetic/ low carb - continue to work with home PT - iron changed to every other day, - follow-up with PCP for discharge review. 1-2 weeks. - Continue regular follow up with PCP, primary director business development, primary surgeon For foot infection Condition at Discharge: Guarded Final Diagnosis/Problems List Acute toxic metabolic encephalopathy likely due to below Uremic encephalopathy, possible Hospital delirium likely Acute urinary retention, status post urinary Demarco catheter, resolved LORI due to obstructive uropathy and/or intrinsic renal disease, with possible baseline CKD Possible diabetic nephropathy encephalopathy iatrogenic due to cefepime, possible Meningeal encephalitis, ruled out history Right AKA Recent left foot amputation to, on the leg, on IV antibiotics PICC line On insulin, hypoglycemia ruled out Constipation, possible Statin myopathy, ruled out Dementia, 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 Patient was counseled about treatment plan, medications, possible side effects, patient�verbalized understanding. All questions were answered to the best of my ability. This discharge took greater then 30 minutes in planning, reviewing documentation, counseling the patient, and discussing with other team members." Date of Service: January 08, 2025 Billing Provider: ESTHELA JAMES MD Common Visit Codes: 13080-DGK/OBS DISCH DAY >30min ESTHELA JAMES MD January 08, 2025 16:19
[2025-01-08 17:00] VITALS: BP 150/65; PULSE 85; RESP 18; TEMP 98.3; O2SAT 95
[2025-01-08 18:42] VITALS: BP 150/65; PULSE 85; RESP 18; TEMP 98.3; O2SAT 95
== END 2025-01-08 19:36 | disposition home health service (06) | DRG 92 ==
LOC: EDBD 02:33 → ER 02:33 → OVERFLOW 08:02 → TELE-EAST 17:03 → EAST 01-06 13:18
PROVIDERS: ADMIT Student in an Organized Health Care Education/Training Program; ATTEND Student in an Organized Health Care Education/Training Program
DX: G92.8 Other toxic encephalopathy (principal); F05 Delirium due to known physiological condition; N17.9 Acute kidney failure, unspecified; G30.9 Alzheimer's disease, unspecified; F02.80 Dementia in other diseases classified elsewhere, unspecified severity, without behavioral disturbance, psychotic disturbance, mood disturbance, and anxiety; K59.00 Constipation, unspecified; E11.42 Type 2 diabetes mellitus with diabetic polyneuropathy; E11.22 Type 2 diabetes mellitus with diabetic chronic kidney disease; N40.1 Benign prostatic hyperplasia with lower urinary tract symptoms; R33.8 Other retention of urine; I12.9 Hypertensive chronic kidney disease with stage 1 through stage 4 chronic kidney disease, or unspecified chronic kidney disease; N18.9 Chronic kidney disease, unspecified; F17.200 Nicotine dependence, unspecified, uncomplicated; T36.1X5A Adverse effect of cephalosporins and other beta-lactam antibiotics, initial encounter; Z74.01 Bed confinement status; Z89.611 Acquired absence of right leg above knee; Z89.511 Acquired absence of right leg below knee; Y92.89 Other specified places as the place of occurrence of the external cause
CPT/HCPCS: 36415; 36600; 70450; 70551; 71045; 73700; 76775; 80053; 81001; 82140; 82550; 82570; 82607; 82746; 82805; 82962; 83605; 83735; 83880; 84154; 84156; 84300; 84439; 84443; 84484; 85025; 86780; 87040; 93005; 95819; 96361; 96365; 97110; 97163; 97530; 99291; G0378; J1815; J2185; J7042; J7060

== ENCOUNTER 2025-02-03 17:17 | Inpatient (IN) | payer OTHER, MEDICAID ==
[~2025-02-03] VITALS: Ht 162.6 cm; Wt 98.9 kg
[~2025-02-03 17:17] MED LIST: ALEN70TA74 PO; ASPI-543 PO; ATOR40TA52 PO; CHOL20007 OR; FERR325T24 PO; FINA5TAB4 PO; GABA-1308 PO; INSU100I54 SC; INSU1INJ19 SC; OLAN1TAB19 PO; TAMS-35 PO; THIA100T10 PO; TICA90TA PO; [UNRECOGNIZED DRUG - CODE] IV
--- NOTE | 2025-02-03 17:59 | ED.PDOC ---
History of Present Illness HPI Comments 85 y.o male presents to the ED for an evaluation of generalized weakness for one month. Patient was referred by his PCP Dr. Nova today to the ED with form stating " complicated UTI with Demarco catheter in place. New onset of CKF and acute kidney injury. and Symptomatic anemia" Patient has no other symptoms other than weakness, denies pain that includes chest pain, SOB, fever, chills, abdominal pain. Patient presents with a Demarco Catheter in place. Chief Complaint: General Weakness Time Seen by MD: 17:43 Reviewed Notes: Nurses Notes, Medications, Allergies Allergies: Coded Allergies: NO KNOWN ALLERGIES (Unverified , 01/03/25) Home Meds Active Scripts Thiamine Hcl (VITAMIN B-1) 100 Mg Tb, 100 MG PO DAILY for 30 Days, #30 TAB 1 Refill Prov:ESTHELA JAMES MD 01/08/25 Finasteride (Finasteride) 5 Mg Tab, 1 TAB PO DAILY, #30 TAB 1 Refill Prov:ESTHELA JAMES MD 01/08/25 Tamsulosin Hcl (Flomax) 0.4 Mg Cap, 1 CAP PO DAILY, #30 CAP 1 Refill Prov:ESTHELA JAMES MD 01/08/25 Olanzapine (OLANZAPINE) 10 Mg Tab, 1 TAB PO HS, #30 TAB 1 Refill Prov:ESTHELA JAMES MD 01/08/25 Ferrous Sulfate (Ferrous Sulfate) 325 Mg Tab, 325 MG PO EOD for 30 Days, MG Prov:ESTHELA JAMES MD 01/08/25 Reported Medications Insulin Glargine (Basaglar Kwikpen) 100 Unit/Ml Inj, 100 UNIT SC, INJ 01/03/25 Insulin Lispro (Insulin Lispro Kwikpen) 100 Unit/Ml Inj, 100 UNIT SC, INJ 01/03/25 Heparin Sodium (Porcine) (Heparin Sodium Lock Flush) 10 Unt/Ml Ij, 10 UNT IV, INJ 01/03/25 Alendronate Sodium (Alendronate Sodium) 70 Mg Tab, 1 TAB PO QWEEKLY, #4 TAB 3 Refills 01/03/25 Atorvastatin Calcium (ATORVASTATIN CALCIUM) 40 Mg Tab, 1 TAB PO DAILY, #30 TAB 5 Refills 01/03/25 Gabapentin (Gabapentin) 100 Mg Cap, 100 MG PO TID 01/03/25 Aspirin (Aspir-Low) 81 Mg Tab, 81 MG PO DAILY for 30 Days, MG 01/03/25 Cholecalciferol (VITAMIN D3) 2,000 Unit Tab, 2000 UNIT OR DAILY, TAB 01/03/25 Ticagrelor Base (BRILINTA) 90 Mg Tab, 90 MG PO BID, TAB 01/03/25 Information Source: Patient Severity: Moderate Timing: Months (1) Duration: Since onset Past Medical History PAST MEDICAL HISTORY: DM, HTN Surgical History: BKA Family History Family History: Reviewed,noncontributory to illness Social History Smoker: Non-Smoker Alcohol: Denies ETOH Use Drugs: Denies Drug Use Lives In: Home Constitutional: reports: weakness; denies: chills, diaphoresis, fatigue, fever, malaise, sweats, others EENTM: denies: blurred vision, double vision, ear bleeding, ear discharge, ear drainage, ear pain, ear ringing, eye pain, eye redness, hearing loss, mouth pain, mouth swelling, nasal discharge, nose bleeding, nose congestion, nose pain, photophobia, tearing, throat pain, throat swelling, voice changes, others Respiratory: denies: cough, hemoptysis, orthopnea, SOB at rest, shortness of breath, SOB with excertion, stridor, wheezing, others Cardiovascular: denies: chest pain, dizzy spells, diaphoresis, Dyspnea on exertion, edema, irregular heart beat, left arm pain, lightheadedness, palpitations, PND, syncope, others Gastrointestinal: denies: abdomen distended, abdominal pain, blood streaked bowels, constipated, diarrhea, dysphagia, difficulty swallowing, hematemesis, melena, nausea, poor appetite, poor fluid intake, rectal bleeding, rectal pain, vomiting, others Genitourinary: denies: burning, dysuria, flank pain, frequency, hematuria, incontinence, penile discharge, penile sore, pain, testicle pain, testicle swelling, urgency, others Neurological: denies: dizziness, fainting, headache, left sided numbness, left sided weakness, numbness, paresthesia, pre-existing deficit, right sided numb ness, right sided weakness, seizure, speech problems, tingling, tremors, weakness, others Musculoskeletal: denies: back pain, gout, joint pain, joint swelling, muscle pain, muscle stiffness, neck pain, others Integumetry: denies: bruises, change in color, change in hair/nails, dryness, laceration, lesions, lumps, rash, wounds, others Allergic/Immunocompromised: denies: Difficulty Healing, Frequent Infections, Hives, Itching, others Hematologic/Lymphatic: denies: anemia, blood clots, easy bleeding, easy bruising, swollen glands, others Endocrine: denies: excessive hunger, excessive sweating, excessive thirst, excessive urination, flushing, intolerance to cold, intolerance to heat, unexplained weight gain, unexplained weight loss, others Psychiatric: denies: anxiety, bipolar disorder, depression, hopeless, panic disorder, schizophrenia, sleepless, suicidal, others All Other Systems: Reviewed and Negative Physical Exam General Appearance: Other (pale appearing ) HEENT: Normal ENT Inspection, Pharynx Normal, TMs Normal Neck: Full Range of Motion, Non-Tender, Normal, Normal Inspection Respiratory: Chest Non-Tender, Lungs Clear, No Accessory Muscle Use, No Respiratory Distress, Normal Breath Sounds Cardiovascular: No Edema, No JVD, No Murmur, No Gallop, Normal Peripheral Pulses, Regular Rate/Rhythm Breast Exam: Deferred Gastrointestinal: No Organomegaly, Non Tender, No Pulsatile Mass, Normal Bowel Sounds, Soft Genitalia: Other (Patient presents with a Demarco Catheter in place. 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 Was a procedure done?: No Differential Dx Considerations may include: Anemia, UTI, Sepsis, infection, CKF, renal failure, dehydration, electrolyte imbalance X-Ray, Labs, Meds, VS Vital Signs Date Time Temp Pulse Resp B/P (MAP) Pulse Ox O2 Delivery O2 Flow Rate FiO2 02/03/25 19:39 97.7 80 12 157/70 (99) 97 97.7 02/03/25 17:51 84 02/03/25 17:45 99.0 85 16 137/61 (86) 95 99.0 Lab Test 02/03/25 18:55 02/03/25 17:57 Range/Units Troponin I High Sensitivity Pending 5 </=54 ng/L White Blood Count 5.3 4.4-10.8 10^3/uL Red Blood Count 3.14 L 4.5-5.90 10^6/uL Hemoglobin 8.6 L 13.5-17.5 g/dL Hematocrit 26.2 L 41.0-53.0 % Mean Corpuscular Volume 83.5 80.0-100.0 fL Mean Corpuscular Hemoglobin 27.6 L 28.0-32.0 pg Mean Corpuscular Hemoglobin Concent 33.0 32.0-36.0 g/dL Red Cell Distribution Width 15.0 H 11.8-14.3 % Platelet Count 295 140-450 10^3/uL Mean Platelet Volume 9.9 6.9-10.8 fL Neutrophils (%) (Auto) 60.4 37.0-80.0 % Lymphocytes (%) (Auto) 18.2 10.0-50.0 % Monocytes (%) (Auto) 10.4 0.0-12.0 % Eosinophils (%) (Auto) 9.7 H 0.0-7.0 % Basophils (%) (Auto) 1.3 0.0-2.0 % Neutrophils # (Auto) 3.2 1.6-8.6 10 ^3/uL Lymphocytes # (Auto) 1.0 0.4-5.4 10 ^3/uL Monocytes # (Auto) 0.5 0-1.3 10 ^3/uL Eosinophils # (Auto) 0.5 0-0.8 10 ^3/uL Basophils # (Auto) 0.1 0-0.2 10 ^3/uL Nucleated Red Blood Cells 0.0 % Sodium Level 143 136-145 mmol/L Potassium Level 4.4 3.5-5.1 mmol/L Chloride Level 110 H 98-107 mmol/L Carbon Dioxide Level 25 20-31 mmol/L Anion Gap 8 5-15 Blood Urea Nitrogen 30 H 9-23 mg/dL Creatinine 1.63 H 0.700-1.30 mg/dL Glomerular Filtration Rate Calc 41 >90 mL/min BUN/Creatinine Ratio 18.4 10.0-20.0 Serum Glucose 272 H 74-106 mg/dL Calcium Level 9.2 8.7-10.4 mg/dL Time of 1ST Reevaluation: 17:58 Reevaluation 1ST: Unchanged Patient Education/Counseling: Diagnosis, Treatment, Prognosis Family Education/Counseling: Diagnosis, Treatment, Prognosis Departure 1 Departure Time of Disposition: 19:55 (Patient with some symptomatic anemia. Patient feeling very weak. We will admit patient for further workup and expert consultation) Impression: Primary Impression: Symptomatic anemia Additional Impressions: Generalized weakness Shortness of breath Disposition: ADMITTED INPATIENT Admit to: Med Surg Condition: Serious Critical Care Note Critical Care Time?: No Stability Stability form required: No Heart Score Heart Score: Heart Score Response (Comments) Value History N/A 0 EKG N/A 0 Age N/A 0 Risk Factors N/A 0 Troponin N/A 0 Total 0 I personally scribed for XENIA LEMUS MD ([email or web address]) on 02/03/25 at 17:59. Electronically submitted by Julianne Chavis ([facility]INT). XENIA LEMUS MD Feb 03, 2025 17:59
[2025-02-03 18:31] LABS: Basophils # (auto) 0.1 10 ^3/uL (0-0.2); Basophils % (auto) 1.3 % (0.0-2.0); Eosinophils # (auto) 0.5 10 ^3/uL (0-0.8); Eosinophils % (auto) 9.7 % (0.0-7.0); Hematocrit 26.2 % (41.0-53.0); Hemoglobin 8.6 g/dL (13.5-17.5); Lymphocytes % (auto) 18.2 % (10.0-50.0); Mean Corpuscular Hemoglobin 27.6 pg (28.0-32.0); Mean Corpuscular Volume 83.5 fL (80.0-100.0); Monocytes # (auto) 0.5 10 ^3/uL (0-1.3); Monocytes % (auto) 10.4 % (0.0-12.0); Neutrophils # (auto) 3.2 10 ^3/uL (1.6-8.6); Neutrophils % (auto) 60.4 % (37.0-80.0); Platelet Count (auto) 295 10^3/uL (140-450); Red Blood Cells 3.14 10^6/uL (4.5-5.90); White Blood Cell 5.3 10^3/uL (4.4-10.8)
[2025-02-03 18:42] LABS: Anion Gap 8 (5-15); Carbon Dioxide 25 mmol/L (20-31); Potassium 4.4 mmol/L (3.5-5.1); Sodium 143 mmol/L (136-145)
[2025-02-03 18:43] LABS: Calcium 9.2 mg/dL (8.7-10.4); Chloride 110 mmol/L (98-107)
[2025-02-03 18:48] LABS: BUN/Creatinine Ratio 18.4 (10.0-20.0); Blood Urea Nitrogen 30 mg/dL (9-23); Glucose 272 mg/dL (74-106)
--- NOTE | 2025-02-03 18:52 | DVH ---
CHEST RADIOGRAPH Indication: weakness Technique: Single frontal view of the chest was obtained COMPARISON: None FINDINGS: Right PICC line tip projects over the SVC. The cardiac silhouette is enlarged. The lungs demonstrate bilateral patchy airspace opacities. The pu lmonary vasculature is prominent. There is no pleural effusion.. There is no pneumothorax. There are old left rib fractures. IMPRESSION: 1. Cardiomegaly with pulmonary vascular congestion and bilateral patchy airspace opacities.
[2025-02-03 23:00] VITALS: PULSE 82; RESP 16; O2SAT 98
[2025-02-03 23:15] LABS: Urine Bacteria None Seen /hpf (None Seen)
[2025-02-03] MEDS: TAMSULOSIN HYDROCHLORIDE 0.4 MG CAP PO ONE (23:20)
[2025-02-03] MEDS: OLANZapine 5 MG TAB PO SCH (23:20)
[2025-02-03] MEDS: INSULIN LANTUS (GLARGINE) 1 /0.01ml (100units/ml) SC SCH (23:21)
[2025-02-03 23:40] VITALS: BP 131/71; PULSE 100; RESP 18; TEMP 97.8; O2SAT 97
[2025-02-03 23:42] LABS: Urine Blood 2+ /uL (Negative); Urine Budding Yeast MODERATE /hpf (None Seen); Urine Clarity Ex.Turbid (Clear); Urine Color Colorless (Yellow); Urine Protein, UAD 1+ (Negative); Urine Squamous Epithelial Cell None Seen /hpf (<5); Urine Urobilinogen Normal (Negative); Urine WBC 818 /HPF (0-3); Urine WBC Clumps PRESENT /hpf (None Seen)
--- NOTE | 2025-02-04 00:14 | DVH ---
BILATERAL LOWER EXTREMITY ARTERIAL DUPLEX ULTRASOUND STUDY: REASON FOR EXAM: left lower PAD TECHNIQUE: The full lengths of the arterial segments were evaluated with color-flow Doppler ultrasoun d. Suspected abnormalities were evaluated with quiles scale ultrasound. Sql Tech spectral Doppler waveforms, with velocity measurements were obtained. Spectral waveforms with velocity measurements w ere obtained 2 to 4 cm central to any areas of significant stenosis. Common femoral, superficial femo ral, popliteal, posterior tibial, anterior tibial, and dorsal pedal arteries were evaluated. FINDINGS: Right: There is mild atherosclerotic plaque throughout the right lower extremity. The common femoral artery waveform is multiphasic with a brisk upstroke. The superficial femoral artery is patent with m ultiphasic waveforms. There is partial right lower extremity amputation. Left: There is mild atherosclerotic plaque throughout the left lower extremity. The common femoral a rtery waveform is multiphasic with a brisk upstroke. The superficial femoral and popliteal arteries a re patent with multiphasic waveforms. The posterior tibial artery is patent with multiphasic waveform s. The dorsal pedal artery is patent with high velocity monophasic waveforms. IMPRESSION: Right: Partial amputation of the right lower extremity. Patent arteries with multiphasic waveforms ab ove the amputation. Left: Patent arteries through the foot with mostly multiphasic waveforms. High velocity monophasicflo w only noted in the left dorsal pedal artery.
[2025-02-04 00:33] VITALS: BP 101/65; PULSE 115; RESP 18; TEMP 97.6; O2SAT 96
--- NOTE | 2025-02-04 02:59 | DVH ---
Exam: CT CT L FOOT WO CONTRAST History: R/o 1st toe osteomyelitis, s/p 2nd toe ampt Comparison Study: CT CT L FOOT WO CONTRAST on DOS: 01/03/25 TECHNIQUE: Multidetector CT of the left foot was performed without IV contrast. Axial, coronal and s agittal multiplanar reformats were obtained from the axial data set by the technologist. Radiation optimization: All CT scans at this facility use at least one of these dose optimization james hniques: automated exposure control mA and/or kV adjustment per patient size (includes targeted exam s where dose is matched to clinical indication) or iterative reconstruction. Radiation Dose Information: CT Dose: CTDI volume is 7.8 mGy. Dose-length product is 228.4 mGy*cm FINDINGS: There is diffuse osseous demineralization. There has been interval amputation of the 2nd digit. There is osseous erosion at the 2nd metatarsal head with adjacent soft tissue density and possible fluid c ollection. No areas of osseous erosion or periosteal reaction involving the 1st digit. There is possi ble cortical erosion involving the 3rd and 4th metatarsal head with adjacent soft tissue thickening. The phalanges appear unremarkable. No evidence of soft tissue gas. Diffuse arterial calcifications. Plantar calcaneal enthesophyte. IMPRESSION: 1. Findings suggest osteomyelitis of the 2nd metatarsal head and likely the 3rd and 4th metatarsal he ad with associated soft tissue infiltration, thickening and possible abscess, limited in assessment d ue to lack of intravenous contrast. MRI would be of benefit. 2. Diffuse osseous demineralization.
[2025-02-04] MEDS: MEROPENEM 1GM IVPB 50 ML IV ONE (03:06)
[2025-02-04] MEDS ORDERED: VANCOMYCIN PER PHARMACY 0 MG IV SCH (03:30)
--- NOTE | 2025-02-04 03:46 | DVHHPRES ---
History of Present Illness Resident Creating Document: JHAJSLAVA CubaSEEMA RESIDENT History of Present Illness Patient is an 85-year-old male with a past medical history of insulin-dependent type 2 diabetes mellitus, hypertension, chronic kidney disease, peripheral artery disease, right above-knee amputation, recently treated for left 2nd toe osteomyelitis s/p amputation presented to the ER after visit with the PCP where he was told he had anemia and patient had weakness and fatigue for the last 1 week. Patient was seen in the hospital in the 1st week of December 2024 for altered level of consciousness during which time psych evaluation was done and the patient was started on olanzapine, sent home on IV antibiotics meropenem via PICC line for osteomyelitis of the left foot which he completed 2 days ago, and was sent with a Demarco's catheter due to urinary retention likely due to BPH but the patient did not follow up with the urologist in the outpatient clinic. Attila billings is a Persian speaker and history was obtained from daughter who reported that patient has been weak for the last 1 week but denied any shortness of breath, chest pain, headache. She reports patient is usually alert and oriented but has a episodes where he has in and out of consciousness and has tactile hallucinations on and off( feeling insects crawling in his hair). Daughter reports patient is on iron tablets, denies blood in stool or urinary catheter, denies dark-colored stools. On admission patient's hemoglobin was 8.6. During previous hospitalization in December 2024 patient's hemoglobin was around 9-9.5. Past medical history: insulin-dependent type 2 diabetes mellitus, hypertension, chronic kidney disease, peripheral artery disease, recently treated for left 2nd toe osteomyelitis s/p amputation Surgical history: Above knee amputation, left 2nd toe amputation Social history: Patient lives with daughter and denies smoking, alcohol, drug use Home medications: Aspirin 81 mg, Brilinta 90 b.i.d., tamsulosin and finasteride, olanzapine 10 mg, nifedipine 90 mg, atorvastatin 40 mg, alendronate Review of Systems Review of Systems Patient seen and examined at the bedside Denies any acute complaints and is hard of hearing Patient has a indwelling Demarco's catheter since 08 of January when he was discharged from the hospital, they did not follow up with the urologist in the outpatient clinic Demarco's catheter draining turbid urine Denies fever, chills, nausea or vomiting, chest pain, palpitations, shortness of breath Allergies: Coded Allergies: NO KNOWN ALLERGIES (Unverified , 01/03/25) Medications Current Medications Medications Dose Ordered Sig/Valeriy Route Start Time Stop Time Status Last Admin Dose Admin Insulin Glargine 12 units HS SC 02/03/25 22:00 02/03/25 23:21 12 UNITS Aspirin 81 mg DAILY PO 02/04/25 10:00 Clopidogrel Bisulfate 75 mg DAILY PO 02/04/25 10:00 Tamsulosin HCl 0.4 mg QPM PO 02/04/25 18:00 Finasteride 5 mg DAILY PO 02/04/25 10:00 Insulin Human Lispro 4 units AC SC 02/04/25 07:00 Olanzapine 10 mg DAILY PO 02/03/25 22:00 02/03/25 23:20 10 MG Nifedipine 60 mg DAILY PO 02/04/25 10:00 Future Hold Meropenem 50 ml @ 17 mls/hr Q12HR@0200,1400 IV 02/04/25 14:00 Exam Vital Signs Vital Signs Date Time Temp Pulse Resp B/P (MAP) Pulse Ox O2 Delivery O2 Flow Rate FiO2 02/04/25 00:40 Room Air* 0 21 02/04/25 00:33 97.6 115 18 101/65 (77) 96 97.6 Exam Gen - mild conjunctival pallor, no icterus, no cyanosis, no clubbing, no LAD, no edema . Skin - Patients skin is warm and dry. HEENT - normocephalic, atraumatic, moist mucous membranes. Neck - full ROM, no LAD, no JVD Pulmonary - B/L equal breath sounds, no crackles, no wheezing, no stridor. cardiovascular - regular S1,S2 heard, no added sounds, no murmurs heard. GI - soft, nontender abdomen. no hepatospleenomegaly. Bowel sounds normoactive Neurological - Patient is A/O X 3 . Bilateral upper extremity strength 5/5, right lower extremity below-knee amputated, left lower extremity strength 4/5, no facial droop, normal speech, no tremor, no sensory deficiets. Labs/Xrays Labs Test 02/03/25 23:16 02/03/25 23:00 02/03/25 18:55 02/03/25 17:57 Range/Units POC Glucose 270 H 70-106 mg/dl Urine Color Colorless Yellow Urine Clarity Ex.turbid Clear Urine pH 6.0 5.0-9.0 Urine Specific [place] 1.010 1.001-1.035 Urine Protein 1+ H Negative Urine Ketones Negative Negative Urine Blood 2+ H Negative /uL Urine Nitrite Negative Negative Urine Bilirubin Negative Negative Urine Urobilinogen Normal Negative mg/dL Urine Leukocyte Esterase 3+ Negative /uL Urine RBC 40 0 - 3 /hpf Urine WBC Clumps Present None Seen /hpf Urine Microscopic WBC 818 H 0-3 /HPF Urine Squamous Epithelial Cells None seen <5 /hpf Urine Bacteria None seen None Seen /hpf Urine Yeast (Budding) Moderate None Seen /hpf Urine Glucose 4+ H Normal mg/dL Troponin I High Sensitivity 4 </=54 ng/L White Blood Count 5.3 4.4-10.8 10^3/uL Red Blood Count 3.14 L 4.5-5.90 10^6/uL Hemoglobin 8.6 L 13.5-17.5 g/dL Hematocrit 26.2 L 41.0-53.0 % Mean Corpuscular Volume 83.5 80.0-100.0 fL Mean Corpuscular Hemoglobin 27.6 L 28.0-32.0 pg Mean Corpuscular Hemoglobin Concent 33.0 32.0-36.0 g/dL Red Cell Distribution Width 15.0 H 11.8-14.3 % Platelet Count 295 140-450 10^3/uL Mean Platelet Volume 9.9 6.9-10.8 fL Neutrophils (%) (Auto) 60.4 37.0-80.0 % Lymphocytes (%) (Auto) 18.2 10.0-50.0 % Monocytes (%) (Auto) 10.4 0.0-12.0 % Eosinophils (%) (Auto) 9.7 H 0.0-7.0 % Basophils (%) (Auto) 1.3 0.0-2.0 % Neutrophils # (Auto) 3.2 1.6-8.6 10 ^3/uL Lymphocytes # (Auto) 1.0 0.4-5.4 10 ^3/uL Monocytes # (Auto) 0.5 0-1.3 10 ^3/uL Eosinophils # (Auto) 0.5 0-0.8 10 ^3/uL Basophils # (Auto) 0.1 0-0.2 10 ^3/uL Nucleated Red Blood Cells 0.0 % Sodium Level 143 136-145 mmol/L Potassium Level 4.4 3.5-5.1 mmol/L Chloride Level 110 H 98-107 mmol/L Carbon Dioxide Level 25 20-31 mmol/L Anion Gap 8 5-15 Blood Urea Nitrogen 30 H 9-23 mg/dL Creatinine 1.63 H 0.700-1.30 mg/dL Glomerular Filtration Rate Calc 41 >90 mL/min BUN/Creatinine Ratio 18.4 10.0-20.0 Serum Glucose 272 H 74-106 mg/dL Calcium Level 9.2 8.7-10.4 mg/dL Assessment/Plan Assessment/Plan Normocytic hypochromic anemia LORI on CKD likely stage IIIB due to be VMN Chronic kidney disease likely due to uncontrolled diabetes ? Anemia of chronic kidney disease Generalized weakness - ferritin and iron panel pending - stool occult blood pending - reticulocyte count pending - kidney ultrasound from December 2024 shows normal-size kidneys without evidence of hydronephrosis Urinary tract infection with indwelling Demarco's catheter ? BPH - patient recently completed a course of IV antibiotics with meropenem for osteomyelitis - bacteria culture pending - CT abdomen pelvis with contrast can be done to rule out pyelonephritis and check for prostatomegaly - IV meropenem - tamsulosin and finasteride Possible osteomyelitis of the left foot S/p amputation of left 2nd toe due to osteomyelitis h/o right above knee amputation Peripheral artery disease - left foot CT shows osteomyelitis of the 2nd metatarsal head and likely the 3rd and 4th metatarsal head with associated soft tissue infiltration, thickening and possible abscess - high velocities noted in left dorsalis pedis - podiatry consulted - started on vancomycin and meropenem - aspirin and Plavix type 2 diabetes mellitus with hyperglycemia -basal bolus insulin Hypertensive heart disease with unknown heart failure - chest x-ray shows mild pulmonary vascular congestion - echo pending - at home patient is on nifedipine 90 mg daily, held PUD prophylaxis: Protonix Goals of care discussed with the patient and his daughter for over 29 minutes. Full code Time spent: 43 minutes Plan discussed with Dr. Stephens Plan discussed with: Patient, Daughter My Orders Orders - HECTOR FERNANDEZ RESIDENT Procedure Category Date Status Time Admit ADMIT 02/03/25 Transmitted 21:26 Stat Ekg For Chest ALEXI 02/03/25 In Process Pain 21:26 Complete Blood Count LAB 02/04/25 Logged 04:00 Comprehensive LAB 02/04/25 Logged Metabolic Panel 04:00 Ferritin LAB 02/04/25 Logged 04:00 Lipid Panel LAB 02/04/25 Logged 04:00 Thyroid Stimulating LAB 02/04/25 Logged Hormone 04:00 Hemoglobin A1c LAB 02/04/25 Logged 04:00 Reticulocyte Count LAB 02/04/25 Logged 04:00 Ok To Change Demarco ORDERS 02/03/25 Transmitted 21:26 D/C Picc Line ORDERS 02/03/25 Transmitted 21:26 Insulin Lantus PHA 02/03/25 In Process (Glargine) (Lantus) 22:00 Aspirin Tablet PHA 02/04/25 In Process 10:00 Clopidogrel Bisulfate PHA 02/04/25 In Process (Plavix) 10:00 Echo 2d Mode Cardiac US 02/03/25 Logged DOP 21:26 Tamsulosin PHA 02/04/25 In Process Hydrochloride (Flomax) 18:00 Finasteride Tablet PHA 02/04/25 In Process (Proscar Tablet) 10:00 Insulin Lispro PHA 02/04/25 In Process (Human) (Humalog) 07:00 Consistent DIET 02/04/25 Transmitted Carb(Ccho)Diabetes Breakfast Bilat Low Ext Art US 02/03/25 Resulted Duplex 21:26 * Wound Consult CONS 02/03/[address] L Foot Wo Contrast CT 02/03/25 Resulted 21:26 Olanzapine Tablet PHA 02/03/25 In Process (Zyprexa Tablet) 22:00 Urine Bacterial MARCY 02/03/25 In Process Culture 21:47 Electrocardigram EKG 02/03/25 Logged 22:59 Nifedipine Er PHA 02/04/25 In Process (Procardia Xl 10:00 Stool Occult Blood LAB 02/03/25 Logged 23:08 PTPTT LAB 02/04/25 Logged 04:00 *Podiatry Consult CONS 02/03/25 Transmitted Musson(Dvmg) 23:08 Parathyroid Hormone LAB 02/04/25 Logged Intact 04:00 Mrsa Screen MARCY 02/04/25 In Process 00:29 Meropenem 1gm Ivpb PHA 02/04/25 In Process (Merrem 1gm/ Ns) 02:45 Meropenem 1gm Ivpb PHA 02/04/25 In Process (Merrem 1gm/ Ns) 14:00 Rapid Influenza A&B LAB 02/04/25 Logged 02:32 Covid19 Antigen Loren LAB 02/04/25 Logged Sodium Chloride 0.9% PHA 02/04/25 In Process 02:45 Date of Service: Feb 03, 2025 Billing Provider: ABILIO STEPHENS MD Common Visit Codes: 22811-[id number] INP/OBS CARE (HIGH) Secondary Visit Codes: 91484-[id number] CARE PLAN 30 MINUTES HECTOR FERNANDEZ RESIDENT Feb 04, 2025 03:46
[2025-02-04] MEDS: SODIUM CHLORIDE 0.9% 500 ML IV ONE ×2 (03:56→13:49)
[2025-02-04] MEDS ORDERED: VANCOMYCIN 1.5GM/300ML 300 ML IV ONE (04:00)
[2025-02-04 05:00] VITALS: BP_SYST 143; BP_SYST 96; BP_DIAS 54; BP_DIAS 93; PULSE 88; PULSE 89; RESP 16; RESP 18; TEMP 98; TEMP 98.2; O2SAT 100; O2SAT 95
[2025-02-04] MEDS: INSULIN LISPRO (HUMAN) 100 UNITS/ML ML SC SCH (06:12)
[2025-02-04 06:34] LABS: Basophils # (auto) 0.1 10 ^3/uL (0-0.2); Basophils % (auto) 1.2 % (0.0-2.0); Eosinophils # (auto) 0.6 10 ^3/uL (0-0.8); Eosinophils % (auto) 8.4 % (0.0-7.0); Hematocrit 27.9 % (41.0-53.0); Hemoglobin 9.2 g/dL (13.5-17.5); Lymphocytes # (auto) 1.5 10 ^3/uL (0.4-5.4); Lymphocytes % (auto) 20.9 % (10.0-50.0); Mean Corpuscular Hemoglobin 27.2 pg (28.0-32.0); Mean Corpuscular Hgb Conc. 32.8 g/dL (32.0-36.0); Mean Corpuscular Volume 82.9 fL (80.0-100.0); Monocytes # (auto) 0.7 10 ^3/uL (0-1.3); Monocytes % (auto) 9.9 % (0.0-12.0); Neutrophils # (auto) 4.2 10 ^3/uL (1.6-8.6); Neutrophils % (auto) 59.6 % (37.0-80.0); Platelet Count (auto) 297 10^3/uL (140-450); Red Blood Cells 3.37 10^6/uL (4.5-5.90); Red Cell Distribution Width 14.9 % (11.8-14.3); White Blood Cell 7.1 10^3/uL (4.4-10.8)
[2025-02-04 06:35] LABS: Albumin 4.1 g/dL (3.2-4.8); Anion Gap 9 (5-15); BUN/Creatinine Ratio 20.1 (10.0-20.0); Calcium 9.4 mg/dL (8.7-10.4); Carbon Dioxide 24 mmol/L (20-31); LDL Cholesterol 51 mg/dL (< 100); Sodium 145 mmol/L (136-145); Total Protein 7.3 g/dL (5.7-8.2); Triglycerides 148 mg/dL (< 150)
[2025-02-04 06:36] LABS: Bilirubin, Total 0.4 mg/dL (0.2-1.0); Cholesterol 104 mg/dL (< 200)
[2025-02-04 06:42] LABS: Alanine Aminotransferase 72 U/L (7-40); Alkaline Phosphatase 339 U/L (46-116); Aspartate Aminotransferase 62 U/L (13-40); Blood Urea Nitrogen 32 mg/dL (9-23); Chloride 112 mmol/L (98-107); Glucose 190 mg/dL (74-106); HDL Cholesterol 27 mg/dL (40-59); INR 1.07 (0.9-1.15); Partial Thromboplastin Time 37.1 SEC (24.5-34.5); Prothrombin Time 11.3 sec (9.3-11.8)
--- NOTE | 2025-02-04 07:08 | ECG ---
[facility] Test Date: 2025-02-03 Test Time: 17:51:33 Pat Name: NATALIO MCKEON Department: ER Room: 0212 A Gender: M Able Seaman: ASHOK : 1940 Requested By: XENIA LEMUS Order Number: [id number] Reading MD: Thad Perez Measurements Intervals [place] Rate: 84 P: 26 DC: 158 QRS: -57 QRSD: 95 T: 69 QT: 395 QTc: 467 Interpretive Statements Sinus rhythm Left anterior fascicular block RSR' in V1 or V2, right VCD or RVH ST elevation, consider inferior injury Baseline wander in lead(s) I,V6 Electronically Signed On 02-04-2025 9:35:16 PDT by Thad Perez Please click the below link to view image of tracing.
[2025-02-04] MEDS: VANCOMYCIN 1GM/200ML PM 200 ML IV ONE (07:50)
[2025-02-04 09:00] VITALS: BP 117/57; PULSE 87; RESP 18; TEMP 97; O2SAT 98
[2025-02-04] MEDS: ASPirin 81 mg TAB PO SCH (09:20)
[2025-02-04] MEDS: FINASTERIDE 5 MG TAB PO SCH (09:21)
[2025-02-04] MEDS: CLOPIDOGREL BISULFATE 75 MG TAB PO SCH (09:22)
[2025-02-04] MEDS ORDERED: NIFEdipine ER 30 MG TAB PO SCH (10:00)
[2025-02-04] MEDS ORDERED: DEXTROSE (50%) 50ML SYRG IV PRN (11:30)
[2025-02-04] MEDS: InsuLIN REG 1unit/0.01ml Soln (100units/ml) SC SCH (12:00)
[2025-02-04] MEDS: ACCU-CHEK COMFORT CURVE STRIP VI SCH (12:06)
[2025-02-04 13:00] VITALS: BP 113/66; PULSE 77; RESP 18; TEMP 97.3; O2SAT 95
[2025-02-04] MEDS: MEROPENEM 1GM IVPB 50 ML IV SCH (13:49)
--- NOTE | 2025-02-04 14:59 | DVH ---
EXAMINATION: MRI MRI L FOOT WO CONTRAST TECHNIQUE: MRI of the left foot was performed. Multisequence multiplanar MRI images were obtained w ithout intravenous contrast. HISTORY: Osteomyelitis COMPARISON: CT CT L FOOT WO CONTRAST on DOS: 02/03/25, CT CT L FOOT WO CONTRAST on DOS: 01/03/25 FINDINGS/IMPRESSION: Diffuse subcutaneous soft-tissue edema and swelling consistent with cellulitis. Post resection of the distal 2nd and 3rd digits from the level of the distal metatarsal head. Patchy bone marrow edema is present in the distal 4th metatarsal suspicious for osteomyelitis. No fluid collection or abscess.
--- NOTE | 2025-02-04 15:52 | DVHSR ---
APPROVED REPORT EXAM: Two-dimensional and M-mode echocardiogram with Doppler and color Doppler. Blood Pressure: 96/54 mmHg INDICATION CKD RISK FACTORS Height: 5'4", Weight: 132 DIMENSIONS LVDd3.6 (3.8-5.7cm)LA (2D)3.4 (1.9-4.0cm)Aortic Root (2.0-3.7cm) LVDs2.4 (2.5-4.0cm)LA (MM) (1.9-4.0cm)Aortic Cusp Exc (1.5-2.0cm) EF (%) 65 (55-70%)Rt. Atrium (1.9-4.0cm)Asc. Aorta3.1 cm IVSd1.6 (0.7-1.1cm)RV (D) (1.8-2.4cm) PWd1.4 (0.7-1.1cm) Mitral Valve MitralMitral Stenosis E wave0.59m/sMV Mean GR.mmHg A wave1.20m/sMV Peak GR.60mmHg E/A ratio0.52D MVAcm2 DECEL [id number] 1/2 [id number] IVRTmsDop MVA2.24cm2 Aortic Valve Aortic ValveAortic Stenosis V11.06m/Paulette Mean GR.4mmHg V21.23m/Paulette Peak GR.6mmHg LVOT Diameter2.3 (1.8-2.4cm)Doppler AVA3.58cm2 Pulmonic Valve V20.83m/s Conclusion lvef 60% by visual estimate Severe LVH normal rv function left atrium enlarged no severe valve abnormaliteis noted moderate MAC noted
[2025-02-04 17:00] VITALS: BP 109/60; PULSE 74; RESP 14; TEMP 97.7; O2SAT 98
--- NOTE | 2025-02-04 17:08 | DVHINCON2 ---
Date Seen: Feb 04, 2025 Reason for Consultation Left foot wound History of Present Illness Patient is an 85-year-old male with a past medical history of insulin-dependent type 2 diabetes mellitus, hypertension, chronic kidney disease, peripheral artery disease, right above-knee amputation, recently treated for left 2nd toe osteomyelitis s/p amputation presented to the ER after visit with the PCP where he was told he had anemia and patient had weakness and fatigue for the last 1 week. Patient was seen in the hospital in the 1st week of December 2024 for altered level of consciousness during which time psych evaluation was done and the patient was started on olanzapine, sent home on IV antibiotics meropenem via PICC line for osteomyelitis of the left foot which he completed 2 days ago, and was sent with a Demarco's catheter due to urinary retention likely due to BPH but the patient did not follow up with the urologist in the outpatient clinic. Patient is a Portuguese speaker and history was obtained from daughter who reported that patient has been weak for the last 1 week but denied any shortness of breath, chest pain, headache. She reports patient is usually alert and oriented but has a episodes where he has in and out of consciousness and has tactile hallucinations on and off( feeling insects crawling in his hair). Daughter rep salmeron patient is on iron tablets, denies blood in stool or urinary catheter, denies dark-colored stools. On admission patient's hemoglobin was 8.6. During previous hospitalization in December 2024 patient's hemoglobin was around 9-9.5. Past Medical History See H&P Past Surgical History See H&P Family History: Patient reports no known family medical history. Allergies: Coded Allergies: NO KNOWN ALLERGIES (Unverified , 01/03/25) Home Meds Active Scripts Thiamine Hcl (VITAMIN B-1) 100 Mg Tb, 100 MG PO DAILY for 30 Days, #30 TAB 1 Refill Prov:ESTHELA JAMES MD 01/08/25 Finasteride (Finasteride) 5 Mg Tab, 1 TAB PO DAILY, #30 TAB 1 Refill Prov:ESTHELA JAMES MD 01/08/25 Tamsulosin Hcl (Flomax) 0.4 Mg Cap, 1 CAP PO DAILY, #30 CAP 1 Refill Prov:ESTHELA JAMES MD 01/08/25 Olanzapine (OLANZAPINE) 10 Mg Tab, 1 TAB PO HS, #30 TAB 1 Refill Prov:ESTHELA JAMES MD 01/08/25 Ferrous Sulfate (Ferrous Sulfate) 325 Mg Tab, 325 MG PO EOD for 30 Days, MG Prov:ESTHELA JAMES MD 01/08/25 Reported Medications Insulin Glargine (Basaglar Kwikpen) 100 Unit/Ml Inj, 100 UNIT SC, INJ 01/03/25 Insulin Lispro (Insulin Lispro Kwikpen) 100 Unit/Ml Inj, 100 UNIT SC, INJ 01/03/25 Heparin Sodium (Porcine) (Heparin Sodium Lock Flush) 10 Unt/Ml Ij, 10 UNT IV, INJ 01/03/25 Alendronate Sodium (Alendronate Sodium) 70 Mg Tab, 1 TAB PO QWEEKLY, #4 TAB 3 Refills 01/03/25 Atorvastatin Calcium (ATORVASTATIN CALCIUM) 40 Mg Tab, 1 TAB PO DAILY, #30 TAB 5 Refills 01/03/25 Gabapentin (Gabapentin) 100 Mg Cap, 100 MG PO TID 01/03/25 Aspirin (Aspir-Low) 81 Mg Tab, 81 MG PO DAILY for 30 Days, MG 01/03/25 Cholecalciferol (VITAMIN D3) 2,000 Unit Tab, 2000 UNIT OR DAILY, TAB 01/03/25 Ticagrelor Base (BRILINTA) 90 Mg Tab, 90 MG PO BID, TAB 01/03/25 Current Medications Current Medications Medications (Trade) Dose Ordered Sig/Valeriy Route PRN Reason Start Time Stop Time Status Last Admin Insulin Glargine (Lantus) 12 units HS SC 02/03/25 22:00 02/03/25 23:21 Aspirin 81 mg DAILY PO 02/04/25 10:00 02/04/25 09:20 Clopidogrel Bisulfate (Plavix) 75 mg DAILY PO 02/04/25 10:00 02/04/25 11:30 DC 02/04/25 09:22 Tamsulosin HCl (Flomax) 0.4 mg QPM PO 02/04/25 18:00 Finasteride (Proscar Tablet) 5 mg DAILY PO 02/04/25 10:00 02/04/25 09:21 Insulin Human Lispro (HumaLOG) 4 units AC SC 02/04/25 07:00 02/04/25 12:07 Olanzapine (ZyPREXA Tablet) 10 mg DAILY PO 02/03/25 22:00 02/04/25 09:21 Nifedipine (Procardia Xl (Time-Release)) 60 mg DAILY PO 02/04/25 10:00 Hold Meropenem 50 ml @ 17 mls/hr Q12HR@0200,1400 IV 02/04/25 14:00 02/04/25 13:49 Vancomycin HCl 0 ml @ 0 mls/hr UD IV 02/04/25 03:30 Diagnostic Test (Pha) (Accu-Chek Comfort Curve T) 1 strip Q6HR 02/04/25 12:00 02/04/25 12:06 Insulin Human Regular (InsuLIN R) Q6HR SC 02/04/25 12:00 Dextrose 50 ml UD PRN IV Blood Sugar LESS THAN 60 02/04/25 11:30 Vital Signs Vital Signs Date Time Temp Pulse Resp B/P (MAP) Pulse Ox O2 Delivery O2 Flow Rate FiO2 02/04/25 13:00 97.3 77 18 113/66 (82) 95 97.3 02/04/25 08:02 Room Air* 0 21 Physical Exam Dermatological: Skin is dry with mild erythema and some maceration around the wound site BKA right Mild non-pitting edema present Multiple dry eschars to the left lower extremity Vascular: Dorsalis pedis and posterior tibial pulses are 1+ Capillary refill is under 2 seconds Skin temperature is warm Neurologic: Protective sensation is absent on the plantar forefoot Monofilament testing reveals decreased sensation in multiple plantar sites Musculoskeletal: Range of motion at the ankle and MTP joints is within normal limits. Strength is 5/5 in all tested muscle groups. Gait is antalgic due to offloading of the affected limb. Labs/Diagnostic Data Labs Test 02/04/25 11:54 02/04/25 04:48 02/03/25 23:00 02/03/25 18:55 Range/Units POC Glucose 100 70-106 mg/dl White Blood Count 7.1 # 4.4-10.8 10^3/uL Red Blood Count 3.37 L 4.5-5.90 10^6/uL Hemoglobin 9.2 L 13.5-17.5 g/dL Hematocrit 27.9 L 41.0-53.0 % Mean Corpuscular Volume 82.9 80.0-100.0 fL Mean Corpuscular Hemoglobin 27.2 L 28.0-32.0 pg Mean Corpuscular Hemoglobin Concent 32.8 32.0-36.0 g/dL Red Cell Distribution Width 14.9 H 11.8-14.3 % Platelet Count 297 140-450 10^3/uL Mean Platelet Volume 10.1 6.9-10.8 fL Neutrophils (%) (Auto) 59.6 37.0-80.0 % Lymphocytes (%) (Auto) 20.9 10.0-50.0 % Monocytes (%) (Auto) 9.9 0.0-12.0 % Eosinophils (%) (Auto) 8.4 H 0.0-7.0 % Basophils (%) (Auto) 1.2 0.0-2.0 % Neutrophils # (Auto) 4.2 1.6-8.6 10 ^3/uL Lymphocytes # (Auto) 1.5 0.4-5.4 10 ^3/uL Monocytes # (Auto) 0.7 0-1.3 10 ^3/uL Eosinophils # (Auto) 0.6 0-0.8 10 ^3/uL Basophils # (Auto) 0.1 0-0.2 10 ^3/uL Nucleated Red Blood Cells 0.0 % Reticulocyte Count (auto) 1.17 0.5-1.5 % Prothrombin Time 11.3 9.3-11.8 sec Prothrombin Time INR 1.07 0.9-1.15 Activated Partial Thromboplast Time 37.1 H 24.5-34.5 SEC Sodium Level 145 136-145 mmol/L Potassium Level 4.0 3.5-5.1 mmol/L Chloride Level 112 H 98-107 mmol/L Carbon Dioxide Level 24 20-31 mmol/L Anion Gap 9 5-15 Blood Urea Nitrogen 32 H 9-23 mg/dL Creatinine 1.59 H 0.700-1.30 mg/dL Glomerular Filtration Rate Calc 43 >90 mL/min BUN/Creatinine Ratio 20.1 H 10.0-20.0 Serum Glucose 190 H 74-106 mg/dL Hemoglobin A1c 6.2 H <5.7 % A1C Calcium Level 9.4 8.7-10.4 mg/dL Magnesium Level 1.8 1.6-2.6 mg/dL Ferritin 73.5 22-322 ng/mL Total Bilirubin 0.4 0.2-1.0 mg/dL Aspartate Amino Transferase (AST) 62 H 13-40 U/L Alanine Aminotransferase (ALT) 72 H 7-40 U/L Alkaline Phosphatase 339 H 46-116 U/L Total Protein 7.3 5.7-8.2 g/dL Albumin 4.1 3.2-4.8 g/dL Triglycerides Level 148 < 150 mg/dL Cholesterol Level 104 < 200 mg/dL LDL Cholesterol 51 < 100 mg/dL HDL Cholesterol 27 L 40-59 mg/dL Thyroid Stimulating Hormone (TSH) 6.30 H 0.55-4.78 uIU/mL Parathyroid Hormone (Intact) 92.4 H 18.4-80.1 pg/mL Urine Color Colorless Yellow Urine Clarity Ex.turbid Clear Urine pH 6.0 5.0-9.0 Urine Specific [place] 1.010 1.001-1.035 Urine Protein 1+ H Negative Urine Ketones Negative Negative Urine Blood 2+ H Negative /uL Urine Nitrite Negative Negative Urine Bilirubin Negative Negative Urine Urobilinogen Normal Negative mg/dL Urine Leukocyte Esterase 3+ Negative /uL Urine RBC 40 0 - 3 /hpf Urine WBC Clumps Present None Seen /hpf Urine Microscopic WBC 818 H 0-3 /HPF Urine Squamous Epithelial Cells None seen <5 /hpf Urine Bacteria None seen None Seen /hpf Urine Yeast (Budding) Moderate None Seen /hpf Urine Glucose 4+ H Normal mg/dL Troponin I High Sensitivity 4 </=54 ng/L Microbiology Date/Time Source Procedure Growth Status 02/04/25 00:15 Nose MRSA Screen - Final Complete 02/03/25 23:00 Urine - [place] Urine Culture - Preliminary Resulted Problems(with codes): (1) Metabolic encephalopathy (2) Shortness of breath (3) Symptomatic anemia (4) Generalized weakness Plan/Recommendation ASSESSMENT: Patient is a 85-year-old seen for left foot wounds PLAN: - The patients chart was reviewed, clinical findings were discussed with the patient, the etiologies of the conditions were discussed in detail, and a treatment plan was agreed to at this time, with both oral and written instructions provided. - reviewed advanced imaging - likely this is an over-read at this point due to the patient just finishing IV antibiotics - it is not recommended that we get repeat MRIs until at least 6 months to a year after IV antibiotics unless worsening infection - no leukocytosis at this point - would recommend outpatient wound care All questions were answered and concerns addressed to the patient's satisfaction. The patient was given the phone number to the clinic and was told how to make contact with the clinic should any concerns or questions arise. Patient understands that if any questions or concerns arise prior to the next appointment, we should be contacted immediately. FOLLOW-UP: Continue to follow while inpatient Plan discussed with: Patient Date of Service: Feb 04, 2025 Billing Provider: LAISHA WINSTON DPM Common Visit Codes: CONSULT ONLY Consultation Codes: [id number] CONSULT <80MIN LAISHA WINSTON DPM Feb 04, 2025 17:08
[2025-02-04] MEDS: TAMSULOSIN HYDROCHLORIDE 0.4 MG CAP PO SCH (18:11)
--- NOTE | 2025-02-04 18:38 | DVHPNRES ---
Progress Note Date Seen: Feb 04, 2025 Resident Creating Document: AMERICA ZELAYA ARSH Has the PT tested + for MRSA If YES, has PT been informed?: No Medical Necessity Reason Pt with a Central, PICC or Fol: No Subjective Review of Systems Patient is seen and examined at the bedside. Patient is complaining of generalized weakness. Patient reports: No new complaints, Feels better Objective vital signs Vital Sign Date Time Temp Pulse Resp B/P (MAP) Pulse Ox O2 Delivery O2 Flow Rate FiO2 02/04/25 17:00 97.7 74 14 109/60 (76) 98 97.7 02/04/25 08:02 Room Air* 0 21 Total Intake and Output 02/03/25 02/03/25 02/04/25 15:00 23:00 07:00 Intake Total 500 ml Balance 500 ml medications Current Medications Medications Dose Ordered Sig/Valeriy Route Start Time Stop Time Status Last Admin Dose Admin Insulin Glargine 12 units HS SC 02/03/25 22:00 02/03/25 23:21 12 UNITS Aspirin 81 mg DAILY PO 02/04/25 10:00 02/04/25 09:20 81 MG Tamsulosin HCl 0.4 mg QPM PO 02/04/25 18:00 02/04/25 18:11 0.4 MG Finasteride 5 mg DAILY PO 02/04/25 10:00 02/04/25 09:21 5 MG Insulin Human Lispro 4 units AC SC 02/04/25 07:00 02/04/25 12:07 4 UNITS Olanzapine 10 mg DAILY PO 02/03/25 22:00 02/04/25 09:21 10 MG Nifedipine 60 mg DAILY PO 02/04/25 10:00 Hold Meropenem 50 ml @ 17 mls/hr Q12HR@0200,1400 IV 02/04/25 14:00 02/04/25 13:49 17 MLS/HR Vancomycin HCl 0 ml @ 0 mls/hr UD IV 02/04/25 03:30 Diagnostic Test (Pha) 1 strip Q6HR 02/04/25 12:00 02/04/25 18:12 1 STRIP Insulin Human Regular Q6HR SC 02/04/25 12:00 Dextrose 50 ml UD PRN IV 02/04/25 11:30 Examination General Appearance: Alert, Oriented X3, Cooperative, No acute distress HEENT: Atraumatic, PERRLA, EOMI, Mucous membrane moist/pink Respiratory: Clear to auscultation, Normal air movement Cardiovascular: Regular rate, Normal S1, Normal S2, No murmurs, no chest wall tenderness Abdominal: Normal bowel sounds, Soft, No tenderness, No hepatospenomegaly, No masses Extremities: Right BKA, left lower limb 2nd and 3rd 3 amputated, with a scab on the tip of big toe and at the stamp of amputated fingers. Skin: No rashes, No breakdown, No significant lesion Neuro: Normal gait, Normal speech, Strength at 5/5 X4 ext, Normal tone, Sensation intact, Cranial nerves 3-12 NL, Reflexes 2+ Psych/Mental Status: Mental status NL, Mood NL laboratory and microbiology Laboratory Tests 02/04/25 04:48 Test 02/04/25 04:48 Range/Units Serum Glucose 190 H 74-106 mg/dL Microbiology Date/Time Source Procedure Growth Status 02/04/25 00:15 Nose MRSA Screen - Final Complete 02/03/25 23:00 Urine - [place] Urine Culture - Preliminary Resulted Labs and/or images reviewed: Labs reviewed by me, Image(s) reviewed by me Problem List/Assessment/Plan Problem List/Assessment/Plan Acute metabolic encephalopathy, likely due to UTI Complicated UTI Diabetic foot, status post amputation Osteomyelitis of left foot, recently completed IV antibiotic course Normocytic hypochromic anemia LORI on CKD likely stage IIIB due to be VMN Chronic kidney disease likely due to uncontrolled diabetes ? Anemia of chronic kidney disease Generalized weakness ? BPH h/o right above knee amputation Peripheral artery disease type 2 diabetes mellitus with hyperglycemia Hypertensive heart disease with unknown heart failure Transaminitis, likely due to above * MRI of left foot shows, Diffuse subcutaneous soft-tissue edema and swelling consistent with cellulitis * Duplex ultrasound of left lower limb shows, patent arteries through the foot with mostly multiphasic waveforms. High velocity monophasicflow only noted in the left dorsal pedal artery * Echo shows severe LVH with LVEF 60% * UA shows UTI picture Plan/recommendation * Podiatry consulted, recommended outpatient follow up * Empiric antibiotic meropenem, check urine culture * Insulin Lantus 12 units HS, lispro t.i.d. 4 units, and moderate sliding scale * Continue home meds, aspirin, olanzapine and finasteride * IV fluid DIET: Diabetic diet DVT PROPHYLAXIS: Lovenox CODE STATUS: Goal of care discussed for more than 18 minutes, full code DISPOSITION: Med/surge Patient's status and plan discussed with the patient. Case discussed with Dr. Benavides. Plan discussed with: Patient, Other (RN) My Orders My Orders Orders - AMERICA ZELAYA RESDIGIDEON Procedure Category Date Status Time Mri L Foot Wo Contrast MRI 02/04/25 Resulted 07:28 Glucose Blood PHA 02/04/25 In Process (Accu-Chek Comfort 12:00 Insulin R (Human) PHA 02/04/25 In Process (Insulin R) 12:00 Dextrose 50% Syringe PHA 02/04/25 In Process 11:30 Apply: ALEXI 02/04/25 In Process 11:25 Date of Service: Feb 04, 2025 Billing Provider: BRITTA BENAVIDES MD Common Visit Codes: [id number] INP/OBS CARE(HIGH) AMERICA ZELAYA RESDIENT Feb 04, 2025 18:38 BRITTA BENAVIDES MD Feb 05, 2025 20:08
[2025-02-04 21:06] VITALS: BP 139/78; PULSE 92; RESP 18; TEMP 97; O2SAT 98
[2025-02-04 22:40] LABS: COVID19 ANTIGEN SOFIA FIA NEGATIVE (NEGATIVE); Rapid Influenza A Negative (Negative); Rapid Influenza B Negative (Negative)
[2025-02-05 00:52] VITALS: BP 120/74; PULSE 95; RESP 19; TEMP 97.7; O2SAT 96
[2025-02-05] MEDS: HYDROcodone-ACET 5/325MG TAB PO PRN (01:25)
[2025-02-05 05:08] VITALS: BP 132/85; PULSE 89; RESP 19; TEMP 97.8; O2SAT 100
[2025-02-05 09:00] VITALS: BP 141/69; PULSE 81; RESP 14; TEMP 97.8; O2SAT 98
[2025-02-05 09:56] LABS: Basophils # (auto) 0.1 10 ^3/uL (0-0.2); Basophils % (auto) 1.6 % (0.0-2.0); Eosinophils # (auto) 0.8 10 ^3/uL (0-0.8); Eosinophils % (auto) 12.8 % (0.0-7.0); Hemoglobin 8.4 g/dL (13.5-17.5); Lymphocytes # (auto) 1.3 10 ^3/uL (0.4-5.4); Lymphocytes % (auto) 22.1 % (10.0-50.0); Mean Corpuscular Hemoglobin 26.7 pg (28.0-32.0); Mean Corpuscular Hgb Conc. 32.4 g/dL (32.0-36.0); Mean Corpuscular Volume 82.7 fL (80.0-100.0); Monocytes # (auto) 0.5 10 ^3/uL (0-1.3); Neutrophils # (auto) 3.2 10 ^3/uL (1.6-8.6); Neutrophils % (auto) 54.5 % (37.0-80.0); Platelet Count (auto) 263 10^3/uL (140-450); Red Blood Cells 3.14 10^6/uL (4.5-5.90); Red Cell Distribution Width 14.9 % (11.8-14.3); White Blood Cell 5.9 10^3/uL (4.4-10.8)
[2025-02-05 10:10] LABS: Albumin 3.8 g/dL (3.2-4.8); Anion Gap 7 (5-15); BUN/Creatinine Ratio 20.5 (10.0-20.0); Calcium 9.4 mg/dL (8.7-10.4); Carbon Dioxide 26 mmol/L (20-31); Potassium 4.4 mmol/L (3.5-5.1); Total Protein 6.7 g/dL (5.7-8.2)
[2025-02-05 10:11] LABS: Alanine Aminotransferase 66 U/L (7-40); Alkaline Phosphatase 307 U/L (46-116); Aspartate Aminotransferase 68 U/L (13-40); Bilirubin, Total 0.3 mg/dL (0.2-1.0); Blood Urea Nitrogen 27 mg/dL (9-23); Chloride 113 mmol/L (98-107); Glucose 114 mg/dL (74-106); Sodium 146 mmol/L (136-145)
[2025-02-05] MEDS: INSULIN LISPRO (HUMAN) 100 UNITS/ML ML SC SCH (11:30)
[2025-02-05 13:00] VITALS: BP 150/81; PULSE 80; RESP 16; TEMP 97.7; O2SAT 97
[2025-02-05] MEDS: DOCUSATE SOD 100 MG CAP PO ONE (15:11)
--- NOTE | 2025-02-05 15:31 | DVHPNRES ---
Progress Note Date Seen: Feb 05, 2025 Resident Creating Document: AMERICA ZELAYA ARSH Has the PT tested + for MRSA If YES, has PT been informed?: No Medical Necessity Reason Pt with a Central, PICC or Fol: No Subjective Review of Systems Patient seen and examined at the bedside. Patient is feeling better since admission. Still complained of generalized weakness. Urine culture results waiting. Patient reports: No new complaints, Feels better Objective vital signs Vital Sign Date Time Temp Pulse Resp B/P (MAP) Pulse Ox O2 Delivery O2 Flow Rate FiO2 02/05/25 13:00 97.7 80 16 150/81 (104) 97 97.7 02/05/25 08:00 Room Air* 0 21 Total Intake and Output 02/04/25 02/04/25 02/05/25 15:00 23:00 07:00 Intake Total 250 ml 825 ml 150 ml Output Total 250 ml 850 ml Balance 250 ml 575 ml -700 ml medications Current Medications Medications Dose Ordered Sig/Valeriy Route Start Time Stop Time Status Last Admin Dose Admin Insulin Glargine 12 units HS SC 02/03/25 22:00 02/04/25 22:00 12 UNITS Aspirin 81 mg DAILY PO 02/04/25 10:00 02/05/25 09:56 81 MG Tamsulosin HCl 0.4 mg QPM PO 02/04/25 18:00 02/04/25 18:11 0.4 MG Finasteride 5 mg DAILY PO 02/04/25 10:00 02/05/25 09:56 5 MG Olanzapine 10 mg DAILY PO 02/03/25 22:00 02/05/25 09:56 10 MG Nifedipine 60 mg DAILY PO 02/04/25 10:00 Hold Meropenem 50 ml @ 17 mls/hr Q12HR@0200,1400 IV 02/04/25 14:00 02/05/25 15:11 17 MLS/HR Diagnostic Test (Pha) 1 strip Q6HR 02/04/25 12:00 02/05/25 12:44 1 STRIP Insulin Human Regular Q6HR SC 02/04/25 12:00 02/05/25 00:22 3 UNITS Dextrose 50 ml UD PRN IV 02/04/25 11:30 Acetaminophen/ Hydrocodone Bitart 1 tab Q6HPRN PRN PO 02/05/25 01:15 02/05/25 01:25 1 TAB Insulin Human Lispro 2 units AC SC 02/05/25 11:30 Docusate Sodium 100 mg BID PO 02/05/25 22:00 Examination General Appearance: Alert, Oriented X3, Cooperative, No acute distress HEENT: Atraumatic, PERRLA, EOMI, Mucous membrane moist/pink Respiratory: Clear to auscultation, Normal air movement Cardiovascular: Regular rate, Normal S1, Normal S2, No murmurs, no chest wall tenderness Abdominal: Normal bowel sounds, Soft, No tenderness, No hepatospenomegaly, No masses Extremities: Right BKA, left lower limb 2nd and 3rd 3 amputated, with a scab on the tip of big toe and at the stamp of amputated fingers. Skin: No rashes, No breakdown, No significant lesion Neuro: Normal gait, Normal speech, Strength at 5/5 X4 ext, Normal tone, Sensation intact, Cranial nerves 3-12 NL, Reflexes 2+ Psych/Mental Status: Mental status NL, Mood NL laboratory and microbiology Laboratory Tests 02/05/25 09:30 Test 02/05/25 09:30 Range/Units Serum Glucose 114 H 74-106 mg/dL Microbiology Date/Time Source Procedure Growth Status 02/04/25 00:15 Nose MRSA Screen - Final Complete 02/03/25 23:00 Urine - [place] Urine Culture - Preliminary Resulted Labs and/or images reviewed: Labs reviewed by me, Image(s) reviewed by me Problem List/Assessment/Plan Problem List/Assessment/Plan Acute metabolic encephalopathy, likely due to UTI Complicated UTI Diabetic foot, status post amputation Osteomyelitis of left foot, recently completed IV antibiotic course Normocytic hypochromic anemia LORI on CKD likely stage IIIB due to be VMN Chronic kidney disease likely due to uncontrolled diabetes ? Anemia of chronic kidney disease Generalized weakness ? BPH h/o right above knee amputation Peripheral artery disease type 2 diabetes mellitus with hyperglycemia Hypertensive heart disease with unknown heart failure Transaminitis, likely due to above * MRI of left foot shows, Diffuse subcutaneous soft-tissue edema and swelling consistent with cellulitis * Duplex ultrasound of left lower limb shows, patent arteries through the foot with mostly multiphasic waveforms. High velocity monophasicflow only noted in the left dorsal pedal artery * Echo shows severe LVH with LVEF 60% * UA shows UTI picture, urine culture shows more than 100,000 CFU/mL yeast, possibly contaminated Plan/recommendation * Podiatry consulted, recommended outpatient follow up * Empiric antibiotic meropenem, check urine culture * Insulin Lantus 12 units HS, lispro t.i.d. 4 units, and moderate sliding scale * Continue home meds, aspirin, olanzapine and finasteride * IV fluid DIET: Diabetic diet DVT PROPHYLAXIS: Lovenox CODE STATUS: Goal of care discussed for more than 18 minutes, full code DISPOSITION: Med/surge Patient's status and plan discussed with the patient. Case discussed with Dr. Benavides. Plan discussed with: Patient, Other (RN) My Orders My Orders Orders - AMERICA ZELAYA Procedure Category Date Status Time Insulin Lispro PHA 02/05/25 In Process (Human) (Humalog) 11:30 Docusate Sodium PHA 02/05/25 In Process Capsule (Colace 22:00 Date of Service: Feb 04, 2025 Billing Provider: BRITTA BENAVIDES MD Common Visit Codes: [id number] INP/OBS CARE(HIGH) AMERICA ZELAYA RESDIENT Feb 05, 2025 15:31 BRITTA BENAVIDES MD Feb 05, 2025 20:14
[2025-02-05 17:00] VITALS: BP 152/77; PULSE 83; RESP 14; TEMP 97.9; O2SAT 97
[2025-02-05] MEDS: amLODIPine BESYLATE 5 MG TAB PO ONE (18:31)
[2025-02-05 21:00] VITALS: BP 159/76; PULSE 95; RESP 18; TEMP 97.8; O2SAT 97
[2025-02-05] MEDS: DOCUSATE SOD 100 MG CAP PO SCH (21:25)
[2025-02-06 05:00] VITALS: BP 155/85; PULSE 91; RESP 18; TEMP 97.6; O2SAT 99
[2025-02-06 06:15] LABS: Basophils # (auto) 0.1 10 ^3/uL (0-0.2); Basophils % (auto) 1.8 % (0.0-2.0); Eosinophils # (auto) 0.9 10 ^3/uL (0-0.8); Eosinophils % (auto) 13.2 % (0.0-7.0); Hematocrit 28.9 % (41.0-53.0); Hemoglobin 9.6 g/dL (13.5-17.5); Lymphocytes # (auto) 1.4 10 ^3/uL (0.4-5.4); Lymphocytes % (auto) 21.9 % (10.0-50.0); Mean Corpuscular Hemoglobin 27.6 pg (28.0-32.0); Mean Corpuscular Hgb Conc. 33.1 g/dL (32.0-36.0); Mean Corpuscular Volume 83.3 fL (80.0-100.0); Monocytes # (auto) 0.6 10 ^3/uL (0-1.3); Monocytes % (auto) 9.8 % (0.0-12.0); Neutrophils # (auto) 3.5 10 ^3/uL (1.6-8.6); Neutrophils % (auto) 53.3 % (37.0-80.0); Nucleated Red Blood Cells % 0.1 %; Platelet Count (auto) 320 10^3/uL (140-450); Red Blood Cells 3.48 10^6/uL (4.5-5.90); White Blood Cell 6.5 10^3/uL (4.4-10.8)
[2025-02-06 06:42] LABS: Albumin 4.1 g/dL (3.2-4.8); Anion Gap 8 (5-15); BUN/Creatinine Ratio 19.4 (10.0-20.0); Carbon Dioxide 27 mmol/L (20-31); Potassium 4.4 mmol/L (3.5-5.1); Sodium 144 mmol/L (136-145); Total Protein 7.2 g/dL (5.7-8.2)
[2025-02-06 06:43] LABS: Alanine Aminotransferase 75 U/L (7-40); Alkaline Phosphatase 355 U/L (46-116); Aspartate Aminotransferase 73 U/L (13-40); Blood Urea Nitrogen 27 mg/dL (9-23); Chloride 109 mmol/L (98-107); Glucose 117 mg/dL (74-106)
[2025-02-06 06:46] LABS: Bilirubin, Total 0.4 mg/dL (0.2-1.0)
[2025-02-06 09:00] VITALS: BP 148/86; PULSE 107; RESP 18; TEMP 96.5; O2SAT 94
[2025-02-06] MEDS ORDERED: amLODIPine BESYLATE 5 MG TAB PO SCH (10:00)
[2025-02-06] MEDS: SODIUM CHLORIDE 0.9% 500 ML IV ONE (10:51)
[2025-02-06 13:00] VITALS: BP 148/77; PULSE 101; RESP 17; TEMP 98.5; O2SAT 95
--- NOTE | 2025-02-06 14:45 | DVHPNRES ---
Progress Note Date Seen: Feb 06, 2025 Resident Creating Document: AMERICA ZELAYA ARSH Has the PT tested + for MRSA If YES, has PT been informed?: No Medical Necessity Reason Pt with a Central, PICC or Fol: No Subjective Review of Systems Patient seen and examined at the bedside. Patient is more confused today. Patient reports: Feels worse Changes from previous H/P or p: Changes Objective vital signs Vital Sign Date Time Temp Pulse Resp B/P (MAP) Pulse Ox O2 Delivery O2 Flow Rate FiO2 02/06/25 09:00 96.5 107 18 148/86 (106) 94 96.5 02/06/25 07:30 Room Air* 0 21 Total Intake and Output 02/05/25 02/05/25 02/06/25 15:00 23:00 07:00 Intake Total 740 ml 450 ml Output Total 750 ml 1500 ml Balance -10 ml -1050 ml medications Current Medications Medications Dose Ordered Sig/Valeriy Route Start Time Stop Time Status Last Admin Dose Admin Insulin Glargine 12 units HS SC 02/03/25 22:00 02/04/25 22:00 12 UNITS Aspirin 81 mg DAILY PO 02/04/25 10:00 02/06/25 10:20 81 MG Tamsulosin HCl 0.4 mg QPM PO 02/04/25 18:00 02/05/25 18:30 0.4 MG Finasteride 5 mg DAILY PO 02/04/25 10:00 02/06/25 10:20 5 MG Olanzapine 10 mg DAILY PO 02/03/25 22:00 02/06/25 10:21 10 MG Meropenem 50 ml @ 17 mls/hr Q12HR@0200,1400 IV 02/04/25 14:00 02/06/25 01:36 17 MLS/HR Diagnostic Test (Pha) 1 strip Q6HR 02/04/25 12:00 02/06/25 12:55 1 STRIP Insulin Human Regular Q6HR SC 02/04/25 12:00 02/05/25 20:05 3 UNITS Dextrose 50 ml UD PRN IV 02/04/25 11:30 Acetaminophen/ Hydrocodone Bitart 1 tab Q6HPRN PRN PO 02/05/25 01:15 02/05/25 01:25 1 TAB Insulin Human Lispro 2 units AC SC 02/05/25 11:30 02/06/25 11:13 2 UNITS Docusate Sodium 100 mg BID PO 02/05/25 22:00 02/06/25 10:20 100 MG Amlodipine Besylate 10 mg DAILY PO 02/06/25 10:30 Examination General Appearance: Alert, Oriented X3, Cooperative, No acute distress HEENT: Atraumatic, PERRLA, EOMI, Mucous membrane moist/pink Respiratory: Clear to auscultation, Normal air movement Cardiovascular: Regular rate, Normal S1, Normal S2, No murmurs, no chest wall tenderness Abdominal: Normal bowel sounds, Soft, No tenderness, No hepatospenomegaly, No masses Extremities: Right BKA, left lower limb 2nd and 3rd 3 amputated, with a scab on the tip of big toe and at the stamp of amputated fingers. Skin: No rashes, No breakdown, No significant lesion Neuro: Normal gait, Normal speech, Strength at 5/5 X4 ext, Normal tone, Sensation intact, Cranial nerves 3-12 NL, Reflexes 2+ Psych/Mental Status: Mental status NL, Mood NL laboratory and microbiology Laboratory Tests 02/06/25 05:06 Test 02/06/25 05:06 Range/Units Serum Glucose 117 H 74-106 mg/dL Microbiology Date/Time Source Procedure Growth Status 02/04/25 00:15 Nose MRSA Screen - Final Complete 02/03/25 23:00 Urine - [place] Urine Culture - Preliminary Resulted Labs and/or images reviewed: Labs reviewed by me, Image(s) reviewed by me Problem List/Assessment/Plan Problem List/Assessment/Plan Acute metabolic encephalopathy, likely due to UTI Complicated UTI Diabetic foot, status post amputation Osteomyelitis of left foot, recently completed IV antibiotic course Normocytic hypochromic anemia LORI on CKD likely stage IIIB due to be VMN Chronic kidney disease likely due to uncontrolled diabetes ? Anemia of chronic kidney disease Generalized weakness ? BPH h/o right above knee amputation Peripheral artery disease type 2 diabetes mellitus with hyperglycemia Hypertensive heart disease with unknown heart failure Transaminitis, likely due to above * MRI of left foot shows, Diffuse subcutaneous soft-tissue edema and swelling consistent with cellulitis * Duplex ultrasound of left lower limb shows, patent arteries through the foot with mostly multiphasic waveforms. High velocity monophasicflow only noted in the left dorsal pedal artery * Echo shows severe LVH with LVEF 60% * UA shows UTI picture, urine culture shows more than 100,000 CFU/mL yeast, possibly contaminated Plan/recommendation * Podiatry consulted, recommended outpatient follow up * Empiric antibiotic meropenem, check urine culture * Insulin Lantus 12 units HS, lispro t.i.d. 4 units, and moderate sliding scale * Continue home meds, aspirin, olanzapine and finasteride * IV fluid DIET: Diabetic diet DVT PROPHYLAXIS: Lovenox CODE STATUS: Goal of care discussed for more than 18 minutes, full code DISPOSITION: Med/surge Patient's status and plan discussed with the patient. Case discussed with Dr. Phillips. Plan discussed with: Patient, Other (RN) My Orders My Orders Orders - AMERICA ZELAYA Procedure Category Date Status Time Amlodipine Tablet PHA 02/06/25 In Process (Norvasc Tablet) 10:30 Dietary Evaluation Review Comments: 1) Initiate Glucerna bid. Encourage optimal PO intake 2) Initiate MVI @ 1 tb qd 3) Initiate vitamin C @ 500 mg bid and zinc sulfate @ 220 mg qd for 7-10 days 4) Follow-up with wound care and nephrology 5) Continue to monitor I&O, labs, and skin integrity Expected Outcomes/Goals: 1) appetite and labs to improve 2) wound to improve 3) f/u in 3-5 days Date of Service: Feb 06, 2025 Billing Provider: JADE PHILLIPS MD Common Visit Codes: [id number] INP/OBS CARE(HIGH) AMERICA ZELAYA RESDIENT Feb 06, 2025 14:45 JADE PHILLIPS MD Feb 08, 2025 21:31
[2025-02-06] MEDS: amLODIPine BESYLATE 5 MG TAB PO SCH (15:17)
[2025-02-06] MEDS ORDERED: SODIUM CHLORIDE 0.9% 250 ML IV ONE ×2 (15:30)
[2025-02-06] MEDS: SODIUM CHLORIDE 0.9% 250 ML IV ONE ×2 (15:44→16:58)
[2025-02-06 17:24] VITALS: BP 165/87; PULSE 93; RESP 19; TEMP 98.7; O2SAT 97
[2025-02-06 21:00] VITALS: BP 149/83; PULSE 94; RESP 18; TEMP 98.9; O2SAT 97
[2025-02-07 05:00] VITALS: BP 132/76; PULSE 79; RESP 19; TEMP 97.9; O2SAT 95
[2025-02-07 05:38] LABS: Basophils # (auto) 0.1 10 ^3/uL (0-0.2); Eosinophils # (auto) 0.6 10 ^3/uL (0-0.8); Hemoglobin 8.8 g/dL (13.5-17.5)
[2025-02-07 05:40] LABS: Basophils % (auto) 1.6 % (0.0-2.0); Eosinophils % (auto) 9.7 % (0.0-7.0); Hematocrit 26.6 % (41.0-53.0); Lymphocytes # (auto) 1.9 10 ^3/uL (0.4-5.4); Lymphocytes % (auto) 31.3 % (10.0-50.0); Mean Corpuscular Hemoglobin 27.3 pg (28.0-32.0); Mean Corpuscular Volume 82.5 fL (80.0-100.0); Monocytes # (auto) 0.7 10 ^3/uL (0-1.3); Monocytes % (auto) 10.6 % (0.0-12.0); Neutrophils # (auto) 2.9 10 ^3/uL (1.6-8.6); Neutrophils % (auto) 46.8 % (37.0-80.0); Nucleated Red Blood Cells % 0.2 %; Platelet Count (auto) 291 10^3/uL (140-450); Red Blood Cells 3.22 10^6/uL (4.5-5.90); Red Cell Distribution Width 15.1 % (11.8-14.3); White Blood Cell 6.2 10^3/uL (4.4-10.8)
[2025-02-07 05:56] LABS: Albumin 3.7 g/dL (3.2-4.8); Anion Gap 10 (5-15); BUN/Creatinine Ratio 16.8 (10.0-20.0); Bilirubin, Total 0.4 mg/dL (0.2-1.0); Blood Urea Nitrogen 22 mg/dL (9-23); Calcium 9.5 mg/dL (8.7-10.4); Carbon Dioxide 25 mmol/L (20-31); Glucose 90 mg/dL (74-106); Potassium 4.4 mmol/L (3.5-5.1); Total Protein 6.6 g/dL (5.7-8.2)
[2025-02-07 06:14] LABS: Alanine Aminotransferase 57 U/L (7-40); Alkaline Phosphatase 310 U/L (46-116); Aspartate Aminotransferase 52 U/L (13-40); Chloride 111 mmol/L (98-107); Sodium 146 mmol/L (136-145)
[2025-02-07] MEDS ORDERED: AMLO1TAB23 PO (08:28)
[2025-02-07] MEDS ORDERED: FLUC200T50 PO (08:28)
[2025-02-07 09:00] VITALS: BP 140/55; PULSE 76; RESP 17; TEMP 97.8; O2SAT 97
[2025-02-07] MEDS: FLUCONAZOLE 100 MG TAB PO SCH (11:00)
--- NOTE | 2025-02-07 11:49 | DVHPNRES ---
Progress Note Has the PT tested + for MRSA If YES, has PT been informed?: No Medical Necessity Reason Pt with a Central, PICC or Fol: No Objective vital signs Vital Sign Date Time Temp Pulse Resp B/P (MAP) Pulse Ox O2 Delivery O2 Flow Rate FiO2 02/07/25 11:00 140/55 02/07/25 09:00 97.8 76 17 97 97.8 02/07/25 08:00 Room Air* 0 21 Total Intake and Output 02/06/25 02/06/25 02/07/25 15:00 23:00 07:00 Intake Total 500 ml 850 ml 750 ml Output Total 1600 ml 900 ml Balance 500 ml -750 ml -150 ml medications Current Medications Medications Dose Ordered Sig/Valeriy Route Start Time Stop Time Status Last Admin Dose Admin Insulin Glargine 12 units HS SC 02/03/25 22:00 02/06/25 21:06 12 UNITS Aspirin 81 mg DAILY PO 02/04/25 10:00 02/07/25 10:59 81 MG Tamsulosin HCl 0.4 mg QPM PO 02/04/25 18:00 02/06/25 17:33 0.4 MG Finasteride 5 mg DAILY PO 02/04/25 10:00 02/07/25 11:01 5 MG Olanzapine 10 mg DAILY PO 02/03/25 22:00 02/07/25 11:01 10 MG Meropenem 50 ml @ 17 mls/hr Q12HR@0200,1400 IV 02/04/25 14:00 02/07/25 01:12 17 MLS/HR Diagnostic Test (Pha) 1 strip Q6HR 02/04/25 12:00 02/07/25 05:40 1 STRIP Insulin Human Regular Q6HR SC 02/04/25 12:00 02/06/25 23:44 2 UNITS Dextrose 50 ml UD PRN IV 02/04/25 11:30 Acetaminophen/ Hydrocodone Bitart 1 tab Q6HPRN PRN PO 02/05/25 01:15 02/05/25 01:25 1 TAB Insulin Human Lispro 2 units AC SC 02/05/25 11:30 02/06/25 17:33 2 UNITS Docusate Sodium 100 mg BID PO 02/05/25 22:00 02/07/25 11:00 100 MG Amlodipine Besylate 10 mg DAILY PO 02/06/25 10:30 02/07/25 11:00 10 MG Fluconazole 200 mg DAILY PO 02/07/25 10:00 02/07/25 11:00 200 MG laboratory and microbiology Laboratory Tests 02/07/25 04:49 Test 02/07/25 04:49 Range/Units Serum Glucose 90 74-106 mg/dL Microbiology Date/Time Source Procedure Growth Status 02/04/25 00:15 Nose MRSA Screen - Final Complete 02/03/25 23:00 Urine - [place] Urine Culture - Final Presumptive Amparo albicans Complete My Orders My Orders Orders - ARIN PARIS RESIDENT Procedure Category Date Status Time Fluconazole Tablet PHA 02/07/25 In Process (Diflucan Tablet) 10:00 Schedule For Dc ALEXI 02/07/25 In Process Clinic F/U 11:35 * [employer] CONS 02/07/25 Transmitted Consult Discharge DISCHARGE 02/07/25 Transmitted 11:35 Dietary Evaluation Review Comments: 1) Initiate Glucerna bid. Encourage optimal PO intake 2) Initiate MVI @ 1 tb qd 3) Initiate vitamin C @ 500 mg bid and zinc sulfate @ 220 mg qd for 7-10 days 4) Follow-up with wound care and nephrology 5) Continue to monitor I&O, labs, and skin integrity Expected Outcomes/Goals: 1) appetite and labs to improve 2) wound to improve 3) f/u in 3-5 days ARIN PAR[facility] RESIDENT Feb 07, 2025 11:49
[2025-02-07 13:06] VITALS: BP 150/89; PULSE 86; RESP 17; TEMP 98; O2SAT 96
--- NOTE | 2025-02-07 16:31 | DVHDSRES ---
Discharge Summary Date of Admission Resident Creating Document: AMERICA ZELAYA RESDIENT Feb 03, 2025 at 21:26 Date of Discharge: Feb 07, 2025 Admitting Diagnosis Acute metabolic encephalopathy, likely due to UTI Labs/Diagnostic Data: Laboratory Results Test 02/07/25 12:09 02/07/25 04:49 02/05/25 15:43 02/04/25 21:30 POC Glucose 106 mg/dl (70-106) White Blood Count 6.2 10^3/uL (4.4-10.8) Red Blood Count 3.22 10^6/uL (4.5-5.90) Hemoglobin 8.8 g/dL (13.5-17.5) Hematocrit 26.6 % (41.0-53.0) Mean Corpuscular Volume 82.5 fL (80.0-100.0) Mean Corpuscular Hemoglobin 27.3 pg (28.0-32.0) Mean Corpuscular Hemoglobin Concent 33.0 g/dL (32.0-36.0) Red Cell Distribution Width 15.1 % (11.8-14.3) Platelet Count 291 10^3/uL (140-450) Mean Platelet Volume 9.9 fL (6.9-10.8) Neutrophils (%) (Auto) 46.8 % (37.0-80.0) Lymphocytes (%) (Auto) 31.3 % (10.0-50.0) Monocytes (%) (Auto) 10.6 % (0.0-12.0) Eosinophils (%) (Auto) 9.7 % (0.0-7.0) Basophils (%) (Auto) 1.6 % (0.0-2.0) Neutrophils # (Auto) 2.9 10 ^3/uL (1.6-8.6) Lymphocytes # (Auto) 1.9 10 ^3/uL (0.4-5.4) Monocytes # (Auto) 0.7 10 ^3/uL (0-1.3) Eosinophils # (Auto) 0.6 10 ^3/uL (0-0.8) Basophils # (Auto) 0.1 10 ^3/uL (0-0.2) Nucleated Red Blood Cells 0.2 % Sodium Level 146 mmol/L (136-145) Potassium Level 4.4 mmol/L (3.5-5.1) Chloride Level 111 mmol/L (98-107) Carbon Dioxide Level 25 mmol/L (20-31) Anion Gap 10 (5-15) Blood Urea Nitrogen 22 mg/dL (9-23) Creatinine 1.31 mg/dL (0.700-1.30) Glomerular Filtration Rate Calc 54 mL/min (>90) BUN/Creatinine Ratio 16.8 (10.0-20.0) Serum Glucose 90 mg/dL (74-106) Calcium Level 9.5 mg/dL (8.7-10.4) Total Bilirubin 0.4 mg/dL (0.2-1.0) Aspartate Amino Transferase (AST) 52 U/L (13-40) Alanine Aminotransferase (ALT) 57 U/L (7-40) Alkaline Phosphatase 310 U/L (46-116) Total Protein 6.6 g/dL (5.7-8.2) Albumin 3.7 g/dL (3.2-4.8) Stool Occult Blood Negative (Negative) Stool Occult Blood Sample #3 (Negative) Influenza Type A Antigen Negative (Negative) Influenza Type B Antigen Negative (Negative) SARS-CoV-2 Antigen (Rapid) Negative (NEGATIVE) Test 02/04/25 04:48 02/03/25 23:00 02/03/25 18:55 Reticulocyte Count (auto) 1.17 % (0.5-1.5) Prothrombin Time 11.3 sec (9.3-11.8) Prothrombin Time INR 1.07 (0.9-1.15) Activated Partial Thromboplast Time 37.1 SEC (24.5-34.5) Hemoglobin A1c 6.2 % A1C (<5.7) Magnesium Level 1.8 mg/dL (1.6-2.6) Ferritin 73.5 ng/mL (22-322) Triglycerides Level 148 mg/dL (< 150) Cholesterol Level 104 mg/dL (< 200) LDL Cholesterol 51 mg/dL (< 100) HDL Cholesterol 27 mg/dL (40-59) Thyroid Stimulating Hormone (TSH) 6.30 uIU/mL (0.55-4.78) Parathyroid Hormone (Intact) 92.4 pg/mL (18.4-80.1) Urine Color Colorless (Yellow) Urine Clarity Ex.turbid (Clear) Urine pH 6.0 (5.0-9.0) Urine Specific [place] 1.010 (1.001-1.035) Urine Protein 1+ (Negative) Urine Ketones Negative (Negative) Urine Blood 2+ /uL (Negative) Urine Nitrite Negative (Negative) Urine Bilirubin Negative (Negative) Urine Urobilinogen Normal mg/dL (Negative) Urine Leukocyte Esterase 3+ /uL (Negative) Urine RBC 40 /hpf (0 - 3) Urine WBC Clumps Present /hpf (None Seen) Urine Microscopic WBC 818 /HPF (0-3) Urine Squamous Epithelial Cells None seen /hpf (<5) Urine Bacteria None seen /hpf (None Seen) Urine Yeast (Budding) Moderate /hpf (None Seen) Urine Glucose 4+ mg/dL (Normal) Troponin I High Sensitivity 4 ng/L (</=54) Other Laboratory Tests 02/07/25 04:49 Brief Hx & Hospital Course: 85-year-old male with history of insulin-dependent type 2 diabetes mellitus, hypertension, chronic kidney disease stage IIIB, bilateral lower extremity amputations (left 2nd toe and right above-knee), and peripheral artery disease, presented with AMS, chronic Demarco's catheter in place since December, and indwelling catheter draining turbid urine. Patient was previously treated with meropenem for osteomyelitis. He had been experiencing generalized weakness and anemia likely secondary to chronic kidney disease and/or nutritional deficiency. Initial evaluation showed normocytic hypochromic anemia. Workup for anemia included ferritin normal and stool guaiac test negative. Urinalysis and cultures were sent. Urine culture ultimately grew Amparo species. He was started on fluconazole for treatment of fungal UTI. No signs of pyelonephritis or systemic candidemia were observed. Foleys catheter was exchanged. Podiatry was consulted for left foot wound; x-ray showed osteomyelitis of multiple metatarsal heads. He had previously completed a course of IV antibiotics, and no new surgical intervention was recommended during this admission. Blood sugars were managed with basal and correctional insulin. Discharge Condition: Stable, alert and oriented x3, tolerating diet, afebrile Follow-up Appointments: Follow-up with Dr. Olivier Follow-up at [facility] Instructions: Complete fluconazole course Maintain Demarco catheter hygiene and observe for signs of infection Monitor blood glucose regularly Ensure close follow-up for anemia and CKD management General Appearance: Alert, Oriented X3, Cooperative, No acute distress HEENT: Atraumatic, PERRLA, EOMI, Mucous membrane moist/pink Respiratory: Clear to auscultation, Normal air movement Cardiovascular: Regular rate, Normal S1, Normal S2, No murmurs, no chest wall tenderness Abdominal: Normal bowel sounds, Soft, No tenderness, No hepatospenomegaly, No masses Extremities: Right BKA, left lower limb 2nd and 3rd 3 amputated, with a scab on the tip of big toe and at the stamp of amputated fingers. Skin: No rashes, No breakdown, No significant lesion Neuro: Normal gait, Normal speech, Strength at 5/5 X4 ext, Normal tone, Sensation intact, Cranial nerves 3-12 NL, Reflexes 2+ Psych/Mental Status: Mental status NL, Mood NL Case discussed with Dr Phillips Consults/Reason for consult podiatry due to chronic osteo Condition at Discharge: Stable Final Diagnosis/Problems List Acute metabolic encephalopathy, likely due to UTI Complicated UTI Diabetic foot, status post amputation Osteomyelitis of left foot, recently completed IV antibiotic course Normocytic hypochromic anemia LORI on CKD likely stage IIIB due to be VMN Chronic kidney disease likely due to uncontrolled diabetes ? Anemia of chronic kidney disease Generalized weakness ? BPH h/o right above knee amputation Peripheral artery disease type 2 diabetes mellitus with hyperglycemia Hypertensive heart disease with unknown heart failure Transaminitis, likely due to above Discharge Disposition: Home SNF Discharge Will this Physician continue t: No Discharge Instruct/Medications Diet: Consistent carbohydrate, Cardiac 2g Na,low cholest Activity: Bed rest Follow Up/Referral: dc clinic and Dr Olivier clinic Medications: see prescription Discharge Statement: "Patient was advised to return to the ER or call 911 if any headaches, dizziness, shortness of breath, chest pain, abdominal pain, bleeding, fevers, or worsening of medical condition. Patient was counseled about treatment plan, medications, possible side effects, patientverbalized understanding. All questions were answered to the best of my ability. This discharge took greater then 30 minutes in planning, reviewing documentation, counseling the patient, and discussing with other team members." ASSESSMENT ASSESSMENT Assessment Acute metabolic encephalopathy, likely due to UTI Complicated UTI Diabetic foot, status post amputation Osteomyelitis of left foot, recently completed IV antibiotic course Normocytic hypochromic anemia LORI on CKD likely stage IIIB due to be VMN Chronic kidney disease likely due to uncontrolled diabetes ? Anemia of chronic kidney disease Generalized weakness ? BPH h/o right above knee amputation Peripheral artery disease type 2 diabetes mellitus with hyperglycemia Hypertensive heart disease with unknown heart failure Transaminitis, likely due to above Date of Service: Feb 07, 2025 Billing Provider: JADE PHILLIPS MD Common Visit Codes: [id number] DISCH DAY >30min ARIN PAR[place] RESIDENT Feb 07, 2025 16:31 JADE PHILLIPS MD Feb 08, 2025 21:33
[2025-02-07 17:00] VITALS: BP 135/88; PULSE 88; RESP 18; TEMP 98; O2SAT 91
== END 2025-02-07 17:53 | disposition home or self-care (01) | DRG 698 ==
LOC: ER 17:21 → OVERFLOW 21:26 → CENTRAL 23:33
PROVIDERS: ADMIT Student in an Organized Health Care Education/Training Program; ATTEND Emergency Medicine
DX: T83.518A Infection and inflammatory reaction due to other urinary catheter, initial encounter (principal); G93.41 Metabolic encephalopathy; N17.0 Acute kidney failure with tubular necrosis; M86.8X7 Other osteomyelitis, ankle and foot; I13.0 Hypertensive heart and chronic kidney disease with heart failure and stage 1 through stage 4 chronic kidney disease, or unspecified chronic kidney disease; E11.65 Type 2 diabetes mellitus with hyperglycemia; E11.22 Type 2 diabetes mellitus with diabetic chronic kidney disease; D63.1 Anemia in chronic kidney disease; Z20.822 Contact with and (suspected) exposure to COVID-19; E11.69 Type 2 diabetes mellitus with other specified complication; N18.32 Chronic kidney disease, stage 3b; N40.0 Benign prostatic hyperplasia without lower urinary tract symptoms; I50.9 Heart failure, unspecified; D50.9 Iron deficiency anemia, unspecified; R74.01 Elevation of levels of liver transaminase levels; E11.51 Type 2 diabetes mellitus with diabetic peripheral angiopathy without gangrene; Z79.4 Long term (current) use of insulin; Z79.899 Other long term (current) drug therapy; Z79.82 Long term (current) use of aspirin; Z89.519 Acquired absence of unspecified leg below knee; Z89.512 Acquired absence of left leg below knee; Z89.511 Acquired absence of right leg below knee
CPT/HCPCS: 36415; 71045; 73700; 73718; 80048; 80053; 80061; 81001; 82270; 82728; 82962; 83036; 83735; 83970; 84443; 84484; 85025; 85045; 85610; 85730; 86850; 86900; 86901; 87081; 87086; 87088; 87186; 87426; 87804; 93005; 93306; 93925; 96372; G0378; J1815; J2185

== ENCOUNTER 2025-02-26 09:15 | Inpatient (IN) | payer OTHER, MEDICAID ==
[~2025-02-26] VITALS: Ht 167.6 cm; Wt 62.5 kg
[~2025-02-26 09:15] MED LIST changes: +AMLO1TAB23 PO; +FLUC200T50 PO
--- NOTE | 2025-02-26 09:27 | ED.PDOC ---
History of Present Illness HPI Comments 85-year-old male with PMHx Dementia, DM, HTN, HLD brought in by EMS presents with a chief complaint of generalized weakness and hypoglycemia. Patient is currently A/Ox1. Family of patient called EMS due to patient having confusion and low blood sugar. Patients blood sugar accu-check was 24 per EMS. Patient o nly complaining of generalized weakness at this time. Time Seen by MD: 09:17 Primary Care Provider: [facility] Reviewed Notes: Medications, Allergies Allergies: Coded Allergies: NO KNOWN ALLERGIES (Unverified , 01/03/25) Home Meds Active Scripts Fluconazole (Fluconazole) 200 Mg Tab, 200 MG PO DAILY for 14 Days, #14 TAB Prov:ARIN PARIS RESIDENT 02/07/25 Amlodipine Besylate (Amlodipine Besylate) 10 Mg Tab, 1 TAB PO DAILY for 30 Days, #30 TAB 5 Refills Prov:ARIN PARIS RESIDENT 02/07/25 Thiamine Hcl (VITAMIN B-1) 100 Mg Tb, 100 MG PO DAILY for 30 Days, #30 TAB 1 Refill Prov:ESTHELA JAMES MD 01/08/25 Finasteride (Finasteride) 5 Mg Tab, 1 TAB PO DAILY, #30 TAB 1 Refill Prov:ESTHELA JAMES MD 01/08/25 Tamsulosin Hcl (Flomax) 0.4 Mg Cap, 1 CAP PO DAILY, #30 CAP 1 Refill Prov:ESTHELA JAMES MD 01/08/25 Olanzapine (OLANZAPINE) 10 Mg Tab, 1 TAB PO HS, #30 TAB 1 Refill Prov:ESTHELA JAMES MD 01/08/25 Ferrous Sulfate (Ferrous Sulfate) 325 Mg Tab, 325 MG PO EOD for 30 Days, MG Prov:ESTHELA JAMES MD 01/08/25 Reported Medications Insulin Glargine (Basaglar Kwikpen) 100 Unit/Ml Inj, 100 UNIT SC, INJ 01/03/25 Insulin Lispro (Insulin Lispro Kwikpen) 100 Unit/Ml Inj, 100 UNIT SC, INJ 01/03/25 Heparin Sodium (Porcine) (Heparin Sodium Lock Flush) 10 Unt/Ml Ij, 10 UNT IV, INJ 01/03/25 Alendronate Sodium (Alendronate Sodium) 70 Mg Tab, 1 TAB PO QWEEKLY, #4 TAB 3 Refills 01/03/25 Atorvastatin Calcium (ATORVASTATIN CALCIUM) 40 Mg Tab, 1 TAB PO DAILY, #30 TAB 5 Refills 01/03/25 Gabapentin (Gabapentin) 100 Mg Cap, 100 MG PO TID 01/03/25 Aspirin (Aspir-Low) 81 Mg Tab, 81 MG PO DAILY for 30 Days, MG 01/03/25 Cholecalciferol (VITAMIN D3) 2,000 Unit Tab, 2000 UNIT OR DAILY, TAB 01/03/25 Ticagrelor Base (BRILINTA) 90 Mg Tab, 90 MG PO BID, TAB 01/03/25 Information Source: Emergency Med Personnel Mode of Arrival: EMS Severity: Moderate Timing: Hours Duration: Since onset Prehospital treatment: 12 Lead EKG, Accucheck, Log Preparer Past Medical History PAST MEDICAL HISTORY: Dementia, DM, High Lipids, HTN Surgical History: BKA Family History Family History: Reviewed,noncontributory to illness Social History Smoker: Non-Smoker Alcohol: Denies ETOH Use Drugs: Denies Drug Use Lives In: Home Constitutional: reports: weakness; denies: chills, diaphoresis, fatigue, fever, malaise, sweats, others EENTM: denies: blurred vision, double vision, ear bleeding, ear discharge, ear drainage, ear pain, ear ringing, eye pain, eye redness, hearing loss, mouth pain, mouth swelling, nasal discharge, nose bleeding, nose congestion, nose pain, photophobia, tearing, throat pain, throat swelling, voice changes, others Respiratory: denies: cough, hemoptysis, orthopnea, SOB at rest, shortness of breath, SOB with excertion, stridor, wheezing, others Cardiovascular: denies: chest pain, dizzy spells, diaphoresis, Dyspnea on exertion, edema, irregular heart beat, left arm pain, lightheadedness, palpitations, PND, syncope, others Gastrointestinal: denies: abdomen distended, abdominal pain, blood streaked bowels, constipated, diarrhea, dysphagia, difficulty swallowing, hematemesis, melena, nausea, poor appetite, poor fluid intake, rectal bleeding, rectal pain, vomiting, others Genitourinary: denies: burning, dysuria, flank pain, frequency, hematuria, incontinence, penile discharge, penile sore, pain, testicle pain, testicle swelling, urgency, others Neurological: denies: dizziness, fainting, headache, left sided numbness, left sided weakness, numbness, paresthesia, pre-existing deficit, right sided numbness, right sided weakness, seizure, speech problems, tingling, tremors, weakness, others Musculoskeletal: denies: back pain, gout, joint pain, joint swelling, muscle pain, muscle stiffness, neck pain, others Integumetry: denies: bruises, change in color, change in hair/nails, dryness, laceration, lesions, lumps, rash, wounds, others Allergic/Immunocompromised: denies: Difficulty Healing, Frequent Infections, Hives, Itching, others Hematologic/Lymphatic: denies: anemia, blood clots, easy bleeding, easy bruising, swollen glands, others Endocrine: denies: excessive hunger, excessive sweating, excessive thirst, excessive urination, flushing, intolerance to cold, intolerance to heat, unexplained weight gain, unexplained weight loss, others Psychiatric: denies: anxiety, bipolar disorder, depression, hopeless, panic disorder, schizophrenia, sleepless, suicidal, others All Other Systems: Reviewed and Negative Physical Exam General Appearance: Moderate Distress, Normal HEENT: Normal ENT Inspection, Pharynx Normal, TMs Normal Neck: Full Range of Motion, Non-Tender, Normal, Normal Inspection Respiratory: Chest Non-Tender, Lungs Clear, No Accessory Muscle Use, No Respira tory Distress, Normal Breath Sounds Cardiovascular: No Edema, No JVD, No Murmur, No Gallop, Normal Peripheral Pulses, Regular Rate/Rhythm Breast Exam: Deferred Gastrointestinal: No Organomegaly, Non Tender, No Pulsatile Mass, Normal Bowel Sounds, Soft Genitalia: Deferred Pelvic: Deferred Rectal: Deferred Extremities: No calf tenderness, Normal capillary refill, Normal range of motion, Non-tender, No pedal edema, Other (Right below-knee amputation ) Musculoskeletal : Apperance: Normal Neurologic: Alert (To name), No Motor Deficits, Normal Mood, No Sensory Defi cits Cerebellar Function: NOT DONE Reflexes: NOT DONE Skin: Dry, Normal Color, Warm Peripheral Pulses: 3+ Radial (R), 3+ Radial (L) Lymphatic: No Adenopathy Was a procedure done? Was a procedure done?: No Differential Dx Considerations may include: Anemia Electrolyte imbalance X-Ray, Labs, Meds, VS Vital Signs Date Time Temp Pulse Resp B/P (MAP) Pulse Ox O2 Delivery O2 Flow Rate FiO2 02/26/25 09:55 89 11 98 Room Air* 0 21 02/26/25 09:55 98.0 89 11 148/71 (96) 98 98.0 02/26/25 09:38 98.6 84 16 124/67 (86) 96 98.6 02/26/25 09:15 93 Lab Test 02/26/25 10:35 02/26/25 09:32 Range/Units Urine Color Colorless Yellow Urine Clarity Clear Clear Urine pH 6.0 5.0-9.0 Urine Specific [place] 1.006 1.001-1.035 Urine Protein Trace H Negative Urine Ketones Negative Negative Urine Blood Trace H Negative /uL Urine Nitrite Negative Negative Urine Bilirubin Negative Negative Urine Urobilinogen Normal Negative mg/dL Urine Leukocyte Esterase 3+ Negative /uL Urine RBC 3 0 - 3 /hpf Urine Microscopic WBC 14 H 0-3 /HPF Urine Squamous Epithelial Cells None seen <5 /hpf Urine Bacteria None seen None Seen /hpf Urine Glucose Normal Normal mg/dL White Blood Count 4.3 L 4.4-10.8 10^3/uL Red Blood Count 3.16 L 4.5-5.90 10^6/uL Hemoglobin 8.4 L 13.5-17.5 g/dL Hematocrit 25.9 L 41.0-53.0 % Mean Corpuscular Volume 81.8 80.0-100.0 fL Mean Corpuscular Hemoglobin 26.4 L 28.0-32.0 pg Mean Corpuscular Hemoglobin Concent 32.3 32.0-36.0 g/dL Red Cell Distribution Width 15.7 H 11.8-14.3 % Platelet Count 227 140-450 10^3/uL Mean Platelet Volume 9.9 6.9-10.8 fL Neutrophils (%) (Auto) 71.3 37.0-80.0 % Lymphocytes (%) (Auto) 12.9 10.0-50.0 % Monocytes (%) (Auto) 9.8 0.0-12.0 % Eosinophils (%) (Auto) 5.5 0.0-7.0 % Basophils (%) (Auto) 0.5 0.0-2.0 % Neutrophils # (Auto) 3.0 1.6-8.6 10 ^3/uL Lymphocytes # (Auto) 0.6 0.4-5.4 10 ^3/uL Monocytes # (Auto) 0.4 0-1.3 10 ^3/uL Eosinophils # (Auto) 0.2 0-0.8 10 ^3/uL Basophils # (Auto) 0 0-0.2 10 ^3/uL Nucleated Red Blood Cells 0.0 % Sodium Level 141 136-145 mmol/L Potassium Level 4.3 3.5-5.1 mmol/L Chloride Level 111 H 98-107 mmol/L Carbon Dioxide Level 22 20-31 mmol/L Anion Gap 8 5-15 Blood Urea Nitrogen 23 9-23 mg/dL Creatinine 1.71 H 0.700-1.30 mg/dL Glomerular Filtration Rate Calc 39 >90 mL/min BUN/Creatinine Ratio 13.5 10.0-20.0 Serum Glucose 139 H 74-106 mg/dL Calcium Level 9.5 8.7-10.4 mg/dL Total Bilirubin 0.2 0.2-1.0 mg/dL Aspartate Amino Transferase (AST) 37 H <34 U/L Alanine Aminotransferase (ALT) 35 7-40 U/L Alkaline Phosphatase 318 H 46-116 U/L Troponin I High Sensitivity 5 </=54 ng/L Total Protein 7.3 5.7-8.2 g/dL Albumin 4.1 3.2-4.8 g/dL Patient alert to name. History of dementia. Hypoglycemia in the field. History of diabetes. Possible infection causing hypoglycemia. Reviewed his previous visit. Waiting for family. Continue to monitor. UA shows UTI. Possibly with a sepsis causing fluctuating in blood sugar. Establish intravenous access. Was given fluids pain Was given Rocephin. Time of 1ST Reevaluation: 09:47 Reevaluation 1ST: Unchanged Patient Education/Counseling: Diagnosis, Treatment, Need For Follow Up Family Education/Counseling: No Family Present SEPSIS Sepsis Screen Physician Orders Electrocardigram (02/26/25 09:21) Chest Portable (02/26/25 09:23) Vital Signs Date Time Temp Pulse Resp B/P (MAP) Pulse Ox O2 Delivery O2 Flow Rate FiO2 02/26/25 09:55 89 11 98 Room Air* 0 21 02/26/25 09:55 98.0 89 11 148/71 (96) 98 98.0 02/26/25 09:38 98.6 84 16 124/67 (86) 96 98.6 02/26/25 09:15 93 Laboratory Tests Test 02/26/25 09:32 White Blood Count 4.3 10^3/uL (4.4-10.8) L Departure 1 Departure Time of Disposition: 09:30 Impression: Primary Impression: Hypoglycemic reaction Additional Impressions: Metabolic encephalopathy Sepsis due to urinary tract infection Disposition: ADMITTED INPATIENT Admit to: Med Surg Condition: Guarded Critical Care Note Critical Care Time?: Yes (90 min-critical care time only) Critical care comment: Monitor blood sugar Stability Stability form required: No Heart Score Heart Score: Heart Score Response (Comments) Value History N/A 0 EKG N/A 0 Age N/A 0 Risk Factors N/A 0 Troponin N/A 0 Total 0 I personally scribed for SOLANGE MAYES MD ([email or web address]) on 02/26/25 at 09:27. Electronically submitted by Lito Small ([email or web address]). SOLANGE MAYES MD Feb 26, 2025 09:27
[2025-02-26 09:50] LABS: Hematocrit 25.9 % (41.0-53.0); Hemoglobin 8.4 g/dL (13.5-17.5); Mean Corpuscular Hemoglobin 26.4 pg (28.0-32.0); Mean Corpuscular Volume 81.8 fL (80.0-100.0); Nucleated Red Blood Cells % 0.0 %
[2025-02-26 09:55] VITALS: PULSE 89; RESP 11; O2SAT 98
[2025-02-26 10:08] LABS: Alanine Aminotransferase 35 U/L (7-40); Anion Gap 8 (5-15); BUN/Creatinine Ratio 13.5 (10.0-20.0); Blood Urea Nitrogen 23 mg/dL (9-23); Calcium 9.5 mg/dL (8.7-10.4); Carbon Dioxide 22 mmol/L (20-31); Potassium 4.3 mmol/L (3.5-5.1); Sodium 141 mmol/L (136-145); Total Protein 7.3 g/dL (5.7-8.2)
[2025-02-26 10:09] LABS: Albumin 4.1 g/dL (3.2-4.8); Alkaline Phosphatase 318 U/L (46-116); Bilirubin, Total 0.2 mg/dL (0.2-1.0); Chloride 111 mmol/L (98-107); Glucose 139 mg/dL (74-106)
--- NOTE | 2025-02-26 10:47 | DVH ---
CHEST RADIOGRAPH Indication: sob Technique: Single frontal view of the chest was obtained Comparison: XY CHEST PORTABLE on DOS: 02/03/25, XY CHEST PORTABLE on DOS: 01/03/25 FINDINGS: Lines and Tubes: Right PICC has been removed. Lungs: No focal consolidation. Pleura: No effusion. No pneumothorax. Cardiomediastinal contours: Unremarkable Bones: No acute osseous abnormality. IMPRESSION: Worsening bibasilar airspace opacities
[2025-02-26 10:54] LABS: Urine Protein, UAD TRACE (Negative)
[2025-02-26] MEDS: cefTRIAXone 1GM/50ML D5W 50 ML IV ONE (11:56)
[2025-02-26] MEDS: SODIUM CHLORIDE 0.9% 1,000 ML IV ONE ×2 (11:56→14:44)
[2025-02-26] MEDS: DEXTROSE (50%) 50ML SYRG IV ONE (12:32)
[2025-02-26] MEDS: DEXTROSE 50% SYRINGE 50 ML IV ONE (12:37)
[2025-02-26] MEDS ORDERED: ONDANSETRON HCL 4 MG/2 ML VIAL IV PRN (13:15)
[2025-02-26] MEDS ORDERED: HYDR-2792 PO (13:15)
[2025-02-26] MEDS ORDERED: NIFE90TA75 PO (13:15)
[2025-02-26] MEDS ORDERED: DEXTROSE (50%) 50ML SYRG IV PRN (13:15)
[2025-02-26] MEDS: DEXTROSE 10% 1,000 ML IV ONE (13:21)
--- NOTE | 2025-02-26 13:31 | DVHHP2 ---
History of Present Illness Reason for Visit: Generalized weakness History of Present Illness Paul Garner is an 85-year-old male with past medical history of hypertension, hyperlipidemia, diabetes type 2, CKD, dementia, PD, right [id number] amputation, and left 2nd toe amputation who presents to the ED sent by EMS for generalized weakness and low blood sugar. Per reports blood sugar in the field was 25. Nurse at the bedside states that patient has baseline is A&O x2 to name and date of . Patient was able to state his name and date of . Patient does not endorse any signs of chest pain or shortness of breath. 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 moist/pink Respiratory: Normal air movement Cardiovascular: Regular rate, Normal S1, Normal S2, No murmurs Abdominal: Normal bowel sounds, Soft Neuro: Normal speech, Normal tone, Sensation intact Psych/Mental Status: Mental status NL Labs/Xrays Labs Test 02/26/25 12:28 02/26/25 10:35 02/26/25 09:32 Range/Units POC Glucose 41 *L 70-106 mg/dl Urine Color Colorless Yellow Urine Clarity Clear Clear Urine pH 6.0 5.0-9.0 Urine Specific [place] 1.006 1.001-1.035 Urine Protein Trace H Negative Urine Ketones Negative Negative Urine Blood Trace H Negative /uL Urine Nitrite Negative Negative Urine Bilirubin Negative Negative Urine Urobilinogen Normal Negative mg/dL Urine Leukocyte Esterase 3+ Negative /uL Urine RBC 3 0 - 3 /hpf Urine Microscopic WBC 14 H 0-3 /HPF Urine Squamous Epithelial Cells None seen <5 /hpf Urine Bacteria None seen None Seen /hpf Urine Glucose Normal Normal mg/dL White Blood Count 4.3 L 4.4-10.8 10^3/uL Red Blood Count 3.16 L 4.5-5.90 10^6/uL Hemoglobin 8.4 L 13.5-17.5 g/dL Hematocrit 25.9 L 41.0-53.0 % Mean Corpuscular Volume 81.8 80.0-100.0 fL Mean Corpuscular Hemoglobin 26.4 L 28.0-32.0 pg Mean Corpuscular Hemoglobin Concent 32.3 32.0-36.0 g/dL Red Cell Distribution Width 15.7 H 11.8-14.3 % Platelet Count 227 140-450 10^3/uL Mean Platelet Volume 9.9 6.9-10.8 fL Neutrophils (%) (Auto) 71.3 37.0-80.0 % Lymphocytes (%) (Auto) 12.9 10.0-50.0 % Monocytes (%) (Auto) 9.8 0.0-12.0 % Eosinophils (%) (Auto) 5.5 0.0-7.0 % Basophils (%) (Auto) 0.5 0.0-2.0 % Neutrophils # (Auto) 3.0 1.6-8.6 10 ^3/uL Lymphocytes # (Auto) 0.6 0.4-5.4 10 ^3/uL Monocytes # (Auto) 0.4 0-1.3 10 ^3/uL Eosinophils # (Auto) 0.2 0-0.8 10 ^3/uL Basophils # (Auto) 0 0-0.2 10 ^3/uL Nucleated Red Blood Cells 0.0 % Sodium Level 141 136-145 mmol/L Potassium Level 4.3 3.5-5.1 mmol/L Chloride Level 111 H 98-107 mmol/L Carbon Dioxide Level 22 20-31 mmol/L Anion Gap 8 5-15 Blood Urea Nitrogen 23 9-23 mg/dL Creatinine 1.71 H 0.700-1.30 mg/dL Glomerular Filtration Rate Calc 39 >90 mL/min BUN/Creatinine Ratio 13.5 10.0-20.0 Serum Glucose 139 H 74-106 mg/dL Calcium Level 9.5 8.7-10.4 mg/dL Total Bilirubin 0.2 0.2-1.0 mg/dL Aspartate Amino Transferase (AST) 37 H <34 U/L Alanine Aminotransferase (ALT) 35 7-40 U/L Alkaline Phosphatase 318 H 46-116 U/L Troponin I High Sensitivity 5 </=54 ng/L Total Protein 7.3 5.7-8.2 g/dL Albumin 4.1 3.2-4.8 g/dL CT HEAD WITHOUT CONTRAST Indication: r/o cva or bleed EXAM DATE: 02/26/2025 01:36 PM COMPARISON: CT HEAD WITHOUT CONTRAST on DOS: 01/03/25 TECHNIQUE: CT of the head without intravenous contrast. RADIATION DOSE: CTDIvol: 54.2 mGy, DLP: 959 mGy*cm FINDINGS: There is no intracranial hemorrhage. There is no extra-axial fluid, mass, mass effect or midline shift. The ventricles are midline and normal in size. Basilar cisterns are patent. There are moderate to advanced periventricular and subcortical white matter chronic microvascular ischemic changes. Posterior right parietal / occipital encephalomalacia. Moderate global cerebral volume loss. The paranasal sinuses and mastoids are well-pneumatized. Postsurgical changes bilateral orbits.. IMPRESSION: No intracranial hemorrhage or mass effect. Moderate to advanced chronic microvascular ischemic changes. Right parietal/ occipital encephalomalacia. Moderate global cerebral volume loss. CHEST RADIOGRAPH Indication: sob Technique: Single frontal view of the chest was obtained Comparison: XY CHEST PORTABLE on DOS: 02/03/25, XY CHEST PORTABLE on DOS: 01/03/25 FINDINGS: Lines and Tubes: Right PICC has been removed. Lungs: No focal consolidation. Pleura: No effusion. No pneumothorax. Cardiomediastinal contours: Unremarkable Bones: No acute osseous abnormality. IMPRESSION: Worsening bibasilar airspace opacities Assessment/Plan Assessment/Plan Assessment Generalized weakness likely due to UTI Acute encephalopathy likely due to UTI Probable pneumonia Anemia likely due to iron-deficiency LORI Right parietal/ occipital encephalomalacia. History of hypertension History of hyperlipidemia History of diabetes type 2 History of CKD History of dementia History of PD History of right BKA History of left 2nd toe amputation Plan Admit to med surge IV antibiotics-ceftriaxone NS 2 L given ED UA Chest x-ray Demarco catheter Urine bacterial culture Troponin EKG Hemoglobin A1c ISS and Accu-Cheks CT head ordered Left foot wound culture Diet IV fluids-D10 Home medications reconciled DVT prophylaxis-Lovenox PUD prophylaxis-PPIs Discussed plan of care with nurse Plan discussed with: Patient, Spouse, Other My Orders Orders - BENNIE DUNNE Procedure Category Date Status Time Head Without Contrast CT 02/26/25 Verified 12:35 Hemoglobin A1c LAB 02/26/25 Verified 13:10 Glucose Blood PHA 02/26/25 Verified (Accu-Chek Comfort 17:00 Mild Sliding Scale PHA 02/26/25 Verified 17:00 Dextrose 50% Syringe PHA 02/26/25 Verified 13:15 Ceftriaxone Ivpb PHA 02/26/25 Verified Rocephin 13:15 Dextrose 10% D10 PHA 02/26/25 Verified 13:15 Admit ADMIT 02/26/25 Verified 13:10 Allergies ALEXI 02/26/25 Verified 13:10 Code Status CODE 02/26/25 Verified 13:10 Ondansetron Hcl PHA 02/26/25 Verified (Zofran) 13:15 Enoxaparin Sodium PHA 02/27/25 Verified (Lovenox) 10:00 Complete Blood Count LAB 02/27/25 Verified 04:00 Comprehensive LAB 02/27/25 Verified Metabolic Panel 04:00 Cardiac DIET 02/26/25 Verified Diet-2gna,Lofat,Lochol Lunch Acetaminophen Tablet PHA 02/26/25 Verified (Tylenol Tablet) 13:15 Aspirin Enteric PHA 02/27/25 Verified Coated Tablet 10:00 Finasteride Tablet PHA 02/27/25 Verified (Proscar Tablet) 10:00 Tamsulosin PHA 02/27/25 Verified Hydrochloride (Flomax) 10:00 Thiamine Tab PHA 02/27/25 Verified 10:00 Ticagrelor (Brilinta) PHA 02/26/25 Verified 22:00 (Nf) Alendronate PHA 02/26/25 Verified Sodium 13:15 (Nf) Amlodipine PHA 02/27/25 Verified Besylate 10:00 (Nf) Atorvastatin PHA 02/27/25 Verified Calcium 10:00 (Nf) Cholecalciferol PHA 02/27/25 Verified (Vitamin D3) 10:00 (Nf) Ferrous Sulfate PHA 02/28/25 Verified 10:00 Hydralazine Hcl PHA 02/26/25 Verified Tablet (Apresoline 22:00 (Nf) Nifedipine PHA 02/27/25 Verified (Nifedipine Er) 10:00 Date of Service: Feb 26, 2025 Billing Provider: BENNIE DUNNE COMMUNICATION COORDINATOR Common Visit Codes: [id number] INP/OBS CARE (HIGH) BENNIE DUNNE COMMUNICATION COORDINATOR Feb 26, 2025 13:31
[2025-02-26] MEDS: cefTRIAXone 1GM/50ML D5W 50 ML IV SCH (13:47)
--- NOTE | 2025-02-26 14:08 | DVH ---
CT HEAD WITHOUT CONTRAST Indication: r/o cva or bleed EXAM DATE: 02/26/2025 01:36 PM COMPARISON: CT HEAD WITHOUT CONTRAST on DOS: 01/03/25 TECHNIQUE: CT of the head without intravenous contrast. RADIATION DOSE: CTDIvol: 54.2 mGy, DLP: 959 mGy*cm FINDINGS: There is no intracranial hemorrhage. There is no extra-axial fluid, mass, mass effect or midline shif t. The ventricles are midline and normal in size. Basilar cisterns are patent. There are moderate to advanced periventricular and subcortical white matter chronic microvascular ischemic changes. Posteri or right parietal / occipital encephalomalacia. Moderate global cerebral volume loss. The paranasal sinuses and mastoids are well-pneumatized. Postsurgical changes bilateral orbits.. IMPRESSION: No intracranial hemorrhage or mass effect. Moderate to advanced chronic microvascular ischemic changes. Right parietal/ occipital encephalomalacia. Moderate global cerebral volume loss.
[2025-02-26] MEDS: PANTOPRAZOLE 40 MG/10 ML VIAL INJ IV SCH (14:42)
[2025-02-26] MEDS: DEXTROSE 10% 1,000 ML IV SCH (14:43)
[2025-02-26] MEDS: InsuLIN REG 1unit/0.01ml Soln (100units/ml) SC SCH (17:00)
[2025-02-26] MEDS: ACCU-CHEK COMFORT CURVE STRIP VI SCH (17:16)
[2025-02-26] MEDS: TAMSULOSIN HYDROCHLORIDE 0.4 MG CAP PO SCH (18:07)
[2025-02-26 18:40] VITALS: PULSE 77; RESP 14; O2SAT 99
[2025-02-26 18:46] VITALS: BP 160/88; PULSE 84; RESP 18; TEMP 98.1; O2SAT 95
[2025-02-26 21:00] VITALS: BP 156/82; PULSE 87; RESP 18; TEMP 98.2; O2SAT 96
[2025-02-26] MEDS: TICAGRELOR 90 MG TAB PO SCH (21:36)
[2025-02-27] VITALS (7 sets, daily range): BP systolic 97–161; BP diastolic 52–87; PULSE 84–93; RESP 17–18; TEMP 97.4–98.4; O2SAT 92–100
[2025-02-27 06:25] LABS: Hemoglobin 8.7 g/dL (13.5-17.5)
[2025-02-27 06:27] LABS: Hematocrit 26.2 % (41.0-53.0); Mean Corpuscular Hemoglobin 27.1 pg (28.0-32.0); Mean Corpuscular Volume 81.5 fL (80.0-100.0); Nucleated Red Blood Cells % 0.0 %
[2025-02-27 06:44] LABS: Alanine Aminotransferase 30 U/L (7-40); Albumin 4.0 g/dL (3.2-4.8); Anion Gap 10 (5-15); BUN/Creatinine Ratio 11.5 (10.0-20.0); Blood Urea Nitrogen 16 mg/dL (9-23); Calcium 9.7 mg/dL (8.7-10.4); Carbon Dioxide 21 mmol/L (20-31); Glucose 90 mg/dL (74-106); Potassium 4.5 mmol/L (3.5-5.1); Sodium 142 mmol/L (136-145); Total Protein 7.1 g/dL (5.7-8.2)
[2025-02-27 06:54] LABS: Alkaline Phosphatase 315 U/L (46-116); Bilirubin, Total 0.2 mg/dL (0.2-1.0); Chloride 111 mmol/L (98-107)
[2025-02-27] MEDS: ASPirin-EC 81 mg tab PO SCH (09:38)
[2025-02-27] MEDS: THIAMINE HCL 100 MG TAB PO SCH (09:38)
[2025-02-27] MEDS: ENOXAPARIN SOD 40 MG/0.4 ML SYRINGE SC SCH (09:38)
[2025-02-27] MEDS: FINASTERIDE 5 MG TAB PO SCH (09:38)
[2025-02-27] MEDS: ATORVASTATIN 20 MG TAB PO SCH (09:40)
[2025-02-27] MEDS: CHOLECALCIFEROL (VITD3) 1,000UNIT=25mCg TAB PO SCH (09:41)
--- NOTE | 2025-02-27 10:12 | DVHPN2 ---
Reviewed: Care Plan, H&P, Labs, Medications, Previous Orders, Radiology Changes from previous H/P or p: No Changes General: Per HPI Objective Vitals Vital Signs Date Time Temp Pulse Resp B/P (MAP) Pulse Ox O2 Delivery O2 Flow Rate FiO2 02/27/25 09:40 156/80 02/27/25 09:00 97.5 89 18 96 97.5 02/26/25 20:00 Room Air* 0 21 Intake/Output Intake and Output 02/27/25 07:00 Intake Total 1600 ml Balance 1600 ml Intake Oral 400 ml IV Total 1200 ml Medications Current Medications Medications Dose Ordered Sig/Valeriy Route Start Time Stop Time Status Last Admin Dose Admin Diagnostic Test (Pha) 1 strip ACHS 02/26/25 17:00 02/27/25 05:54 1 STRIP Insulin Human Regular ACHS SC 02/26/25 17:00 02/26/25 21:51 4 UNITS Dextrose 50 ml UD PRN IV 02/26/25 13:15 Ceftriaxone Sodium 50 ml @ 100 mls/hr DAILY@09 IV 02/26/25 13:15 02/27/25 09:37 100 MLS/HR Dextrose 1,000 ml @ 100 mls/hr Q10H IV 02/26/25 13:15 02/27/25 10:08 100 MLS/HR Ondansetron HCl 4 mg Q4HP PRN IV 02/26/25 13:15 Enoxaparin Sodium 40 mg DAILY SC 02/27/25 10:00 02/27/25 09:38 40 MG Acetaminophen 650 mg Q6HP PRN PO 02/26/25 13:15 Aspirin 81 mg DAILY PO 02/27/25 10:00 02/27/25 09:38 81 MG Finasteride 5 mg DAILY PO 02/27/25 10:00 02/27/25 09:38 5 MG Tamsulosin HCl 0.4 mg QPM PO 02/26/25 18:00 02/26/25 18:07 0.4 MG Thiamine HCl 100 mg DAILY PO 02/27/25 10:00 02/27/25 09:38 100 MG Ticagrelor 90 mg BID PO 02/26/25 22:00 02/27/25 09:40 90 MG Patient Own Medication 1 tab QWEEKLY PO 03/01/25 07:00 Amlodipine Besylate 10 mg DAILY PO 02/27/25 10:00 02/27/25 09:40 10 MG Atorvastatin Calcium 40 mg DAILY PO 02/27/25 10:00 02/27/25 09:40 40 MG Cholecalciferol 2,000 unit DAILY PO 02/27/25 10:00 02/27/25 09:41 2,000 UNIT Ferrous Sulfate 325 mg EOD PO 02/28/25 10:00 Hydralazine HCl 10 mg BID PO 02/26/25 22:00 02/27/25 09:39 10 MG Nifedipine 90 mg DAILY PO 02/27/25 10:00 02/27/25 09:40 90 MG Pantoprazole Sodium 40 mg DAILY IV 02/26/25 13:30 02/27/25 09:41 40 MG Laboratory Results Laboratory Tests 02/27/25 05:47 Chemistry Test 02/27/25 05:47 Albumin 4.0 g/dL (3.2-4.8) Calcium Level 9.7 mg/dL (8.7-10.4) Total Protein 7.1 g/dL (5.7-8.2) LFT Test 02/27/25 05:47 Alanine Aminotransferase (ALT) 30 U/L (7-40) Alkaline Phosphatase 315 U/L (46-116) H Aspartate Amino Transferase (AST) 37 U/L (<34) H Total Bilirubin 0.2 mg/dL (0.2-1.0) Urinalysis Test 02/26/25 10:35 Urine Color Colorless (Yellow) Urine Clarity Clear (Clear) Urine pH 6.0 (5.0-9.0) Urine Specific [place] 1.006 (1.001-1.035) Urine Protein Trace (Negative) H Urine Ketones Negative (Negative) Urine Blood Trace /uL (Negative) H Urine Nitrite Negative (Negative) Urine Bilirubin Negative (Negative) Urine Urobilinogen Normal mg/dL (Negative) Urine Leukocyte Esterase 3+ /uL (Negative) Urine RBC 3 /hpf (0 - 3) Urine Microscopic WBC 14 /HPF (0-3) H Urine Squamous Epithelial Cells None seen /hpf (<5) Urine Bacteria None seen /hpf (None Seen) Urine Glucose Normal mg/dL (Normal) Microbiology Microbiology Date/Time Source Procedure Growth Status 02/26/25 10:35 Urine - [place] Urine Culture - Preliminary Resulted Assessment/Plan Assessment/Plan Paul Garner is an 85-year-old male with past medical history of hypertension, hyperlipidemia, diabetes type 2, CKD, dementia, PD, right [id number] amputation, and left 2nd toe amputation who presents to the ED sent by EMS for generalized weakness and low blood sugar. Per reports blood sugar in the field was 25. Nurse at the bedside states that patient has baseline is A&O x2 to name and date of . Patient was able to state his name and date of . Patient does not endorse any signs of chest pain or shortness of breath. Generalized weakness likely due to UTI Acute encephalopathy likely due to UTI Probable pneumonia Anemia likely due to iron-deficiency LORI Right parietal/ occipital encephalomalacia. History of hypertension History of hyperlipidemia History of diabetes type 2 History of CKD History of dementia History of PD History of right BKA History of left 2nd toe amputation Plan discussed with: Patient Date of Service: Feb 27, 2025 Billing Provider: ARGENTINA KING DO Common Visit Codes: [id number] INP/OBS CARE(HIGH) ARGENTINA KING DO Feb 27, 2025 10:12
--- NOTE | 2025-02-27 14:25 | DVHINCON2 ---
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 Patient was brought to the hospital by ambulance. Per medics report, BS in the field was 25. Patient is A&O x2 to name and date of , at baseline. Denies any pain or discomfort. While in ED, UA was positive for infection. Creatinine 1.71 with BUN of 23. Hgb 8.4. WBC is 4.3. CT Head reported no intracranial hemorrhage or mass effect; moderate to advanced chronic microvascular ischemic changes; right parietal/occipital encephalomacia; moderate global cerebral volume loss. Chest x-ray reported worsening bibasilar airspace opacities. Allergies: Coded Allergies: NO KNOWN ALLERGIES (Unverified , 01/03/25) Home Meds Active Scripts Fluconazole (Fluconazole) 200 Mg Tab, 200 MG PO DAILY for 14 Days, #14 TAB Prov:ARIN PARIS RESIDENT 02/07/25 Amlodipine Besylate (Amlodipine Besylate) 10 Mg Tab, 1 TAB PO DAILY for 30 Days, #30 TAB 5 Refills Prov:ARIN PARIS RESIDENT 02/07/25 Thiamine Hcl (VITAMIN B-1) 100 Mg Tb, 100 MG PO DAILY for 30 Days, #30 TAB 1 Refill Prov:ESTHELA JAMES MD 01/08/25 Finasteride (Finasteride) 5 Mg Tab, 1 TAB PO DAILY, #30 TAB 1 Refill Prov:ESTHELA JAMES MD 01/08/25 Tamsulosin Hcl (Flomax) 0.4 Mg Cap, 1 CAP PO DAILY, #30 CAP 1 Refill Prov:ESTHELA JAMES MD 01/08/25 Olanzapine (OLANZAPINE) 10 Mg Tab, 1 TAB PO HS, #30 TAB 1 Refill Prov:ESTHELA JAMES MD 01/08/25 Ferrous Sulfate (Ferrous Sulfate) 325 Mg Tab, 325 MG PO EOD for 30 Days, MG Prov:ESTHELA JAMES MD 01/08/25 Reported Medications Hydralazine Hcl (Hydralazine Hcl) 10 Mg Tab, 2 PO BID 02/26/25 Nifedipine (Nifedipine Er) 90 Mg Tab, 1 TAB PO DAILY 02/26/25 Insulin Glargine (Basaglar Kwikpen) 100 Unit/Ml Inj, 100 UNIT SC, INJ 01/03/25 Insulin Lispro (Insulin Lispro Kwikpen) 100 Unit/Ml Inj, 100 UNIT SC, INJ 01/03/25 Heparin Sodium (Porcine) (Heparin Sodium Lock Flush) 10 Unt/Ml Ij, 10 UNT IV, INJ 01/03/25 Alendronate Sodium (Alendronate Sodium) 70 Mg Tab, 1 TAB PO QWEEKLY, #4 TAB 3 Refills 01/03/25 Atorvastatin Calcium (ATORVASTATIN CALCIUM) 40 Mg Tab, 1 TAB PO DAILY, #30 TAB 5 Refills 01/03/25 Gabapentin (Gabapentin) 100 Mg Cap, 100 MG PO TID 01/03/25 Aspirin (Aspir-Low) 81 Mg Tab, 81 MG PO DAILY for 30 Days, MG 01/03/25 Cholecalciferol (VITAMIN D3) 2,000 Unit Tab, 2000 UNIT OR DAILY, TAB 01/03/25 Ticagrelor Base (BRILINTA) 90 Mg Tab, 90 MG PO BID, TAB 01/03/25 Current Medications Current Medications Medications (Trade) Dose Ordered Sig/Valeriy Route PRN Reason Start Time Stop Time Status Last Admin Diagnostic Test (Pha) (Accu-Chek Comfort Curve T) 1 strip ACHS 02/26/25 17:00 02/27/25 11:30 Insulin Human Regular (InsuLIN R) ACHS SC 02/26/25 17:00 02/26/25 21:51 Enoxaparin Sodium (Lovenox) 40 mg DAILY SC 02/27/25 10:00 02/27/25 09:38 Aspirin (Ecotrin Enteric Coated Tablet) 81 mg DAILY PO 02/27/25 10:00 02/27/25 09:38 Finasteride (Proscar Tablet) 5 mg DAILY PO 02/27/25 10:00 02/27/25 09:38 Tamsulosin HCl (Flomax) 0.4 mg QPM PO 02/26/25 18:00 02/26/25 18:07 Thiamine HCl 100 mg DAILY PO 02/27/25 10:00 02/27/25 09:38 Ticagrelor (Brilinta) 90 mg BID PO 02/26/25 22:00 02/27/25 09:40 Patient Own Medication 1 tab QWEEKLY PO 03/01/25 07:00 Amlodipine Besylate (Norvasc Tablet) 10 mg DAILY PO 02/27/25 10:00 02/27/25 09:40 Atorvastatin Calcium (Lipitor) 40 mg DAILY PO 02/27/25 10:00 02/27/25 09:40 Cholecalciferol (Vitamin D3 Tablet) 2,000 unit DAILY PO 02/27/25 10:00 02/27/25 09:41 Ferrous Sulfate 325 mg EOD PO 02/28/25 10:00 Hydralazine HCl (Apresoline Tablet) 10 mg BID PO 02/26/25 22:00 02/27/25 09:39 Nifedipine (Procardia Xl (Time-Release)) 90 mg DAILY PO 02/27/25 10:00 02/27/25 09:40 Family History: Patient reports no known family medical history. Review of Systems Constitutional: Yes: Weakness H&P Exam Vital Signs/I&O Vital Sign Date Time Temp Pulse Resp B/P (MAP) Pulse Ox O2 Delivery O2 Flow Rate FiO2 02/27/25 13:00 97.4 84 18 159/81 (107) 98 97.4 02/27/25 08:00 Room Air* 0 21 Intake and Output 02/26/25 02/27/25 19:00 07:00 Intake Total 1200 ml 400 ml Balance 1200 ml 400 ml Intake Oral 400 ml IV Total 1200 ml Physical Exam Vitals and nursing notes reviewed. General Appearance: Alert, Cooperative HEENT: Atraumatic, PERRLA, EOMI, Mucous membr. moist/pink Respiratory: Normal air movement Cardiovascular: Regular rate, Normal S1, Normal S2, No murmurs Abdominal: Normal bowel sounds, Soft Musculoskeletal: Right oldbi-brf-gdrm amputation and left 2nd toe amputation. No swelling. Neuro: Normal speech, Normal tone, Sensation intact Psych/Mental Status: Mental status NL Labs/Diagnostic Data Labs/Diagnostic Data Laboratory Tests Test 02/27/25 05:52 02/27/25 05:47 02/26/25 21:46 02/26/25 17:09 Range/Units POC Glucose 97 204 H 105 70-106 mg/dl White Blood Count 5.5 # 4.4-10.8 10^3/uL Red Blood Count 3.21 L 4.5-5.90 10^6/uL Hemoglobin 8.7 L 13.5-17.5 g/dL Hematocrit 26.2 L 41.0-53.0 % Mean Corpuscular Volume 81.5 80.0-100.0 fL Mean Corpuscular Hemoglobin 27.1 L 28.0-32.0 pg Mean Corpuscular Hemoglobin Concent 33.3 32.0-36.0 g/dL Red Cell Distribution Width 15.6 H 11.8-14.3 % Platelet Count 239 140-450 10^3/uL Mean Platelet Volume 9.8 6.9-10.8 fL Neutrophils (%) (Auto) 58.7 37.0-80.0 % Lymphocytes (%) (Auto) 22.0 10.0-50.0 % Monocytes (%) (Auto) 8.1 0.0-12.0 % Eosinophils (%) (Auto) 9.9 H 0.0-7.0 % Basophils (%) (Auto) 1.3 0.0-2.0 % Neutrophils # (Auto) 3.2 1.6-8.6 10 ^3/uL Lymphocytes # (Auto) 1.2 0.4-5.4 10 ^3/uL Monocytes # (Auto) 0.4 0-1.3 10 ^3/uL Eosinophils # (Auto) 0.5 0-0.8 10 ^3/uL Basophils # (Auto) 0.1 0-0.2 10 ^3/uL Nucleated Red Blood Cells 0.0 % Sodium Level 142 136-145 mmol/L Potassium Level 4.5 3.5-5.1 mmol/L Chloride Level 111 H 98-107 mmol/L Carbon Dioxide Level 21 20-31 mmol/L Anion Gap 10 5-15 Blood Urea Nitrogen 16 9-23 mg/dL Creatinine 1.39 H 0.700-1.30 mg/dL Glomerular Filtration Rate Calc 50 >90 mL/min BUN/Creatinine Ratio 11.5 10.0-20.0 Serum Glucose 90 74-106 mg/dL Calcium Level 9.7 8.7-10.4 mg/dL Total Bilirubin 0.2 0.2-1.0 mg/dL Aspartate Amino Transferase (AST) 37 H <34 U/L Alanine Aminotransferase (ALT) 30 7-40 U/L Alkaline Phosphatase 315 H 46-116 U/L Total Protein 7.1 5.7-8.2 g/dL Albumin 4.0 3.2-4.8 g/dL Test 02/26/25 14:34 02/26/25 12:28 02/26/25 10:35 02/26/25 09:32 Range/Units POC Glucose 104 41 *L 70-106 mg/dl Urine Color Colorless Yellow Urine Clarity Clear Clear Urine pH 6.0 5.0-9.0 Urine Specific [place] 1.006 1.001-1.035 Urine Protein Trace H Negative Urine Ketones Negative Negative Urine Blood Trace H Negative /uL Urine Nitrite Negative Negative Urine Bilirubin Negative Negative Urine Urobilinogen Normal Negative mg/dL Urine Leukocyte Esterase 3+ Negative /uL Urine RBC 3 0 - 3 /hpf Urine Microscopic WBC 14 H 0-3 /HPF Urine Squamous Epithelial Cells None seen <5 /hpf Urine Bacteria None seen None Seen /hpf Urine Glucose Normal Normal mg/dL White Blood Count 4.3 L 4.4-10.8 10^3/uL Red Blood Count 3.16 L 4.5-5.90 10^6/uL Hemoglobin 8.4 L 13.5-17.5 g/dL Hematocrit 25.9 L 41.0-53.0 % Mean Corpuscular Volume 81.8 80.0-100.0 fL Mean Corpuscular Hemoglobin 26.4 L 28.0-32.0 pg Mean Corpuscular Hemoglobin Concent 32.3 32.0-36.0 g/dL Red Cell Distribution Width 15.7 H 11.8-14.3 % Platelet Count 227 140-450 10^3/uL Mean Platelet Volume 9.9 6.9-10.8 fL Neutrophils (%) (Auto) 71.3 37.0-80.0 % Lymphocytes (%) (Auto) 12.9 10.0-50.0 % Monocytes (%) (Auto) 9.8 0.0-12.0 % Eosinophils (%) (Auto) 5.5 0.0-7.0 % Basophils (%) (Auto) 0.5 0.0-2.0 % Neutrophils # (Auto) 3.0 1.6-8.6 10 ^3/uL Lymphocytes # (Auto) 0.6 0.4-5.4 10 ^3/uL Monocytes # (Auto) 0.4 0-1.3 10 ^3/uL Eosinophils # (Auto) 0.2 0-0.8 10 ^3/uL Basophils # (Auto) 0 0-0.2 10 ^3/uL Nucleated Red Blood Cells 0.0 % Sodium Level 141 136-145 mmol/L Potassium Level 4.3 3.5-5.1 mmol/L Chloride Level 111 H 98-107 mmol/L Carbon Dioxide Level 22 20-31 mmol/L Anion Gap 8 5-15 Blood Urea Nitrogen 23 9-23 mg/dL Creatinine 1.71 H 0.700-1.30 mg/dL Glomerular Filtration Rate Calc 39 >90 mL/min BUN/Creatinine Ratio 13.5 10.0-20.0 Serum Glucose 139 H 74-106 mg/dL Calcium Level 9.5 8.7-10.4 mg/dL Total Bilirubin 0.2 0.2-1.0 mg/dL Aspartate Amino Transferase (AST) 37 H <34 U/L Alanine Aminotransferase (ALT) 35 7-40 U/L Alkaline Phosphatase 318 H 46-116 U/L Troponin I High Sensitivity 5 </=54 ng/L Total Protein 7.3 5.7-8.2 g/dL Albumin 4.1 3.2-4.8 g/dL Microbiology Date/Time Source Procedure Growth Status 02/26/25 21:40 Nose MRSA Screen - Final Complete Assessment Generalized weakness Acute encephalopathy Urinary tract infection Acute kidney injury Anemia likely due to iron-deficiency Right parietal/occipital encephalomalacia Plan/Recommendation Agreement with your ongoing assessment and plan of care. Daily lab monitoring; electrolyte replacement prn. IVFs. IV antibiotics with Ceftriaxone. F/u cultures. Home medications reconciled. Flomax. DVT/GI prophylaxis. Wound care as recommended. Additional plan as per the hospital course. Plan discussed with: Patient, Other (RN) AARTI PAVON DO Feb 27, 2025 14:25
[2025-02-28 01:00] VITALS: BP 111/54; PULSE 89; RESP 17; TEMP 97.6; O2SAT 94
[2025-02-28 08:00] VITALS: PULSE 96; RESP 16; O2SAT 96
[2025-02-28 09:00] VITALS: BP 122/68; PULSE 96; RESP 16; TEMP 97.5; O2SAT 96
[2025-02-28] MEDS: FERROUS SULFATE 325mg EC TAB PO SCH (10:16)
[2025-02-28 13:00] VITALS: BP 136/68; PULSE 97; RESP 16; TEMP 98.2; O2SAT 98
--- NOTE | 2025-02-28 16:54 | DVHPN2 ---
Progress Note - Dictate Date Seen: Feb 28, 2025 Has the PT tested + for MRSA If YES, has PT been informed?: No Medical Necessity Reason Pt with a Central, PICC or Fol: No Subjective Patient was seen and evaluated in follow up. No acute events overnight. Patient is A&O x2. No new complaints. BS's are in the 270s. Pending additional labs. vital signs Vital Sign Date Time Temp Pulse Resp B/P (MAP) Pulse Ox O2 Delivery O2 Flow Rate FiO2 02/28/25 13:00 98.2 97 16 136/68 (90) 98 98.2 02/28/25 08:00 Room Air* 0 21 Total Intake and Output 02/27/25 02/27/25 02/28/25 15:00 23:00 07:00 Intake Total 1590 ml 450 ml Output Total 1100 ml 500 ml Balance 490 ml -50 ml medications Current Medications Medications Dose Ordered Sig/Valeriy Route Start Time Stop Time Status Last Admin Dose Admin Diagnostic Test (Pha) 1 strip ACHS 02/26/25 17:00 02/28/25 11:30 1 STRIP Insulin Human Regular ACHS SC 02/26/25 17:00 02/28/25 06:20 6 UNITS Dextrose 50 ml UD PRN IV 02/26/25 13:15 Ceftriaxone Sodium 50 ml @ 100 mls/hr DAILY@09 IV 02/26/25 13:15 02/28/25 10:21 100 MLS/HR Dextrose 1,000 ml @ 100 mls/hr Q10H IV 02/26/25 13:15 02/28/25 05:37 100 MLS/HR Ondansetron HCl 4 mg Q4HP PRN IV 02/26/25 13:15 Enoxaparin Sodium 40 mg DAILY SC 02/27/25 10:00 02/28/25 10:20 40 MG Acetaminophen 650 mg Q6HP PRN PO 02/26/25 13:15 Aspirin 81 mg DAILY PO 02/27/25 10:00 02/28/25 10:20 81 MG Finasteride 5 mg DAILY PO 02/27/25 10:00 02/28/25 10:20 5 MG Tamsulosin HCl 0.4 mg QPM PO 02/26/25 18:00 02/27/25 17:59 0.4 MG Thiamine HCl 100 mg DAILY PO 02/27/25 10:00 02/28/25 10:21 100 MG Ticagrelor 90 mg BID PO 02/26/25 22:00 02/28/25 10:21 90 MG Patient Own Medication 1 tab QWEEKLY PO 03/01/25 07:00 Amlodipine Besylate 10 mg DAILY PO 02/27/25 10:00 02/28/25 10:18 10 MG Atorvastatin Calcium 40 mg DAILY PO 02/27/25 10:00 02/28/25 10:17 40 MG Cholecalciferol 2,000 unit DAILY PO 02/27/25 10:00 02/28/25 10:19 2,000 UNIT Ferrous Sulfate 325 mg EOD PO 02/28/25 10:00 02/28/25 10:16 325 MG Hydralazine HCl 10 mg BID PO 02/26/25 22:00 02/28/25 10:19 10 MG Nifedipine 90 mg DAILY PO 02/27/25 10:00 02/28/25 10:22 90 MG Pantoprazole Sodium 40 mg DAILY IV 02/26/25 13:30 02/28/25 10:21 40 MG objective Vitals and nursing notes reviewed. General Appearance: Alert, Cooperative HEENT: Atraumatic, PERRLA, EOMI, Mucous membr. moist/pink Respiratory: Normal air movement Cardiovascular: Regular rate, Normal S1, Normal S2, No murmurs Abdominal: Normal bowel sounds, Soft Musculoskeletal: Right arfhb-zyz-htpl amputation and left 2nd toe amputation. No swelling. Neuro: Normal speech, Normal tone, Sensation intact Psych/Mental Status: Mental status NL laboratory and microbiology Laboratory Tests 02/27/25 05:47 Test 02/27/25 05:47 Range/Units Serum Glucose 90 74-106 mg/dL Problem List Generalized weakness Acute encephalopathy Urinary tract infection Acute kidney injury Anemia likely due to iron-deficiency Right parietal/occipital encephalomalacia Assessment/Plan Agree with current supportive medical care. Daily lab monitoring; electrolyte replacement prn. IVFs. IV antibiotics with Ceftriaxone. F/u cultures. Home medications reconciled. Flomax. DVT/GI prophylaxis. Wound care as recommended. Additional plan as per the hospital course. Plan discussed with: Patient, Other (RN) AARTI PAVON DO Feb 28, 2025 16:54
[2025-02-28 17:00] VITALS: BP 141/78; PULSE 98; RESP 14; TEMP 98.3; O2SAT 94
[2025-02-28 21:00] VITALS: BP 141/74; PULSE 103; RESP 19; TEMP 98; O2SAT 97
[2025-02-28] MEDS: ACETAMINOPHEN 325 MG TAB PO PRN (21:51)
[2025-03-01 01:00] VITALS: BP 136/71; PULSE 67; RESP 16; TEMP 98; O2SAT 94
[2025-03-01 05:00] VITALS: BP 140/77; PULSE 91; RESP 18; TEMP 98.1; O2SAT 100
[2025-03-01] MEDS ORDERED: ALENDRONATE 70MG TABLET PO SCH (07:00)
[2025-03-01 09:00] VITALS: BP 138/72; PULSE 86; RESP 18; TEMP 98.6; O2SAT 97
[2025-03-01 13:00] VITALS: BP 143/80; PULSE 88; RESP 22; TEMP 97.7; O2SAT 97
--- NOTE | 2025-03-01 14:39 | ECG ---
[facility] Test Date: 2025-02-26 Test Time: 09:15:53 Pat Name: NATALIO ART Department: ED Room: 0278 A Gender: M Division [employer]: KAREN : 1940 Requested By: SOLANGE MAYES Order Number: [id number] Reading MD: Thad Perez Measurements Intervals [place] Rate: 93 P: 31 VA: 187 QRS: -56 QRSD: 94 T: 29 QT: 378 QTc: 471 Interpretive Statements Sinus rhythm Left anterior fascicular block Abnormal R-wave progression, late transition Electronically Signed On 03-05-2025 8:57:01 PDT by Thad Perez Please click the below link to view image of tracing.
[2025-03-01 17:00] VITALS: BP 125/70; PULSE 92; RESP 16; TEMP 97.9; O2SAT 98
[2025-03-01 21:00] VITALS: BP 120/53; PULSE 93; RESP 16; TEMP 98.3; O2SAT 94
--- NOTE | 2025-03-01 21:01 | DVHPN2 ---
Progress Note - Dictate Date Seen: Mar 01, 2025 Has the PT tested + for MRSA If YES, has PT been informed?: No Medical Necessity Reason Pt with a Central, PICC or Fol: No Subjective Patient was seen and evaluated in follow up. No acute events overnight. Patient is A&O x3-4 with periods of confusion. No new complaints. BS's are improving. vital signs Vital Sign Date Time Temp Pulse Resp B/P (MAP) Pulse Ox O2 Delivery O2 Flow Rate FiO2 03/01/25 17:00 97.9 92 16 125/70 (88) 98 97.9 03/01/25 08:00 Room Air* 0 21 Total Intake and Output 02/28/25 02/28/25 03/01/25 15:00 23:00 07:00 Intake Total 590 ml 350 ml Output Total 725 ml 850 ml Balance -135 ml -500 ml medications Current Medications Medications Dose Ordered Sig/Valeriy Route Start Time Stop Time Status Last Admin Dose Admin Diagnostic Test (Pha) 1 strip ACHS 02/26/25 17:00 03/01/25 16:44 1 STRIP Insulin Human Regular ACHS SC 02/26/25 17:00 03/01/25 12:29 4 UNITS Dextrose 50 ml UD PRN IV 02/26/25 13:15 Ceftriaxone Sodium 50 ml @ 100 mls/hr DAILY@09 IV 02/26/25 13:15 03/01/25 09:21 100 MLS/HR Ondansetron HCl 4 mg Q4HP PRN IV 02/26/25 13:15 Enoxaparin Sodium 40 mg DAILY SC 02/27/25 10:00 03/01/25 09:22 40 MG Acetaminophen 650 mg Q6HP PRN PO 02/26/25 13:15 02/28/25 21:51 650 MG Aspirin 81 mg DAILY PO 02/27/25 10:00 03/01/25 09:23 81 MG Finasteride 5 mg DAILY PO 02/27/25 10:00 03/01/25 09:23 5 MG Tamsulosin HCl 0.4 mg QPM PO 02/26/25 18:00 03/01/25 18:01 0.4 MG Thiamine HCl 100 mg DAILY PO 02/27/25 10:00 03/01/25 09:24 100 MG Ticagrelor 90 mg BID PO 02/26/25 22:00 03/01/25 09:24 90 MG Patient Own Medication 1 tab QWEEKLY PO 03/01/25 07:00 Amlodipine Besylate 10 mg DAILY PO 02/27/25 10:00 03/01/25 09:23 10 MG Atorvastatin Calcium 40 mg DAILY PO 02/27/25 10:00 03/01/25 09:23 40 MG Cholecalciferol 2,000 unit DAILY PO 02/27/25 10:00 03/01/25 09:23 2,000 UNIT Ferrous Sulfate 325 mg EOD PO 02/28/25 10:00 02/28/25 10:16 325 MG Hydralazine HCl 10 mg BID PO 02/26/25 22:00 03/01/25 09:24 10 MG Nifedipine 90 mg DAILY PO 02/27/25 10:00 03/01/25 09:23 90 MG Pantoprazole Sodium 40 mg DAILY IV 02/26/25 13:30 03/01/25 09:21 40 MG objective Vitals and nursing notes reviewed. General Appearance: Alert, Cooperative HEENT: Atraumatic, PERRLA, EOMI, Mucous membr. moist/pink Respiratory: Normal air movement Cardiovascular: Regular rate, Normal S1, Normal S2, No murmurs Abdominal: Normal bowel sounds, Soft Musculoskeletal: Right xgauc-uso-lutr amputation and left 2nd toe amputation. No swelling. Neuro: Normal speech, Normal tone, Sensation intact Psych/Mental Status: Mental status NL laboratory and microbiology Laboratory Tests 02/27/25 05:47 Test 02/27/25 05:47 Range/Units Serum Glucose 90 74-106 mg/dL Problem List Generalized weakness Acute encephalopathy Urinary tract infection Acute kidney injury Anemia likely due to iron-deficiency Right parietal/occipital encephalomalacia Assessment/Plan Agree with current supportive medical care. Daily lab monitoring. Electrolyte replacement prn. IV antibiotics with Ceftriaxone. Flomax. DVT/GI prophylaxis. Wound care as recommended. Additional plan as per the hospital course. Dietary Evaluation Review Comments: Nutrition recommendation 1) MVI w/ mineral 1 tab daily 2) Glucerna 240ml BID 3) Monitor lab values, wt trend, I/O Expected Outcomes/Goals: To maintain/gain weight TO meet >75% estimated needs FU 3-5 days Interpretation of weight loss: up to 5% in 1 month Body Fat Depletion (Non Severe: Mild Depletion Muscle mass (Non-Severe): Mild Depletion (Moderate) Protein Calorie Malnutrition: Non-Severe Is there a minimum of two crit: Yes Plan discussed with: Patient, Other (RN) AARTI PAVON DO Mar 01, 2025 21:01
[2025-03-02] VITALS (7 sets, daily range): BP systolic 115–135; BP diastolic 51–65; PULSE 84–98; RESP 16–22; TEMP 97.5–98.7; O2SAT 94–98
--- NOTE | 2025-03-02 20:30 | DVHPN2 ---
Progress Note - Dictate Date Seen: Mar 02, 2025 Has the PT tested + for MRSA If YES, has PT been informed?: No Medical Necessity Reason Pt with a Central, PICC or Fol: No Subjective Patient was seen and evaluated in follow up. No acute events overnight. No new complaints. No pain or distress. vital signs Vital Sign Date Time Temp Pulse Resp B/P (MAP) Pulse Ox O2 Delivery O2 Flow Rate FiO2 03/02/25 17:11 98.2 91 22 120/65 (83) 96 98.2 03/02/25 08:00 Room Air* 0 21 Total Intake and Output 03/01/25 03/01/25 03/02/25 15:00 23:00 07:00 Intake Total 50 ml 200 ml 680 ml Output Total 1350 ml 100 ml Balance 50 ml -1150 ml 580 ml medications Current Medications Medications Dose Ordered Sig/Valeriy Route Start Time Stop Time Status Last Admin Dose Admin Diagnostic Test (Pha) 1 strip ACHS 02/26/25 17:00 03/02/25 17:11 1 STRIP Insulin Human Regular ACHS SC 02/26/25 17:00 03/02/25 17:12 3 UNITS Dextrose 50 ml UD PRN IV 02/26/25 13:15 Ceftriaxone Sodium 50 ml @ 100 mls/hr DAILY@09 IV 02/26/25 13:15 03/02/25 09:28 100 MLS/HR Ondansetron HCl 4 mg Q4HP PRN IV 02/26/25 13:15 Enoxaparin Sodium 40 mg DAILY SC 02/27/25 10:00 03/02/25 13:11 40 MG Acetaminophen 650 mg Q6HP PRN PO 02/26/25 13:15 02/28/25 21:51 650 MG Aspirin 81 mg DAILY PO 02/27/25 10:00 03/02/25 09:29 81 MG Finasteride 5 mg DAILY PO 02/27/25 10:00 03/02/25 09:29 5 MG Tamsulosin HCl 0.4 mg QPM PO 02/26/25 18:00 03/02/25 17:59 0.4 MG Thiamine HCl 100 mg DAILY PO 02/27/25 10:00 03/02/25 09:31 100 MG Ticagrelor 90 mg BID PO 02/26/25 22:00 03/02/25 09:31 90 MG Patient Own Medication 1 tab QWEEKLY PO 03/01/25 07:00 Amlodipine Besylate 10 mg DAILY PO 02/27/25 10:00 03/02/25 13:12 10 MG Atorvastatin Calcium 40 mg DAILY PO 02/27/25 10:00 03/02/25 09:31 40 MG Cholecalciferol 2,000 unit DAILY PO 02/27/25 10:00 03/02/25 09:31 2,000 UNIT Ferrous Sulfate 325 mg EOD PO 02/28/25 10:00 03/02/25 09:31 325 MG Hydralazine HCl 10 mg BID PO 02/26/25 22:00 03/02/25 09:30 10 MG Nifedipine 90 mg DAILY PO 02/27/25 10:00 03/02/25 13:12 90 MG Pantoprazole Sodium 40 mg DAILY IV 02/26/25 13:30 03/02/25 09:27 40 MG objective Vitals and nursing notes reviewed. General Appearance: Alert, Cooperative HEENT: Atraumatic, PERRLA, EOMI, Mucous membr. moist/pink Respiratory: Normal air movement Cardiovascular: Regular rate, Normal S1, Normal S2, No murmurs Abdominal: Normal bowel sounds, Soft Musculoskeletal: Right tcfes-tis-vlng amputation and left 2nd toe amputation. No swelling. Neuro: Normal speech, Normal tone, Sensation intact Psych/Mental Status: Mental status NL laboratory and microbiology Laboratory Tests 02/27/25 05:47 Test 02/27/25 05:47 Range/Units Serum Glucose 90 74-106 mg/dL Problem List Generalized weakness Acute encephalopathy Urinary tract infection Acute kidney injury Anemia likely due to iron-deficiency Right parietal/occipital encephalomalacia Assessment/Plan Agree with current supportive medical care. BMP. IV antibiotics with Ceftriaxone. Flomax. Pureed diet. DVT/GI prophylaxis. Wound care as recommended. Additional plan as per the hospital course. Dietary Evaluation Review Comments: Nutrition recommendation 1) MVI w/ mineral 1 tab daily 2) Glucerna 240ml BID 3) Monitor lab values, wt trend, I/O Expected Outcomes/Goals: To maintain/gain weight TO meet >75% estimated needs FU 3-5 days Interpretation of weight loss: up to 5% in 1 month Body Fat Depletion (Non Severe: Mild Depletion Muscle mass (Non-Severe): Mild Depletion (Moderate) Protein Calorie Malnutrition: Non-Severe Is there a minimum of two crit: Yes Plan discussed with: Patient, Other (RN) AARTI PAVON DO Mar 02, 2025 20:30
[2025-03-03 01:00] VITALS: BP 121/58; PULSE 84; RESP 18; TEMP 98.3; O2SAT 95
[2025-03-03 05:00] VITALS: BP 129/51; PULSE 91; RESP 16; TEMP 98.3; O2SAT 95
[2025-03-03 06:39] LABS: Chloride 101 mmol/L (98-107); Potassium 4.0 mmol/L (3.5-5.1)
[2025-03-03 06:40] LABS: Anion Gap 11 (5-15); Carbon Dioxide 21 mmol/L (20-31)
[2025-03-03 06:44] LABS: Calcium 8.6 mg/dL (8.7-10.4); Sodium 133 mmol/L (136-145)
[2025-03-03 06:45] LABS: BUN/Creatinine Ratio 18.6 (10.0-20.0)
[2025-03-03 06:55] LABS: Blood Urea Nitrogen 35 mg/dL (9-23); Glucose 143 mg/dL (74-106)
[2025-03-03 08:00] VITALS: RESP 19
[2025-03-03 09:00] VITALS: BP 119/51; PULSE 86; RESP 17; TEMP 97.7; O2SAT 96
[2025-03-03 13:00] VITALS: BP 119/63; PULSE 90; RESP 18; TEMP 97.7; O2SAT 97
[2025-03-03 17:00] VITALS: BP 120/68; PULSE 95; RESP 18; TEMP 98.4; O2SAT 97
[2025-03-03] MEDS: SODIUM CHLORIDE 0.9% 1,000 ML IV SCH (17:20)
[2025-03-03] MEDS: DOCUSATE SOD 100 MG CAP PO SCH (17:56)
--- NOTE | 2025-03-03 20:32 | DVHPN2 ---
Progress Note - Dictate Date Seen: Mar 03, 2025 Has the PT tested + for MRSA If YES, has PT been informed?: No Medical Necessity Reason Pt with a Central, PICC or Fol: No Subjective Patient was seen and evaluated in follow up. No acute events overnight. No new complaints. Patient remains confused. No pain or distress. Creatinine increased to 1.88 with BUN of 35. vital signs Vital Sign Date Time Temp Pulse Resp B/P (MAP) Pulse Ox O2 Delivery O2 Flow Rate FiO2 03/03/25 17:00 98.4 95 18 120/68 (85) 97 98.4 03/03/25 08:00 Room Air* 0 21 Total Intake and Output 03/02/25 03/02/25 03/03/25 15:00 23:00 07:00 Intake Total 50 ml 500 ml 240 ml Output Total 475 ml 550 ml Balance 50 ml 25 ml -310 ml medications Current Medications Medications Dose Ordered Sig/Valeriy Route Start Time Stop Time Status Last Admin Dose Admin Diagnostic Test (Pha) 1 strip ACHS 02/26/25 17:00 03/03/25 17:17 1 STRIP Insulin Human Regular ACHS SC 02/26/25 17:00 03/03/25 17:18 3 UNITS Dextrose 50 ml UD PRN IV 02/26/25 13:15 Ceftriaxone Sodium 50 ml @ 100 mls/hr DAILY@09 IV 02/26/25 13:15 03/03/25 09:52 100 MLS/HR Ondansetron HCl 4 mg Q4HP PRN IV 02/26/25 13:15 Enoxaparin Sodium 40 mg DAILY SC 02/27/25 10:00 03/03/25 15:01 40 MG Acetaminophen 650 mg Q6HP PRN PO 02/26/25 13:15 02/28/25 21:51 650 MG Aspirin 81 mg DAILY PO 02/27/25 10:00 03/03/25 09:53 81 MG Finasteride 5 mg DAILY PO 02/27/25 10:00 03/03/25 09:52 5 MG Tamsulosin HCl 0.4 mg QPM PO 02/26/25 18:00 03/03/25 17:56 0.4 MG Thiamine HCl 100 mg DAILY PO 02/27/25 10:00 03/03/25 09:53 100 MG Ticagrelor 90 mg BID PO 02/26/25 22:00 03/03/25 10:00 90 MG Patient Own Medication 1 tab QWEEKLY PO 03/01/25 07:00 Amlodipine Besylate 10 mg DAILY PO 02/27/25 10:00 03/03/25 09:58 10 MG Atorvastatin Calcium 40 mg DAILY PO 02/27/25 10:00 03/03/25 09:52 40 MG Cholecalciferol 2,000 unit DAILY PO 02/27/25 10:00 03/03/25 09:52 2,000 UNIT Ferrous Sulfate 325 mg EOD PO 02/28/25 10:00 03/02/25 09:31 325 MG Hydralazine HCl 10 mg BID PO 02/26/25 22:00 03/02/25 21:48 10 MG Nifedipine 90 mg DAILY PO 02/27/25 10:00 03/03/25 15:02 90 MG Pantoprazole Sodium 40 mg DAILY IV 02/26/25 13:30 03/03/25 09:54 40 MG Docusate Sodium 100 mg BID PO 03/03/25 18:00 03/03/25 17:56 100 MG Sodium Chloride 1,000 ml @ 150 mls/hr Q6H40M IV 03/03/25 15:30 03/03/25 17:20 150 MLS/HR objective Vitals and nursing notes reviewed. General Appearance: Alert, Cooperative HEENT: Atraumatic, PERRLA, EOMI, Mucous membr. moist/pink Respiratory: Normal air movement Cardiovascular: Regular rate, Normal S1, Normal S2, No murmurs Abdominal: Normal bowel sounds, Soft Musculoskeletal: Right hokjh-yok-cxmx amputation and left 2nd toe amputation. No swelling. Neuro: Confused. A&Ox2. laboratory and microbiology Laboratory Tests 03/03/25 05:40 02/27/25 05:47 Test 03/03/25 05:40 Range/Units Serum Glucose 143 H 74-106 mg/dL Problem List Generalized weakness Acute encephalopathy Urinary tract infection Acute kidney injury Anemia likely due to iron-deficiency Right parietal/occipital encephalomalacia Assessment/Plan Agree with current supportive medical care. Daily lab monitoring to include renal function and electrolytes. Electrolyte replacement prn. IVFs with NS. IV antibiotics with Ceftriaxone. Flomax. DVT/GI prophylaxis. Wound care as recommended. Additional plan as per the hospital course. Dietary Evaluation Review Comments: Nutrition recommendation 1) MVI w/ mineral 1 tab daily 2) Glucerna 240ml BID 3) Monitor lab values, wt trend, I/O Expected Outcomes/Goals: To maintain/gain weight TO meet >75% estimated needs FU 3-5 days Interpretation of weight loss: up to 5% in 1 month Body Fat Depletion (Non Severe: Mild Depletion Muscle mass (Non-Severe): Mild Depletion (Moderate) Protein Calorie Malnutrition: Non-Severe Is there a minimum of two crit: Yes Plan discussed with: Patient, Other (RN) AARTI PAVON DO Mar 03, 2025 20:32
--- NOTE | 2025-03-03 21:02 | DVHPN2 ---
Subjective seen in bed today and remains confused Reviewed: Care Plan, H&P, Labs, Medications, Previous Orders, Radiology Changes from previous H/P or p: No Changes General: Per HPI Objective Vitals Vital Signs Date Time Temp Pulse Resp B/P (MAP) Pulse Ox O2 Delivery O2 Flow Rate FiO2 03/03/25 17:00 98.4 95 18 120/68 (85) 97 98.4 03/03/25 08:00 Room Air* 0 21 Intake/Output Intake and Output 03/03/25 07:00 Intake Total 790 ml Output Total 1025 ml Balance -235 ml Intake Oral 740 ml IV Total 50 ml Output Urine Total 1025 ml General Appearance: Alert HEENT: Atraumatic Cardiovascular: Regular rate, Normal S1, Normal S2 Abdomen: Normal bowel sounds Medications Current Medications Medications Dose Ordered Sig/Valeriy Route Start Time Stop Time Status Last Admin Dose Admin Diagnostic Test (Pha) 1 strip ACHS 02/26/25 17:00 03/03/25 17:17 1 STRIP Insulin Human Regular ACHS SC 02/26/25 17:00 03/03/25 17:18 3 UNITS Dextrose 50 ml UD PRN IV 02/26/25 13:15 Ceftriaxone Sodium 50 ml @ 100 mls/hr DAILY@09 IV 02/26/25 13:15 03/03/25 09:52 100 MLS/HR Ondansetron HCl 4 mg Q4HP PRN IV 02/26/25 13:15 Enoxaparin Sodium 40 mg DAILY SC 02/27/25 10:00 03/03/25 15:01 40 MG Acetaminophen 650 mg Q6HP PRN PO 02/26/25 13:15 02/28/25 21:51 650 MG Aspirin 81 mg DAILY PO 02/27/25 10:00 03/03/25 09:53 81 MG Finasteride 5 mg DAILY PO 02/27/25 10:00 03/03/25 09:52 5 MG Tamsulosin HCl 0.4 mg QPM PO 02/26/25 18:00 03/03/25 17:56 0.4 MG Thiamine HCl 100 mg DAILY PO 02/27/25 10:00 03/03/25 09:53 100 MG Ticagrelor 90 mg BID PO 02/26/25 22:00 03/03/25 10:00 90 MG Patient Own Medication 1 tab QWEEKLY PO 03/01/25 07:00 Amlodipine Besylate 10 mg DAILY PO 02/27/25 10:00 03/03/25 09:58 10 MG Atorvastatin Calcium 40 mg DAILY PO 02/27/25 10:00 03/03/25 09:52 40 MG Cholecalciferol 2,000 unit DAILY PO 02/27/25 10:00 03/03/25 09:52 2,000 UNIT Ferrous Sulfate 325 mg EOD PO 02/28/25 10:00 03/02/25 09:31 325 MG Hydralazine HCl 10 mg BID PO 02/26/25 22:00 03/02/25 21:48 10 MG Nifedipine 90 mg DAILY PO 02/27/25 10:00 03/03/25 15:02 90 MG Pantoprazole Sodium 40 mg DAILY IV 02/26/25 13:30 03/03/25 09:54 40 MG Docusate Sodium 100 mg BID PO 03/03/25 18:00 03/03/25 17:56 100 MG Sodium Chloride 1,000 ml @ 150 mls/hr Q6H40M IV 03/03/25 15:30 03/03/25 17:20 150 MLS/HR Laboratory Results Laboratory Tests 02/27/25 05:47 03/03/25 05:40 Chemistry Test 03/03/25 05:40 Calcium Level 8.6 mg/dL (8.7-10.4) L Urinalysis Test 02/26/25 10:35 Urine Color Colorless (Yellow) Urine Clarity Clear (Clear) Urine pH 6.0 (5.0-9.0) Urine Specific [place] 1.006 (1.001-1.035) Urine Protein Trace (Negative) H Urine Ketones Negative (Negative) Urine Blood Trace /uL (Negative) H Urine Nitrite Negative (Negative) Urine Bilirubin Negative (Negative) Urine Urobilinogen Normal mg/dL (Negative) Urine Leukocyte Esterase 3+ /uL (Negative) Urine RBC 3 /hpf (0 - 3) Urine Microscopic WBC 14 /HPF (0-3) H Urine Squamous Epithelial Cells None seen /hpf (<5) Urine Bacteria None seen /hpf (None Seen) Urine Glucose Normal mg/dL (Normal) Microbiology Microbiology Date/Time Source Procedure Growth Status 02/26/25 21:40 Nose MRSA Screen - Final Complete 02/26/25 10:35 Urine - [place] Urine Culture - Final Complete Assessment/Plan Assessment/Plan Paul Garner is an 85-year-old male with past medical history of hypertension, hyperlipidemia, diabetes type 2, CKD, dementia, PD, right vitfq-fil-kbqh amputation, and left 2nd toe amputation who presents to the ED sent by EMS for generalized weakness and low blood sugar. Per reports blood sugar in the field was 25. Nurse at the bedside states that patient has baseline is A&O x2 to name and date of . 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
--- NOTE | 2025-03-03 21:04 | DVHPN2 ---
Subjective seen in bed today and remains confused Reviewed: Care Plan, H&P, Labs, Medications, Previous Orders, Radiology Changes from previous H/P or p: No Changes General: Per HPI Objective Vitals Vital Signs Date Time Temp Pulse Resp B/P (MAP) Pulse Ox O2 Delivery O2 Flow Rate FiO2 03/03/25 17:00 98.4 95 18 120/68 (85) 97 98.4 03/03/25 08:00 Room Air* 0 21 Intake/Output Intake and Output 03/03/25 07:00 Intake Total 790 ml Output Total 1025 ml Balance -235 ml Intake Oral 740 ml IV Total 50 ml Output Urine Total 1025 ml General Appearance: Alert HEENT: Atraumatic Cardiovascular: Regular rate, Normal S1, Normal S2 Abdomen: Normal bowel sounds Medications Current Medications Medications Dose Ordered Sig/Valeriy Route Start Time Stop Time Status Last Admin Dose Admin Diagnostic Test (Pha) 1 strip ACHS 02/26/25 17:00 03/03/25 17:17 1 STRIP Insulin Human Regular ACHS SC 02/26/25 17:00 03/03/25 17:18 3 UNITS Dextrose 50 ml UD PRN IV 02/26/25 13:15 Ceftriaxone Sodium 50 ml @ 100 mls/hr DAILY@09 IV 02/26/25 13:15 03/03/25 09:52 100 MLS/HR Ondansetron HCl 4 mg Q4HP PRN IV 02/26/25 13:15 Enoxaparin Sodium 40 mg DAILY SC 02/27/25 10:00 03/03/25 15:01 40 MG Acetaminophen 650 mg Q6HP PRN PO 02/26/25 13:15 02/28/25 21:51 650 MG Aspirin 81 mg DAILY PO 02/27/25 10:00 03/03/25 09:53 81 MG Finasteride 5 mg DAILY PO 02/27/25 10:00 03/03/25 09:52 5 MG Tamsulosin HCl 0.4 mg QPM PO 02/26/25 18:00 03/03/25 17:56 0.4 MG Thiamine HCl 100 mg DAILY PO 02/27/25 10:00 03/03/25 09:53 100 MG Ticagrelor 90 mg BID PO 02/26/25 22:00 03/03/25 10:00 90 MG Patient Own Medication 1 tab QWEEKLY PO 03/01/25 07:00 Amlodipine Besylate 10 mg DAILY PO 02/27/25 10:00 03/03/25 09:58 10 MG Atorvastatin Calcium 40 mg DAILY PO 02/27/25 10:00 03/03/25 09:52 40 MG Cholecalciferol 2,000 unit DAILY PO 02/27/25 10:00 03/03/25 09:52 2,000 UNIT Ferrous Sulfate 325 mg EOD PO 02/28/25 10:00 03/02/25 09:31 325 MG Hydralazine HCl 10 mg BID PO 02/26/25 22:00 03/02/25 21:48 10 MG Nifedipine 90 mg DAILY PO 02/27/25 10:00 03/03/25 15:02 90 MG Pantoprazole Sodium 40 mg DAILY IV 02/26/25 13:30 03/03/25 09:54 40 MG Docusate Sodium 100 mg BID PO 03/03/25 18:00 03/03/25 17:56 100 MG Sodium Chloride 1,000 ml @ 150 mls/hr Q6H40M IV 03/03/25 15:30 03/03/25 17:20 150 MLS/HR Laboratory Results Laboratory Tests 02/27/25 05:47 03/03/25 05:40 Chemistry Test 03/03/25 05:40 Calcium Level 8.6 mg/dL (8.7-10.4) L Urinalysis Test 02/26/25 10:35 Urine Color Colorless (Yellow) Urine Clarity Clear (Clear) Urine pH 6.0 (5.0-9.0) Urine Specific [place] 1.006 (1.001-1.035) Urine Protein Trace (Negative) H Urine Ketones Negative (Negative) Urine Blood Trace /uL (Negative) H Urine Nitrite Negative (Negative) Urine Bilirubin Negative (Negative) Urine Urobilinogen Normal mg/dL (Negative) Urine Leukocyte Esterase 3+ /uL (Negative) Urine RBC 3 /hpf (0 - 3) Urine Microscopic WBC 14 /HPF (0-3) H Urine Squamous Epithelial Cells None seen /hpf (<5) Urine Bacteria None seen /hpf (None Seen) Urine Glucose Normal mg/dL (Normal) Microbiology Microbiology Date/Time Source Procedure Growth Status 02/26/25 21:40 Nose MRSA Screen - Final Complete 02/26/25 10:35 Urine - [place] Urine Culture - Final Complete Assessment/Plan Assessment/Plan Paul Garner is an 85-year-old male with past medical history of hypertension, hyperlipidemia, diabetes type 2, CKD, dementia, PD, right etfol-bnd-srof amputation, and left 2nd toe amputation who presents to the ED sent by EMS for generalized weakness and low blood sugar. Per reports blood sugar in the field was 25. Nurse at the bedside states that patient has baseline is A&O x2 to name and date of . 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
[2025-03-04 03:38] VITALS: BP 106/60; PULSE 93; RESP 17; TEMP 98.2; O2SAT 91
[2025-03-04 06:36] LABS: Potassium 4.0 mmol/L (3.5-5.1); Sodium 137 mmol/L (136-145)
[2025-03-04 06:37] LABS: Anion Gap 11 (5-15); Calcium 9.4 mg/dL (8.7-10.4)
[2025-03-04 06:42] LABS: BUN/Creatinine Ratio 18.4 (10.0-20.0)
[2025-03-04 06:44] LABS: Blood Urea Nitrogen 33 mg/dL (9-23); Carbon Dioxide 19 mmol/L (20-31); Chloride 107 mmol/L (98-107); Glucose 169 mg/dL (74-106)
[2025-03-04 08:05] VITALS: PULSE 91; RESP 16; O2SAT 95
[2025-03-04 09:00] VITALS: BP 106/59; PULSE 91; RESP 16; TEMP 97.6; O2SAT 95
--- NOTE | 2025-03-04 12:21 | DVHPN2 ---
Subjective The patient seen and examined at bedside. No complains but very weak. Reviewed: Care Plan, H&P, Labs, Medications, Previous Orders, Radiology Changes from previous H/P or p: No Changes General: Per HPI Objective Vitals Vital Signs Date Time Temp Pulse Resp B/P (MAP) Pulse Ox O2 Delivery O2 Flow Rate FiO2 03/04/25 09:32 106/59 03/04/25 09:00 97.6 91 16 95 97.6 03/04/25 08:05 Room Air* 0 21 Intake/Output Intake and Output 03/04/25 07:00 Intake Total 850 ml Output Total 1225 ml Balance -375 ml Intake Oral 600 ml IV Total 250 ml Output Urine Total 1225 ml # Bowel Movements 1 General Appearance: Alert HEENT: Atraumatic Cardiovascular: Regular rate, Normal S1, Normal S2 Abdomen: Normal bowel sounds Medications Current Medications Medications Dose Ordered Sig/Valeriy Route Start Time Stop Time Status Last Admin Dose Admin Diagnostic Test (Pha) 1 strip ACHS 02/26/25 17:00 03/04/25 11:36 1 STRIP Insulin Human Regular ACHS SC 02/26/25 17:00 03/04/25 12:03 8 UNITS Dextrose 50 ml UD PRN IV 02/26/25 13:15 Ceftriaxone Sodium 50 ml @ 100 mls/hr DAILY@09 IV 02/26/25 13:15 03/04/25 08:51 100 MLS/HR Ondansetron HCl 4 mg Q4HP PRN IV 02/26/25 13:15 Enoxaparin Sodium 40 mg DAILY SC 02/27/25 10:00 03/04/25 09:19 40 MG Acetaminophen 650 mg Q6HP PRN PO 02/26/25 13:15 02/28/25 21:51 650 MG Aspirin 81 mg DAILY PO 02/27/25 10:00 03/04/25 09:19 81 MG Finasteride 5 mg DAILY PO 02/27/25 10:00 03/04/25 09:20 5 MG Tamsulosin HCl 0.4 mg QPM PO 02/26/25 18:00 03/03/25 17:56 0.4 MG Thiamine HCl 100 mg DAILY PO 02/27/25 10:00 03/04/25 09:19 100 MG Ticagrelor 90 mg BID PO 02/26/25 22:00 03/04/25 09:19 90 MG Patient Own Medication 1 tab QWEEKLY PO 03/01/25 07:00 Amlodipine Besylate 10 mg DAILY PO 02/27/25 10:00 03/03/25 09:58 10 MG Atorvastatin Calcium 40 mg DAILY PO 02/27/25 10:00 03/04/25 09:21 40 MG Cholecalciferol 2,000 unit DAILY PO 02/27/25 10:00 03/04/25 09:20 2,000 UNIT Ferrous Sulfate 325 mg EOD PO 02/28/25 10:00 03/04/25 09:19 325 MG Hydralazine HCl 10 mg BID PO 02/26/25 22:00 03/02/25 21:48 10 MG Nifedipine 90 mg DAILY PO 02/27/25 10:00 03/04/25 09:21 90 MG Pantoprazole Sodium 40 mg DAILY IV 02/26/25 13:30 03/04/25 09:18 40 MG Docusate Sodium 100 mg BID PO 03/03/25 18:00 03/04/25 09:20 100 MG Sodium Chloride 1,000 ml @ 150 mls/hr Q6H40M IV 03/03/25 15:30 03/04/25 11:37 150 MLS/HR Laboratory Results Laboratory Tests 02/27/25 05:47 03/04/25 06:03 Chemistry Test 03/04/25 06:03 Calcium Level 9.4 mg/dL (8.7-10.4) Urinalysis Test 02/26/25 10:35 Urine Color Colorless (Yellow) Urine Clarity Clear (Clear) Urine pH 6.0 (5.0-9.0) Urine Specific [place] 1.006 (1.001-1.035) Urine Protein Trace (Negative) H Urine Ketones Negative (Negative) Urine Blood Trace /uL (Negative) H Urine Nitrite Negative (Negative) Urine Bilirubin Negative (Negative) Urine Urobilinogen Normal mg/dL (Negative) Urine Leukocyte Esterase 3+ /uL (Negative) Urine RBC 3 /hpf (0 - 3) Urine Microscopic WBC 14 /HPF (0-3) H Urine Squamous Epithelial Cells None seen /hpf (<5) Urine Bacteria None seen /hpf (None Seen) Urine Glucose Normal mg/dL (Normal) Microbiology Microbiology Date/Time Source Procedure Growth Status 02/26/25 21:40 Nose MRSA Screen - Final Complete 02/26/25 10:35 Urine - [place] Urine Culture - Final Complete Labs and/or images reviewed: Labs reviewed by me Assessment/Plan Assessment/Plan #LORI Creat trending up 1.88 Continue IVF BMP daily #Acute metabolic encephalopathy Monitor #UTI Continue IV abx with ceftriaxone History of hypertension History of hyperlipidemia History of diabetes type 2 History of CKD History of dementia History of PD History of right BKA History of left 2nd toe amputation Plan discussed with: Patient Date of Service: Mar 04, 2025 Billing Provider: ROGER SOSA MD Common Visit Codes: [id number] INP/OBS CARE(HIGH) ROGER SOSA MD Mar 04, 2025 12:21
[2025-03-04 12:38] VITALS: BP 104/51; PULSE 87; RESP 16; TEMP 97.4; O2SAT 98
--- NOTE | 2025-03-04 14:26 | DVH ---
LEFT Lower Extremity Arterial Duplex Date: 03/04/2025 01:48 PM Clinical History: pain Comparison: US BILAT LOW EXT ART DUPLEX on DOS: 02/03/25 Technique: Duplex Doppler evaluation including color Doppler and spectral/pulsed waveform analysis of the lower extremity arteries was performed. Finding: LEFT: No flow seen in the distal posterior tibial artery highly calcified arterial jackman throughout. No hig h-grade stenosis. REFERENCE VALUES, [facility]) vascular Imaging Lab Criteria: Peak systolic velocity ranges (in cm/sec) are as follows: <150 cm/s - <20 % stenosis 150-200 cm/s - 20-49% stenosis 200-300 cm/s - 50-75% stenosis >300 cm/s -> 75% stenosis IMPRESSION: No flow seen in the distal posterior tibial artery highly calcified arterial jackman throughout. No hig h-grade stenosis
--- NOTE | 2025-03-04 14:28 | DVH ---
Left lower extremity venous duplex Clinical History: PAIN Comparison: None Findings: Duplex Doppler evaluation of the deep venous system of the left lower extremity from the common femor al vein to the popliteal vein including color Doppler and spectral/pulsed waveform analysis was perfo rmed. The common femoral vein demonstrates appropriate compressibility and waveform variability. There is compressibility/patency of the great saphenous vein at the proximal thigh. The femoral vein demonstrates appropriate compressibility and waveform variability. The deep femoral vein demonstrates appropriate compressibility and waveform variability. The popliteal vein demonstrates appropriate compressibility and waveform variability. There is normal compressibility at the tibioperoneal trunk. Impression: No left femoropopliteal venous thrombosis. If clinical concern/symptoms persist or worsen, short-interval follow-up study is suggested.
--- NOTE | 2025-03-04 19:50 | DVHPN2 ---
Progress Note - Dictate Date Seen: Mar 04, 2025 Has the PT tested + for MRSA If YES, has PT been informed?: No Medical Necessity Reason Pt with a Central, PICC or Fol: No Subjective Patient was seen and evaluated in follow up. No acute events overnight. Endorses pain to LLE. Creatinine 1.79 with BUN of 33. vital signs Vital Sign Date Time Temp Pulse Resp B/P (MAP) Pulse Ox O2 Delivery O2 Flow Rate FiO2 03/04/25 12:38 97.4 87 16 104/51 (68) 98 97.4 03/04/25 08:05 Room Air* 0 21 Total Intake and Output 03/03/25 03/03/25 03/04/25 15:00 23:00 07:00 Intake Total 50 ml 300 ml 500 ml Output Total 425 ml 800 ml Balance 50 ml -125 ml -300 ml medications Current Medications Medications Dose Ordered Sig/Valeriy Route Start Time Stop Time Status Last Admin Dose Admin Diagnostic Test (Pha) 1 strip ACHS 02/26/25 17:00 03/04/25 16:47 1 STRIP Insulin Human Regular ACHS SC 02/26/25 17:00 03/04/25 16:52 4 UNITS Dextrose 50 ml UD PRN IV 02/26/25 13:15 Ceftriaxone Sodium 50 ml @ 100 mls/hr DAILY@09 IV 02/26/25 13:15 03/04/25 08:51 100 MLS/HR Ondansetron HCl 4 mg Q4HP PRN IV 02/26/25 13:15 Enoxaparin Sodium 40 mg DAILY SC 02/27/25 10:00 03/04/25 09:19 40 MG Acetaminophen 650 mg Q6HP PRN PO 02/26/25 13:15 03/04/25 16:46 650 MG Aspirin 81 mg DAILY PO 02/27/25 10:00 03/04/25 09:19 81 MG Finasteride 5 mg DAILY PO 02/27/25 10:00 03/04/25 09:20 5 MG Tamsulosin HCl 0.4 mg QPM PO 02/26/25 18:00 03/04/25 17:56 0.4 MG Thiamine HCl 100 mg DAILY PO 02/27/25 10:00 03/04/25 09:19 100 MG Ticagrelor 90 mg BID PO 02/26/25 22:00 03/04/25 09:19 90 MG Patient Own Medication 1 tab QWEEKLY PO 03/01/25 07:00 Amlodipine Besylate 10 mg DAILY PO 02/27/25 10:00 03/03/25 09:58 10 MG Atorvastatin Calcium 40 mg DAILY PO 02/27/25 10:00 03/04/25 09:21 40 MG Cholecalciferol 2,000 unit DAILY PO 02/27/25 10:00 03/04/25 09:20 2,000 UNIT Ferrous Sulfate 325 mg EOD PO 02/28/25 10:00 03/04/25 09:19 325 MG Hydralazine HCl 10 mg BID PO 02/26/25 22:00 03/02/25 21:48 10 MG Nifedipine 90 mg DAILY PO 02/27/25 10:00 03/04/25 09:21 90 MG Pantoprazole Sodium 40 mg DAILY IV 02/26/25 13:30 03/04/25 09:18 40 MG Docusate Sodium 100 mg BID PO 03/03/25 18:00 03/04/25 09:20 100 MG Sodium Chloride 1,000 ml @ 150 mls/hr Q6H40M IV 03/03/25 15:30 03/04/25 17:56 150 MLS/HR objective Vitals and nursing notes reviewed. General Appearance: Alert, Cooperative HEENT: Atraumatic, PERRLA, EOMI, Mucous membr. moist/pink Respiratory: Normal air movement Cardiovascular: Regular rate, Normal S1, Normal S2, No murmurs Abdominal: Normal bowel sounds, Soft Musculoskeletal: Right okedu-vuu-qfgs amputation and left 2nd toe amputation. No swelling. Neuro: Confused. A&Ox2. laboratory and microbiology Laboratory Tests 03/04/25 06:03 02/27/25 05:47 Test 03/04/25 06:03 Range/Units Serum Glucose 169 H 74-106 mg/dL Problem List Generalized weakness Acute encephalopathy Urinary tract infection Acute kidney injury Anemia likely due to iron-deficiency Right parietal/occipital encephalomalacia Assessment/Plan Agree with current supportive medical care. LLE arterial and venous studies pending. Electrolyte replacement prn. IVFs with NS. Strict Intake/Output. IV antibiotics with Ceftriaxone. Flomax. DVT/GI prophylaxis. Wound care as recommended. No further input from Nephrology standpoint. Will sign off. Outpatient Nephrology follow up recommended. Dietary Evaluation Review Comments: Nutrition recommendation 1) MVI w/ mineral 1 tab daily 2) Glucerna 240ml BID 3) Monitor lab values, wt trend, I/O Expected Outcomes/Goals: To maintain/gain weight TO meet >75% estimated needs FU 3-5 days Interpretation of weight loss: up to 5% in 1 month Body Fat Depletion (Non Severe: Mild Depletion Muscle mass (Non-Severe): Mild Depletion (Moderate) Protein Calorie Malnutrition: Non-Severe Is there a minimum of two crit: Yes Plan discussed with: Patient, Other (RN) AARTI PAVON DO Mar 04, 2025 19:50
[2025-03-04 20:00] VITALS: PULSE 89
[2025-03-04 21:00] VITALS: BP 112/60; PULSE 87; RESP 18; TEMP 98.5; O2SAT 93
[2025-03-05] VITALS (8 sets, daily range): BP systolic 110–127; BP diastolic 56–74; PULSE 76–93; RESP 17–19; TEMP 97.6–99; O2SAT 93–96
[2025-03-05 05:59] LABS: Potassium 3.8 mmol/L (3.5-5.1); Sodium 137 mmol/L (136-145)
[2025-03-05 06:00] LABS: Anion Gap 11 (5-15)
[2025-03-05 06:05] LABS: BUN/Creatinine Ratio 16.7 (10.0-20.0)
[2025-03-05 06:25] LABS: Blood Urea Nitrogen 26 mg/dL (9-23); Carbon Dioxide 17 mmol/L (20-31); Chloride 109 mmol/L (98-107); Glucose 115 mg/dL (74-106)
[2025-03-05 06:26] LABS: Calcium 8.5 mg/dL (8.7-10.4)
--- NOTE | 2025-03-06 00:44 | DVHPN2 ---
Subjective The patient seen and examined at bedside. No complains but very weak. Reviewed: Care Plan, H&P, Labs, Medications, Previous Orders, Radiology Changes from previous H/P or p: No Changes General: Per HPI Objective Vitals Vital Signs Date Time Temp Pulse Resp B/P (MAP) Pulse Ox O2 Delivery O2 Flow Rate FiO2 03/05/25 21:44 127/65 03/05/25 21:00 99.0 89 18 96 99.0 03/05/25 20:00 Room Air* 0 21 Intake/Output Intake and Output 03/06/25 07:00 Intake Total 1770 ml Output Total 1350 ml Balance 420 ml Intake Oral 720 ml IV Total 1050 ml Output Urine Total 1350 ml General Appearance: Alert HEENT: Atraumatic Cardiovascular: Regular rate, Normal S1, Normal S2 Abdomen: Normal bowel sounds Medications Current Medications Medications Dose Ordered Sig/Valeriy Route Start Time Stop Time Status Last Admin Dose Admin Diagnostic Test (Pha) 1 strip ACHS 02/26/25 17:00 03/05/25 21:45 1 STRIP Insulin Human Regular ACHS SC 02/26/25 17:00 03/05/25 17:12 4 UNITS Dextrose 50 ml UD PRN IV 02/26/25 13:15 Ceftriaxone Sodium 50 ml @ 100 mls/hr DAILY@09 IV 02/26/25 13:15 03/05/25 09:01 100 MLS/HR Ondansetron HCl 4 mg Q4HP PRN IV 02/26/25 13:15 Enoxaparin Sodium 40 mg DAILY SC 02/27/25 10:00 03/05/25 10:05 40 MG Acetaminophen 650 mg Q6HP PRN PO 02/26/25 13:15 03/04/25 16:46 650 MG Aspirin 81 mg DAILY PO 02/27/25 10:00 03/05/25 10:00 81 MG Finasteride 5 mg DAILY PO 02/27/25 10:00 03/05/25 10:00 5 MG Tamsulosin HCl 0.4 mg QPM PO 02/26/25 18:00 03/05/25 18:17 0.4 MG Thiamine HCl 100 mg DAILY PO 02/27/25 10:00 03/05/25 09:56 100 MG Ticagrelor 90 mg BID PO 02/26/25 22:00 03/05/25 21:44 90 MG Patient Own Medication 1 tab QWEEKLY PO 03/01/25 07:00 Amlodipine Besylate 10 mg DAILY PO 02/27/25 10:00 03/03/25 09:58 10 MG Atorvastatin Calcium 40 mg DAILY PO 02/27/25 10:00 03/05/25 09:59 40 MG Cholecalciferol 2,000 unit DAILY PO 02/27/25 10:00 03/05/25 09:57 2,000 UNIT Ferrous Sulfate 325 mg EOD PO 02/28/25 10:00 03/04/25 09:19 325 MG Hydralazine HCl 10 mg BID PO 02/26/25 22:00 03/05/25 21:44 10 MG Nifedipine 90 mg DAILY PO 02/27/25 10:00 03/05/25 09:55 90 MG Pantoprazole Sodium 40 mg DAILY IV 02/26/25 13:30 03/05/25 10:04 40 MG Docusate Sodium 100 mg BID PO 03/03/25 18:00 03/05/25 21:44 100 MG Sodium Chloride 1,000 ml @ 150 mls/hr Q6H40M IV 03/03/25 15:30 03/05/25 16:24 150 MLS/HR Laboratory Results Laboratory Tests 02/27/25 05:47 03/05/25 05:31 Chemistry Test 03/05/25 05:31 Calcium Level 8.5 mg/dL (8.7-10.4) L Urinalysis Test 02/26/25 10:35 Urine Color Colorless (Yellow) Urine Clarity Clear (Clear) Urine pH 6.0 (5.0-9.0) Urine Specific [place] 1.006 (1.001-1.035) Urine Protein Trace (Negative) H Urine Ketones Negative (Negative) Urine Blood Trace /uL (Negative) H Urine Nitrite Negative (Negative) Urine Bilirubin Negative (Negative) Urine Urobilinogen Normal mg/dL (Negative) Urine Leukocyte Esterase 3+ /uL (Negative) Urine RBC 3 /hpf (0 - 3) Urine Microscopic WBC 14 /HPF (0-3) H Urine Squamous Epithelial Cells None seen /hpf (<5) Urine Bacteria None seen /hpf (None Seen) Urine Glucose Normal mg/dL (Normal) Microbiology Microbiology Date/Time Source Procedure Growth Status 02/26/25 21:40 Nose MRSA Screen - Final Complete 02/26/25 10:35 Urine - [place] Urine Culture - Final Complete Assessment/Plan Assessment/Plan #LORI Creat trending up 1.88 Continue IVF BMP daily #Acute metabolic encephalopathy Monitor #UTI Continue IV abx with ceftriaxone History of hypertension History of hyperlipidemia History of diabetes type 2 History of CKD History of dementia History of PD 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
[2025-03-06 01:00] VITALS: BP 136/68; PULSE 94; RESP 17; TEMP 98.3; O2SAT 98
[2025-03-06 04:53] VITALS: BP 114/56; PULSE 94; RESP 17; TEMP 98.6; O2SAT 98
[2025-03-06 09:00] VITALS: BP 110/65; PULSE 96; RESP 18; TEMP 98.7; O2SAT 96
[2025-03-06 09:55] LABS: Anion Gap 10 (5-15); Potassium 3.8 mmol/L (3.5-5.1); Sodium 140 mmol/L (136-145)
[2025-03-06 10:01] LABS: BUN/Creatinine Ratio 13.3 (10.0-20.0); Blood Urea Nitrogen 19 mg/dL (9-23)
[2025-03-06 10:08] LABS: Calcium 8.6 mg/dL (8.7-10.4); Carbon Dioxide 18 mmol/L (20-31); Chloride 112 mmol/L (98-107); Glucose 146 mg/dL (74-106)
[2025-03-06 13:00] VITALS: BP 123/69; PULSE 89; RESP 18; TEMP 98.4; O2SAT 97
--- NOTE | 2025-03-06 13:38 | DVHDS2 ---
Discharge Summary Date of Admission Feb 26, 2025 at 13:10 Date of Discharge: Mar 06, 2025 Admitting Diagnosis #LORI #Acute metabolic encephalopathy #UTI #Hypertension #Hyperlipidemia # diabetes type 2 # chronic kidney disease stage 3 # dementia # peripheral vascular disease with history of right BKA and left 2nd toe amputation Labs/Diagnostic Data: Laboratory Results Test 03/06/25 11:32 03/06/25 08:33 02/27/25 05:47 02/26/25 10:35 POC Glucose 204 mg/dl (70-106) Sodium Level 140 mmol/L (136-145) Potassium Level 3.8 mmol/L (3.5-5.1) Chloride Level 112 mmol/L (98-107) Carbon Dioxide Level 18 mmol/L (20-31) Anion Gap 10 (5-15) Blood Urea Nitrogen 19 mg/dL (9-23) Creatinine 1.43 mg/dL (0.700-1.30) Glomerular Filtration Rate Calc 48 mL/min (>90) BUN/Creatinine Ratio 13.3 (10.0-20.0) Serum Glucose 146 mg/dL (74-106) Calcium Level 8.6 mg/dL (8.7-10.4) White Blood Count 5.5 10^3/uL (4.4-10.8) Red Blood Count 3.21 10^6/uL (4.5-5.90) Hemoglobin 8.7 g/dL (13.5-17.5) Hematocrit 26.2 % (41.0-53.0) Mean Corpuscular Volume 81.5 fL (80.0-100.0) Mean Corpuscular Hemoglobin 27.1 pg (28.0-32.0) Mean Corpuscular Hemoglobin Concent 33.3 g/dL (32.0-36.0) Red Cell Distribution Width 15.6 % (11.8-14.3) Platelet Count 239 10^3/uL (140-450) Mean Platelet Volume 9.8 fL (6.9-10.8) Neutrophils (%) (Auto) 58.7 % (37.0-80.0) Lymphocytes (%) (Auto) 22.0 % (10.0-50.0) Monocytes (%) (Auto) 8.1 % (0.0-12.0) Eosinophils (%) (Auto) 9.9 % (0.0-7.0) Basophils (%) (Auto) 1.3 % (0.0-2.0) Neutrophils # (Auto) 3.2 10 ^3/uL (1.6-8.6) Lymphocytes # (Auto) 1.2 10 ^3/uL (0.4-5.4) Monocytes # (Auto) 0.4 10 ^3/uL (0-1.3) Eosinophils # (Auto) 0.5 10 ^3/uL (0-0.8) Basophils # (Auto) 0.1 10 ^3/uL (0-0.2) Nucleated Red Blood Cells 0.0 % Total Bilirubin 0.2 mg/dL (0.2-1.0) Aspartate Amino Transferase (AST) 37 U/L (<34) Alanine Aminotransferase (ALT) 30 U/L (7-40) Alkaline Phosphatase 315 U/L (46-116) Total Protein 7.1 g/dL (5.7-8.2) Albumin 4.0 g/dL (3.2-4.8) Urine Color Colorless (Yellow) Urine Clarity Clear (Clear) Urine pH 6.0 (5.0-9.0) Urine Specific [place] 1.006 (1.001-1.035) Urine Protein Trace (Negative) Urine Ketones Negative (Negative) Urine Blood Trace /uL (Negative) Urine Nitrite Negative (Negative) Urine Bilirubin Negative (Negative) Urine Urobilinogen Normal mg/dL (Negative) Urine Leukocyte Esterase 3+ /uL (Negative) Urine RBC 3 /hpf (0 - 3) Urine Microscopic WBC 14 /HPF (0-3) Urine Squamous Epithelial Cells None seen /hpf (<5) Urine Bacteria None seen /hpf (None Seen) Urine Glucose Normal mg/dL (Normal) Test 02/26/25 09:32 Troponin I High Sensitivity 5 ng/L (</=54) Other Laboratory Tests 03/06/25 08:33 02/27/25 05:47 Brief Hx & Hospital Course: This is an 85 years old male with past medical history hypertension, hyperlipidemia, diabetes type 2, chronic kidney disease stage 3, dementia, peripheral vascular disease with right [id number] amputation and left toe amputation came to emergency department because of generalized weakness and low blood glucose. The patient blood glucose was 25 per EMS. The patient was admitted. The patient was treated for hepatic encephalopathy hypoglycemia , acute kidney injury superimposed on chronic kidney disease stage 3. The patient also was put on IV fluid, IV antibiotic Rocephin and Flagyl for UTI. The patient subsequently doing better. More alert awake. So I am going to discharge him home. Advised him to follow up with primary care physician 1-2 weeks. Activity as tolerated. Diet per home diet. Recommend renal and low carb diet. Physical exam: HEENT: Normocephalic atraumatic pupils equal react to light and accommodation. Extraocular muscles intact, conjunctiva pink, oropharynx moist, no thrush, no exudate. Lymphatic: No lymphadenopathy Cardiovascular exam: S1, S2 was heard. No murmurs, rubs, gallops Lung: Clear on auscultation bilaterally, no wheeze, rale, rhonchi. GI: Abdominal soft, nondistended, nontenderness, positive bowel sounds. Extremity: No crepitus, cyanosis, edema on left lower extremity. Right [id number] amputation and left toe amputation. Pedal pulses present bilateral. Full range of motion. Skin: Normal turgor, no rash. Psych: Alert, oriented x3. Neurology: No focal deficits, cranial nerve II to XII grossly intact. This medical document was created using an electronic medical record system with [employer] direct computerized dictation system. Although this document has been carefully reviewed, there may still be some phonetic and typographical errors. These areas are purely typographical due to imperfections of the software programs, and do not reflect any compromise in the patient's medical care. 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 Discharge Disposition: Home Discharge Instruct/Medications Diet: Consistent carbohydrate, Cardiac 2g Na,low cholest Activity: No Restrictions, As Tolerated Follow Up/Referral: PCP 1-2 WEEKS Medications: continue home meds Scheduled Alendronate Sodium (Alendronate Sodium), 1 TAB PO QWEEKLY, (Reported) Amlodipine Besylate (Amlodipine Besylate), 1 TAB PO DAILY Aspirin (Aspir-Low), 81 MG PO DAILY, (Reported) Atorvastatin Calcium (Atorvastatin Calcium), 1 TAB PO DAILY, (Reported) Cholecalciferol (Vitamin D3), 2,000 UNIT OR DAILY, (Reported) Ferrous Sulfate (Ferrous Sulfate), 325 MG PO EOD Finasteride (Finasteride), 1 TAB PO DAILY Fluconazole (Fluconazole), 200 MG PO DAILY Gabapentin (Gabapentin), 100 MG PO TID, (Reported) Hydralazine Hcl (Hydralazine Hcl), 2 PO BID, (Reported) Nifedipine (Nifedipine Er), 1 TAB PO DAILY, (Reported) Olanzapine (Olanzapine), 1 TAB PO HS Tamsulosin Hcl (Flomax), 1 CAP PO DAILY Thiamine Hcl (Vitamin B-1), 100 MG PO DAILY Ticagrelor Base (Brilinta), 90 MG PO BID, (Reported) Miscellaneous Medications Heparin Sodium (Porcine) (Heparin Sodium Lock Flush), 10 UNT IV, (Reported) Insulin Glargine (Basaglar Kwikpen), 100 UNIT SC, (Reported) Insulin Lispro (Insulin Lispro Kwikpen), 100 UNIT SC, (Reported) Discharge Statement: "Patient was advised to return to the ER or call 911 if any headaches, dizziness, shortness of breath, chest pain, abdominal pain, bleeding, fevers, or worsening of medical condition. Patient was counseled about treatment plan, medications, possible side effects, patientverbalized understanding. All questions were answered to the best of my ability. This discharge took greater then 30 minutes in planning, reviewing documentation, counseling the patient, and discussing with other team members." ASSESSMENT ASSESSMENT Assessment uti Date of Service: Mar 06, 2025 Billing Provider: ROGER SOSA MD Common Visit Codes: [id number] DISCH DAY >30min ROGER SOSA MD Mar 06, 2025 13:38
[2025-03-06 16:57] VITALS: BP 118/54; PULSE 88; RESP 18; TEMP 98.3; O2SAT 93
[2025-03-06 21:00] VITALS: BP 117/70; PULSE 90; RESP 18; TEMP 97.9; O2SAT 94
--- NOTE | 2025-03-07 15:08 | DVHPN2 ---
Reviewed: Care Plan, H&P, Labs, Medications, Previous Orders, Radiology Changes from previous H/P or p: No Changes General: Per HPI Objective Vitals Vital Signs Date Time Temp Pulse Resp B/P (MAP) Pulse Ox O2 Delivery O2 Flow Rate FiO2 03/06/25 21:00 97.9 90 18 117/70 (86) 94 97.9 03/06/25 08:00 Room Air* 0 21 Intake/Output Intake and Output 03/07/25 07:00 Intake Total 1258 ml Output Total 1300 ml Balance -42 ml Intake Oral 358 ml IV Total 900 ml Output Urine Total 1300 ml General Appearance: Alert HEENT: Atraumatic Cardiovascular: Regular rate, Normal S1, Normal S2 Abdomen: Normal bowel sounds Laboratory Results Laboratory Tests 02/27/25 05:47 03/06/25 08:33 Urinalysis Test 02/26/25 10:35 Urine Color Colorless (Yellow) Urine Clarity Clear (Clear) Urine pH 6.0 (5.0-9.0) Urine Specific [place] 1.006 (1.001-1.035) Urine Protein Trace (Negative) H Urine Ketones Negative (Negative) Urine Blood Trace /uL (Negative) H Urine Nitrite Negative (Negative) Urine Bilirubin Negative (Negative) Urine Urobilinogen Normal mg/dL (Negative) Urine Leukocyte Esterase 3+ /uL (Negative) Urine RBC 3 /hpf (0 - 3) Urine Microscopic WBC 14 /HPF (0-3) H Urine Squamous Epithelial Cells None seen /hpf (<5) Urine Bacteria None seen /hpf (None Seen) Urine Glucose Normal mg/dL (Normal) Microbiology Microbiology Date/Time Source Procedure Growth Status 02/26/25 21:40 Nose MRSA Screen - Final Complete 02/26/25 10:35 Urine - [place] Urine Culture - Final Complete Assessment/Plan Assessment/Plan Markus Montgomeryra Paul is an 85-year-old male with past medical history of hypertension, hyperlipidemia, diabetes type 2, CKD, dementia, PD, right rzzqd-[id number]-tclg amputation, and left 2nd toe amputation who presents to the ED sent by EMS for generalized weakness and low blood sugar. Per reports blood sugar in the field was 25. Nurse at the bedside states that patient has baseline is A&O x2 to name and date of . Patient was able to state his name and date of . Patient does not endorse any signs of chest pain or shortness of breath. Generalized weakness likely due to UTI Acute encephalopathy likely due to UTI Probable pneumonia Anemia likely due to iron-deficiency LORI Right parietal/ occipital encephalomalacia. 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
--- NOTE | 2025-03-07 15:09 | DVHPN2 ---
Reviewed: Care Plan, H&P, Labs, Medications, Previous Orders, Radiology Changes from previous H/P or p: No Changes General: Per HPI Objective Vitals Vital Signs Date Time Temp Pulse Resp B/P (MAP) Pulse Ox O2 Delivery O2 Flow Rate FiO2 03/06/25 21:00 97.9 90 18 117/70 (86) 94 97.9 03/06/25 08:00 Room Air* 0 21 Intake/Output Intake and Output 03/07/25 07:00 Intake Total 1258 ml Output Total 1300 ml Balance -42 ml Intake Oral 358 ml IV Total 900 ml Output Urine Total 1300 ml General Appearance: Alert HEENT: Atraumatic Cardiovascular: Regular rate, Normal S1, Normal S2 Abdomen: Normal bowel sounds Laboratory Results Laboratory Tests 02/27/25 05:47 03/06/25 08:33 Urinalysis Test 02/26/25 10:35 Urine Color Colorless (Yellow) Urine Clarity Clear (Clear) Urine pH 6.0 (5.0-9.0) Urine Specific [place] 1.006 (1.001-1.035) Urine Protein Trace (Negative) H Urine Ketones Negative (Negative) Urine Blood Trace /uL (Negative) H Urine Nitrite Negative (Negative) Urine Bilirubin Negative (Negative) Urine Urobilinogen Normal mg/dL (Negative) Urine Leukocyte Esterase 3+ /uL (Negative) Urine RBC 3 /hpf (0 - 3) Urine Microscopic WBC 14 /HPF (0-3) H Urine Squamous Epithelial Cells None seen /hpf (<5) Urine Bacteria None seen /hpf (None Seen) Urine Glucose Normal mg/dL (Normal) Microbiology Microbiology Date/Time Source Procedure Growth Status 02/26/25 21:40 Nose MRSA Screen - Final Complete 02/26/25 10:35 Urine - [place] Urine Culture - Final Complete Assessment/Plan Assessment/Plan Markus Montgomeryra Paul is an 85-year-old male with past medical history of hypertension, hyperlipidemia, diabetes type 2, CKD, dementia, PD, right gwbcb-[id number]-jkuz amputation, and left 2nd toe amputation who presents to the ED sent by EMS for generalized weakness and low blood sugar. Per reports blood sugar in the field was 25. Nurse at the bedside states that patient has baseline is A&O x2 to name and date of . Patient was able to state his name and date of . Patient does not endorse any signs of chest pain or shortness of breath. Generalized weakness likely due to UTI Acute encephalopathy likely due to UTI Probable pneumonia Anemia likely due to iron-deficiency LORI Right parietal/ occipital encephalomalacia. 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
== END 2025-03-06 21:41 | disposition home or self-care (01) | DRG 689 ==
LOC: EDUNIT# 09:15 → EDBD 09:15 → ER 09:15 → OVERFLOW 13:10 → WEST WING 18:19
PROVIDERS: ADMIT Internal Medicine; ATTEND Internal Medicine
DX: N30.01 Acute cystitis with hematuria (principal); J15.69 Pneumonia due to other Gram-negative bacteria; N17.0 Acute kidney failure with tubular necrosis; J15.9 Unspecified bacterial pneumonia; E46 Unspecified protein-calorie malnutrition; G93.89 Other specified disorders of brain; F03.90 Unspecified dementia, unspecified severity, without behavioral disturbance, psychotic disturbance, mood disturbance, and anxiety; E78.5 Hyperlipidemia, unspecified; E11.22 Type 2 diabetes mellitus with diabetic chronic kidney disease; I12.9 Hypertensive chronic kidney disease with stage 1 through stage 4 chronic kidney disease, or unspecified chronic kidney disease; Z79.4 Long term (current) use of insulin; Z79.899 Other long term (current) drug therapy; Z89.511 Acquired absence of right leg below knee; Z89.422 Acquired absence of other left toe(s); Z68.21 Body mass index [BMI] 21.0-21.9, adult; D50.9 Iron deficiency anemia, unspecified; N18.30 Chronic kidney disease, stage 3 unspecified
CPT/HCPCS: 36415; 70450; 71045; 80048; 80053; 81001; 82962; 84484; 85025; 87081; 87086; 93005; 93926; 93971; 96365; 99291; 99292; G0378; J1815; J2470; J3490

== ENCOUNTER 2025-03-09 12:15 | Inpatient (IN) | payer OTHER, MEDICAID ==
[~2025-03-09] VITALS: Ht 162.6 cm; Wt 56.5 kg
[~2025-03-09 12:15] MED LIST changes: +HYDR-2792 PO; +NIFE90TA75 PO
--- NOTE | 2025-03-09 12:55 | ED.PDOC ---
History of Present Illness(SKN HPI Comments This is a 85 year old male brought in by presenting to the ED with chief complaint of foot wound. reports that the patient had his left 2nd toe amputated 4 months ago, however, due to the patient being on antibiotics, she had not checked the wound for some time. relays that the patient's surgical site is now draining when checked for follow up from Dr. Leung's office, advised to come to the ED for further evaluation to rule out sepsis and osteomyelitis. Patient denies any fever, chills, N/V, numbness, weakness, or tingling. Chief Complaint: Wound Check Time Seen by MD: 12:49 Primary Care Provider: UNKNOWN History of Present Illness: Nurses Notes, Medications, Allergies Allergies: Coded Allergies: NO KNOWN ALLERGIES (Unverified , 01/03/25) Home Meds Active Scripts Fluconazole (Fluconazole) 200 Mg Tab, 200 MG PO DAILY for 14 Days, #14 TAB Prov:ARIN PARIS RESIDENT 02/07/25 Amlodipine Besylate (Amlodipine Besylate) 10 Mg Tab, 1 TAB PO DAILY for 30 Days, #30 TAB 5 Refills Prov:ARIN PARIS RESIDENT 02/07/25 Thiamine Hcl (VITAMIN B-1) 100 Mg Tb, 100 MG PO DAILY for 30 Days, #30 TAB 1 Refill Prov:ESTHELA JAMES MD 01/08/25 Finasteride (Finasteride) 5 Mg Tab, 1 TAB PO DAILY, #30 TAB 1 Refill Prov:ESTHELA JAMES MD 01/08/25 Tamsulosin Hcl (Flomax) 0.4 Mg Cap, 1 CAP PO DAILY, #30 CAP 1 Refill Prov:ESTHELA JAMES MD 01/08/25 Olanzapine (OLANZAPINE) 10 Mg Tab, 1 TAB PO HS, #30 TAB 1 Refill Prov:ESTHELA JAMES MD 01/08/25 Ferrous Sulfate (Ferrous Sulfate) 325 Mg Tab, 325 MG PO EOD for 30 Days, MG Prov:ESTHELA JAMES MD 01/08/25 Reported Medications Hydralazine Hcl (Hydralazine Hcl) 10 Mg Tab, 2 PO BID 02/26/25 Nifedipine (Nifedipine Er) 90 Mg Tab, 1 TAB PO DAILY 02/26/25 Insulin Glargine (Basaglar Kwikpen) 100 Unit/Ml Inj, 100 UNIT SC, INJ 01/03/25 Insulin Lispro (Insulin Lispro Kwikpen) 100 Unit/Ml Inj, 100 UNIT SC, INJ 01/03/25 Heparin Sodium (Porcine) (Heparin Sodium Lock Flush) 10 Unt/Ml Ij, 10 UNT IV, INJ 01/03/25 Alendronate Sodium (Alendronate Sodium) 70 Mg Tab, 1 TAB PO QWEEKLY, #4 TAB 3 Refills 01/03/25 Atorvastatin Calcium (ATORVASTATIN CALCIUM) 40 Mg Tab, 1 TAB PO DAILY, #30 TAB 5 Refills 01/03/25 Gabapentin (Gabapentin) 100 Mg Cap, 100 MG PO TID 01/03/25 Aspirin (Aspir-Low) 81 Mg Tab, 81 MG PO DAILY for 30 Days, MG 01/03/25 Cholecalciferol (VITAMIN D3) 2,000 Unit Tab, 2000 UNIT OR DAILY, TAB 01/03/25 Ticagrelor Base (BRILINTA) 90 Mg Tab, 90 MG PO BID, TAB 01/03/25 Information Source: Patient, Spouse Mode of Arrival: Wheelchair Severity: Moderate Timing: Days Duration: Since onset Prehospital treatment: None Location: Foot Mechanism: Preceding Wound Object: None Condition of Object: None Retained Foreign Body: No Wound Type: Unknown Immunization Status of Animal: NA Tetanus: Unknown History of: Diabetes, PVD Past Medical History PAST MEDICAL HISTORY: Anemia, CKF, Dementia, DM, High Lipids, HTN Past Medical History (Other): PVD Surgical History: Appendectomy, BKA Surgical History (Other): Left 2nd toe amputation Family History Family History: Reviewed,noncontributory to illness Social History Smoker: Non-Smoker Alcohol: Denies ETOH Use Drugs: Denies Drug Use Lives In: Home Constitutional: denies: chills, diaphoresis, fatigue, fever, malaise, sweats, weakness, others EENTM: denies: blurred vision, double vision, ear bleeding, ear discharge, ear drainage, ear pain, ear ringing, eye pain, eye redness, hearing loss, mouth pain, mouth swelling, nasal discharge, nose bleeding, nose congestion, nose pain, photophobia, tearing, throat pain, throat swelling, voice changes, others Respiratory: denies: cough, hemoptysis, orthopnea, SOB at rest, shortness of breath, SOB with excertion, stridor, wheezing, others Cardiovascular: denies: chest pain, dizzy spells, diaphoresis, Dyspnea on exertion, edema, irregular heart beat, left arm pain, lightheadedness, palpitations, PND, syncope, others Gastrointestinal: denies: abdomen distended, abdominal pain, blood streaked bowels, constipated, diarrhea, dysphagia, difficulty swallowing, hematemesis, melena, nausea, poor appetite, poor fluid intake, rectal bleeding, rectal pain, vomiting, others Genitourinary: denies: burning, dysuria, flank pain, frequency, hematuria, incontinence, penile discharge, penile sore, pain, testicle pain, testicle swelling, urgency, others Neurological: denies: dizziness, fainting, headache, left sided numbness, left sided weakness, numbness, paresthesia, pre-existing deficit, right sided numbness, right sided weakness, seizure, speech problems, tingling, tremors, weakness, others Musculoskeletal: denies: back pain, gout, joint pain, joint swelling, muscle pain, muscle stiffness, neck pain, others Integumetry: reports: wounds (Left foot); denies: bruises, change in color, change in hair/nails, dryness, laceration, lesions, lumps, rash, others Allergic/Immunocompromised: denies: Difficulty Healing, Frequent Infections, Hives, Itching, others Hematologic/Lymphatic: denies: anemia, blood clots, easy bleeding, easy bruisin g, swollen glands, others Endocrine: denies: excessive hunger, excessive sweating, excessive thirst, excessive urination, flushing, intolerance to cold, intolerance to heat, unexplained weight gain, unexplained weight loss, others Psychiatric: denies: anxiety, bipolar disorder, depression, hopeless, panic disorder, schizophrenia, sleepless, suicidal, others All Other Systems: Reviewed and Negative Physical Exam General Appearance: Moderate Distress HEENT: Normal ENT Inspection, Pharynx Normal, TMs Normal Neck: Full Range of Motion, Non-Tender, Normal, Normal Inspection Respiratory: Chest Non-Tender, Lungs Clear, No Accessory Muscle Use, No Respiratory Distress, Normal Breath Sounds Cardiovascular: No Edema, No JVD, No Murmur, No Gallop, Normal Peripheral Pulses, Regular Rate/Rhythm Breast Exam: Deferred Gastrointestinal: No Organomegaly, Non Tender, No Pulsatile Mass, Normal Bowel Sounds, Soft Genitalia: Deferred Pelvic: Deferred Rectal: Deferred Extremities: No calf tenderness, Normal capillary refill, No pedal edema, Other (Left foot with 2nd and 3rd digits amputated with redness and drainage. 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 Was a procedure done?: No Differential Diagnosis (INTG) Differential Diagnosis: Cellulitis, Other (Osteomyelitis) X-Ray, Labs, Meds, VS Vital Signs Date Time Temp Pulse Resp B/P (MAP) Pulse Ox O2 Delivery O2 Flow Rate FiO2 03/09/25 12:25 98.5 82 20 147/67 (93) 98 98.5 Lab Test 03/09/25 13:02 03/09/25 12:45 Range/Units White Blood Count 6.6 4.4-10.8 10^3/uL Red Blood Count 3.29 L 4.5-5.90 10^6/uL Hemoglobin 8.7 L 13.5-17.5 g/dL Hematocrit 27.0 L 41.0-53.0 % Mean Corpuscular Volume 82.1 80.0-100.0 fL Mean Corpuscular Hemoglobin 26.5 L 28.0-32.0 pg Mean Corpuscular Hemoglobin Concent 32.2 32.0-36.0 g/dL Red Cell Distribution Width 15.9 H 11.8-14.3 % Platelet Count 298 140-450 10^3/uL Mean Platelet Volume 9.2 6.9-10.8 fL Neutrophils (%) (Auto) 69.0 37.0-80.0 % Lymphocytes (%) (Auto) 17.5 10.0-50.0 % Monocytes (%) (Auto) 8.1 0.0-12.0 % Eosinophils (%) (Auto) 4.6 0.0-7.0 % Basophils (%) (Auto) 0.8 0.0-2.0 % Neutrophils # (Auto) 4.6 1.6-8.6 10 ^3/uL Lymphocytes # (Auto) 1.2 0.4-5.4 10 ^3/uL Monocytes # (Auto) 0.5 0-1.3 10 ^3/uL Eosinophils # (Auto) 0.3 0-0.8 10 ^3/uL Basophils # (Auto) 0.1 0-0.2 10 ^3/uL Nucleated Red Blood Cells 0.0 % Erythrocyte Sedimentation Rate 91 H 0-20 mm/hr Sodium Level 143 136-145 mmol/L Potassium Level 3.9 3.5-5.1 mmol/L Chloride Level 112 H 98-107 mmol/L Carbon Dioxide Level 22 20-31 mmol/L Anion Gap 9 5-15 Blood Urea Nitrogen 15 9-23 mg/dL Creatinine 1.19 0.700-1.30 mg/dL Glomerular Filtration Rate Calc 60 >90 mL/min BUN/Creatinine Ratio 12.6 10.0-20.0 Serum Glucose 144 H 74-106 mg/dL Lactic Acid Level 1.0 0.4-2.0 mmol/L Calcium Level 9.4 8.7-10.4 mg/dL POC Glucose 143 H 70-106 mg/dl CT Lt Foot indicates: Diffuse cellulitis. Phlegmonous type change and edema at the distal foot centered around the distal 2nd, 3rd and 4th metatarsals. Probable bony erosive/ destructive changes suspicious for osteomyelitis involving the distal 2nd, 3rd and 4th metatarsals. The CBC is within normal limits except for anemia with a hemoglobin of 8.7 and hematocrit of 27 The chemistry panel is within normal limits. The patient's glucose is 143 At this time, the patient is being admitted to the hospitalist The patient's diagnosis is osteomyelitis The patient was started on vancomycin IV piggyback Images Reviewed?: Images reviewed and evaluated by me Time of 1ST Reevaluation: 14:57 Reevaluation 1ST: Unchanged Patient Education/Counseling: Diagnosis, Treatment, Prognosis Family Education/Counseling: No Family Present Additional Information Reviewed patient's previous visit(s): 02/26/25 for generalized weakness The following tests were ordered, and results were reviewed by me: CBC, BMP, ESR, Blood Culture, Lactic, CT Lt Foot Additional information was gathered from interviewing the following independent historian: I reviewed and agreed with the following test results read by other provider: CT Lt Foot I discussed treatments and results with medical personnel and: Patient and Comprehensive systems review obtained and negative except for what is stated in the HPI. SEPSIS Sepsis Screen Physician Orders Heplock Iv (03/09/25 12:48) Currency Examiner (03/09/25 12:48) Blood Pressure (03/09/25 12:48) Pulse Oximetry (03/09/25 12:48) Ct L Foot Wo Contrast (03/09/25 12:48) Blood Culture (03/09/25 12:48) Vital Signs Date Time Temp Pulse Resp B/P (MAP) Pulse Ox O2 Delivery O2 Flow Rate FiO2 03/09/25 12:25 98.5 82 20 147/67 (93) 98 98.5 Laboratory Tests Test 03/09/25 13:02 Lactic Acid Level 1.0 mmol/L (0.4-2.0) White Blood Count 6.6 10^3/uL (4.4-10.8) Departure 1 Departure Time of Disposition: 14:57 Impression: Primary Impression: Generalized weakness Additional Impression: Foot osteomyelitis, left Qualified Codes: M86.9 - Osteomyelitis, unspecified Disposition: ADMITTED INPATIENT Admit to: Med Surg Condition: Fair Critical Care Note Critical Care Time?: No Stability Stability form required: Yes Unstable for transfer: ED Physician Assesment (Clinical assesment) Heart Score Heart Score: Heart Score Response (Comments) Value History N/A 0 EKG N/A 0 Age N/A 0 Risk Factors N/A 0 Troponin N/A 0 Total 0 I personally scribed for GIORGIO RUBIO MD ([email or web address]) on 03/09/25 at 12:55. Electronically submitted by Silverio Hanley ([email or web address]). I personally scribed for GIORGIO RUBIO MD ([email or web address]) on 03/09/25 at 12:55. Electronically submitted by Silverio Hanley ([email or web address]). I personally scribed for GIORGIO RUBIO MD ([email or web address]) on 03/09/25 at 14:34. Electronically submitted by Silverio Hanley ([email or web address]). GIORGIO RUBIO MD Mar 09, 2025 12:55
[2025-03-09 13:28] LABS: Hematocrit 27.0 % (41.0-53.0); Hemoglobin 8.7 g/dL (13.5-17.5); Mean Corpuscular Hemoglobin 26.5 pg (28.0-32.0); Mean Corpuscular Volume 82.1 fL (80.0-100.0); Nucleated Red Blood Cells % 0.0 %
[2025-03-09 13:32] LABS: Potassium 3.9 mmol/L (3.5-5.1); Sodium 143 mmol/L (136-145)
[2025-03-09 13:33] LABS: Anion Gap 9 (5-15); Calcium 9.4 mg/dL (8.7-10.4); Carbon Dioxide 22 mmol/L (20-31); Chloride 112 mmol/L (98-107)
[2025-03-09 13:38] LABS: BUN/Creatinine Ratio 12.6 (10.0-20.0); Blood Urea Nitrogen 15 mg/dL (9-23)
[2025-03-09 13:43] LABS: Glucose 144 mg/dL (74-106)
--- NOTE | 2025-03-09 13:50 | DVH ---
EXAMINATION: CT CT L FOOT WO CONTRAST INDICATION: pain COMPARISON: MRI MRI L FOOT WO CONTRAST on DOS: 02/04/25, CT CT L FOOT WO CONTRAST on DOS: 02/03/25, CT CT L FOOT WO CONTRAST on DOS: 01/03/25 TECHNIQUE: CT of the left foot was performed without contrast. Volume transverse images were obtained reconstructed in multiple planes using bone and soft tissue algorithms. Radiation Dose Information: CT Dose: CTDI volume is 7.75 mGy. Dose-length product is 211.91 mGy*cm FINDINGS: The alignment is normal. The joint spaces are normal. No acute fracture. Bony erosive / destructive change is present at the distal 2nd, 3rd and 4th metat arsals. There are no joint effusions. Severe diffuse subcutaneous soft-tissue edema and swelling. Phlegmonous type changes present in the d istal foot centered at the distal 2nd and 3rd and 4th distal metatarsals. Post amputation of the distal 2nd and 3rd digits. IMPRESSION: Diffuse cellulitis. Phlegmonous type change and edema at the distal foot centered around the distal 2nd, 3rd and 4th meta tarsals. Probable bony erosive/ destructive changes suspicious for osteomyelitis involving the distal 2nd, 3rd and 4th metatarsals.
[2025-03-09] MEDS: VANCOMYCIN 1GM/200ML PM 200 ML IV ONE (17:43)
[2025-03-09 19:30] VITALS: PULSE 84; RESP 14; O2SAT 99
[2025-03-09] MEDS ORDERED: ONDANSETRON HCL 4 MG/2 ML VIAL IV PRN (20:15)
[2025-03-09] MEDS ORDERED: DEXTROSE (50%) 50ML SYRG IV PRN (20:15)
[2025-03-09] MEDS ORDERED: VANCOMYCIN PER PHARMACY 0 MG IV SCH (20:15)
[2025-03-09] MEDS ORDERED: ACETAMINOPHEN 325 MG TAB PO PRN (20:15)
[2025-03-09 21:37] VITALS: PULSE 90; RESP 17; O2SAT 96
[2025-03-09] MEDS: ACCU-CHEK COMFORT CURVE STRIP VI SCH (22:00)
[2025-03-09] MEDS: InsuLIN REG 1unit/0.01ml Soln (100units/ml) SC SCH (22:00)
[2025-03-09] MEDS ORDERED: ATORVASTATIN 20 MG TAB PO SCH (22:00)
[2025-03-09] MEDS: ATORVASTATIN 20 MG TAB PO SCH (22:29)
[2025-03-09] MEDS: cefTRIAXone 1GM/50ML D5W 50 ML IV ONE (22:31)
--- NOTE | 2025-03-09 23:16 | DVHHP2 ---
History of Present Illness Reason for Visit: Left foot wound History of Present Illness 85-year-old male presents for evaluation of left foot wound. 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 Patient was recently seen by his primary care provider who advised him to present for further evaluation due to possible infected left foot. Patient reports mild tenderness to the site. Past Medical History Diabetes mellitus, dyslipidemia, hypertension, dementia, chronic kidney disease, peripheral vascular disease Past Surgical History Appendectomy, right BKA, left 2nd toe amputation Family History Noncontributory Smoke: No ALCOHOL: none Drugs: None Lives: with Family Review of Systems Review of Systems Review of systems are currently negative otherwise addressed in HPI. Allergies: Coded Allergies: NO KNOWN ALLERGIES (Unverified , 01/03/25) Medications Current Medications Medications Dose Ordered Sig/Valeriy Route Start Time Stop Time Status Last Admin Dose Admin Ceftriaxone Sodium 50 ml @ 100 mls/hr DAILY@09 IV 03/10/25 09:00 Vancomycin HCl 0 ml @ 0 mls/hr UD IV 03/09/25 20:15 UNV Amlodipine Besylate 10 mg DAILY PO 03/10/25 10:00 Levothyroxine Sodium 25 mcg QAM@0600 PO 03/10/25 06:00 Tamsulosin HCl 0.4 mg QPM PO 03/10/25 18:00 Atorvastatin Calcium 40 mg HS PO 03/09/25 22:00 03/09/25 22:29 40 MG Amlodipine Besylate 10 mg DAILY PO 03/10/25 10:00 UNV Levothyroxine Sodium 25 mcg QAM@0600 PO 03/10/25 06:00 UNV Tamsulosin HCl 0.4 mg QPM PO 03/10/25 18:00 UNV Atorvastatin Calcium 40 mg HS PO 03/09/25 22:00 UNV Diagnostic Test (Pha) 1 strip ACHS 03/09/25 22:00 03/09/25 22:00 1 STRIP Insulin Human Regular ACHS SC 03/09/25 22:00 Dextrose 50 ml UD PRN IV 03/09/25 20:15 Acetaminophen/ Hydrocodone Bitart 1 tab Q4HP PRN PO 03/09/25 20:15 Ondansetron HCl 4 mg Q4HP PRN IV 03/09/25 20:15 Acetaminophen 650 mg Q6HP PRN PO 03/09/25 20:15 Exam Vital Signs Vital Signs Date Time Temp Pulse Resp B/P (MAP) Pulse Ox O2 Delivery O2 Flow Rate FiO2 03/09/25 20:00 87 03/09/25 19:30 98.3 14 155/74 (101) 99 98.3 03/09/25 19:30 Room Air* 0 21 Exam Gen: 85-year-old male in mild distress Skin: Warm, dry, normal color and texture, no rash. HEENT: Normocephalic atraumatic, mucous membranes moist and pink. Neck: Cervical and supraclavicular nodes normal without enlargement, trachea is midline, thyroid gland is normal without masses. Pulmonary: Clear to auscultation and percussion bilaterally. Cardiac: Regular rate and rhythm. No murmur Abdomen: Soft, nontender, nondistended, bowel sounds present all 4 quadrants, no guarding, no rigidity, no organomegaly. Extremities: No cyanosis, clubbing, left foot with open wound Neuro: Cranial nerves II through XII grossly intact, normal affect and speech, no focal motor deficits. Labs/Xrays ORDERING PHYSICIAN: GIORGIO RUBIO MD PROCEDURE(s): LFTCT - CT L FOOT WO CONTRAST REASON: pain ORDER NUMBER(s): [id number], ACCESSION NUMBER(s): [id number] EXAMINATION: CT CT L FOOT WO CONTRAST INDICATION: pain COMPARISON: MRI MRI L FOOT WO CONTRAST on DOS: 02/04/25, CT CT L FOOT WO CONTRAST on DOS: 02/03/25, CT CT L FOOT WO CONTRAST on DOS: 01/03/25 TECHNIQUE: CT of the left foot was performed without contrast. Volume transverse images were obtained reconstructed in multiple planes using bone and soft tissue algorithms. Radiation Dose Information: CT Dose: CTDI volume is 7.75 mGy. Dose-length product is 211.91 mGy*cm FINDINGS: The alignment is normal. The joint spaces are normal. No acute fracture. Bony erosive / destructive change is present at the distal 2nd, 3rd and 4th metatarsals. There are no joint effusions. Severe diffuse subcutaneous soft-tissue edema and swelling. Phlegmonous type changes present in the distal foot centered at the distal 2nd and 3rd and 4th distal metatarsals. Post amputation of the distal 2nd and 3rd digits. IMPRESSION: Diffuse cellulitis. Phlegmonous type change and edema at the distal foot centered around the distal 2nd, 3rd and 4th metatarsals. Probable bony erosive/ destructive changes suspicious for osteomyelitis involving the distal 2nd, 3rd and 4th metatarsals. Labs Test 03/09/25 21:55 03/09/25 13:02 Range/Units POC Glucose 64 L 70-106 mg/dl White Blood Count 6.6 4.4-10.8 10^3/uL Red Blood Count 3.29 L 4.5-5.90 10^6/uL Hemoglobin 8.7 L 13.5-17.5 g/dL Hematocrit 27.0 L 41.0-53.0 % Mean Corpuscular Volume 82.1 80.0-100.0 fL Mean Corpuscular Hemoglobin 26.5 L 28.0-32.0 pg Mean Corpuscular Hemoglobin Concent 32.2 32.0-36.0 g/dL Red Cell Distribution Width 15.9 H 11.8-14.3 % Platelet Count 298 140-450 10^3/uL Mean Platelet Volume 9.2 6.9-10.8 fL Neutrophils (%) (Auto) 69.0 37.0-80.0 % Lymphocytes (%) (Auto) 17.5 10.0-50.0 % Monocytes (%) (Auto) 8.1 0.0-12.0 % Eosinophils (%) (Auto) 4.6 0.0-7.0 % Basophils (%) (Auto) 0.8 0.0-2.0 % Neutrophils # (Auto) 4.6 1.6-8.6 10 ^3/uL Lymphocytes # (Auto) 1.2 0.4-5.4 10 ^3/uL Monocytes # (Auto) 0.5 0-1.3 10 ^3/uL Eosinophils # (Auto) 0.3 0-0.8 10 ^3/uL Basophils # (Auto) 0.1 0-0.2 10 ^3/uL Nucleated Red Blood Cells 0.0 % Erythrocyte Sedimentation Rate 91 H 0-20 mm/hr Sodium Level 143 136-145 mmol/L Potassium Level 3.9 3.5-5.1 mmol/L Chloride Level 112 H 98-107 mmol/L Carbon Dioxide Level 22 20-31 mmol/L Anion Gap 9 5-15 Blood Urea Nitrogen 15 9-23 mg/dL Creatinine 1.19 0.700-1.30 mg/dL Glomerular Filtration Rate Calc 60 >90 mL/min BUN/Creatinine Ratio 12.6 10.0-20.0 Serum Glucose 144 H 74-106 mg/dL Lactic Acid Level 1.0 0.4-2.0 mmol/L Calcium Level 9.4 8.7-10.4 mg/dL Assessment/Plan Assessment/Plan Assessment Left foot osteomyelitis Diabetes mellitus Hypertension Dementia Plan Admit the patient to [facility] to the hospitalist Podiatry consult Zosyn/vancomycin Wound culture pending Continue treatment per orders Plan discussed with: Patient My Orders Orders - HERMAN CHIN Procedure Category Date Status Time Admit ADMIT 03/09/25 Transmitted 19:03 Ceftriaxone 1gm/50ml PHA 03/10/25 In Process D5w (Rocephin) 09:00 Vancomycin Per PHA 03/09/25 Pending Pharmacy 20:15 Amlodipine Tablet PHA 03/10/25 In Process (Norvasc Tablet) 10:00 Levothyroxine Tablet PHA 03/10/25 In Process (Synthroid Tablet) 06:00 Tamsulosin PHA 03/10/25 In Process Hydrochloride (Flomax) 18:00 Atorvastatin (Lipitor) PHA 03/09/25 In Process 22:00 Consistent DIET 03/10/25 Transmitted Carb(Ccho)Diabetes Breakfast Basic Metabolic Panel LAB 03/10/25 Verified 04:00 Glucose Blood PHA 03/09/25 In Process (Accu-Chek Comfort 22:00 Insulin R (Human) PHA 03/09/25 In Process (Insulin R) 22:00 Dextrose 50% Syringe PHA 03/09/25 In Process 20:15 Hydrocodone-Acet PHA 03/09/25 In Process 5/325mg Tab ([place] 20:15 Ondansetron Hcl PHA 03/09/25 In Process (Zofran) 20:15 Complete Blood Count LAB 03/10/25 Verified 04:00 Condition: Stable ALEXI 03/09/25 In Process 20:13 Acetaminophen Tablet PHA 03/09/25 In Process (Tylenol Tablet) 20:15 Bedrest With Bathroom ALEXI 03/09/25 In Process Privileg 20:13 Wound Culture W/ Gs MARCY 03/09/25 In Process 21:34 *Podiatry Consult CONS 03/09/25 Transmitted Charline(Dv) 23:02 Date of Service: Mar 09, 2025 Billing Provider: HERMAN CHIN Common Visit Codes: [id number] INP/OBS CARE (HIGH) HERMAN CHIN Mar 09, 2025 23:16
[2025-03-10] VITALS (8 sets, daily range): BP systolic 141–159; BP diastolic 70–91; PULSE 65–92; RESP 16–20; TEMP 97.4–98.4; O2SAT 94–100
[2025-03-10] MEDS ORDERED: LEVOTHYROXINE SODIUM 25 MCG TAB PO SCH (06:00)
[2025-03-10] MEDS: LEVOTHYROXINE SODIUM 25 MCG TAB PO SCH (06:24)
[2025-03-10 06:59] LABS: Hemoglobin 9.1 g/dL (13.5-17.5); Sodium 143 mmol/L (136-145)
[2025-03-10 07:00] LABS: Anion Gap 11 (5-15); Calcium 9.0 mg/dL (8.7-10.4); Carbon Dioxide 23 mmol/L (20-31)
[2025-03-10 07:02] LABS: Hematocrit 28.0 % (41.0-53.0); Mean Corpuscular Hemoglobin 26.4 pg (28.0-32.0); Mean Corpuscular Volume 81.0 fL (80.0-100.0); Nucleated Red Blood Cells % 0.0 %
[2025-03-10 07:05] LABS: BUN/Creatinine Ratio 9.9 (10.0-20.0); Blood Urea Nitrogen 10 mg/dL (9-23); Glucose 79 mg/dL (74-106)
[2025-03-10 07:07] LABS: Chloride 109 mmol/L (98-107); Potassium 3.5 mmol/L (3.5-5.1)
[2025-03-10] MEDS: cefTRIAXone 1GM/50ML D5W 50 ML IV SCH (09:20)
--- NOTE | 2025-03-10 13:21 | DVH ---
CLINICAL HISTORY: Rule out osteomyelitis. TECHNIQUE: Multi sequence multi planar MRI images of the left foot were obtained without IV contrast . COMPARISON: CT CT L FOOT WO CONTRAST on DOS: 03/09/25, MRI MRI L FOOT WO CONTRAST on DOS: 02/04/25, CT CT L FOOT WO CONTRAST on DOS: 02/03/25 FINDINGS: Motion artifact limits evaluation. There are postsurgical changes from prior amputation at the level of the distal 2nd and 3rd metatarsals. There is soft tissue edema and swelling adjacent to the amputation stump and involving the adjacent 4th and 5th digits no organized fluid collection michael ntified on noncontrast enhanced MRI to suggest abscess. There is marrow edema involving the distal as pect of the 4th metatarsal and base of the proximal phalanx of the 4th digit with associated cortical deformities, suspicious for Osteomyelitis in the setting of overlying soft tissue infection. Very mi ld stir hyperintense signal in the 5th metatarsal head without definite marrow replacement to suggest osteomyelitis, likely reactive marrow changes. No definite evidence of osteomyelitis identified of t he 2nd or 3rd metatarsal amputation stumps. Moderate arthritic changes are seen at the 1st MTP joint. Mild marrow edema of the posterior superior aspect of the calcaneus, likely reactive to adjacent sof t tissue inflammation and/or Achilles tendinopathy. 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 There is moderate to marked fatty atrophy of the intrinsic musculature of th e hindfoot. There are also areas of mild STIR hyperintense signal in the intrinsic musculature of the hindfoot and midfoot, which may be due to an acute or subacute component of denervation. IMPRESSION: 1. Soft tissue edema adjacent to the amputation stump involving the distal 2nd and 3rd metatarsals an d extending along the 4th and 5th digits. Likely cellulitis and/or phlegmon in the appropriate clinic al setting. Limited evaluation for abscess on noncontrast enhanced exam. No organized fluid collectio n identified to suggest abscess. 2. Suspected osteomyelitis involving the distal aspect of the 4th metatarsal and base of the proximal phalanx of the 4th digit. 3. Likely mild reactive marrow signal changes in the 5th metatarsal head without definite osteomyelit is. 4. Additional findings as detailed above.
--- NOTE | 2025-03-10 13:41 | DVHPN2 ---
Reviewed: Care Plan, H&P, Labs, Medications, Previous Orders, Radiology Changes from previous H/P or p: No Changes Objective Vitals Vital Signs Date Time Temp Pulse Resp B/P (MAP) Pulse Ox O2 Delivery O2 Flow Rate FiO2 03/10/25 13:30 97.5 79 19 148/78 (101) 98 97.5 03/10/25 08:00 Room Air* 0 21 Intake/Output Intake and Output 03/10/25 07:00 Intake Total 350 ml Output Total 200 ml Balance 150 ml Intake Oral 100 ml IV Total 250 ml Output Urine Total 200 ml # Voids 3 Medications Current Medications Medications Dose Ordered Sig/Valeriy Route Start Time Stop Time Status Last Admin Dose Admin Ceftriaxone Sodium 50 ml @ 100 mls/hr DAILY@09 IV 03/10/25 09:00 03/10/25 09:20 100 MLS/HR Vancomycin HCl 0 ml @ 0 mls/hr UD IV 03/09/25 20:15 Amlodipine Besylate 10 mg DAILY PO 03/10/25 10:00 03/10/25 09:20 10 MG Levothyroxine Sodium 25 mcg QAM@0600 PO 03/10/25 06:00 03/10/25 06:24 25 MCG Tamsulosin HCl 0.4 mg QPM PO 03/10/25 18:00 Atorvastatin Calcium 40 mg HS PO 03/09/25 22:00 03/09/25 22:29 40 MG Amlodipine Besylate 10 mg DAILY PO 03/10/25 10:00 UNV Levothyroxine Sodium 25 mcg QAM@0600 PO 03/10/25 06:00 UNV Tamsulosin HCl 0.4 mg QPM PO 03/10/25 18:00 UNV Atorvastatin Calcium 40 mg HS PO 03/09/25 22:00 UNV Diagnostic Test (Pha) 1 strip ACHS 03/09/25 22:00 03/10/25 11:48 1 STRIP Insulin Human Regular ACHS SC 03/09/25 22:00 03/10/25 11:49 4 UNITS Dextrose 50 ml UD PRN IV 03/09/25 20:15 Acetaminophen/ Hydrocodone Bitart 1 tab Q4HP PRN PO 03/09/25 20:15 Ondansetron HCl 4 mg Q4HP PRN IV 03/09/25 20:15 Acetaminophen 650 mg Q6HP PRN PO 03/09/25 20:15 Vancomycin HCl 100 ml @ 200 mls/hr Q12H IV 03/10/25 16:00 Laboratory Results Laboratory Tests 03/10/25 06:19 Chemistry Test 03/10/25 06:19 Calcium Level 9.0 mg/dL (8.7-10.4) Microbiology Microbiology Date/Time Source Procedure Growth Status 03/09/25 13:02 Blood Blood Culture - Preliminary NO GROWTH AFTER 24 HOURS OF INCUBATION. Resulted Labs and/or images reviewed: Labs reviewed by me Assessment/Plan Assessment/Plan Acute osteomyelitis left 5th metatarsal: Vancomycin and Rocephin, consult for apparel sales associate Dr. Olivier Diabetes type 2: Insulin sliding scale Hypertension Hypercholesterolemia Dementia History of peripheral vascular disease History of right BKA BPH : Flomax Hypothyroidism: Synthroid CKD Time spent 70 minutes Advanced care planning time 20 minutes Patient is full code Plan discussed with: Patient Date of Service: Mar 10, 2025 Billing Provider: MELODY GONZALEZ MD Common Visit Codes: [id number] CARE 30-74 MIN MELODY GONZALEZ MD Mar 10, 2025 13:41
[2025-03-10] MEDS: VANCOMYCIN 500mg/100mL 100 ML IV SCH (17:17)
[2025-03-10] MEDS: TAMSULOSIN HYDROCHLORIDE 0.4 MG CAP PO SCH (17:42)
[2025-03-10] MEDS ORDERED: TAMSULOSIN HYDROCHLORIDE 0.4 MG CAP PO SCH (18:00)
[2025-03-10] MEDS: HYDROcodone-ACET 5/325MG TAB PO PRN (21:34)
[2025-03-11] VITALS (7 sets, daily range): BP systolic 124–149; BP diastolic 68–72; PULSE 70–89; RESP 16–18; TEMP 96.7–98.4; O2SAT 95–98
--- NOTE | 2025-03-11 09:18 | DVHPN2 ---
Reviewed: Care Plan, H&P, Labs, Medications, Previous Orders, Radiology Changes from previous H/P or p: No Changes Objective Vitals Vital Signs Date Time Temp Pulse Resp B/P (MAP) Pulse Ox O2 Delivery O2 Flow Rate FiO2 03/11/25 08:00 70 17 95 Room Air* 0 21 03/11/25 05:00 97.7 147/68 (94) 97.7 Intake/Output Intake and Output 03/11/25 07:00 Intake Total 500 ml Balance 500 ml Intake Oral 400 ml IV Total 100 ml # Voids 5 Medications Current Medications Medications Dose Ordered Sig/Valeriy Route Start Time Stop Time Status Last Admin Dose Admin Ceftriaxone Sodium 50 ml @ 100 mls/hr DAILY@09 IV 03/10/25 09:00 03/10/25 09:20 100 MLS/HR Vancomycin HCl 0 ml @ 0 mls/hr UD IV 03/09/25 20:15 Amlodipine Besylate 10 mg DAILY PO 03/10/25 10:00 03/10/25 09:20 10 MG Levothyroxine Sodium 25 mcg QAM@0600 PO 03/10/25 06:00 03/11/25 05:52 25 MCG Tamsulosin HCl 0.4 mg QPM PO 03/10/25 18:00 03/10/25 17:42 0.4 MG Atorvastatin Calcium 40 mg HS PO 03/09/25 22:00 03/10/25 21:30 40 MG Amlodipine Besylate 10 mg DAILY PO 03/10/25 10:00 UNV Levothyroxine Sodium 25 mcg QAM@0600 PO 03/10/25 06:00 UNV Tamsulosin HCl 0.4 mg QPM PO 03/10/25 18:00 UNV Atorvastatin Calcium 40 mg HS PO 03/09/25 22:00 UNV Diagnostic Test (Pha) 1 strip ACHS 03/09/25 22:00 03/11/25 06:12 1 STRIP Insulin Human Regular ACHS SC 03/09/25 22:00 03/10/25 22:05 2 UNITS Dextrose 50 ml UD PRN IV 03/09/25 20:15 Acetaminophen/ Hydrocodone Bitart 1 tab Q4HP PRN PO 03/09/25 20:15 03/10/25 21:34 1 TAB Ondansetron HCl 4 mg Q4HP PRN IV 03/09/25 20:15 Acetaminophen 650 mg Q6HP PRN PO 03/09/25 20:15 Vancomycin HCl 100 ml @ 200 mls/hr Q12H IV 03/10/25 16:00 03/11/25 03:46 200 MLS/HR Laboratory Results Laboratory Tests 03/10/25 06:19 Microbiology Microbiology Date/Time Source Procedure Growth Status 03/10/25 07:00 Nose MRSA Screen - Final Complete 03/09/25 13:02 Blood Blood Culture - Preliminary NO GROWTH AFTER 24 HOURS OF INCUBATION. Resulted Labs and/or images reviewed: Labs reviewed by me, Image(s) reviewed by me Assessment/Plan Assessment/Plan Acute osteomyelitis left 5th metatarsal: Vancomycin and Rocephin, consult for advertising rep Dr. Olivier Diabetes type 2: Insulin sliding scale Hypertension Hypercholesterolemia Dementia History of peripheral vascular disease History of right BKA BPH : Flomax Hypothyroidism: Synthroid CKD Time spent 55 minutes Advanced care planning time 20 minutes Patient is full code Daughter Sorencia [phone] at bedside Plan discussed with: Patient My Orders Orders - MELODY GONZALEZ MD Procedure Category Date Status Time Communication Order ORDERS 03/10/25 Transmitted 13:51 * Dietary Consult CONS 03/10/25 Transmitted 15:54 Apply Barrier Cream ALEXI 03/10/25 In Process 14:03 Apply: ALEXI 03/10/25 In Process 15:54 * Picc Line Consult CONS 03/11/25 Transmitted 09:09 Date of Service: Mar 11, 2025 Billing Provider: MELODY GONZALEZ MD Common Visit Codes: [id number] INP/OBS CARE(HIGH) MELODY GONZALEZ MD Mar 11, 2025 09:18
[2025-03-11 09:58] LABS: Hematocrit 26.8 % (41.0-53.0); Hemoglobin 8.8 g/dL (13.5-17.5); Mean Corpuscular Hemoglobin 26.5 pg (28.0-32.0); Mean Corpuscular Volume 81.1 fL (80.0-100.0); Nucleated Red Blood Cells % 0.0 %
--- NOTE | 2025-03-11 12:53 | DVHINCON2 ---
Date Seen: Mar 11, 2025 Reason for Consultation Left foot wound History of Present Illness 85-year-old male presents for evaluation of left foot wound. 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 Patient was recently seen by his primary care provider who advised him to present for further evaluation due to possible infected left foot. Patient reports mild tenderness to the site. Past Medical History See H&P Past Surgical History See H&P Family History: Patient reports no known family medical history. Allergies: Coded Allergies: NO KNOWN ALLERGIES (Unverified , 01/03/25) Home Meds Active Scripts Fluconazole (Fluconazole) 200 Mg Tab, 200 MG PO DAILY for 14 Days, #14 TAB Prov:ARIN PARIS RESIDENT 02/07/25 Amlodipine Besylate (Amlodipine Besylate) 10 Mg Tab, 1 TAB PO DAILY for 30 Days, #30 TAB 5 Refills Prov:ARIN PARIS RESIDENT 02/07/25 Thiamine Hcl (VITAMIN B-1) 100 Mg Tb, 100 MG PO DAILY for 30 Days, #30 TAB 1 Refill Prov:ESTHELA JAMES MD 01/08/25 Finasteride (Finasteride) 5 Mg Tab, 1 TAB PO DAILY, #30 TAB 1 Refill Prov:ESTHELA JAMES MD 01/08/25 Tamsulosin Hcl (Flomax) 0.4 Mg Cap, 1 CAP PO DAILY, #30 CAP 1 Refill Prov:ESTHELA JAMES MD 01/08/25 Olanzapine (OLANZAPINE) 10 Mg Tab, 1 TAB PO HS, #30 TAB 1 Refill Prov:ESTHELA JAMES MD 01/08/25 Ferrous Sulfate (Ferrous Sulfate) 325 Mg Tab, 325 MG PO EOD for 30 Days, MG Prov:ESTHELA JAMES MD 01/08/25 Reported Medications Hydralazine Hcl (Hydralazine Hcl) 10 Mg Tab, 2 PO BID 02/26/25 Nifedipine (Nifedipine Er) 90 Mg Tab, 1 TAB PO DAILY 02/26/25 Insulin Glargine (Basaglar Kwikpen) 100 Unit/Ml Inj, 100 UNIT SC, INJ 01/03/25 Insulin Lispro (Insulin Lispro Kwikpen) 100 Unit/Ml Inj, 100 UNIT SC, INJ 01/03/25 Heparin Sodium (Porcine) (Heparin Sodium Lock Flush) 10 Unt/Ml Ij, 10 UNT IV, INJ 01/03/25 Alendronate Sodium (Alendronate Sodium) 70 Mg Tab, 1 TAB PO QWEEKLY, #4 TAB 3 Refills 01/03/25 Atorvastatin Calcium (ATORVASTATIN CALCIUM) 40 Mg Tab, 1 TAB PO DAILY, #30 TAB 5 Refills 01/03/25 Gabapentin (Gabapentin) 100 Mg Cap, 100 MG PO TID 01/03/25 Aspirin (Aspir-Low) 81 Mg Tab, 81 MG PO DAILY for 30 Days, MG 01/03/25 Cholecalciferol (VITAMIN D3) 2,000 Unit Tab, 2000 UNIT OR DAILY, TAB 01/03/25 Ticagrelor Base (BRILINTA) 90 Mg Tab, 90 MG PO BID, TAB 01/03/25 Current Medications Current Medications Medications (Trade) Dose Ordered Sig/Valeriy Route PRN Reason Start Time Stop Time Status Last Admin Tamsulosin HCl (Flomax) 0.4 mg QPM PO 03/10/25 18:00 03/10/25 17:42 Tamsulosin HCl (Flomax) 0.4 mg QPM PO 03/10/25 18:00 UNV Vancomycin HCl 100 ml @ 200 mls/hr Q12H IV 03/10/25 16:00 03/11/25 03:46 Vital Signs Vital Signs Date Time Temp Pulse Resp B/P (MAP) Pulse Ox O2 Delivery O2 Flow Rate FiO2 03/11/25 09:53 132/68 03/11/25 09:00 96.7 82 17 98 96.7 03/11/25 08:00 Room Air* 0 21 Physical Exam Dermatological: Skin is dry with mild erythema and some maceration around the wound site No gross deformities noted Mild non-pitting edema present bilaterally Wound: Location: Left dorsal foot Measures: 1 cm in length, 1 cm in width, and 1 cm in depth. Depth: Full thickness Base: Mix of granulation/slough Drainage: None Odor: None Periwound: Intact Vascular: Dorsalis pedis and posterior tibial pulses are 1+ bilaterally Capillary refill is under 2 seconds Skin temperature is warm bilaterally Neurologic: Protective sensation is absent on the plantar forefoot bilaterally Monofilament testing reveals decreased sensation in multiple plantar sites Musculoskeletal: Range of motion at the ankle and MTP joints is within normal limits. Strength is 5/5 in all tested muscle groups. Gait is antalgic due to offloading of the affected limb. Labs/Diagnostic Data Labs Test 03/11/25 11:53 03/11/25 09:34 03/10/25 06:19 03/09/25 13:02 Range/Units POC Glucose 251 H 70-106 mg/dl White Blood Count 4.8 4.4-10.8 10^3/uL Red Blood Count 3.31 L 4.5-5.90 10^6/uL Hemoglobin 8.8 L 13.5-17.5 g/dL Hematocrit 26.8 L 41.0-53.0 % Mean Corpuscular Volume 81.1 80.0-100.0 fL Mean Corpuscular Hemoglobin 26.5 L 28.0-32.0 pg Mean Corpuscular Hemoglobin Concent 32.7 32.0-36.0 g/dL Red Cell Distribution Width 15.6 H 11.8-14.3 % Platelet Count 308 140-450 10^3/uL Mean Platelet Volume 9.2 6.9-10.8 fL Neutrophils (%) (Auto) 52.1 37.0-80.0 % Lymphocytes (%) (Auto) 27.3 10.0-50.0 % Monocytes (%) (Auto) 8.7 0.0-12.0 % Eosinophils (%) (Auto) 10.8 H 0.0-7.0 % Basophils (%) (Auto) 1.1 0.0-2.0 % Neutrophils # (Auto) 2.5 1.6-8.6 10 ^3/uL Lymphocytes # (Auto) 1.3 0.4-5.4 10 ^3/uL Monocytes # (Auto) 0.4 0-1.3 10 ^3/uL Eosinophils # (Auto) 0.5 0-0.8 10 ^3/uL Basophils # (Auto) 0.1 0-0.2 10 ^3/uL Nucleated Red Blood Cells 0.0 % Creatinine 1.14 0.700-1.30 mg/dL Glomerular Filtration Rate Calc 63 >90 mL/min Sodium Level 143 136-145 mmol/L Potassium Level 3.5 3.5-5.1 mmol/L Chloride Level 109 H 98-107 mmol/L Carbon Dioxide Level 23 20-31 mmol/L Anion Gap 11 5-15 Blood Urea Nitrogen 10 9-23 mg/dL BUN/Creatinine Ratio 9.9 L 10.0-20.0 Serum Glucose 79 74-106 mg/dL Calcium Level 9.0 8.7-10.4 mg/dL Random Vancomycin Level 11.8 H 5-10 ug/mL Erythrocyte Sedimentation Rate 91 H 0-20 mm/hr Lactic Acid Level 1.0 0.4-2.0 mmol/L Microbiology Date/Time Source Procedure Growth Status 03/10/25 07:00 Nose MRSA Screen - Final Complete 03/09/25 13:02 Blood Blood Culture - Preliminary NO GROWTH AFTER 24 HOURS OF INCUBATION. Resulted Problems(with codes): (1) Shortness of breath (2) Symptomatic anemia (3) Sepsis due to urinary tract infection (4) Hypoglycemic reaction (5) Metabolic encephalopathy (6) Foot osteomyelitis, left (7) Generalized weakness Plan/Recommendation ASSESSMENT: Patient is a 85 year old seen on the floor for a worsening ulcer PLAN: - The patients chart was reviewed, clinical findings were discussed with the patient, the etiologies of the conditions were discussed in detail, and a treatment plan was agreed to at this time, with both oral and written instructions provided. - reviewed advanced imaging - would not recommend surgical procedure at this point - can treat with 6 weeks IV antibiotics and wound care - discharged home on the 6 weeks IV - follow up with me next week - Betadine-soaked gauze on the wound All questions were answered and concerns addressed to the patient's satisfaction. The patient was given the phone number to the clinic and was told how to make contact with the clinic should any concerns or questions arise. Patient understands that if any questions or concerns arise prior to the next appointment, we should be contacted immediately. FOLLOW-UP: Continue to follow while inpatient Plan discussed with: Patient Date of Service: Mar 11, 2025 Billing Provider: LAISHA WINSTON DPM Common Visit Codes: CONSULT ONLY Consultation Codes: [id number] CONSULT <80MIN LAISHA WINSTON DPM Mar 11, 2025 12:53
[2025-03-11 15:45] LABS: INR 1.08 (0.9-1.15); Partial Thromboplastin Time 34.2 SEC (24.5-34.5); Prothrombin Time 11.4 sec (9.3-11.8)
[2025-03-11] MEDS: LIDOCAINE 1% (LOCAL ANESTH.) PF 5ml SDV ID ONE (17:45)
[2025-03-11] MEDS: SODIUM CHLOR 0.9% PF (SALINE LOCK) 10ML VIAL/SYR IV SCH (21:15)
[2025-03-12] VITALS (7 sets, daily range): BP systolic 129–154; BP diastolic 59–75; PULSE 80–87; RESP 16–19; TEMP 97.5–98.4; O2SAT 92–99
--- NOTE | 2025-03-12 09:57 | DVHPN2 ---
Reviewed: Care Plan, H&P, Labs, Medications, Previous Orders, Radiology Changes from previous H/P or p: No Changes Objective Vitals Vital Signs Date Time Temp Pulse Resp B/P (MAP) Pulse Ox O2 Delivery O2 Flow Rate FiO2 03/12/25 08:53 138/65 03/12/25 01:00 97.9 83 19 92 97.9 03/11/25 20:00 Room Air* 0 21 Intake/Output Intake and Output 03/12/25 07:00 Intake Total 1490 ml Output Total 1200 ml Balance 290 ml Intake Oral 1240 ml IV Total 250 ml Output Urine Total 1200 ml # Voids 3 Medications Current Medications Medications Dose Ordered Sig/Valeriy Route Start Time Stop Time Status Last Admin Dose Admin Ceftriaxone Sodium 50 ml @ 100 mls/hr DAILY@09 IV 03/10/25 09:00 03/12/25 08:52 100 MLS/HR Vancomycin HCl 0 ml @ 0 mls/hr UD IV 03/09/25 20:15 Amlodipine Besylate 10 mg DAILY PO 03/10/25 10:00 03/12/25 08:53 10 MG Levothyroxine Sodium 25 mcg QAM@0600 PO 03/10/25 06:00 03/12/25 06:07 25 MCG Tamsulosin HCl 0.4 mg QPM PO 03/10/25 18:00 03/11/25 18:12 0.4 MG Atorvastatin Calcium 40 mg HS PO 03/09/25 22:00 03/11/25 21:09 40 MG Amlodipine Besylate 10 mg DAILY PO 03/10/25 10:00 UNV Levothyroxine Sodium 25 mcg QAM@0600 PO 03/10/25 06:00 UNV Tamsulosin HCl 0.4 mg QPM PO 03/10/25 18:00 UNV Atorvastatin Calcium 40 mg HS PO 03/09/25 22:00 UNV Diagnostic Test (Pha) 1 strip ACHS 03/09/25 22:00 03/12/25 06:20 1 STRIP Insulin Human Regular ACHS SC 03/09/25 22:00 03/12/25 06:19 2 UNITS Dextrose 50 ml UD PRN IV 03/09/25 20:15 Acetaminophen/ Hydrocodone Bitart 1 tab Q4HP PRN PO 03/09/25 20:15 03/11/25 15:01 1 TAB Ondansetron HCl 4 mg Q4HP PRN IV 03/09/25 20:15 Acetaminophen 650 mg Q6HP PRN PO 03/09/25 20:15 Vancomycin HCl 100 ml @ 200 mls/hr Q12H IV 03/10/25 16:00 03/12/25 03:09 200 MLS/HR Sodium Chloride 10 ml QSHIFT@10,22 IV 03/11/25 22:00 03/12/25 08:52 10 ML Laboratory Results Laboratory Tests 03/10/25 06:19 03/11/25 09:34 Coagulation Test 03/11/25 15:15 Prothrombin Time 11.4 sec (9.3-11.8) Prothrombin Time INR 1.08 (0.9-1.15) Activated Partial Thromboplast Time 34.2 SEC (24.5-34.5) Microbiology Microbiology Date/Time Source Procedure Growth Status 03/10/25 07:00 Nose MRSA Screen - Final Complete 03/09/25 13:02 Blood Blood Culture - Preliminary NO GROWTH AFTER 48 HOURS OF INCUBATION. Resulted Labs and/or images reviewed: Labs reviewed by me, Image(s) reviewed by me Assessment/Plan Assessment/Plan Acute osteomyelitis left 5th metatarsal: Vancomycin and Rocephin, consult for leaf sorter Dr. Olivier treated, advised six weeks IV antibiotics, no surgery Uncontrolled Diabetes type 2: Insulin sliding scale Hypertension Hypercholesterolemia Dementia History of peripheral vascular disease History of right BKA BPH : Flomax Hypothyroidism: Synthroid CKD Time spent 55 minutes Advanced care planning time 20 minutes Patient is full code Daughter Sorencia [phone] at bedside Plan discussed with: Patient My Orders Orders - MELODY GONZALEZ MD Procedure Category Date Status Time Pt Request For Service PT 03/11/25 Logged 11:27 Nursing Protocol Picc ALEXI 03/11/25 In Process 17:42 Change Dressing Prn ALEXI 03/11/25 In Process 17:42 PICC BD 03/11/25 Transmitted 17:42 Sodium Chloride Lock PHA 03/11/25 In Process (Saline Lock Ns) 22:00 Do Not Use Picc For [facility] 03/11/25 In Process Blood Cult 17:42 May Draw Blood From ALEXI 03/11/25 In Process Picc 17:42 Ok To Use Picc ALEXI 03/11/25 In Process 17:[address] [facility] 7/10/25 In Process Q7 Days 17:42 Date of Service: Mar 12, 2025 Billing Provider: MELODY GONZALEZ MD Common Visit Codes: [id number] INP/OBS CARE(HIGH) MELODY GONZALEZ MD Mar 12, 2025 09:57
--- NOTE | 2025-03-12 11:42 | DVH ---
Exam: US US GUIDED VASCULAR ACCESS Clinical History: picc line placement Comparison: None Findings: Targeted sonographic evaluation of the arm was obtained utilizing grayscale and color Doppler imaging . IMPRESSION: Sonographic assistance for peripherally inserted central line placement. Please refer to procedural r eport for detailed findings.
--- NOTE | 2025-03-12 11:45 | DVH ---
Left Lower Extremity Arterial Duplex Clinical History: LT FOOT WOUND Comparison: US LT LOW EXT ART DUPLEX on DOS: 03/04/25, US BILAT LOW EXT ART DUPLEX on DOS: 02/03/25 Technique: Duplex Doppler evaluation including color Doppler and spectral/pulsed waveform analysis of the lower extremity arteries was performed. Findings: LEFT: Peak systolic velocities are as follows: THREAD SEPARATOR 85 cm/s Deep femoral 66 cm/s SFA proximal 54 cm/s SFA mid-portion 80 cm/s SFA distal 69 cm/s Popliteal 68 cm/s Posterior tibial 0 cm/s Anterior tibial 62 cm/s Peroneal nv cm/s Dorsalis pedis 62 cm/s The waveforms are biphasic with diastolic flow. IMPRESSION: No hemodynamically significant stenosis based on peak systolic velocity criteria. Nonvisualization of flow in the left posterior tibial artery. REFERENCE VALUES, [facility]) vascular Imaging Lab Criteria: Peak systolic velocity rang es (in cm/sec) are as follows: <150 cm/s - <20 % stenosis 150-200 cm/s - 20-49% stenosis 200-300 cm/s - 50-75% stenosis >300 cm/s -> 75% stenosis
[2025-03-13] VITALS (8 sets, daily range): BP systolic 125–151; BP diastolic 58–79; PULSE 75–87; RESP 14–18; TEMP 97.3–98.6; O2SAT 93–97
--- NOTE | 2025-03-13 08:51 | DVHPN2 ---
Reviewed: Care Plan, H&P, Labs, Medications, Previous Orders, Radiology Changes from previous H/P or p: No Changes Objective Vitals Vital Signs Date Time Temp Pulse Resp B/P (MAP) Pulse Ox O2 Delivery O2 Flow Rate FiO2 03/13/25 05:00 98.4 84 17 138/58 (84) 97 98.4 03/12/25 20:00 Room Air* 0 21 Intake/Output Intake and Output 03/13/25 07:00 Intake Total 800 ml Balance 800 ml Intake Oral 450 ml IV Total 350 ml # Voids 3 Medications Current Medications Medications Dose Ordered Sig/Valeriy Route Start Time Stop Time Status Last Admin Dose Admin Ceftriaxone Sodium 50 ml @ 100 mls/hr DAILY@09 IV 03/10/25 09:00 03/12/25 08:52 100 MLS/HR Vancomycin HCl 0 ml @ 0 mls/hr UD IV 03/09/25 20:15 Amlodipine Besylate 10 mg DAILY PO 03/10/25 10:00 03/12/25 08:53 10 MG Levothyroxine Sodium 25 mcg QAM@0600 PO 03/10/25 06:00 03/12/25 06:07 25 MCG Tamsulosin HCl 0.4 mg QPM PO 03/10/25 18:00 03/12/25 16:03 0.4 MG Atorvastatin Calcium 40 mg HS PO 03/09/25 22:00 03/12/25 21:19 40 MG Amlodipine Besylate 10 mg DAILY PO 03/10/25 10:00 UNV Levothyroxine Sodium 25 mcg QAM@0600 PO 03/10/25 06:00 UNV Tamsulosin HCl 0.4 mg QPM PO 03/10/25 18:00 UNV Atorvastatin Calcium 40 mg HS PO 03/09/25 22:00 UNV Diagnostic Test (Pha) 1 strip ACHS 03/09/25 22:00 03/12/25 21:19 1 STRIP Insulin Human Regular ACHS SC 03/09/25 22:00 03/12/25 10:57 3 UNITS Dextrose 50 ml UD PRN IV 03/09/25 20:15 Acetaminophen/ Hydrocodone Bitart 1 tab Q4HP PRN PO 03/09/25 20:15 03/11/25 15:01 1 TAB Ondansetron HCl 4 mg Q4HP PRN IV 03/09/25 20:15 Acetaminophen 650 mg Q6HP PRN PO 03/09/25 20:15 Vancomycin HCl 100 ml @ 200 mls/hr Q12H IV 03/10/25 16:00 03/13/25 03:45 200 MLS/HR Sodium Chloride 10 ml QSHIFT@10,22 IV 03/11/25 22:00 03/12/25 21:24 10 ML Laboratory Results Laboratory Tests 03/10/25 06:19 03/11/25 09:34 03/13/25 06:50 HgA1c, TSH Test 03/12/25 10:24 Hemoglobin A1c 6.4 % A1C (<5.7) H Microbiology Microbiology Date/Time Source Procedure Growth Status 03/10/25 07:00 Nose MRSA Screen - Final Complete 03/09/25 13:02 Blood Blood Culture - Preliminary NO GROWTH AFTER 72 HOURS OF INCUBATION. Resulted Labs and/or images reviewed: Labs reviewed by me, Image(s) reviewed by me Assessment/Plan Assessment/Plan Acute osteomyelitis left 5th metatarsal: Vancomycin and Rocephin, consult for senior power plant operator Dr. Olivier appreciated, advised six weeks IV antibiotics, no surgery Uncontrolled Diabetes type 2: Insulin sliding scale Hypertension Hypercholesterolemia Dementia History of peripheral vascular disease History of right BKA BPH : Flomax Hypothyroidism: Synthroid CKD Time spent 55 minutes Advanced care planning time 20 minutes Patient is full code Daughter Jax [phone] at bedside Daughter Colette [phone] Plan discussed with: Patient My Orders Orders - MELODY GONZALEZ MD Procedure Category Date Status Time Lt Low Ext Art Duplex US 03/12/25 Resulted 09:47 * Exercise Teacher CONS 03/12/25 Transmitted Consult 12:11 Date of Service: Mar 13, 2025 Billing Provider: MELODY GONZALEZ MD Common Visit Codes: [id number] INP/OBS CARE(HIGH) MELODY GONZALEZ MD Mar 13, 2025 08:50
--- NOTE | 2025-03-14 08:01 | DVHDS2 ---
Discharge Summary Date of Admission Mar 09, 2025 at 19:03 Date of Discharge: Mar 13, 2025 Admitting Diagnosis Left foot infection Wounds: Osteomyelitis left foot Labs/Diagnostic Data: Laboratory Results Test 03/13/25 17:58 03/13/25 06:50 03/12/25 10:24 03/11/25 15:15 POC Glucose 111 mg/dl (70-106) Creatinine 1.09 mg/dL (0.700-1.30) Glomerular Filtration Rate Calc 67 mL/min (>90) Hemoglobin A1c 6.4 % A1C (<5.7) Prothrombin Time 11.4 sec (9.3-11.8) Prothrombin Time INR 1.08 (0.9-1.15) Activated Partial Thromboplast Time 34.2 SEC (24.5-34.5) Vancomycin Level Trough 16.7 ug/mL (5-10) Test 03/11/25 09:34 03/10/25 06:19 03/09/25 13:02 White Blood Count 4.8 10^3/uL (4.4-10.8) Red Blood Count 3.31 10^6/uL (4.5-5.90) Hemoglobin 8.8 g/dL (13.5-17.5) Hematocrit 26.8 % (41.0-53.0) Mean Corpuscular Volume 81.1 fL (80.0-100.0) Mean Corpuscular Hemoglobin 26.5 pg (28.0-32.0) Mean Corpuscular Hemoglobin Concent 32.7 g/dL (32.0-36.0) Red Cell Distribution Width 15.6 % (11.8-14.3) Platelet Count 308 10^3/uL (140-450) Mean Platelet Volume 9.2 fL (6.9-10.8) Neutrophils (%) (Auto) 52.1 % (37.0-80.0) Lymphocytes (%) (Auto) 27.3 % (10.0-50.0) Monocytes (%) (Auto) 8.7 % (0.0-12.0) Eosinophils (%) (Auto) 10.8 % (0.0-7.0) Basophils (%) (Auto) 1.1 % (0.0-2.0) Neutrophils # (Auto) 2.5 10 ^3/uL (1.6-8.6) Lymphocytes # (Auto) 1.3 10 ^3/uL (0.4-5.4) Monocytes # (Auto) 0.4 10 ^3/uL (0-1.3) Eosinophils # (Auto) 0.5 10 ^3/uL (0-0.8) Basophils # (Auto) 0.1 10 ^3/uL (0-0.2) Nucleated Red Blood Cells 0.0 % Sodium Level 143 mmol/L (136-145) Potassium Level 3.5 mmol/L (3.5-5.1) Chloride Level 109 mmol/L (98-107) Carbon Dioxide Level 23 mmol/L (20-31) Anion Gap 11 (5-15) Blood Urea Nitrogen 10 mg/dL (9-23) BUN/Creatinine Ratio 9.9 (10.0-20.0) Serum Glucose 79 mg/dL (74-106) Calcium Level 9.0 mg/dL (8.7-10.4) Random Vancomycin Level 11.8 ug/mL (5-10) Erythrocyte Sedimentation Rate 91 mm/hr (0-20) Lactic Acid Level 1.0 mmol/L (0.4-2.0) Other Laboratory Tests 03/13/25 06:50 03/11/25 09:34 03/10/25 06:19 Brief Hx & Hospital Course: 85-year-old male with a history of hypertension hypercholesterolemia dementia uncontrolled diabetes peripheral arterial disease history of right BKA BPH hypothyroidism CKD came in for infection of the left foot MRI showed osteomyelitis of the left 5th metatarsal placed on vancomycin and Rocephin podiatric consult for Dr. Olivier. Advised no surgery med to continue IV antibiotics for six weeks. [facility] authorized antibiotics Demarco for 12 days only in the senior living. Discharged to [facility] facility for IV antibiotics. After 12 days patient might have to be discharged to home on home health for continuation of IV antibiotics to finish a course of six weeks. Patient and family aware. Consults/Reason for consult Podiatric Dr. Olivier Operations or Procedures MRI left foot Condition at Discharge: Fair Final Diagnosis/Problems List Acute osteomyelitis left 5th metatarsal: Vancomycin and Rocephin, consult for innersole maker Dr. Olivier appreciated, advised six weeks IV antibiotics, no surgery Uncontrolled Diabetes type 2: Insulin sliding scale Hypertension Hypercholesterolemia Dementia History of peripheral vascular disease History of right BKA BPH : Flomax Hypothyroidism: Synthroid CKD Discharge Disposition: Longterm Facility SNF Discharge Physician in charge at time of: khan Will this Physician continue t: Yes Reason For Transfer: continue care Discharge Instruct/Medications Diet: Consistent carbohydrate Activity: Light activity Follow Up/Referral: Follow up with the senior living Dr Medications: Rocephin and vancomycin for six weeks for osteomyelitis See list for other meds Scheduled Alendronate Sodium (Alendronate Sodium), 1 TAB PO QWEEKLY, (Reported) Amlodipine Besylate (Amlodipine Besylate), 1 TAB PO DAILY Aspirin (Aspir-Low), 81 MG PO DAILY, (Reported) Atorvastatin Calcium (Atorvastatin Calcium), 1 TAB PO DAILY, (Reported) Cholecalciferol (Vitamin D3), 2,000 UNIT OR DAILY, (Reported) Ferrous Sulfate (Ferrous Sulfate), 325 MG PO EOD Finasteride (Finasteride), 1 TAB PO DAILY Fluconazole (Fluconazole), 200 MG PO DAILY Gabapentin (Gabapentin), 100 MG PO TID, (Reported) Hydralazine Hcl (Hydralazine Hcl), 2 PO BID, (Reported) Nifedipine (Nifedipine Er), 1 TAB PO DAILY, (Reported) Olanzapine (Olanzapine), 1 TAB PO HS Tamsulosin Hcl (Flomax), 1 CAP PO DAILY Thiamine Hcl (Vitamin B-1), 100 MG PO DAILY Ticagrelor Base (Brilinta), 90 MG PO BID, (Reported) Miscellaneous Medications Heparin Sodium (Porcine) (Heparin Sodium Lock Flush), 10 UNT IV, (Reported) Insulin Glargine (Basaglar Kwikpen), 100 UNIT SC, (Reported) Insulin Lispro (Insulin Lispro Kwikpen), 100 UNIT SC, (Reported) 39 (Time taken for discharge summary 39 minutes) Discharge Statement: "Patient was advised to return to the ER or call 911 if any headaches, dizziness, shortness of breath, chest pain, abdominal pain, bleeding, fevers, or worsening of medical condition. Patient was counseled about treatment plan, medications, possible side effects, patientverbalized understanding. All questions were answered to the best of my ability. This discharge took greater then 30 minutes in planning, reviewing documentation, counseling the patient, and discussing with other team members." ASSESSMENT ASSESSMENT Hospital Course Improved Assessment Acute osteomyelitis left 5th metatarsal: Vancomycin and Rocephin, consult for innersole maker Dr. Olivier appreciated, advised six weeks IV antibiotics, no surgery Uncontrolled Diabetes type 2: Insulin sliding scale Hypertension Hypercholesterolemia Dementia History of peripheral vascular disease History of right BKA BPH : Flomax Hypothyroidism: Synthroid CKD Date of Service: Mar 14, 2025 Billing Provider: MELODY KHAN MD Common Visit Codes: 77551-[id number]/OBS DISCH DAY >30min MELODY KHAN MD Mar 14, 2025 08:01
== END 2025-03-13 22:03 | DRG 637 ==
LOC: ER 12:15 → CENTRAL 19:03 → OVERFLOW 19:03 → CENTRAL 21:37
PROVIDERS: ADMIT Family Medicine; ATTEND Family Medicine
PROC: 02HV33Z Insertion of Infusion Device into Superior Vena Cava, Percutaneous Approach (ICD-10-PCS; principal; 2025-03-11)
PROC: B548ZZA Ultrasonography of Superior Vena Cava, Guidance (ICD-10-PCS; 2025-03-11)
DX: E11.69 Type 2 diabetes mellitus with other specified complication (principal); G93.41 Metabolic encephalopathy; M86.172 Other acute osteomyelitis, left ankle and foot; E03.9 Hypothyroidism, unspecified; E78.00 Pure hypercholesterolemia, unspecified; F03.90 Unspecified dementia, unspecified severity, without behavioral disturbance, psychotic disturbance, mood disturbance, and anxiety; N18.9 Chronic kidney disease, unspecified; N40.0 Benign prostatic hyperplasia without lower urinary tract symptoms; I12.9 Hypertensive chronic kidney disease with stage 1 through stage 4 chronic kidney disease, or unspecified chronic kidney disease; E11.22 Type 2 diabetes mellitus with diabetic chronic kidney disease; L08.9 Local infection of the skin and subcutaneous tissue, unspecified; E11.51 Type 2 diabetes mellitus with diabetic peripheral angiopathy without gangrene; Z79.4 Long term (current) use of insulin; Z79.82 Long term (current) use of aspirin; Z89.511 Acquired absence of right leg below knee; Z79.899 Other long term (current) drug therapy
CPT/HCPCS: 36415; 36569; 73700; 73718; 76937; 80048; 80202; 82565; 82962; 83036; 83605; 85025; 85610; 85652; 85730; 87040; 87081; 87205; 93926; 96365; 97163; G0378; J1815